=== PATIENT | female | born 1935 | race Caucasian/White ===

== ENCOUNTER 2019-07-07 15:02 | Observation (INO) | payer OTHER, SELFPAY ==
--- NOTE | ~2019-07-07 | XR_ITS ---
EXAMINATION: XR ERCP EXAM DATE: 07/09/2019 12:07 INDICATION: Choledocholithiasis. TECHNIQUE: Fluoroscopy used during XR ERCP performed by Dr. Satish Rosales MD. The DAP for this pr ocedure was 0.63 mGym2. Correlation made with CT abdomen 07/07/2019 FINDINGS: The common bile duct was cannulated, injected. There is severe common bile duct and modera te intrahepatic biliary duct dilation. There is no filling defect identified on images available. Co rrelate with procedure note. IMPRESSION: Fluoroscopy used during XR ERCP. Severe CBD dilation. Reviewed, dictated and finalized at location A.
--- NOTE | ~2019-07-07 | XR_ITS ---
EXAMINATION: XR chest 1V portable DATE: 07/07/2019 15:54 INDICATION: Epigastric pain TECHNIQUE: frontal view of the chest was obtained. COMPARISON: Chest radiograph dated 12/25/2017 FINDINGS: The lungs remain clear with no focal airspace opacities, pulmonary edema, pleural effusion or pneumot horax. The cardiomediastinal silhouette is normal. Moderate degenerative skeletal changes in the spin e and at both shoulders. IMPRESSION: 1. No acute cardiopulmonary disease. Reviewed, dictated and finalized at location A.
--- NOTE | ~2019-07-07 | CT_ITS ---
EXAMINATION: CT abdomen pelvis w con DATE: 07/07/2019 16:59 INDICATION: Epigastric pain. TECHNIQUE: Computed tomography (CT) of the abdomen and pelvis was performed with 100 mL Omnipaque-350 intravenous contrast. Automated exposure control and iterative reconstruction technique were employe d. The dose-length product was 479.05 mGy-cm. COMPARISON: 12/15/2017 FINDINGS: Mild bronchiectasis at the bilateral lung bases. Peripheral reticular opacities in the lower lungs wh ich could represent atelectasis or nonspecific interstitial pneumonia (NSIP)pattern chronic interstit ial lung disease. Heart size is normal. No pericardial or pleural effusion. Small sliding-type hiatal hernia. Again seen is intra and extra hepatic biliary ductal dilation which could be related to prio r cholecystectomy with surgical clips at the gallbladder fossa. There is however subtle heterogeneous attenuation within the lumen of the distal common bile duct and could not exclude internal debris or obstructing gallstones. Mild focal hepatic steatosis at the ligamentum teres. Spleen, pancreas, bila teral adrenal glands and kidneys are normal. Mild diffuse bladder wall thickening. Small focus of gas within the bladder. Pelvic floor relaxation. The uterus is not identified and has likely been surgic ally resected. There is moderate colonic diverticulosis with a sigmoid predominance. There is no adj acent inflammatory change to suggest diverticulitis. Small bowel and appendix are normal. No free in traperitoneal gas or fluid. No pathologically enlarged abdominal or pelvic lymphadenopathy. There is calcified atherosclerosis of the aorta and many of the other arteries. Severe lumbar facet osteoarthr itis. Anterior fusion at L5-S1. Moderate bilateral hip osteoarthritis. IMPRESSION: 1. Intra and extra hepatic biliary ductal dilation which could be related to prior cholecystectomy ho wever there is suggestion of subtle gallstones versus debris within the distal common bile duct. [place] with liver function tests and consider MRCP for further evaluation. 2. Tiny focus of gas within the bladder with diffuse mild wall thickening which could be related to c ystitis. Correlate with urinalysis and for history of recent catheterization/instrumentation. 3. Diverticulosis. 4. Small sliding-type hiatal hernia. Reviewed, dictated and finalized at location A. IMPRESSION: 1. Intra and extra hepatic biliary ductal dilation which could be related to pr ior cholecystectomy however there is suggestion of subtle gallstones versus liliam ris within the distal common bile duct. Correlate with liver function tests and consider MRCP for further evaluation. 2. Tiny focus of gas within the bladder with diffuse mild wall thickening which could be related to cystitis. Correlate with urinalysis and for history of rec ent catheterization/instrumentation. 3. Diverticulosis. 4. Small sliding-type hiatal hernia.
--- NOTE | ~2019-07-07 | MR_ITS ---
EXAMINATION: MR MRCP wo/w con/w 3D wo ind DATE: 07/08/2019 13:01 INDICATION: Dilated bile ducts. Abnormal liver function tests. TECHNIQUE: Magnetic resonance imaging (MRI) of the abdomen was performed without and with 15 mL Multi Jabari intravenous contrast. Sequences included coronal T2-weighted FS FSE, coronal T2-weighted FSE, a xial T1-weighted LAVA, coronal FS FIESTA, axial dual-echo T1-weighted SPGR, coronal lava-FLEX, sagitt al T2-weighted FSE, axial T2-weighted FSE, and axial DWI. Thick-slab T2-weighted FSE images were obta ined for magnetic resonance cholangiopancreatography (MRCP). Maximum intensity projection 3-D reconst ructions of the volumetric data were created by the technologist. Postcontrast sequences included cor onal LAVA-flex and time course of axial T1-weighted LAVA. COMPARISON: MRCP 12/16/2017, CT abdomen and pelvis 07/07/2019 FINDINGS: ABDOMEN MRI: There is severe intrahepatic biliary duct dilatation. The common duct is dilated to 16 m m. The gallbladder is absent. There is a 6 mm lesion of increased T2-weighted signal intensity in the spleen, likely benign. The pancreas, adrenal glands, and kidneys are normal. There are no dilated lo ops of bowel. ABDOMEN MRCP: There is intrahepatic and extrahepatic biliary duct dilatation. There is a 4 mm stone i n the common duct. IMPRESSION: 1. 4 mm nonobstructing stone in the common bile duct. 2. Severe intrahepatic and extrahepatic biliary duct dilatation, stable from 12/16/2017. Reviewed, dictated and finalized at location A. IMPRESSION: 1. 4 mm nonobstructing stone in the common bile duct. 2. Severe intrahepatic and extrahepatic biliary duct dilatation, stable from .
[2019-07-07 15:04] VITALS: BP 186/73; PULSE 58; RESP 18; TEMP 36.6; O2SAT 99
--- NOTE | 2019-07-07 15:17 | ECG_ITS ---
Measurements Intervals [place] Rate: 67 P: 65 PA: 131 QRS: 19 QRSD: 113 T: 49 QT: 408 QTc: 431 Interpretive Statements SINUS RHYTHM INTRAVENTRICULAR CONDUCTION DELAY BORDERLINE ST ABNORMALITY- ANTERIOR LEADS BORDERLINE ECG Electronically Signed On 07-08-2019 7:14:31 CDT by Jeff Verma D.O.
--- NOTE | 2019-07-07 15:27 | ED.GENADULT ---
HPI - General Adult General Chief complaint: Unspecified <DAIANA Linder Last Filed: 07/07/19 20:16> Stated complaint: I need to be checked out. <DAIANA Linder Last Filed: 07/07/19 20:16> Time Seen by Provider: 07/07/19 15:09 <DAIANA Linder Last Filed: 07/07/19 20:16> Source: patient <DAIANA Linder Last Filed: 07/07/19 20:16> Mode of arrival: ambulatory <DAIANA Linder Last Filed: 07/07/19 20:16> Limitations: no limitations <DAIANA Linder Last Filed: 07/07/19 20:16> History of Present Illness HPI narrative: Patient is an 84-year-old female who presents to emergency department for evaluation of epigastric abdominal pain that is been present for the last several hours is an aching pain in the epigastrium which subsided just prior to arrival but came per request of family members patient. On arrival to emergency department resting comfortably in no distress. Patient notes last year she had a bout of pancreatitis. Patient denies radiation of pain or pain in other locations. Patient denies recent illness or sick contacts <DAIANA Linder Last Filed: 07/07/19 20:16> Related Data Home medications: Home Medications Medication Instructions Recorded Confirmed aspirin [Adult Low Dose Aspirin] 81 mg PO DAILY 07/07/19 07/07/19 bimatoprost [Lumigan] 1 drp OPHTHALMIC (EYE) QPM 07/07/19 07/07/19 bisoprolol fumarate 5 mg PO DAILY 07/07/19 07/07/19 levothyroxine 75 mcg PO DAILY 07/07/19 07/07/19 lisinopril 20 mg PO DAILY 07/07/19 07/07/19 simvastatin 20 mg PO DAILY 07/07/19 07/07/19 timolol maleate 1 drp OPHTHALMIC (EYE) DAILY 07/07/19 07/07/19 <DAIANA Linder Last Filed: 07/07/19 20:16> Allergies/adverse reactions: Allergies Allergy/AdvReac Type Severity Reaction Status Date / Time No Known Allergies Allergy Verified 07/07/19 15:20 <Huang Zuleta PA-C - Last Filed: 07/07/19 20:16> Review of Systems Review of Systems: All systems reviewed & are unremarkable except as noted in HPI and below <Huang Zuleta PA-C - Last Filed: 07/07/19 20:16> PMFSH Past Medical History Medical History: Medical History (Updated 07/08/19 @ 12:01 by Tanja Styles PA-C) Hyperlipidemia Hypertension Hypothyroidism Osteoarthritis Pancreatitis <Huang Zuleta PA-C - Last Filed: 07/07/19 20:16> Surgical History Surgical History: Surgical History (Updated 07/08/19 @ 11:34 by Tanja Styles PA-C) H/O hysterectomy for benign disease History of cholecystectomy ~1979 History of knee replacement Bilateral <Huang Zuleta PA-C - Last Filed: 07/07/19 20:16> Family History Family History: Family History (Updated 07/08/19 @ 11:34 by Tanja Styles PA-C) Mother Congestive heart failure Sibling Congestive heart failure Father Pancreatic cancer <Huang Zuleta PA-C - Last Filed: 07/07/19 20:16> Social History Social History: Social History (Updated 07/08/19 @ 11:36 by Tanja Styles PA-C) Social History: Ms. Flores lives alone at home. She has 6 adult children. She designates her daughter, Gisele Tejeda, as her POA. She would like to be a DNR. Smoking status: Never smoker Alcohol intake: never Substance use: never Living arrangements: alone Occupation/Education: retired Gender identity (if verbalized by the patient): Female Spiritual care concerns: No <Huang Zuleta PA-C - Last Filed: 07/07/19 20:16> Exam Narrative: Exam Narrative: GENERAL: Well-appearing, well-nourished, and in no acute distress. HEAD: Normocephalic, atraumatic. EYES: PERRLA and EOMI. ENT: Nares clear, no rhinorrhea or epistaxis. Mucous membranes moist. CHEST: Clear to auscultation. No respiratory distress. No wheezes rales or rhonchi HEART: Regular rate and rhythm. No murmur heard. Normal peripheral pulses. ABDOMEN: Soft, epi
[2019-07-07 15:36] LABS: Basophils Percent Auto 0.3 % (0.2-1.2); Eosinophils Absolute Auto 0.2 K/mm3 (0-0.3); Eosinophils Percent Auto 2.4 % (0-4.4); Hematocrit 37.5 % (37.0-47.0); Hemoglobin 12.3 g/dL (12.0-15.0); Immature Granulocyte Absolute 0.02 K/mm3 (0.00-0.031); Immature Granulocyte Percent A 0.3 % (0-0.5); Lymphocytes Percent Auto 27.9 % (18.3-44.2); Mean Corpuscular HGB Conc 32.8 g/dl (32-36); Mean Corpuscular Hemoglobin 29.7 pg (26-34); Mean Corpuscular Volume 90.6 fl (80-100); Mean Platelet Volume 10.3 fl (7.4-10.4); Monocytes Absolute Auto 0.3 K/mm3 (0.1-0.6); Neutrophils Absolute Auto 4.4 K/mm3 (1.3-6.7); Neutrophils Percent Auto 64.1 % (45.5-73.1); Platelet Count Result 211 k/mm3 (150-375); Red Blood Count 4.14 M/mm3 (4.2-5.4); Red Cell Distribution Width 12.1 % (11.5-14.5); White Blood Count 6.8 K/mm3 (4.5-10.0)
[2019-07-07 15:47] LABS: Partial Thromboplastin Time 30.3 SECONDS (22.3-36.8); Prothrombin Time 12.4 Seconds (11.1-14.7)
[2019-07-07 15:49] LABS: Alanine Aminotransferase 46 U/L (4-35); Albumin Level 4.5 g/dL (3.5-5.1); Alkaline Phosphatase 132 U/L (38-126); Aspartate Amino Transferase 91 U/L (14-36); Bilirubin,Total 1.2 mg/dL (0.2-1.3); Blood Urea Nitrogen 24 mg/dL (7-17); Calcium 9.3 mg/dL (8.4-10.2); Carbon Dioxide 28 mmol/L (22-30); Chloride 103 mmol/L (98-107); Estimated CRCL calculation 40 ml/min; Estimated Glomerular Filt Rate 53; Glucose 96 mg/dL (65-105); Lipase 354 U/L (23-300); Potassium 4.5 mmol/L (3.4-5.0); Sodium 138 mmol/L (137-145)
[2019-07-07 16:00] LABS: Troponin I < 0.012 ng/mL (0.000-0.034)
[2019-07-07] MEDS: FAMOTIDINE 20 MG/2 ML VIAL IV PUSH (16:07)
[2019-07-07] MEDS: SODIUM CHLORIDE 0.9% IV 1,000 ML 999 ML IV CONT (16:07)
[2019-07-07] MEDS: BELLADONNA ALK/PHENOB ELIX 10 ML, MAG HYDROX/ALUMINUM HYD/SIMETH 30 ML, LIDOCAINE HCL 2... PO (16:07)
--- NOTE | 2019-07-07 17:16 | PC.NURSE ---
Pt unable to void at this time.
[2019-07-07] MEDS: MORPHINE SULFATE 4 MG/ML INJ IV PUSH (17:58)
[2019-07-07 18:56] LABS: Troponin I < 0.012 ng/mL (0.000-0.034)
--- NOTE | 2019-07-07 19:38 | PC.NURSE ---
Bedside report to ROGELIO Levin, to continue care.
[2019-07-07 19:45] VITALS: BP 155/77; PULSE 68; RESP 14; O2SAT 97
[2019-07-07 20:37] LABS: Add Urine Microscopic? YES; Appearance Urine Clear (Clear); Bacteria Urine Trace /hpf; Bilirubin Urine Negative (Negative); Blood Urine Negative (Negative); Color Urine Yellow (Yellow); Glucose Urine UA Negative (Negative); Ketones Urine Negative (Negative); Leukocyte Esterase Ur 1+ LEU/UL (Negative); Mucus Urine Rare /lpf; Nitrate Urine Negative (Negative); Protein Urine Negative (Negative); Specific Grav Ur 1.026 (1.001-1.035); Urobilinogen Urine Negative mg/dL (<2.0)
[2019-07-07 21:55] VITALS: BP 147/82; PULSE 62; RESP 18; O2SAT 100
[2019-07-07 22:00] VITALS: BP 154/83; PULSE 75; RESP 20; TEMP 36.8; O2SAT 93
[2019-07-07 22:39] VITALS: BMI 28.8
--- NOTE | 2019-07-07 22:46 | ADMGEN ---
This patient, Cara Flores, was admitted to [facility] Surg Room 313-01. Patient/family oriented to hospital policies and general routines including ID bracelet, bed and alarms, visiting hours, pain management, procedures, bathroom and other care routines, personal items, smoking policy, room service/diet, and visiting hours. Valuables list has been completed. Information on how to activate the Rapid Response Team has been discussed. Patient/Family are encouraged to report perceived risks to care and to ask questions if they do not understand what they are told or what they should do.
[2019-07-07] MEDS: LACTATED RINGERS 1,000 ML 125 ML IV CONT (23:05)
[2019-07-07 23:58] LABS: Troponin I < 0.012 ng/mL (0.000-0.034)
[2019-07-08] VITALS (16 sets, daily range): BP systolic 115–172; BP diastolic 48–92; PULSE 57–74; RESP 16–22; TEMP 36.7–38; O2SAT 93–98
[2019-07-08] MEDS: LACTATED RINGERS 1,000 ML 125 ML IV CONT (06:06)
[2019-07-08 06:20] LABS: Eosinophils Percent Auto 0.7 % (0-4.4); Hematocrit 34.8 % (37.0-47.0); Hemoglobin 11.5 g/dL (12.0-15.0); Immature Granulocyte Absolute 0.01 K/mm3 (0.00-0.031); Immature Granulocyte Percent A 0.2 % (0-0.5); Lymphocytes Absolute Auto 0.66 K/mm3 (0.9-3.2); Lymphocytes Percent Auto 16.2 % (18.3-44.2); Mean Corpuscular Hemoglobin 29.7 pg (26-34); Mean Corpuscular Volume 89.9 fl (80-100); Mean Platelet Volume 10.4 fl (7.4-10.4); Monocytes Absolute Auto 0.2 K/mm3 (0.1-0.6); Monocytes Percent Auto 5.2 % (2.6-8.5); Neutrophils Absolute Auto 3.2 K/mm3 (1.3-6.7); Neutrophils Percent Auto 77.7 % (45.5-73.1); Platelet Count Result 156 k/mm3 (150-375); Red Blood Count 3.87 M/mm3 (4.2-5.4); Red Cell Distribution Width 12.3 % (11.5-14.5); White Blood Count 4.1 K/mm3 (4.5-10.0)
[2019-07-08 06:38] LABS: Alanine Aminotransferase 287 U/L (4-35); Albumin Level 3.8 g/dL (3.5-5.1); Alkaline Phosphatase 163 U/L (38-126); Aspartate Amino Transferase 346 U/L (14-36); Bilirubin,Total 3.6 mg/dL (0.2-1.3); Blood Urea Nitrogen 17 mg/dL (7-17); Calcium 8.8 mg/dL (8.4-10.2); Carbon Dioxide 28 mmol/L (22-30); Chloride 106 mmol/L (98-107); Estimated CRCL calculation 45 ml/min; Estimated Glomerular Filt Rate 60; Glucose 103 mg/dL (65-105); Potassium 3.9 mmol/L (3.4-5.0); Sodium 139 mmol/L (137-145)
--- NOTE | 2019-07-08 08:15 | WPDGICN ---
Assessment and Plan Assessment and plan (1) Abdominal pain: Code(s): R10.9 - Unspecified abdominal pain Status: Acute Assessment and Plan: Abdominal pain with prompt improvement with antacids suggest dyspepsia. Plan is for EGD this morning. We will continue trial of proton pump inhibitors. (2) Elevated LFTs: Code(s): R79.89 - Other specified abnormal findings of blood chemistry Status: Acute Assessment and Plan: Elevated LFTs suggest she may have passed common bile duct sludge or debris. CT scan in the emergency room suggested dilated biliary tree. Plan is to assess more thoroughly with MRCP. Liver function tests will continue to be monitored. GI Consult Note Consult date/time: 07/08/19 08:15 HPI: Cara Flores is a 84 year old female Seen in evaluation at the request of the emergency room. Patient in usual state till yesterday afternoon . patient developed rather sudden severe epigastric pain in the afternoon. This lasted for several hours. In the emergency room she obtain rather significant prompt relief with the oral antacid trial. patient did have recurrence of this pain briefly but has subsequently abated. patient states that she had a similar intense pain 1-1/2 years ago. At that time was found to have pancreatitis. MRCP and subsequent ERCP revealed a normal biliary tree. Last evening her liver tests were slightly elevated and continued be elevated this morning. Patient denies any nausea or vomiting. Lipase in the emergency room was essentially normal. Family history is noncontributory. Patient has a distant history of cholecystectomy. Past medical history is significant for hypertension, hypothyroidism, elevated cholesterol. No known drug allergies. Review of Systems Review of Systems: All systems reviewed & are unremarkable except as noted in HPI and below PMFSH Past Medical History Medical History Hypertension Pancreatitis Surgical History Surgical History H/O hysterectomy for benign disease Family History Family History Mother Congestive heart failure Sibling Congestive heart failure Social History Social History Smoking status: Never smoker Alcohol intake: never Substance use: never Gender identity (if verbalized by the patient): Female Spiritual care concerns: No Meds Home Medications and Allergies Home Medications Medication Instructions Recorded Confirmed Type aspirin [Adult Low Dose Aspirin] 81 mg PO DAILY 07/07/19 07/07/19 History bimatoprost [Lumigan] 1 drp OPHTHALMIC (EYE) QPM 07/07/19 07/07/19 History bisoprolol fumarate 5 mg PO DAILY 07/07/19 07/07/19 History levothyroxine 75 mcg PO DAILY 07/07/19 07/07/19 History lisinopril 20 mg PO DAILY 07/07/19 07/07/19 History simvastatin 20 mg PO DAILY 07/07/19 07/07/19 History timolol maleate 1 drp OPHTHALMIC (EYE) DAILY 07/07/19 07/07/19 History Allergies Allergy/AdvReac Type Severity Reaction Status Date / Time No Known Allergies Allergy Verified 07/07/19 15:20 Vital Signs Vital Signs - 24 hr 07/07/19 15:04 07/07/19 19:45 07/07/19 21:55 Temperature 36.6 C Pulse Rate 58 L 68 62 Respiratory Rate 18 14 18 Blood Pressure 186/73 H 155/77 H 147/82 H Pulse Oximetry 99 97 100 07/07/19 22:00 07/08/19 00:00 07/08/19 02:00 Temperature 36.8 C 36.9 C Pulse Rate 75 57 L 58 L Respiratory Rate 20 20 Blood Pressure 154/83 H 123/92 H Pulse Oximetry 93 98 07/08/19 04:00 07/08/19 06:00 Temperature 36.7 C Pulse Rate 66 72 Respiratory Rate 18 Blood Pressure 172/91 H Pulse Oximetry 94 Exam Narrative: Exam Narrative: Physical exam reveals patient to be alert. Vital signs are stable. HEENT exam unremarkable. She is anicteric. Cass
[2019-07-08] MEDS: bisoproloL fumarate 5 MG TABLET PO (08:20)
[2019-07-08 08:53] LABS: Bilirubin Direct 1.4 mg/dL (0-0.3); Bilirubin Indirect 1.9 mg/dL (0-1.1); Bilirubin,Total 4.3 mg/dL (0.2-1.3)
[2019-07-08] MEDS: LACTATED RINGERS 1,000 ML 150 ML IV CONT (09:04)
--- NOTE | 2019-07-08 09:05 | SUR.PREOP ---
PT TRANSPORTED TO ENDO VIA STRETCHER ON TELEMETRY. PLACED ON MONITOR IN ENDOSCOPY, OCC. PJC'S/PVC'S, NOTED OTHERWISE SINUS RYTHYM DENIES ANY SOB, CHEST PAIN/PRESSURE OR LIGHTHEADEDNESS.
--- NOTE | 2019-07-08 09:06 | WPDANESEPPF ---
Anes - Initial Pre Proc Eval Procedure: Operation Date: 07/08/19 09:00 Proposed Procedures p Esophagogastroduodenoscopy - Satish Rosales MD Date/Time: 07/08/19 09:06 Surgeon: Mercy Wade DO Pre Op Diagnosis: Abdominal pain, Elevated liver enzymes Patient Data Age: 84 Gender: F Height: 5 ft 7 in Weight: 83.4 kg Last Vital Signs Temp 100.4 F H 07/08/19 08:54 Pulse 72 07/08/19 08:54 Resp 18 07/08/19 08:54 BP 144/63 H 07/08/19 08:54 Pulse Ox 94 07/08/19 08:54 Allergies Allergy/AdvReac Type Severity Reaction Status Date / Time No Known Allergies Allergy Verified 07/07/19 15:20 Home Medications Medication Instructions Recorded Confirmed Type aspirin [Adult Low Dose Aspirin] 81 mg PO DAILY 07/07/19 07/07/19 History bimatoprost [Lumigan] 1 drp OPHTHALMIC (EYE) QPM 07/07/19 07/07/19 History bisoprolol fumarate 5 mg PO DAILY 07/07/19 07/07/19 History levothyroxine 75 mcg PO DAILY 07/07/19 07/07/19 History lisinopril 20 mg PO DAILY 07/07/19 07/07/19 History simvastatin 20 mg PO DAILY 07/07/19 07/07/19 History timolol maleate 1 drp OPHTHALMIC (EYE) DAILY 07/07/19 07/07/19 History Laboratory Tests 07/07/19 07/07/19 07/07/19 15:22 15:23 15:23 WBC 6.8 K/mm3 K/mm3 (4.5-10.0) RBC 4.14 M/mm3 L M/mm3 (4.2-5.4) Hgb 12.3 g/dL g/dL (12.0-15.0) Hct 37.5 % % (37.0-47.0) MCV 90.6 fl fl (80-100) MCH 29.7 pg pg (26-34) MCHC 32.8 g/dl g/dl (32-36) RDW 12.1 % % (11.5-14.5) Plt Count 211 k/mm3 k/mm3 (150-375) MPV 10.3 fl fl (7.4-10.4) Immature Gran % (Auto) 0.3 % % (0-0.5) Neut % (Auto) 64.1 % % (45.5-73.1) Lymph % (Auto) 27.9 % % (18.3-44.2) [place] % (Auto) 5.0 % % (2.6-8.5) Eos % (Auto) 2.4 % % (0-4.4) Baso % (Auto) 0.3 % % (0.2-1.2) Lymph # (Auto) 1.90 K/mm3 K/mm3 (0.9-3.2) [place] # (Auto) 0.3 K/mm3 K/mm3 (0.1-0.6) Eos # (Auto) 0.2 K/mm3 K/mm3 (0-0.3) Baso # (Auto) 0.0 K/mm3 K/mm3 (0.0-0.1) Abs Immat Gran (auto) 0.02 K/mm3 K/mm3 (0.00-0.031) Absolute Neuts (auto) 4.4 K/mm3 K/mm3 (1.3-6.7) Absolute Nucleated RBC 0.0 K/mm3 K/mm3 (0.0-0.012) Nucleated RBC % 0.0 % % (0.0-0.2) PT 12.4 Seconds Seconds (11.1-14.7) INR 1.0 APTT 30.3 SECONDS SECONDS (22.3-36.8) Sodium 138 mmol/L mmol/L (137-145) Potassium 4.5 mmol/L mmol/L (3.4-5.0) Chloride 103 mmol/L mmol/L (98-107) Carbon Dioxide 28 mmol/L mmol/L (22-30) BUN 24 mg/dL H mg/dL (7-17) Creatinine 1.00 mg/dL mg/dL (0.7-1.0) Estim Creat Clear Calc 40 ml/min ml/min Estimated GFR 53 L (59 - ) Glucose 96 mg/dL mg/dL (65-105) Calcium 9.3 mg/dL mg/dL (8.4-10.2) Total Bilirubin 1.2 mg/dL mg/dL (0.2-1.3) Direct Bilirubin Indirect Bilirubin AST 91 U/L H U/L (14-36) ALT 46 U/L H U/L (4-35) Alkaline Phosphatase 132 U/L H U/L (38-126) Troponin I < 0.012 ng/mL ng/mL (0.000-0.034) Total Protein 7.0 g/dL g/dL (6.3-8.2) Albumin 4.5 g/dL g/dL (3.5-5.1) Lipase 354 U/L H U/L (23-300) Urine Color Urine Appearance Urine pH Ur Specific Veteran Urine Protein Urine Glucose (UA) Urine Ketones Ur Blood (Man) Urine Nitrate Urine Bilirubin Urine Urobilinogen Leukocyte Esterase Rfl Urine RBC Urine WBC Urine Bacteria Urine Mucus 07/07/19 07/07/19 07/07/19 18:27 20:26 22:54 WBC RBC Hgb Hct
[2019-07-08] MEDS: BENZOCAINE (*SP) 60 ML SPRAY CAN (HURRICAINE) 1 SPRAY MUCOUS MEM (09:09)
--- NOTE | 2019-07-08 11:11 | PM.IMHP ---
H&P: HPI History of Present Illness Chief complaint: Abdominal pain, Elevated liver enzymes Narrative: Date of admission: 07/07/2019 Date of service: 07/08/2019 Cara Flores is a 84 year old female with a PMH significant for hypertension and hyperlipidemia who presented to the emergency department on 07/07/2019 with complaints of epigastric pain. Around 1:00 p.m. on Monday, 07/06, she developed a feeling of aching discomfort in her chest and epigastric region. She stated that she felt as if she needed to burp but could not. This pain did not radiate. She attempted to drink water and a diet Coke to reduce her symptoms and help her belch, which did not alleviate her symptoms. This episode lasted approximately 1 hour. She tells me her children were concerned about this episode and urged her to go to the emergency department for evaluation. She was hesitant to do so as her symptoms had resolved. However, upon arrival to the emergency department she had another brief episode of epigastric pain. This resolved swiftly with antacid therapy. She denied any nausea or vomiting. She denied associated chest pain, shortness of breath, palpitations, diaphoresis, or anxiety. CT abdomen/pelvis revealed biliary duct dilation with suggestion of subtle gallstones versus debris within the distal common bile duct. Her liver enzymes were elevated. Her lipase was very mildly elevated. Her troponins were negative. At this time, she denies any epigastric pain. She is feeling in her usual state of health. Her urinalysis was abnormal at presentation, however she denies dysuria, hematuria, frequency, suprapubic discomfort, flank pain, or back pain. She does endorse urgency and noted that her urine was much darker than normal. She denies subjective fevers or chills. Her appetite has been good. Review of Systems Review of Systems: Narrative: A 12 point review of systems was reviewed with pertinent positives and negatives as per HPI. [facility] Past Medical History Medical History (Updated 07/08/19 @ 12:01 by Tanja Styles PA-C) Hyperlipidemia Hypertension Hypothyroidism Osteoarthritis Pancreatitis Surgical History Surgical History (Updated 07/08/19 @ 11:34 by Tanja Styles PA-C) H/O hysterectomy for benign disease History of cholecystectomy ~1980 History of knee replacement Bilateral Family History Family History (Updated 07/08/19 @ 11:34 by Tanja Styles PA-C) Mother Congestive heart failure Sibling Congestive heart failure Father Pancreatic cancer Social History Social History (Updated 07/08/19 @ 11:36 by Tanja Styles PA-C) Social History: Ms. Folres lives alone at home. She has 6 adult children. She designates her daughter, Gisele Tejeda, as her POA. She would like to be a DNR. Smoking status: Never smoker Alcohol intake: never Substance use: never Living arrangements: alone Occupation/Education: retired Gender identity (if verbalized by the patient): Female Spiritual care concerns: No Meds Home Medications and Allergies Home Medications Medication Instructions Recorded Confirmed Type aspirin [Adult Low Dose Aspirin] 81 mg PO DAILY 07/07/19 07/07/19 History bimatoprost [Lumigan] 1 drp OPHTHALMIC (EYE) QPM 07/07/19 07/07/19 History bisoprolol fumarate 5 mg PO DAILY 07/07/19 07/07/19 History levothyroxine 75 mcg PO DAILY 07/07/19 07/07/19 History lisinopril 20 mg PO DAILY 07/07/19 07/07/19 History simvastatin 20 mg PO DAILY 07/07/19 07/07/19 History timolol maleate 1 drp OPHTHALMIC (EYE) DAILY 07/07/19 07/07/19 History Allergies Allergy/AdvReac Type Severity Reaction Status Date / Time No Known Allergies Allergy Verified 07/07/19 15:20 Vital Signs Vital Signs - 24 hr 07/07/19 15:04 07/07/19 19:45 07/07/19 21:55 Temperature 97.9 F Pulse Rate 58 L 68 62 Respiratory Rate 18 14 18 Blood Pressure 186/73 H 155/77 H 147/82 H Pulse Oximetry 99 97
[2019-07-08] MEDS: TIMOLOL MALEATE 0.5% OP SOLN 5 ML BTL 1 DROP EACH EYE (11:18)
[2019-07-08] MEDS: PANTOPRAZOLE SODIUM IV 40 MG VIAL IV PUSH (11:20)
[2019-07-08 12:42] LABS: Lipase 91 U/L (23-300)
[2019-07-08] MEDS: LACTATED RINGERS 1,000 ML 80 ML IV CONT ×2 (13:33→22:04)
[2019-07-08] MEDS: ACETAMINOPHEN 325 MG TABLET 650 MG PO (13:50)
[2019-07-08] MEDS: LATANOPROST 0.005% OP SOLN 2.5 ML BTL 1 DROP EACH EYE (16:55)
[2019-07-09] VITALS (16 sets, daily range): BP systolic 140–169; BP diastolic 55–99; PULSE 61–97; RESP 16–22; TEMP 37.1–37.7; O2SAT 91–100
[2019-07-09] MEDS: LEVOTHYROXINE SODIUM 75 MCG TABLET PO (06:00)
[2019-07-09 06:08] LABS: Basophils Percent Auto 0.2 % (0.2-1.2); Eosinophils Percent Auto 0.6 % (0-4.4); Hematocrit 33.4 % (37.0-47.0); Hemoglobin 10.9 g/dL (12.0-15.0); Immature Granulocyte Absolute 0.01 K/mm3 (0.00-0.031); Immature Granulocyte Percent A 0.2 % (0-0.5); Lymphocytes Absolute Auto 0.85 K/mm3 (0.9-3.2); Lymphocytes Percent Auto 18.2 % (18.3-44.2); Mean Corpuscular HGB Conc 32.6 g/dl (32-36); Mean Corpuscular Hemoglobin 29.8 pg (26-34); Mean Corpuscular Volume 91.3 fl (80-100); Mean Platelet Volume 10.8 fl (7.4-10.4); Monocytes Absolute Auto 0.3 K/mm3 (0.1-0.6); Monocytes Percent Auto 6.7 % (2.6-8.5); Neutrophils Absolute Auto 3.5 K/mm3 (1.3-6.7); Neutrophils Percent Auto 74.1 % (45.5-73.1); Platelet Count Result 150 k/mm3 (150-375); Red Blood Count 3.66 M/mm3 (4.2-5.4); Red Cell Distribution Width 12.6 % (11.5-14.5); White Blood Count 4.7 K/mm3 (4.5-10.0)
[2019-07-09 06:37] LABS: Alanine Aminotransferase 196 U/L (4-35); Albumin Level 3.6 g/dL (3.5-5.1); Alkaline Phosphatase 184 U/L (38-126); Aspartate Amino Transferase 144 U/L (14-36); Bilirubin,Total 3.3 mg/dL (0.2-1.3); Blood Urea Nitrogen 14 mg/dL (7-17); Calcium 8.4 mg/dL (8.4-10.2); Carbon Dioxide 25 mmol/L (22-30); Chloride 107 mmol/L (98-107); Estimated CRCL calculation 45 ml/min; Estimated Glomerular Filt Rate 60; Glucose 137 mg/dL (65-105); Potassium 3.4 mmol/L (3.4-5.0); Sodium 139 mmol/L (137-145)
[2019-07-09 07:11] LABS: Thyroid Stimulating Hormone Reflex 0.098 uIU/mL (0.465-4.68)
[2019-07-09 07:36] LABS: Lipase 3626 U/L (23-300)
--- NOTE | 2019-07-09 08:52 | WPDANESEPPF ---
Anes - Initial Pre Proc Eval Procedure: Operation Date: 07/08/19 09:00 Proposed Procedures p Esophagogastroduodenoscopy - Satish Rosales MD Operation Date: 07/09/19 09:30 Proposed Procedures p Endoscopic Retro Cholangiopancreatogram - Satish Rosales MD Date/Time: 07/09/19 08:52 Surgeon: Stacey De La Vega PA-C Pre Op Diagnosis: Abdominal pain, Elevated liver enzymes Patient Data Age: 84 Gender: F Height: 5 ft 7 in Weight: 83.4 kg Last Vital Signs Temp 37.4 C 07/09/19 06:00 Pulse 84 07/09/19 06:00 Resp 16 07/09/19 06:00 BP 140/66 07/09/19 06:00 Pulse Ox 93 07/09/19 06:00 Allergies Allergy/AdvReac Type Severity Reaction Status Date / Time No Known Allergies Allergy Verified 07/07/19 15:20 Home Medications Medication Instructions Recorded Confirmed Type aspirin [Adult Low Dose Aspirin] 81 mg PO DAILY 07/07/19 07/07/19 History bimatoprost [Lumigan] 1 drp OPHTHALMIC (EYE) QPM 07/07/19 07/07/19 History bisoprolol fumarate 5 mg PO DAILY 07/07/19 07/07/19 History levothyroxine 75 mcg PO DAILY 07/07/19 07/07/19 History lisinopril 20 mg PO DAILY 07/07/19 07/07/19 History simvastatin 20 mg PO DAILY 07/07/19 07/07/19 History timolol maleate 1 drp OPHTHALMIC (EYE) DAILY 07/07/19 07/07/19 History Laboratory Tests 07/07/19 07/07/19 07/07/19 15:22 15:23 15:23 WBC 6.8 K/mm3 K/mm3 (4.5-10.0) RBC 4.14 M/mm3 L M/mm3 (4.2-5.4) Hgb 12.3 g/dL g/dL (12.0-15.0) Hct 37.5 % % (37.0-47.0) MCV 90.6 fl fl (80-100) MCH 29.7 pg pg (26-34) MCHC 32.8 g/dl g/dl (32-36) RDW 12.1 % % (11.5-14.5) Plt Count 211 k/mm3 k/mm3 (150-375) MPV 10.3 fl fl (7.4-10.4) Immature Gran % (Auto) 0.3 % % (0-0.5) Neut % (Auto) 64.1 % % (45.5-73.1) Lymph % (Auto) 27.9 % % (18.3-44.2) [place] % (Auto) 5.0 % % (2.6-8.5) Eos % (Auto) 2.4 % % (0-4.4) Baso % (Auto) 0.3 % % (0.2-1.2) Lymph # (Auto) 1.90 K/mm3 K/mm3 (0.9-3.2) [place] # (Auto) 0.3 K/mm3 K/mm3 (0.1-0.6) Eos # (Auto) 0.2 K/mm3 K/mm3 (0-0.3) Baso # (Auto) 0.0 K/mm3 K/mm3 (0.0-0.1) Abs Immat Gran (auto) 0.02 K/mm3 K/mm3 (0.00-0.031) Absolute Neuts (auto) 4.4 K/mm3 K/mm3 (1.3-6.7) Absolute Nucleated RBC 0.0 K/mm3 K/mm3 (0.0-0.012) Nucleated RBC % 0.0 % % (0.0-0.2) PT 12.4 Seconds Seconds (11.1-14.7) INR 1.0 APTT 30.3 SECONDS SECONDS (22.3-36.8) Sodium 138 mmol/L mmol/L (137-145) Potassium 4.5 mmol/L mmol/L (3.4-5.0) Chloride 103 mmol/L mmol/L (98-107) Carbon Dioxide 28 mmol/L mmol/L (22-30) BUN 24 mg/dL H mg/dL (7-17) Creatinine 1.00 mg/dL mg/dL (0.7-1.0) Estim Creat Clear Calc 40 ml/min ml/min Estimated GFR 53 L (59 - ) Glucose 96 mg/dL mg/dL (65-105) Calcium 9.3 mg/dL mg/dL (8.4-10.2) Total Bilirubin 1.2 mg/dL mg/dL (0.2-1.3) Direct Bilirubin Indirect Bilirubin AST 91 U/L H U/L (14-36) ALT 46 U/L H U/L (4-35) Alkaline Phosphatase 132 U/L H U/L (38-126) Troponin I < 0.012 ng/mL ng/mL (0.000-0.034) Total Protein 7.0 g/dL g/dL (6.3-8.2) Albumin 4.5 g/dL g/dL (3.5-5.1) Lipase 354 U/L H U/L (23-300) TSH (Reflex) Free T4 07/08/19 07/08/19 07/09/19 08:30 08:32 05:40 WBC 4.7 K/mm3 K/mm3 (4.5-10.0) RBC 3.66 M/mm3 L M/mm3 (4.2-5.4) Hgb 10.9 g/dL L g/dL (12.0-15.0) Hct 33.4 % L % (37.0-47.0) MCV 91.3 fl fl (80-100) MCH 29.8 pg pg (26-34) MCHC 32.6 g/dl g/dl (32-36) RDW 12.6 % % (11.5-14.5) Plt Count 150
[2019-07-09] MEDS: LACTATED RINGERS 1,000 ML 150 ML IV CONT ×2 (08:56→16:35)
[2019-07-09 10:52] LABS: Free T4 Free Thyroxine Reflex 0.88 ng/dL (0.78-2.19)
[2019-07-09] MEDS: bisoproloL fumarate 5 MG TABLET PO (12:36)
[2019-07-09] MEDS: TIMOLOL MALEATE 0.5% OP SOLN 5 ML BTL 1 DROP EACH EYE (12:36)
[2019-07-09] MEDS: lisinopriL 20 MG TABLET PO (12:37)
[2019-07-09] MEDS: ENOXAPARIN 40 MG/0.4 ML SYRINGE SUB-Q (12:37)
[2019-07-09 12:56] LABS: Total Triiodothyronine (T3) 0.64 NG/ML (0.97-1.69)
[2019-07-09] MEDS: ONDANSETRON INJ 4 MG/2 ML VIAL IV PUSH (13:18)
[2019-07-09] MEDS: MORPHINE SULFATE 4 MG/ML INJ IV PUSH (13:18)
--- NOTE | 2019-07-09 13:30 | OP_ITS ---
DATE OF PROCEDURE: 07/09/2019 PROCEDURE: Endoscopic retrograde cholangiopancreatography plus sphincterotomy and common bile duct balloon clearance. PREOPERATIVE DIAGNOSES: Abnormal magnetic resonance cholangiopancreatography and choledocholithiasis. POSTOPERATIVE DIAGNOSIS: Abnormal magnetic resonance cholangiopancreatography and choledocholithiasis with periampullary diverticulum. DESCRIPTION OF PROCEDURE: Informed consent for the ERCP was obtained from the patient. The risks, benefits, alternatives, and indications, these were all discussed thoroughly with the patient prior to starting sedation. The risks include, but are not limited to, adverse reaction to medications including allergies, the risk of bleeding and possible need for transfusion, the risk of perforation and possible need for surgery, and the risk for missed pathology. The patient voiced clear understanding, agreed to proceed. The patient was sedated with general anesthesia. GoCardlessn side-viewing endoscope was passed through the esophagus, which appeared normal. Stomach was seen in its entirety including U-turn revealed superficial erosion in the gastric antrum. Duodenum revealed normal bulb and sweep to 2nd portion, and in the 2nd portion of the duodenum, ampulla diverticulum was noted. Within a diverticulum, ampulla of Vater was identified and cannulated. Subsequent opacification of the common bile duct revealed suspicion of the distal common bile duct gallstone. For this reason, an 8 mm sphincterotomy was performed. A 9 to 12 mm balloon was used and sludge and debris was withdrawn from the common bile duct. The patient tolerated the procedure well with no immediate complications. PLAN: Is to monitor liver function tests, and slowly advance diet. Discharge in the morning if stable. D I MT: Stu
--- NOTE | 2019-07-09 16:20 | PM.IMPN ---
Progress Note: A&P Assessment and Plan (1) Acute pancreatitis: Qualifiers: Acute pancreatitis complication: no infection or necrosis Pancreatitis type: biliary Qualified Code(s): K85.10 - Biliary acute pancreatitis without necrosis or infection Code(s): K85.90 - Acute pancreatitis without necrosis or infection, unspecified Status: Acute Assessment and Plan: Lipase was elevated today at 3626. Lipase at admission was 91. LFTs are elevated with AST 144, ALT 196, and ALP 184. Bilirubin is also elevated at 3.3. CT abd/pelvis revealed suggestion of subtle gallstones versus debris in the distal common bile duct. MRCP revealed 4mm nonobstructing stone in the common bile duct with severe intrahepatic and extrahepatic biliary duct dilation. She underwent ERCP today by Dr. Rosales. She continues to endorse epigastric discomfort. She denies nausea and vomiting today. This is likely due to her cholelithiasis and biliary sludge/debris which has been treated following ERCP. Continue IV fluids Continue IV analgesics and antiemetics Discussed with Dr. Rosales and will plan to continue CLD at this time as tolerated Will check lipid panel Continue to monitor (2) Gastric ulcer: Qualifiers: Gastric ulcer chronicity: acute Gastric ulcer complication status: without hemorrhage or perforation Qualified Code(s): K25.3 - Acute gastric ulcer without hemorrhage or perforation Code(s): K25.9 - Gastric ulcer, unspecified as acute or chronic, without hemorrhage or perforation Status: Acute Assessment and Plan: Patient underwent EGD by Dr. Rosales 07/08/19 which revealed a few acute, superficial and benign appearing ulcers ranging in size from 4-6mm with no evidence of bleeding. Continue protonix 40mg PO QAM Avoid NSAIDs and ASA (3) Epigastric pain: Code(s): R10.13 - Epigastric pain Status: Acute Assessment and Plan: Patient endorsed epigastric pain without radiation. She had two episodes of intense pain and now complains of lingering discomfort. Cardiac workup was performed with negative troponins and no ST abnormalities. EGD revealed superficial ulcers in the antrum. Her pain is likely multifactorial due to her gastric ulcers and pancreatitis. Plan as above (4) Elevated LFTs: Code(s): R79.89 - Other specified abnormal findings of blood chemistry Status: Acute Assessment and Plan: LFTs are elevated but are trending down. CT abdomen/pelvis reveals intra and extra hepatic biliary ductal dilation with suggestion of subtle gallstones vs debris in distal common bile duct. MRCP revealed 4mm nonobstructing stone in the common bile duct with severe intrahepatic and extrahepatic biliary duct dilation. She underwent ERCP today by Dr. Rosales. Gastroenterology has been consulted and recommendations are appreciated Continue to trend LFTs Hold simvastatin (5) Abnormal urinalysis: Code(s): R82.90 - Unspecified abnormal findings in urine Status: Acute Assessment and Plan: Urinalysis performed in ED has 1+ leukocyte esterase and 10-15 WBC. She reports dysuria and urgency. She had a fever 07/08/19 with Tmax 100.4F and she is afebrile today. Urine cultures and sensitivities are pending. Begin IV ceftriaxone Await urine culture and sensitivities Continue IV fluids and antipyretics (6) Hypertension: Qualifiers: Hypertension type: essential hypertension Qualified Code(s): I10 - Essential (primary) hypertension Code(s): I10 - Essential (primary) hypertension Status: Acute Assessment and Plan: Blood pressure were reviewed and are elevated but I suspect that this is due to pain. BP this afternoon was 142/55 Continue bisoprolol Continue lisinopril Will add hydralazine IV PRN Continue to monitor (7) TSH deficiency: Code(s): E03.8 - Other specified hypothyroidism Status: Acute
[2019-07-09] MEDS: LATANOPROST 0.005% OP SOLN 2.5 ML BTL 1 DROP EACH EYE (18:03)
[2019-07-09 19:22] LABS: Alveolar/Arterial O2 Gradient 97.6 mmHg; Base Excess ABG 0.2 mEq/l (+/-2.0); Fractional Inspired Oxygen 28 %; HCO3 ABG 23.9 mEq/l (22.0-26.0); Oxygen Content ABG 16.4 %vol (16.0-22.0); Oxygen Saturation ABG 92.2 % (95.0-100.0); Oxyhemoglobin 91.9 % THb (90.0-100.0); PCO2 ABG 35.6 mmHg (35.0-45.0); PO2 FiO2 Ratio Arterial Blood 2.14 %; Total Hemoglobin 12.7 g/dL (12.0-18.0); pH ABG 7.445 (7.350-7.450)
[2019-07-09 19:23] LABS: Device NASAL CANNULA; Modified Allen's Test Pass; Site Drawn RIGHT RADIAL
[2019-07-10] VITALS (9 sets, daily range): BP systolic 129–151; BP diastolic 49–83; PULSE 57–81; RESP 16–20; TEMP 36.6–37.2; O2SAT 94–100
[2019-07-10] MEDS: LACTATED RINGERS 1,000 ML 125 ML IV CONT ×3 (01:23→18:47)
[2019-07-10] MEDS: LEVOTHYROXINE SODIUM 50 MCG TABLET PO (05:27)
[2019-07-10 05:45] LABS: Hematocrit 33.4 % (37.0-47.0); Hemoglobin 10.9 g/dL (12.0-15.0); Mean Corpuscular HGB Conc 32.6 g/dl (32-36); Mean Corpuscular Hemoglobin 29.8 pg (26-34); Mean Corpuscular Volume 91.3 fl (80-100); Mean Platelet Volume 10.7 fl (7.4-10.4); Platelet Count Result 120 k/mm3 (150-375); Red Blood Count 3.66 M/mm3 (4.2-5.4); Red Cell Distribution Width 12.9 % (11.5-14.5); White Blood Count 5.3 K/mm3 (4.5-10.0)
[2019-07-10 05:59] LABS: Alanine Aminotransferase 146 U/L (4-35); Albumin Level 3.4 g/dL (3.5-5.1); Alkaline Phosphatase 178 U/L (38-126); Aspartate Amino Transferase 103 U/L (14-36); Bilirubin Direct 2.5 mg/dL (0-0.3); Bilirubin Indirect 1.3 mg/dL (0-1.1); Blood Urea Nitrogen 14 mg/dL (7-17); Calcium 8.3 mg/dL (8.4-10.2); Carbon Dioxide 26 mmol/L (22-30); Chloride 105 mmol/L (98-107); Cholesterol 134 mg/dL (0-200); Estimated CRCL calculation 45 ml/min; Estimated Glomerular Filt Rate 60; Glucose 132 mg/dL (65-105); HDL Direct 39 mg/dL; Magnesium 1.7 mg/dL (1.6-2.3); Phosphorus 4.3 mg/dL (2.5-4.5); Potassium 3.4 mmol/L (3.4-5.0); Sodium 139 mmol/L (137-145); Triglycerides 106 mg/dL (<150)
[2019-07-10 06:10] LABS: LDL Cholesterol Direct 63 mg/dL
[2019-07-10] MEDS: ENOXAPARIN 40 MG/0.4 ML SYRINGE SUB-Q (09:02)
[2019-07-10] MEDS: lisinopriL 20 MG TABLET PO (09:03)
[2019-07-10] MEDS: PANTOPRAZOLE 40 MG TABLET PO (09:03)
[2019-07-10] MEDS: TIMOLOL MALEATE 0.5% OP SOLN 5 ML BTL 1 DROP EACH EYE (09:04)
[2019-07-10] MEDS: bisoproloL fumarate 5 MG TABLET PO (09:04)
--- NOTE | 2019-07-10 09:17 | WPDGIPROGNO ---
Progress Note: A&P Additional Plan Patient had abdominal bloating and gas this distention of epigastric area after ERCP yesterday. Was very sleepy and sedated after heavy morphine dose last evening. She feels pain free this morning. No abdominal pain at present. Physical exam reveals her to be alert. Afebrile. Anicteric. Lungs are clear. Heart without murmur. Abdomen is soft and nontender. No organomegaly. Labs reveal lipase 3626 yesterday. Before endoscopy., total bilirubin 5.0 today. Direct bilirubin 2.5. AST 103, ALT 146, Impression 1. Pancreatitis. Likely secondary to gallstones. She could also have mild pancreatitis after ERCP. Improved clinical exam this morning suggests she is recovering. Still some concern over elevated bilirubin and lipase elevation. Plan is to monitor LFTs. Gradually advanced diet given her asymptomatic findings this morning. Two. Choledocholithiasis. Patient now status post ERCP , feeling is that the common bile duct is now clear. Subjective Date/time seen: 07/10/19 09:17 Objective Data Vital Signs Vital Signs: Vital Signs - 24 hr 07/09/19 11:36 07/09/19 11:46 07/09/19 11:56 Temperature Pulse Rate 86 79 79 Respiratory Rate 21 H 21 H 20 Blood Pressure 169/71 H 158/72 H 157/65 H Pulse Oximetry 100 100 100 07/09/19 12:06 07/09/19 12:16 07/09/19 12:30 Temperature 37.4 C Pulse Rate 78 77 74 Respiratory Rate 21 H 22 H 16 Blood Pressure 149/67 H 160/68 H 163/64 H Pulse Oximetry 96 98 97 07/09/19 12:36 07/09/19 14:00 07/09/19 16:00 Temperature 37.5 C Pulse Rate 78 61 89 Respiratory Rate 16 Blood Pressure 142/55 H Pulse Oximetry 91 07/09/19 20:00 07/09/19 22:00 07/10/19 00:00 Temperature 37.7 C H Pulse Rate 97 89 81 Respiratory Rate 20 Blood Pressure 149/80 H Pulse Oximetry 93 07/10/19 02:00 07/10/19 04:00 07/10/19 06:00 Temperature 37.2 C 36.9 C Pulse Rate 70 66 71 Respiratory Rate 20 18 Blood Pressure 131/49 L 129/52 L Pulse Oximetry 100 98 Intake/Output Intake/Output: Intake & Output 07/07/19 07/08/19 07/09/19 07/10/19 23:59 23:59 23:59 23:59 Intake Total 1100 3840 1690 2250 Output Total 300 Balance 1100 3540 1690 2250 Meds/Results Medications: Active Medications Generic Name Dose Route Start Last Admin Trade Name Freq PRN Reason Stop Dose Admin Acetaminophen 650 mg 07/09/19 23:39 Tylenol Tablet PO Q4H PRN Mild Pain (1-3) or Fever > 100 Hydrocodone Bitart/Acetaminophen 1 tab 07/09/19 16:50 Hamlin 5-325 Mg PO Q6H PRN Pain Rated 4-6 Bisoprolol Fumarate 5 mg 07/08/19 09:00 07/10/19 09:04 Zebeta PO 5 mg DAILY KERRY Administration Enoxaparin Sodium 40 mg 07/09/19 09:00 07/10/19 09:02 Lovenox SUB-Q 40 mg DAILY KERRY Administration Hydralazine HCl 10 mg 07/09/19 16:39 Apresoline Hcl Inj IV PUSH Q8H PRN Blood Pressure - High SBP >180 Lactated Ringer's 1,000 mls @ 125 mls/hr 07/07/19 20:20 07/10/19 09:01 Lr - Lactated Ringers Iv IV CONT 125 mls/hr .Q8H KERRY Administration Ceftriaxone Sodium/Dextrose 1 gm in 50 mls @ 100 mls/hr 07/09/19 16:00 07/09/19 17:08 Rocephin 1 Gm/D5w 50 Ml IVPB Infused Q24H KERRY Infusion Latanoprost 1 drop 07/08/19 18:00 07/09/19 18:03 Xalatan EACH EYE 08/07/19 18:01 1 drop QPM KERRY Administration Levothyroxine Sodium 50 mcg 07/10/19 06:30 07/10/19 05:27 Synthroid PO 50 mcg DAILY@0630 KERRY Administration Lisinopril 20 mg 07/09/19 09:00 07/10/19 09:03 Prinivil PO 20 mg DAILY KERRY Administration Morphine Sulfate 4 mg 07/07/19 20:17 07/09/19 13:18 Morphine Sulfate Inj IV PUSH 4 mg Q2H PRN Administration Pain Rated 7-10 Ondansetron HCl 4 mg 07/07/19 20:17 07/09/19 13:18 Zofran Inj IV PUSH 4 mg Q4H PRN Administration Nausea Pantoprazole Sodium 40 mg 07/10/19 09:00 07/10/19 09:03 Protonix PO 40 mg QAM KERRY Administration T
[2019-07-10 10:49] LABS: Lipase 977 U/L (23-300)
[2019-07-10 10:53] LABS: Albumin Level 3.4 g/dL (3.5-5.1); Alkaline Phosphatase 167 U/L (38-126); Aspartate Amino Transferase 97 U/L (14-36); Bilirubin Direct 2.6 mg/dL (0-0.3); Bilirubin,Total 5.2 mg/dL (0.2-1.3)
[2019-07-10 10:59] LABS: Alanine Aminotransferase 124 U/L (4-35)
--- NOTE | 2019-07-10 13:24 | PM.IMPN ---
Progress Note: A&P Assessment and Plan (1) Acute pancreatitis: Qualifiers: Pancreatitis type: biliary Acute pancreatitis complication: no infection or necrosis Qualified Code(s): K85.10 - Biliary acute pancreatitis without necrosis or infection Code(s): K85.90 - Acute pancreatitis without necrosis or infection, unspecified Status: Acute Assessment and Plan: Lipase was elevated 07/08 at 3626, previously [address] abd/pelvis revealed suggestion of subtle gallstones versus debris in the distal common bile duct. MRCP revealed 4mm nonobstructing stone in the common bile duct with severe intrahepatic and extrahepatic biliary duct dilation. She underwent ERCP 07/[address] Rosales. Her pancreatitis is likely due to her cholelithiasis and biliary sludge/debris which has been treated following ERCP. Today, she reports that her pain is significantly better. She is passing flatus and had 2 bowel movements. She denies nausea and vomiting. Her lipase is trending down at 977 today. LFTs are trending down as well. Continue IV fluids, will decrease rate as she is tolerating PO intake well Continue antiemetics and analgesics as needed. Will plan to avoid all narcotics. She is tolerating PO intake well and diet will be advanced per GI Continue to monitor (2) Gastric ulcer: Qualifiers: Gastric ulcer chronicity: acute Gastric ulcer complication status: without hemorrhage or perforation Qualified Code(s): K25.3 - Acute gastric ulcer without hemorrhage or perforation Code(s): K25.9 - Gastric ulcer, unspecified as acute or chronic, without hemorrhage or perforation Status: Acute Assessment and Plan: Patient underwent EGD by Dr. Rosales 07/08/19 which revealed a few acute, superficial and benign appearing ulcers ranging in size from 4-6mm with no evidence of bleeding. Continue protonix 40mg PO QAM Avoid NSAIDs and ASA (3) Epigastric pain: Code(s): R10.13 - Epigastric pain Status: Acute Assessment and Plan: Patient endorsed epigastric pain without radiation which has resolved. Cardiac workup was performed with negative troponins and no ST abnormalities. EGD revealed superficial ulcers in the antrum. Her pain is likely multifactorial due to her gastric ulcers and pancreatitis. Plan as above (4) Elevated LFTs: Code(s): R79.89 - Other specified abnormal findings of blood chemistry Status: Acute Assessment and Plan: LFTs are elevated but are trending down. CT abdomen/pelvis reveals intra and extra hepatic biliary ductal dilation with suggestion of subtle gallstones vs debris in distal common bile duct. MRCP revealed 4mm nonobstructing stone in the common bile duct with severe intrahepatic and extrahepatic biliary duct dilation. She underwent ERCP today by Dr. Rosales. Gastroenterology is on board and recommendations are appreciated Continue to trend LFTs Hold simvastatin (5) Abnormal urinalysis: Code(s): R82.90 - Unspecified abnormal findings in urine Status: Acute Assessment and Plan: Urinalysis performed in ED has 1+ leukocyte esterase and 10-15 WBC. She reports dysuria and urgency which have improved. She had a fever 07/08/19 with Tmax 100.4F and she is afebrile for >24hr. Urine culture revealed klebsiella pneumoniae sensitive to ceftriaxone. Continue IV ceftriaxone Await urine culture and sensitivities Continue IV fluids and antipyretics (6) Hypertension: Qualifiers: Hypertension type: essential hypertension Qualified Code(s): I10 - Essential (primary) hypertension Code(s): I10 - Essential (primary) hypertension Status: Acute Assessment and Plan: Blood pressure were reviewed and are at target. Continue bisoprolol Continue lisinopril Will add hydralazine IV PRN Continue to monitor (7) TSH deficiency: Code(s): E03.8 - Other specified hypothyroidis
[2019-07-10] MEDS: LATANOPROST 0.005% OP SOLN 2.5 ML BTL 1 DROP EACH EYE (18:48)
[2019-07-11 02:00] VITALS: BP 161/57; PULSE 70; RESP 16; TEMP 36.8; O2SAT 91
[2019-07-11] MEDS: LACTATED RINGERS 1,000 ML 125 ML IV CONT (02:44)
[2019-07-11 06:00] VITALS: BP 153/59; PULSE 72; RESP 16; TEMP 37.3; O2SAT 94
[2019-07-11] MEDS: LEVOTHYROXINE SODIUM 50 MCG TABLET PO (06:17)
[2019-07-11 06:28] LABS: Hematocrit 30.2 % (37.0-47.0); Hemoglobin 9.9 g/dL (12.0-15.0); Immature Platelet Fraction Pct 4.4 % (0.9-11.2); Mean Corpuscular HGB Conc 32.8 g/dl (32-36); Mean Corpuscular Hemoglobin 29.5 pg (26-34); Mean Corpuscular Volume 89.9 fl (80-100); Mean Platelet Volume 11.3 fl (7.4-10.4); Platelet Count Result 120 k/mm3 (150-375); Red Blood Count 3.36 M/mm3 (4.2-5.4); White Blood Count 3.6 K/mm3 (4.5-10.0)
[2019-07-11 06:34] LABS: Alanine Aminotransferase 100 U/L (4-35); Alkaline Phosphatase 165 U/L (38-126); Aspartate Amino Transferase 62 U/L (14-36); Bilirubin,Total 3.4 mg/dL (0.2-1.3); Blood Urea Nitrogen 11 mg/dL (7-17); Calcium 8.4 mg/dL (8.4-10.2); Carbon Dioxide 30 mmol/L (22-30); Chloride 106 mmol/L (98-107); Estimated CRCL calculation 51 ml/min; Estimated Glomerular Filt Rate > 60; Glucose 104 mg/dL (65-105); Lipase 393 U/L (23-300); Potassium 3.3 mmol/L (3.4-5.0); Sodium 138 mmol/L (137-145)
[2019-07-11 08:00] VITALS: PULSE 72; RESP 16; O2SAT 94
[2019-07-11] MEDS: POTASSIUM CHLORIDE 20 MEQ TABLET 40 MEQ PO (09:05)
[2019-07-11] MEDS: lisinopriL 20 MG TABLET PO (09:06)
[2019-07-11] MEDS: PANTOPRAZOLE 40 MG TABLET PO (09:06)
[2019-07-11] MEDS: ENOXAPARIN 40 MG/0.4 ML SYRINGE SUB-Q (09:06)
[2019-07-11] MEDS: TIMOLOL MALEATE 0.5% OP SOLN 5 ML BTL 1 DROP EACH EYE (09:07)
[2019-07-11] MEDS: bisoproloL fumarate 5 MG TABLET PO (09:07)
--- NOTE | 2019-07-11 09:14 | WPDGIPROGNO ---
Progress Note: A&P Additional Plan Patient alert and comfortable this morning. Vital signs stable. She is anicteric. Lungs are clear to auscultation and percussion. Heart is without murmur. Abdomen is soft nontender benign no masses no tenderness. Bowel sounds are normal. Labs reveal WBC 3.6, hemoglobin 9 time 0.9, platelets 120 K. total bili 3.4, direct bilirubin 2.6, AST 62, ALT 100, alk-phos 165. LFTs are improving. Lipase 393. Also improved impression 1. Choledocholithiasis. Appears improving after ERCP and common duct clearance. Suggest follow-up LFTs after discharge. Low-fat diet suggested. Okay to discharge from my perspective. 2. Pancreatitis. Likely secondary to common bile duct stone passage. Clinically improving. 3. Small gastric ulcers. These were identified at time of EGD. Patient should avoid nonsteroidal anti-inflammatory agents. Continue proton pump inhibitor after discharge. Plan is for advancing to low-fat diet. Discharge anticipated today. Follow-up in the office if pain recurs. Subjective Date/time seen: 07/11/19 09:14 Objective Data Vital Signs Vital Signs: Vital Signs - 24 hr 07/10/19 09:42 07/10/19 12:00 07/10/19 14:00 Temperature 36.6 C Pulse Rate 57 L 70 Respiratory Rate 16 Blood Pressure 136/56 L Pulse Oximetry 94 95 07/10/19 22:00 07/11/19 02:00 07/11/19 06:00 Temperature 37.2 C 36.8 C 37.3 C Pulse Rate 75 70 72 Respiratory Rate 20 16 16 Blood Pressure 151/83 H 161/57 H 153/59 H Pulse Oximetry 96 91 94 Intake/Output Intake/Output: Intake & Output 07/08/19 07/09/19 07/10/19 07/11/19 23:59 23:59 23:59 23:59 Intake Total 3840 1690 4450 1250 Output Total 300 1150 3100 Balance 3540 1690 3300 -1850 Meds/Results Medications: Active Medications Generic Name Dose Route Start Last Admin Trade Name Freq PRN Reason Stop Dose Admin Acetaminophen 650 mg 07/09/19 23:39 Tylenol Tablet PO Q4H PRN Mild Pain (1-3) or Fever > 100 Bisoprolol Fumarate 5 mg 07/08/19 09:00 07/11/19 09:07 Zebeta PO 5 mg DAILY KERRY Administration Enoxaparin Sodium 40 mg 07/09/19 09:00 07/11/19 09:06 Lovenox SUB-Q 40 mg DAILY KERRY Administration Hydralazine HCl 10 mg 07/09/19 16:39 Apresoline Hcl Inj IV PUSH Q8H PRN Blood Pressure - High SBP >180 Ceftriaxone Sodium/Dextrose 1 gm in 50 mls @ 100 mls/hr 07/09/19 16:00 07/10/19 17:15 Rocephin 1 Gm/D5w 50 Ml IVPB Infused Q24H KERRY Infusion Latanoprost 1 drop 07/08/19 18:00 07/10/19 18:48 Xalatan EACH EYE 08/07/19 18:01 1 drop QPM KERRY Administration Levothyroxine Sodium 50 mcg 07/10/19 06:30 07/11/19 06:17 Synthroid PO 50 mcg DAILY@0630 KERRY Administration Lisinopril 20 mg 07/09/19 09:00 07/11/19 09:06 Prinivil PO 20 mg DAILY KERRY Administration Ondansetron HCl 4 mg 07/07/19 20:17 07/09/19 13:18 Zofran Inj IV PUSH 4 mg Q4H PRN Administration Nausea Pantoprazole Sodium 40 mg 07/10/19 09:00 07/11/19 09:06 Protonix PO 40 mg QAM KERRY Administration Timolol Maleate 1 drop 07/08/19 09:00 07/11/19 09:07 Timoptic 0.5% Ophth Soln EACH EYE 1 drop DAILY KERRY Administration Radiology Results: ITS Impressions Chest X-Ray 07/07/19 16:05 IMPRESSION: 1. No acute cardiopulmonary disease. Abdomen/Pelvis CT 07/07/19 17:01 IMPRESSION: 1. Intra and extra hepatic biliary ductal dilation which could be related to prior cholecystectomy however there is suggestion of subtle gallstones versus debris within the distal common bile duct. Correlate with liver function tests and consider MRCP for further evaluation. 2. Tiny focus of gas within the bladder with diffuse mild wall thickening which could be related to cystitis. Correlate with urinalysis and for history of recent catheterization/instrumentation. 3. Diverticulosis. 4. Small sliding-type hiatal hernia. MRCP 07/08/19 13:08 IMPRES
--- NOTE | 2019-07-11 13:59 | PM.DS ---
DS: Admitting Diagnosis Admitting Diagnosis Admitting Diagnosis: Unspecified abdominal pain DS: Discharge Diagnosis Discharge Diagnosis (1) Acute pancreatitis: Qualifiers: Acute pancreatitis complication: no infection or necrosis Pancreatitis type: biliary Qualified Code(s): K85.10 - Biliary acute pancreatitis without necrosis or infection Code(s): K85.90 - Acute pancreatitis without necrosis or infection, unspecified Status: Acute (2) Gastric ulcer: Qualifiers: Gastric ulcer chronicity: acute Gastric ulcer complication status: without hemorrhage or perforation Qualified Code(s): K25.3 - Acute gastric ulcer without hemorrhage or perforation Code(s): K25.9 - Gastric ulcer, unspecified as acute or chronic, without hemorrhage or perforation Status: Acute (3) Epigastric pain: Code(s): R10.13 - Epigastric pain Status: Resolved (4) Elevated LFTs: Code(s): R79.89 - Other specified abnormal findings of blood chemistry Status: Acute (5) Hypertension: Qualifiers: Hypertension type: essential hypertension Qualified Code(s): I10 - Essential (primary) hypertension Code(s): I10 - Essential (primary) hypertension Status: Chronic (6) TSH deficiency: Code(s): E03.8 - Other specified hypothyroidism Status: Acute (7) Urinary tract infection: Qualifiers: Urinary tract infection type: acute cystitis Hematuria presence: without hematuria Qualified Code(s): N30.00 - Acute cystitis without hematuria Code(s): N39.0 - Urinary tract infection, site not specified Status: Acute DS: Summary Hospital Course Reason for hospitalization: Abdominal pain Hospital Course: Cara Flores is a 84 year old female with a PMH significant for pancreatitis, hypertension, hypothyroidism, and hyperlipidemia who presented to the emergency department on 07/07/2019 with complaints of epigastric pain. Initial workup in the ED revealed WBC 4,700, Hb 10.9, Hct 33.4, sodium 138, potassium 4.5, chloride 103, CO2 28, BUN 24, Cr 1.0, calcium 9.3, AST 91, ALT 46, ALP 132, troponin <0.012, and lipase 354. UA revealed leukocyte esterase and WBC. CT abd/pelvis revealed intra and extra hepatic biliary ductal dilation with suggestion of subtle gallstones versus debris within the distal common bile duct. She was treated with IV protonix and IV fluids. She was admitted to the hospitalist service and GI was consulted. She underwent EGD by Dr. Rosales 07/08/19 which revealed a few acute, superficial, and benign appearing ulcers ranging in size from 4-6mm with no evidence of bleeding. She underwent MRCP which revealed a 4mm nonobstructing stone in the common bile duct with severe intrahepatic and extrahepatic biliary duct dilation. She underwent ERCP by Dr. Rosales 07/09/19. She was also treated for a UTI with IV ceftriaxone as she reported dysuria. Urine culture revealed klebsiella pneumoniae sensitive to ceftriaxone and she was discharged on PO cefdinir. TSH was low at 0.098, free T4 is 0.88, and total T3 is 0.64. Levothyroxine was decreased to 50mcg. Her pain resolved and her LFTs, bilirubin, and lipase trended down. She was instructed to have her labs repeated and follow-up with her PCP 07/15/19. She was discharged in stable condition on the afternoon of 07/11/19. Status at Discharge Functional status at discharge: independent ambulation Overall status at discharge: patient is back to baseline Time Spent with Patient Time attestation: Total time spent providing and/or coordinating discharge services: 40 minutes Exam Narrative: Exam Narrative: Vitals at admission: Temp Pulse Resp BP Pulse Ox 97.9 F 58 L 18 186/73 H 99 07/07/19 15:04 07/07/19 15:04 07/07/19 15:04 07/07/19 15:04 07/07/19 15:04 Vitals at discharge: Temp
[2019-07-11 16:35] VITALS: BP 145/61; PULSE 74; RESP 18; TEMP 36.7; O2SAT 96
== END 2019-07-11 15:40 | disposition home or self-care (01) ==
LOC: ANHED 20:25 → ANH3MEDSUR 20:53
PROVIDERS: Emergency Medicine Emergency Medical Services; Internal Medicine; Internal Medicine Gastroenterology; Physician Assistant; Admitting Provider Internal Medicine; Emergency Provider Emergency Medicine; PCP Family Medicine; Visit Provider Family Medicine
PROC: 0DJ08ZZ Inspection of Upper Intestinal Tract, Via Natural or Artificial Opening Endoscopic (ICD-10-PCS; CPT 43235; principal; 2019-07-08 09:00)
PROC: (CPT 43260; principal; 2019-07-09 09:30)
DX: K85.10 Biliary acute pancreatitis without necrosis or infection (principal); K80.50 Calculus of bile duct without cholangitis or cholecystitis without obstruction; K25.3 Acute gastric ulcer without hemorrhage or perforation; K29.50 Unspecified chronic gastritis without bleeding; K57.10 Diverticulosis of small intestine without perforation or abscess without bleeding; N30.00 Acute cystitis without hematuria; B96.1 Klebsiella pneumoniae [K. pneumoniae] as the cause of diseases classified elsewhere; E03.8 Other specified hypothyroidism; R79.89 Other specified abnormal findings of blood chemistry; Z96.653 Presence of artificial knee joint, bilateral; Z66 Do not resuscitate; I10 Essential (primary) hypertension; E78.5 Hyperlipidemia, unspecified; M19.90 Unspecified osteoarthritis, unspecified site; Z79.82 Long term (current) use of aspirin; Z79.899 Other long term (current) drug therapy; Z90.49 Acquired absence of other specified parts of digestive tract
CPT/HCPCS: 43262; 43264; 43239; 36415; 36600; 71045; 74177; 74183; 74329; 76376; 80053; 80061; 80076; 81001; 82247; 82248; 82805; 83690; 83735; 84100; 84439; 84443; 84480; 84484; 85025; 85027; 85055; 85610; 85730; 87077; 87086; 87088; 87186; 88305; 88342; 93005; 96361; 96365; 96366; 96367; 96372; 96375; 96376; 99285; A9270; A9577; C9113; G0378; J0131; J0330; J0696; J1650; J2270; J2405; J2704; J7030; J7120; Q9967

== ENCOUNTER 2019-08-08 10:34 | Outpatient (CLI) | payer OTHER, SELFPAY ==
[2019-08-08 12:03] LABS: Thyroid Stimulating Hormone Reflex 0.249 uIU/mL (0.465-4.68)
[2019-08-08 13:13] LABS: Free T4 Free Thyroxine Reflex 1.08 ng/dL (0.78-2.19)
== END 2019-08-08 10:35 | disposition home or self-care (01) ==
PROVIDERS: Visit Provider Physician Assistant
DX: E03.8 Other specified hypothyroidism (principal)
CPT/HCPCS: 36415; 84439; 84443; 84480

== ENCOUNTER 2019-10-17 13:39 | Emergency (ER) | payer OTHER, SELFPAY ==
--- NOTE | ~2019-10-17 | XR_ITS ---
EXAMINATION: XR shoulder LT min 2V INDICATION: Left shoulder TECHNIQUE: Four views of the left shoulder are submitted. COMPARISON: None FINDINGS: Normal alignment. The bones are osteopenic which limits the sensitivity for fracture howeve r none is seen. There is mild osteoarthritis of the acromioclavicular and glenohumeral joints. Soft t issues are unremarkable. IMPRESSION: 1. No acute osseous abnormality. Reviewed, dictated and finalized at location B.
[2019-10-17 13:45] VITALS: BP 196/76; PULSE 63; RESP 20; TEMP 36.7; O2SAT 99
--- NOTE | 2019-10-17 14:11 | ED.UPPEXIN ---
HPI - Extremity Injury (Upper) General Chief Complaint: Extremity Injury, Upper Stated Complaint: L shoulder INjury Time Seen by Provider: 10/17/19 13:52 Source: patient Mode of arrival: ambulatory Limitations: no limitations History of Present Illness HPI narrative: Patient presents for evaluation of her left shoulder after a mechanical fall this morning and she used her left shoulder to brace herself. Patient denies prior fracture injury to her left shoulder but states that she has dislocated her right shoulder after a fall in the past. Patient states that she was able to get up without any issues and was has been able to move the shoulder but she is noticing a catching sensation when she abducts along with discomfort. She denies any discomfort with the shoulder or wrist. Patient denies any pain in any other areas she denies having any head impact or loss of consciousness. Patient states that she saw Dr. Villegas donation specialist for her other orthopedic needs but has not discussed her left shoulder discomfort with him. Related Data Home Medications Medication Instructions Recorded Confirmed Lumigan 1 drp OPHTHALMIC (EYE) QPM 07/07/19 07/07/19 aspirin [Adult Low Dose Aspirin] 81 mg PO DAILY 07/07/19 07/07/19 bisoprolol fumarate 5 mg PO DAILY 07/07/19 07/07/19 lisinopril 20 mg PO DAILY 07/07/19 07/07/19 simvastatin 20 mg PO DAILY 07/07/19 07/07/19 timolol maleate 1 drp OPHTHALMIC (EYE) DAILY 07/07/19 07/07/19 Allergies Allergy/AdvReac Type Severity Reaction Status Date / Time No Known Allergies Allergy Verified 07/07/19 15:20 Review of Systems Review of Systems: Narrative: CONSTITUTIONAL: Denies fever, chills, or sweats. EYES: Denies visual changes, redness, or discharge. ENT: Denies rhinorrhea, congestion, sore throat, or otalgia. CARDIOVASCULAR: Denies chest pain, palpitations, or edema. RESPIRATORY: Denies cough or dyspnea. GASTROINTESTINAL: Denies abdominal pain, nausea, vomiting, or diarrhea. GENITOURINARY: Denies dysuria or hematuria. SKIN: Denies rash or itching. MUSCULOSKELETAL: Reports left shoulder pain with range of motion denies back pain or myalgia. NEUROLOGIC: Denies headache, numbness, dizziness, or weakness. PSYCHIATRIC: Denies anxiety or depression. [facility] Past Medical History Medical History (Updated 10/17/19 @ 14:35 by Jennifer Willis PA-C) Hyperlipidemia Hypertension Hypothyroidism Osteoarthritis Pancreatitis Surgical History Surgical History H/O hysterectomy for benign disease History of cholecystectomy ~1979 History of knee replacement Bilateral Social History Social History Social History: Ms. Flores lives alone at home. She has 6 adult children. She designates her daughter, Gisele Tejeda, as her POA. She would like to be a DNR. Smoking status: Never smoker Alcohol intake: never Substance use: never Gender identity (if verbalized by the patient): Female Spiritual care concerns: No Exam Narrative: Exam Narrative: GENERAL: Well-appearing, well-nourished, and in no acute distress. HEAD: Normocephalic, atraumatic. No swelling or abrasions or hematomas appreciated. No tenderness to palpation of scalp. EYES: PERRLA and EOMI. ENT: Nares clear, no rhinorrhea or epistaxis. Mucous membranes moist. Oropharynx without tonsillar hypertrophy exudate or other lesions. Bilateral hearing aids removed for exam. Bilateral TMs pearly anguiano nonbulging. No hemotympanum noted NECK: Supple. Range of motion normal. No outward signs of abrasion, swelling or ecchymosis. CHEST: Clear to auscultation. No respiratory distress. No wheezes rales or rhonchi HEART: Regular rate and rhythm. EXTREMITIES: Abrasions to the left forearm and left elbow. There is no erythema, deformity or appreciable swelling to the left shoulder. Range of motion limited by some discomfort with abduction
[2019-10-17 14:50] VITALS: BP 138/75; PULSE 78; RESP 16; O2SAT 100
== END 2019-10-17 14:51 | disposition home or self-care (01) ==
PROVIDERS: Emergency Provider Emergency Medicine; PCP Family Medicine
DX: S43.402A Unspecified sprain of left shoulder joint, initial encounter (principal); E78.5 Hyperlipidemia, unspecified; I10 Essential (primary) hypertension; E03.9 Hypothyroidism, unspecified; M19.90 Unspecified osteoarthritis, unspecified site; Z96.653 Presence of artificial knee joint, bilateral; Z66 Do not resuscitate; W19.XXXA Unspecified fall, initial encounter
CPT/HCPCS: 73030; 99283; A4565

== ENCOUNTER 2020-09-25 13:14 | Inpatient (IN) | payer OTHER, SELFPAY ==
--- NOTE | ~2020-09-25 | CT_ITS ---
EXAMINATION: CT abdomen pelvis w con DATE: 09/25/2020 16:09 INDICATION: Epigastric abdominal pain after drinking morning coffee TECHNIQUE: Computed tomography (CT) of the abdomen and pelvis was performed with 100 cc Omnipaque 350 intravenous contrast. Automated exposure control and iterative reconstruction technique were employe d. Exam dose: 809.73 mGy-cm total exam DLP. COMPARISON: None. FINDINGS: There is mild dependent atelectasis at the left upper and both lower lobes. There is cardiomegaly. No pericardial or pleural effusion. Small sliding hiatal hernia. Status post cholecystectomy. There is prominent intrahepatic and extrahepatic bile duct dilatation, the common bile duct measuring 1.5 cm or greater. The pancreatic duct measures up to approximately 3 mm. Consider MRCP or ERCP for further evaluation. Normal morphology of the adrenal glands. 6 mm right renal cyst. No urinary tract mass lesion, calculus or hydroureteronephrosis. The urinary b ladder is relatively evacuated. Status post hysterectomy. There is atherosclerotic calcification of the abdominal aorta and aortic branches. No abdominal aorti c aneurysm. No intraperitoneal or retroperitoneal or pelvic mass lesion or adenopathy or ascites is d etected. Diverticulosis of the sigmoid colon; no CT evidence of diverticulitis. No bowel obstruction or intrap eritoneal free air. Normal appendix. Diffuse osteopenia. There is prominent degenerative change of the apophyseal joints of the lumbar and lumbosacral spine w ith associated grade 1 anterolisthesis at L4-5. There is severe degenerative disc disease at L4-5 and L5-S1. No suspicious osteolytic or osteoblastic lesions are noted. IMPRESSION: Abnormal intrahepatic and extrahepatic bile duct dilatation; cannot exclude distal commo n bile duct obstruction. Further evaluation with MRCP or ERCP is recommended Small sliding hiatal hernia Status post cholecystectomy 6 mm right renal cyst Status post hysterectomy Normal appendix Diverticulosis of the sigmoid colon; no CT evidence of diverticulitis Cardiomegaly Reviewed, dictated and finalized at Location A. Reviewed, dictated and finalized at location A. IMPRESSION: Abnormal intrahepatic and extrahepatic bile duct dilatation; canno t exclude distal common bile duct obstruction. Further evaluation with MRCP or ERCP is recommended Small sliding hiatal hernia Status post cholecystectomy 6 mm right renal cyst Status post hysterectomy Normal appendix Diverticulosis of the sigmoid colon; no CT evidence of diverticulitis Cardiomegaly
--- NOTE | ~2020-09-25 | XR_ITS ---
EXAMINATION: XR ERCP EXAM DATE: 09/28/2020 15:10 INDICATION: Severe biliary duct dilation on other imaging. TECHNIQUE: Fluoroscopy used during XR ERCP performed by Dr. Manuel Marcano MD. Radiolo gist was not present for the imaging or procedure. Total fluoroscopic time of 165 seconds. The DAP for this procedure was 0.96 mGym2. A total of 4 images sent to PACS from the exam. Comparison is mad e to prior examination from 12/18/2017. FINDINGS: The common bile duct was cannulated and injected with contrast. There is severe biliary di lation. Final image demonstrates common bile duct stent likely crossing the ampulla but correlate wit h procedure note. IMPRESSION: Fluoroscopy used during XR ERCP. Reviewed, dictated and finalized at location A.
--- NOTE | ~2020-09-25 | MR_ITS ---
EXAMINATION: MR MRCP wo/w con/w 3D wo ind DATE: 09/26/2020 14:37 INDICATION: Bile duct dilatation. TECHNIQUE: Magnetic resonance imaging (MRI) of the abdomen was performed without and with 18 mL Multi Jabari intravenous contrast. Sequences included coronal T2-weighted FS FSE, coronal T2-weighted FSE, a xial T1-weighted LAVA, coronal FS FIESTA, axial dual-echo T1-weighted SPGR, coronal lava-FLEX, sagitt al T2-weighted FSE, axial T2-weighted FSE, and axial DWI. Thick-slab T2-weighted FSE images were obta ined for magnetic resonance cholangiopancreatography (MRCP). Maximum intensity projection 3-D reconst ructions of the volumetric data were created by the technologist. Postcontrast sequences included cor onal LAVA-flex and time course of axial T1-weighted LAVA. COMPARISON: CT abdomen and pelvis 09/25/2020, abdomen MRI 07/08/2019, 12/16/17 FINDINGS: ABDOMEN MRI: The lungs demonstrate mild dependent atelectasis. There is severe intrahepatic biliary d uct dilatation. The gallbladder is absent. There is a 9 mm cyst in the spleen. There is a chronic 9 m m hyperenhancing mass in the spleen, likely a hemangioma. The pancreas, adrenal glands, and left kidn ey are normal. There is a 5 mm cyst in right kidney. There are no dilated loops of bowel. There is a small sliding hiatal hernia. There are no pathologically enlarged lymph nodes. There is no free intra peritoneal fluid. ABDOMEN MRCP: The common duct is dilated to 17 mm. No choledocholithiasis. IMPRESSION: 1. Severe intrahepatic and extrahepatic biliary duct dilatation status post cholecystectomy, stable f rom 12/16/17. No choledocholithiasis. 2. Small sliding hiatal hernia. Reviewed, dictated and finalized at location A. IMPRESSION: 1. Severe intrahepatic and extrahepatic biliary duct dilatation status post cho lecystectomy, stable from 12/16/17. No choledocholithiasis. 2. Small sliding hiatal hernia.
[2020-09-25 13:59] VITALS: BP 170/78; PULSE 58; RESP 16; TEMP 36.3; O2SAT 98
[2020-09-25 14:17] LABS: Basophils Percent Auto 0.3 % (0.2-1.2); Eosinophils Absolute Auto 0.1 K/mm3 (0-0.3); Eosinophils Percent Auto 1.2 % (0-4.4); Hematocrit 38.9 % (37.0-47.0); Hemoglobin 12.5 g/dL (12.0-15.0); Immature Granulocyte Absolute 0.02 K/mm3 (0.00-0.031); Immature Granulocyte Percent A 0.3 % (0-0.5); Lymphocytes Absolute Auto 1.35 K/mm3 (0.9-3.2); Lymphocytes Percent Auto 19.6 % (18.3-44.2); Mean Corpuscular HGB Conc 32.1 g/dl (32-36); Mean Corpuscular Hemoglobin 29.6 pg (26-34); Mean Corpuscular Volume 92.2 fl (80-100); Monocytes Absolute Auto 0.3 K/mm3 (0.1-0.6); Monocytes Percent Auto 3.6 % (2.6-8.5); Neutrophils Absolute Auto 5.2 K/mm3 (1.3-6.7); Platelet Count Result 204 k/mm3 (150-375); Red Blood Count 4.22 M/mm3 (4.2-5.4); Red Cell Distribution Width 12.7 % (11.5-14.5); White Blood Count 6.9 K/mm3 (4.5-10.0)
[2020-09-25 14:29] LABS: Alanine Aminotransferase 90 U/L (4-35); Albumin Level 4.7 g/dL (3.5-5.1); Alkaline Phosphatase 152 U/L (38-126); Anion Gap 8 mmol/L (8-16); Aspartate Amino Transferase 150 U/L (14-36); Bilirubin,Total 1.9 mg/dL (0.2-1.3); Blood Urea Nitrogen 23 mg/dL (7-17); Calcium 9.8 mg/dL (8.4-10.2); Carbon Dioxide 27 mmol/L (22-30); Chloride 100 mmol/L (98-107); Estimated Glomerular Filt Rate 47; Glucose 119 mg/dL (65-110); Lipase 344 U/L (23-300); Potassium 4.4 mmol/L (3.4-5.0); Sodium 135 mmol/L (137-145)
--- NOTE | 2020-09-25 15:44 | ED.ABDPAIN ---
HPI - Abdominal Pain General Chief Complaint: Abdominal Pain Stated Complaint: upper stomach pain Time Seen by Provider: 09/25/20 15:44 History of Present Illness HPI narrative: 85 yo female presents to the ED c/o Abdominal pain. Epigastric pain since 829 this morning. Started after drinking coffee. paroxysmal. unable to define character. Associated with nausea. Tried OTC stomach pills without relief. She reports one previous episode. She went to another emergency department and no cause was found. Related Data Allergies Allergy/AdvReac Type Severity Reaction Status Date / Time No Known Allergies Allergy Verified 09/25/20 16:59 Review of Systems Review of Systems: All systems reviewed & are unremarkable except as noted in HPI and below Constitutional: Constitutional: Denies fever(s) Cardiovascular: Cardiovascular: Denies chest pain Respiratory: Respiratory: Denies dyspnea Gastrointestinal: Gastrointestinal: Reports as per HPI Genitourinary: Genitourinary: Reports no additional female genitourinary complaints Neurologic: Denies dizziness and Denies weakness [facility] Past Medical History Medical History (Updated 09/25/20 @ 18:33 by Demetrio Rider MD) Common bile duct calculi Surgical History Surgical History (Updated 09/25/20 @ 18:28 by Demetrio Rider MD) Hx of cholecystectomy Social History Social History (Updated 09/25/20 @ 16:35 by Demetrio Rider MD) Smoking status: Never smoker Exam Const: General: no acute distress and alert Orientation/consciousness: patient oriented x3 HENMT: Head: normal to inspection Neck: Neck: normal visual inspection Resp: Effort & Inspection: normal respiratory effort Auscultation: clear to auscultation bilaterally, no rales, no rhonchi and no wheezes Cardio: Jugular venous distension: no JVD Rate: regular rate Rhythm: regular rhythm Heart sounds: no murmurs GI: Inspection: non-distended GI Palp: Yes Soft to palpation, No Tenderness to palpation present (GI), No Guarding due to palpation present (GI) and No Rebound tenderness present Skin: General skin exam: normal color Neuro: General: patient oriented x3 and moves all extremities Speech: normal speech Extrem: General: no edema Psych: Appearance: well kempt Affect: Anxious affect present Course Vital Signs Vital signs: Vital Signs Temperature 36.3 C L 09/25/20 13:59 Pulse Rate 58 L 09/25/20 13:59 Respiratory Rate 16 09/25/20 13:59 Blood Pressure 170/78 H 09/25/20 13:59 Pulse Oximetry 98 09/25/20 13:59 Temperature 36.3 C L 09/25/20 13:59 Pulse Rate 55 L 09/25/20 15:50 Respiratory Rate 17 09/25/20 15:50 Blood Pressure 151/76 H 09/25/20 15:50 Pulse Oximetry 98 09/25/20 15:50 MDM - Abdominal Pain MDM Narrative Medical decision making narrative: CT suspicious for bile duct obstruction. Dr. Rosales called. He will not be able to see the patient this weekend. Dr. Oakley will consult. Differential Diagnosis Differential diagnosis: Likely calculus of kidney, diverticulitis, pancreatitis, small bowel obstruction and other (bile duct stone) Medical Records Attestation: I reviewed the patient's medical records. Lab Data Attestation: I reviewed the patient's lab results. Result diagrams: 09/25/20 14:07 09/25/20 14:07 Labs: Lab Results 09/25/20 09/25/20 09/25/20 Range/Units 14:07 14:07 17:56 WBC 6.9 (4.5-10.0) K/mm3 RBC 4.22 (4.2-5.4) M/mm3 Hgb 12.5 (12.0-15.0) g/dL Hct 38.9 (37.0-47.0) % MCV 92.2 (80-100) fl MCH 29.6 (26-34) pg MCHC 32.1 (32-36) g/dl RDW 12.7 (11.5-14.5) % Plt Count 204 (150-375) k/mm3 MPV 10.0 (7.4-10.4) fl Immature Gran % (Auto) 0.3 (0-0.5) % Neut % (Auto) 75.0 H (45.5-73.1) % Lymph % (Auto) 19.6 (18.3-44.2) % [place] % (Auto) 3.6 (2.6-8.5) % Eos % (Auto) 1.2 (0-4.4) % Baso % (Auto) 0.3 (0.2-1.2) % Lymph # (Auto)
[2020-09-25 15:50] VITALS: BP 151/76; PULSE 55; RESP 17; O2SAT 98
--- NOTE | 2020-09-25 16:02 | PC.NURSE ---
Patient to radiology.
[2020-09-25] MEDS: ONDANSETRON INJ 4 MG/2 ML VIAL IV PUSH (16:39)
[2020-09-25 16:42] VITALS: BP 168/89; PULSE 88; RESP 17; O2SAT 98
[2020-09-25 17:53] VITALS: BP 169/72; PULSE 81; RESP 19; O2SAT 97
[2020-09-25 18:12] LABS: Add Urine Microscopic? YES; Appearance Urine Clear (Clear); Bacteria Urine Trace /hpf; Bilirubin Urine Negative (Negative); Blood Urine Negative (Negative); Color Urine Yellow (Yellow); Glucose Urine UA Negative (Negative); Ketones Urine Negative (Negative); Leukocyte Esterase Ur 1+ LEU/UL (Negative); Nitrate Urine Positive (Negative); Protein Urine Negative (Negative); Urobilinogen Urine Negative mg/dL (<2.0)
[2020-09-25 18:24] LABS: Specific Grav Ur 1.058 (1.001-1.035)
--- NOTE | 2020-09-25 18:30 | PM.IMHP ---
H&P: HPI History of Present Illness Date/Time: 09/25/20 18:30 Chief Complaint: Abdominal pain. Narrative: This is a pleasant 85-year-old female status post cholecystectomy in 1979 with history of what sounds like sludge in the common bile duct requiring ERCP x2 who presented to the emergency department earlier today from home for evaluation of abdominal pain. She was in her usual state of health when she got up this morning and not long after eating breakfast she developed the pretty sudden onset of ?intense? epigastric pain associated with sweats and nausea. The pain did not radiate and she gives no significant aggravating or alleviating factors. These symptoms are nearly identical to those that she has experience in the past when she had pancreatitis attributed to gallstones and choledocholithiasis. Her LFTs were elevated today and a CT of the abdomen and pelvis showed abnormal intrahepatic and extrahepatic bile duct dilatation and she is being admitted in this setting. At the time my evaluation her pain has nearly resolved without intervention and she has no significant complaints currently aside from reports of dysuria for the last several days. She denies fever, chills, chest pain, shortness of breath, vomiting, and diarrhea. Review of Systems Review of Systems: Twelve systems were reviewed with pertinent positives and negatives as per HPI. No fever. No recent cold or flu symptoms. No known exposure to those positive for COVID 19. She has had some belching today but nothing severe. No flatus or abdominal pain. She denies jaundice and pruritus. No significant GERD. No known history peptic ulcers. Except as documented, all other systems were reviewed and are negative. [facility] Past Medical History Medical History (Updated 09/25/20 @ 21:30 by Sinai Estrada PA-C) Glaucoma Hard of hearing Hyperlipidemia Hypertension Hypothyroidism Osteoarthritis Shingles Surgical History Surgical History (Updated 09/25/20 @ 21:26 by Sinai Estrada PA-C) History of arthroscopy of left knee History of bilateral knee replacement History of cardiac catheterization History of cataract extraction History of cholecystectomy History of colonoscopy with polypectomy History of ERCP History of hysterectomy History of tonsillectomy Family History Family History Sibling Dementia Diabetes mellitus Heart failure Malignant neoplasm of prostate Acute myocardial infarction Father Pancreatic cancer Mother Heart failure Congestive heart failure Social History Social History (Updated 09/25/20 @ 21:27 by Sinai Estrada PA-C) Social History: Surrogate decision maker: Ras Pa, son. Code status: Full code. Smoking status: Never smoker Alcohol intake: never Substance use: never Substance use type: does not use Additional living arrangements comments: The patient lives in her own home in [place]. x2. Raised 6 children. Additional occupation/education comments: Retired. Meds Home Medications and Allergies Home Medications Medication Instructions Recorded Confirmed Type aspirin 81 mg PO DAILY 09/25/20 09/25/20 History bimatoprost [Lumigan] 1 drp EACH EYE QPM 09/25/20 09/25/20 History bisoprolol fumarate 5 mg PO DAILY 09/25/20 09/25/20 History levothyroxine 50 mcg PO DAILY 09/25/20 09/25/20 History lisinopril 20 mg PO DAILY 09/25/20 09/25/20 History pantoprazole 40 mg PO DAILY 09/25/20 09/25/20 History simvastatin 20 mg PO QPM 09/25/20 09/25/20 History timolol maleate 1 drp EACH EYE DAILY 09/25/20 09/25/20 History Allergies Allergy/AdvReac Type Severity Reaction Status Date / Time No Known Allergies Allergy Verified 09/25/20 16:59 Vital Signs Vital Signs - 24 hr 09/25/20 13:59 09/25/20 15:50 09/25/20 16:42 Temperature 97.3 F L Pulse Rate 58 L 55 L 88 Respiratory Rate 16 17 17 Blood Pressure 170/78 H 151/76 H 168/89 H Puls
[2020-09-25 19:38] VITALS: BP 159/67; PULSE 87; RESP 18; TEMP 36.8; O2SAT 96
--- NOTE | 2020-09-25 20:16 | ADMGEN ---
This patient, Cara Flores, was admitted to 2 Medical Room 258-01 @ 1945. Patient/family oriented to hospital policies and general routines including ID bracelet, bed and alarms, visiting hours, pain management, procedures, bathroom and other care routines, personal items, smoking policy, room service/diet, and visiting hours. Information on how to activate the Rapid Response Team has been discussed. Patient/Family are encouraged to report perceived risks to care and to ask questions if they do not understand what they are told or what they should do.
[2020-09-25] MEDS: SODIUM CHLORIDE 0.9% IV 1,000 ML 125 ML IV CONT (20:58)
[2020-09-25 21:31] VITALS: BP 146/63; PULSE 87; RESP 16; TEMP 36.2; O2SAT 95
[2020-09-25] MEDS: LATANOPROST 0.005% OP SOLN 2.5 ML BTL 1 DROP EACH EYE (22:44)
[2020-09-26 06:00] VITALS: BP 138/58; PULSE 61; RESP 18; TEMP 36.2; O2SAT 97
[2020-09-26] MEDS: LEVOTHYROXINE SODIUM 50 MCG TABLET PO (06:00)
[2020-09-26 06:21] VITALS: BMI 31.5
[2020-09-26 06:21] LABS: Hematocrit 32.2 % (37.0-47.0); Hemoglobin 10.3 g/dL (12.0-15.0); Mean Corpuscular Hemoglobin 29.1 pg (26-34); Mean Platelet Volume 10.7 fl (7.4-10.4); Platelet Count Result 172 k/mm3 (150-375); Red Blood Count 3.54 M/mm3 (4.2-5.4); Red Cell Distribution Width 13.1 % (11.5-14.5); White Blood Count 6.4 K/mm3 (4.5-10.0)
[2020-09-26 06:30] LABS: INR 1.1; Prothrombin Time 14.1 Seconds (11.1-14.7)
[2020-09-26 06:31] LABS: Partial Thromboplastin Time 33.4 SECONDS (22.3-36.8)
[2020-09-26 06:32] LABS: Alanine Aminotransferase 230 U/L (4-35); Albumin Level 3.5 g/dL (3.5-5.1); Alkaline Phosphatase 131 U/L (38-126); Anion Gap 7 mmol/L (8-16); Aspartate Amino Transferase 252 U/L (14-36); Bilirubin,Total 3.8 mg/dL (0.2-1.3); Blood Urea Nitrogen 25 mg/dL (7-17); Calcium 8.8 mg/dL (8.4-10.2); Carbon Dioxide 26 mmol/L (22-30); Chloride 101 mmol/L (98-107); Estimated CRCL calculation 35 ml/min; Estimated Glomerular Filt Rate 43; Glucose 104 mg/dL (65-110); Lipase 110 U/L (23-300); Potassium 4.2 mmol/L (3.4-5.0); Sodium 134 mmol/L (137-145)
[2020-09-26 07:24] LABS: Thyroid Stimulating Hormone Reflex 0.357 uIU/mL (0.465-4.68)
[2020-09-26 08:09] LABS: Free T4 Free Thyroxine Reflex 1.16 ng/dL (0.78-2.19)
[2020-09-26 09:12] VITALS: PULSE 56
[2020-09-26] MEDS: bisoproloL fumarate 5 MG TABLET PO (09:12)
[2020-09-26] MEDS: PANTOPRAZOLE 40 MG TABLET PO (09:12)
[2020-09-26] MEDS: lisinopriL 20 MG TABLET PO (09:12)
[2020-09-26] MEDS: TIMOLOL MALEATE 0.5% OP SOLN 5 ML BOTTLE 1 DROP EACH EYE (09:13)
--- NOTE | 2020-09-26 09:57 | PM.IMPN ---
Progress Note: A&P Assessment and Plan (1) Epigastric abdominal pain: Code(s): R10.13 - Epigastric pain Status: Acute Assessment and Plan: CT of the abdomen pelvis showed bile duct dilatation abd given her elevated LFTs and total bili, as well as history of common bile duct sludge requiring ERCP x2, she may very well have sludge again causing obstruction. She is not having much discomfort at this time. Appreciate gastroenterology consultation Planning for MRCP today Continue with NPO diet. Supportive care. Analgesics and antiemetics available as needed (2) Elevated LFTs: Code(s): R79.89 - Other specified abnormal findings of blood chemistry Status: Acute Assessment and Plan: LFTs are elevated, concerning for possible common bile duct obstruction. Patient has history of ERCP, sphincterotomy, and extraction of sludge previously. LFTs have increased today Planning for MRCP as described above. Hepatitis panel pending (3) Dilated bile duct: Code(s): K83.8 - Other specified diseases of biliary tract Status: Acute Assessment and Plan: Plan is as detailed above. (4) Urinary tract infection: Code(s): N39.0 - Urinary tract infection, site not specified Status: Acute Assessment and Plan: Urinalysis is abnormal and she endorsed dysuria Continue with ceftriaxone Await results of urine culture and tailor antibiotics accordingly (5) Hypertension: Code(s): I10 - Essential (primary) hypertension Status: Acute Assessment and Plan: Blood pressures were reviewed and were elevated yesterday although appears she does not take her antihypertensives. Improved today with BP 138/58 Continue with lisinopril and bisoprolol. She may take meds with sips of water Monitor BP trends (6) Hypothyroidism: Code(s): E03.9 - Hypothyroidism, unspecified Status: Acute Assessment and Plan: TSH is slightly decreased with normal T4 Continue levothyroxine T3 pending (7) Hyperlipidemia: Code(s): E78.5 - Hyperlipidemia, unspecified Status: Acute Assessment and Plan: Statin on hold given elevated LFTs. (8) Acute kidney injury: Code(s): N17.9 - Acute kidney failure, unspecified Status: Acute Assessment and Plan: Creatinine 1.1 on admission and is 1.2 today. Her baseline is unknown Continue with gentle IV fluids No evidence of hydroureteronephrosis on CT scan. No signs of urinary retention. Monitor renal function. Pursue further workup if continued increase in creatinine. Additional Plan Cardiac murmur noted on exam at left sternal border. Patient reports this has been evaluated by her PCP in the past, though I cannot view any records in this EMR. She is asymptomatic. Continue with outpatient follow up. Subjective Date/time seen: 09/26/20 09:57 Interval history: Date of service: 09/26/2020 Cara Flores is an 85-year-old female with history of hypertension, hypothyroidism, hyperlipidemia, osteoarthritis, and cholecystectomy in 1979 who is seen in follow-up for epigastric pain. She is feeling much better today. At this time she denies any active pain in the epigastric or abdominal region. She denies nausea or vomiting. Denies abdominal bloating or cramping. She is passing flatus. She had a normal bowel movement yesterday. Denies belching. She has had anything to eat or drink today as she is NPO. Her last meal was breakfast yesterday morning. She denies any urinary symptoms at this time. Denies shortness of breath, cough, chest pain, or palpitations. She is able to ambulate independently. Denies headaches, body aches, weakness, dizziness, or lightheadedness. Review of Systems Review of Systems: All systems reviewed & are unremarkable except as noted in HPI and below Exam Narrative: Ms. Flores is a well-nourished, well-appearing 85-year-old fe
[2020-09-26 10:16] LABS: Total Triiodothyronine (T3) 0.73 NG/ML (0.97-1.69)
[2020-09-26] MEDS: SODIUM CHLORIDE 0.9% IV 1,000 ML 75 ML IV CONT (10:34)
[2020-09-26 14:50] VITALS: BP 131/61; PULSE 63; RESP 16; TEMP 36.8; O2SAT 93
--- NOTE | 2020-09-26 15:43 | WPDGICN ---
Assessment and Plan Assessment and plan (1) Dilated bile duct: Code(s): K83.8 - Other specified diseases of biliary tract Status: Acute Assessment and Plan: will await on mrcp, she could have stones again or probably ampullary stenosis based on pain and raising liver enzymes. Most likely she will need to have ercp liquid diet for now (2) Elevated LFTs: Code(s): R79.89 - Other specified abnormal findings of blood chemistry Status: Acute Assessment and Plan: monitor, hepatitis panel pending will review mrcp (3) Epigastric abdominal pain: Code(s): R10.13 - Epigastric pain Status: Acute (4) Pancreatitis: Code(s): K85.90 - Acute pancreatitis without necrosis or infection, unspecified Status: Acute Assessment and Plan: mild elevated lipase, had pancreatitis previously (5) Urinary tract infection: Code(s): N39.0 - Urinary tract infection, site not specified Status: Acute Assessment and Plan: on antibiotics by primary team GI Consult Note Consult date/time: 09/26/20 15:43 Reason for consult: elevated liver enzymes, pancreatitis HPI: Cara Flores is a 85 year old female with history of cholecystectomy in 1980 and previous pancreatitis in 2018 for which she underwent ERCP with Dr Rosales, did not reveal obvious stones but had malfunctioning wire and procedure was terminated. Patient says that had another ercp last year with stone removed but could not find records here. She says that early this year in [place] had severe epigastric pain for which she went to ER and treated for uti, pain went away and she has been doing ok until yesterday, had severe epigastric pain after having breakfast with radiation to her back (similar to previous presentation), associated with sweats and nausea. She came here, CT scan reviewed, abnormal intrahepatic and extrahepatic bile duct dilatation; cannot exclude distal common bile duct obstruction, small sliding hiatal hernia, status post cholecystectomy. Also noted elevated liver enzymes, lipase 320 (mild elevated). Pain now is gone and feeling better. MRCP just was done. Had wbc in urine and stared on abx, no fever and normal wbc. Review of Systems Constitutional: Constitutional: Denies headache(s) and Denies weakness Eyes: Eyes: Denies blurry vision ENT: Reports Normal hearing present, Denies headache(s) and Denies neck pain Cardiovascular: Cardiovascular: Denies chest pain and Denies dyspnea Respiratory: Respiratory: Denies dyspnea Gastrointestinal: Gastrointestinal: Reports no additional gastrointestinal complaints Genitourinary: Genitourinary: Denies dysuria Musculoskeletal: Musculoskeletal: Denies neck pain Integumentary/Breasts: Skin/Breast: Denies dry skin Neurologic: Reports Normal hearing present, Denies headache(s) and Denies weakness Psychiatric: Psychiatric: Denies anxiety Endocrine: Endocrine: Denies change in body appearance Hematologic/Lymphatic: Hematologic/Lymphatic: Denies easy bleeding Allergic/Immunologic: Allergic/Immunologic: Denies urticaria PMFSH Past Medical History Medical History (Updated 09/26/20 @ 15:49 by Manuel Marcano MD) Glaucoma Hard of hearing Hyperlipidemia Hypertension Hypothyroidism Osteoarthritis Pancreatitis Shingles Surgical History Surgical History (Updated 09/25/20 @ 21:26 by Sinai Estrada PA-C) History of arthroscopy of left knee History of bilateral knee replacement History of cardiac catheterization History of cataract extraction History of cholecystectomy History of colonoscopy with polypectomy History of ERCP History of hysterectomy History of tonsillectomy Family History Family History Sibling Dementia Diabetes mellitus Heart failure Malignant neoplasm of prostate Acute myocardial infarction Father Pancreatic cancer Mother Heart failure Congestiv
[2020-09-26 20:05] LABS: Hepatitis B Surface Antigen Negative (Negative)
[2020-09-26 20:10] LABS: HAV RESULT Negative (Negative); Hepatitis B Core IgM Result Negative (Negative)
[2020-09-26 20:22] LABS: Hepatitis C Virus Antibody Negative (Negative)
[2020-09-26] MEDS: LATANOPROST 0.005% OP SOLN 2.5 ML BTL 1 DROP EACH EYE (20:50)
[2020-09-26 21:55] VITALS: BP 148/78; PULSE 78; RESP 18; TEMP 36.2; O2SAT 92
[2020-09-27] MEDS: SODIUM CHLORIDE 0.9% IV 1,000 ML 75 ML IV CONT (02:00)
[2020-09-27] MEDS: LEVOTHYROXINE SODIUM 50 MCG TABLET PO (05:40)
[2020-09-27 06:00] VITALS: BP 160/59; PULSE 67; RESP 16; TEMP 36.4; O2SAT 93
[2020-09-27 06:12] LABS: Hematocrit 31.7 % (37.0-47.0); Hemoglobin 10.2 g/dL (12.0-15.0)
[2020-09-27 06:16] LABS: Alanine Aminotransferase 192 U/L (4-35); Albumin Level 3.6 g/dL (3.5-5.1); Alkaline Phosphatase 149 U/L (38-126); Anion Gap 5 mmol/L (8-16); Aspartate Amino Transferase 118 U/L (14-36); Bilirubin,Total 2.6 mg/dL (0.2-1.3); Blood Urea Nitrogen 16 mg/dL (7-17); Calcium 8.8 mg/dL (8.4-10.2); Carbon Dioxide 26 mmol/L (22-30); Chloride 105 mmol/L (98-107); Estimated CRCL calculation 39 ml/min; Estimated Glomerular Filt Rate 47; Glucose 92 mg/dL (65-110); Potassium 3.8 mmol/L (3.4-5.0); Sodium 136 mmol/L (137-145)
[2020-09-27 06:27] LABS: Lipase 81 U/L (23-300)
[2020-09-27 08:07] VITALS: PULSE 70
[2020-09-27] MEDS: bisoproloL fumarate 5 MG TABLET PO (08:07)
[2020-09-27] MEDS: TIMOLOL MALEATE 0.5% OP SOLN 5 ML BOTTLE 1 DROP EACH EYE (08:08)
[2020-09-27] MEDS: lisinopriL 20 MG TABLET PO (08:08)
[2020-09-27] MEDS: PANTOPRAZOLE 40 MG TABLET PO (08:08)
--- NOTE | 2020-09-27 09:01 | WPDGIPROGNO ---
Progress Note: A&P Assessment and Plan (1) Dilated bile duct: Code(s): K83.8 - Other specified diseases of biliary tract Status: Acute Assessment and Plan: MRCP reviewed with severe intrahepatic and extrahepatic biliary duct dilatation 17mm, status post cholecystectomy, stable from 12/16/17. No choledocholithiasis. Liver enzymes still elevated and she is worried about recurrent symptoms every few months, I wonder if she could have ampullary stenosis or stricture. No obvious stone but I think that warrants ERCP evaluation which will do tomorrow, if negative then probably will benefit from EUS pancreas as outpatient (her father had pancreatic cancer) (2) Pancreatitis: Code(s): K85.90 - Acute pancreatitis without necrosis or infection, unspecified Status: Acute Assessment and Plan: resolved, only mild elevated lipase (3) Elevated LFTs: Code(s): R79.89 - Other specified abnormal findings of blood chemistry Status: Acute Assessment and Plan: she had normal liver enzymes in the past, probably related to biliary cause ercp tomorrow hepatitis panel negative (4) Urinary tract infection: Code(s): N39.0 - Urinary tract infection, site not specified Status: Acute Assessment and Plan: on abx Subjective Date/time seen: 09/27/20 09:01 Interval history: she has been doing ok since admission without any more pain but worries about intermittent episodes of severe upper abdominal discomfort, last time she went to ER in May while she was in [place]. Review of Systems Review of Systems: All systems reviewed & are unremarkable except as noted in HPI and below Exam Const: General: comfortable and no acute distress HENMT: General nose exam: Normal nares present Eyes: General: appearance normal, both eyes and all related structures Neck: Neck: no JVD Resp: Auscultation: clear to auscultation bilaterally Cardio: Rate: regular rate Rhythm: regular rhythm GI: Inspection: non-distended GI Palp: Yes Soft to palpation and No Guarding due to palpation present (GI) Auscultation: normal bowel sounds Skin: General skin exam: normal color Neuro: General: gait normal Speech: normal speech Extrem: General: normal to inspection Psych: Mental Status: mental status grossly normal Objective Data Vital Signs Vital Signs: Vital Signs - 24 hr 09/26/20 09:12 09/26/20 14:50 09/26/20 21:55 Temperature 98.2 F 97.1 F L Pulse Rate 56 L 63 78 Respiratory Rate 16 18 Blood Pressure 131/61 148/78 H Pulse Oximetry 93 92 09/27/20 06:00 09/27/20 08:07 Temperature 97.6 F Pulse Rate 67 70 Respiratory Rate 16 Blood Pressure 160/59 H Pulse Oximetry 93 Intake/Output Intake/Output: Intake & Output 09/24/20 09/25/20 09/26/20 09/27/20 23:59 23:59 23:59 23:59 Intake Total 50 2480 1100 Output Total 500 900 Balance 50 1980 200 Meds/Results Medications: Active Medications Generic Name Dose Route Start Last Admin Trade Name Freq PRN Reason Stop Dose Admin Bisoprolol Fumarate 5 mg 09/26/20 09:00 09/27/20 08:07 Bisoprolol Fumarate 5 Mg Tablet PO 5 mg DAILY KERRY Administration Ceftriaxone Sodium/Dextrose 1 gm in 50 mls @ 100 mls/hr 09/26/20 18:00 09/26/20 17:43 Rocephin 1 Gm/D5w 50 Ml IVPB Infused QPM KERRY Infusion Latanoprost 1 drop 09/25/20 21:00 09/26/20 20:50 Latanoprost 0.005% Op Soln 2.5 Ml Btl EACH EYE 1 drop HS KERRY Administration Levothyroxine Sodium 50 mcg 09/26/20 06:30 09/27/20 05:40 Levothyroxine Sodium 50 Mcg Tablet PO 50 mcg DAILY@0630 KERRY Administration Lisinopril 20 mg 09/26/20 09:00 09/27/20 08:08 Lisinopril 20 Mg Tablet PO 20 mg DAILY KERRY Administration Ondansetron HCl 4 mg 09/25/20 17:28 Ondansetron Inj 4 Mg/2 Ml Vial IV PUSH Q4H PRN Nausea Pantoprazole Sodium 40 mg 09/26/20 09:00 09/27/20 08:08 Pantoprazole 40 Mg Tablet PO 40 mg DAILY KERRY A
--- NOTE | 2020-09-27 13:36 | PM.IMPN ---
Progress Note: A&P Assessment and Plan (1) Epigastric abdominal pain: Code(s): R10.13 - Epigastric pain Status: Acute Assessment and Plan: CT of the abdomen/pelvis showed bile duct dilatation with associated elevated LFTs and total bili. She has a history of common bile duct sludge requiring ERCP x2. MRCP yesterday showed severe intrahepatic and extrahepatic biliary duct dilatation without choledocholithiasis Appreciate gastroenterology consultation Planning for ERCP tomorrow Clear liquid diet. NPO at midnight Supportive care. Analgesics and antiemetics available as needed (2) Elevated LFTs: Code(s): R79.89 - Other specified abnormal findings of blood chemistry Status: Acute Assessment and Plan: LFTs are elevated likely due to etiology. Patient has history of ERCP, sphincterotomy, and extraction of sludge previously. LFTs improved today Hepatitis panel negative Monitor. Repeat CMP tomorrow. (3) Dilated bile duct: Code(s): K83.8 - Other specified diseases of biliary tract Status: Acute Assessment and Plan: Plan is as detailed above. MRCP showed 17 mm dilatation of common bile duct. (4) Urinary tract infection: Code(s): N39.0 - Urinary tract infection, site not specified Status: Acute Assessment and Plan: Urinalysis is abnormal and she endorsed dysuria Urine culture with >100k Klebsiella pneumoniae susceptible to ceftriaxone Continue with ceftriaxone. Started on 09/25/20 (5) Hypertension: Code(s): I10 - Essential (primary) hypertension Status: Acute Assessment and Plan: Blood pressures were reviewed and have been somewhat elevated. Last BP 160/59. Continue with lisinopril and bisoprolol Monitor BP trends (6) Hypothyroidism: Code(s): E03.9 - Hypothyroidism, unspecified Status: Acute Assessment and Plan: TSH is slightly decreased with normal T4 and low T3 Continue levothyroxine She will benefit from repeat TSH with reflex in 4-6 weeks upon resolution of acute illness (7) Hyperlipidemia: Code(s): E78.5 - Hyperlipidemia, unspecified Status: Acute Assessment and Plan: Statin on hold given elevated LFTs. (8) Acute kidney injury: Code(s): N17.9 - Acute kidney failure, unspecified Status: Acute Assessment and Plan: Baseline. Creatinine was 1.1 on admission increased up to 1.2. Is back down to 1.1 today. This may be her baseline. IV fluids discontinued. Patient is euvolemic and tolerating p.o. intake No evidence of hydroureteronephrosis on CT scan. No signs of urinary retention. Monitor renal function. Subjective Date/time seen: 09/27/20 13:36 Interval history: Date of service: 09/27/2020 Cara Flores is an 85-year-old female with history of hypertension, hypothyroidism, hyperlipidemia, osteoarthritis, and cholecystectomy in 1979 who is seen in follow-up for biliary duct dilatation. She is doing well today. Her pain is resolved. She is tolerating clear liquids. This morning with breakfast, she said when she was drinking she felt some pressure improved with belching. She did not have any of this sensation with her lunch and has been doing well. She had a small bowel movement today. Denies nausea or vomiting. Denies cramping or bloating. Denies fevers, chills, dizziness, lightheadedness, shortness of breath, cough, chest pain. Denies urinary symptoms. She is able to ambulate independently to the restroom. She has no additional concerns at this time. Her son is present during interview and examination. Review of Systems Review of Systems: All systems reviewed & are unremarkable except as noted in HPI and below Exam Narrative: Ms. Flores is a well-nourished, well-appearing 85-year-old female who is lying supine in bed. She appears comfortable and is in NARD. Neuro: awake, alert and oriented x4, sp
[2020-09-27 14:00] VITALS: BP 153/65; PULSE 70; RESP 20; TEMP 36.7; O2SAT 94
[2020-09-27] MEDS: LATANOPROST 0.005% OP SOLN 2.5 ML BTL 1 DROP EACH EYE (21:22)
[2020-09-27 21:50] VITALS: BP 150/62; PULSE 61; RESP 18; TEMP 36.5; O2SAT 95
[2020-09-28] VITALS (12 sets, daily range): BP systolic 133–176; BP diastolic 53–78; PULSE 51–67; RESP 13–18; TEMP 35.9–36.9; O2SAT 93–100
[2020-09-28 05:59] LABS: Hematocrit 34.4 % (37.0-47.0); Hemoglobin 10.9 g/dL (12.0-15.0)
[2020-09-28 06:09] LABS: Alanine Aminotransferase 133 U/L (4-35); Albumin Level 3.7 g/dL (3.5-5.1); Alkaline Phosphatase 152 U/L (38-126); Anion Gap 7 mmol/L (8-16); Aspartate Amino Transferase 58 U/L (14-36); Bilirubin,Total 1.1 mg/dL (0.2-1.3); Blood Urea Nitrogen 12 mg/dL (7-17); Calcium 9.3 mg/dL (8.4-10.2); Carbon Dioxide 26 mmol/L (22-30); Chloride 104 mmol/L (98-107); Estimated CRCL calculation 44 ml/min; Estimated Glomerular Filt Rate 53; Glucose 90 mg/dL (65-110); Potassium 3.5 mmol/L (3.4-5.0); Sodium 137 mmol/L (137-145)
[2020-09-28] MEDS: LEVOTHYROXINE SODIUM 50 MCG TABLET PO (08:22)
[2020-09-28] MEDS: TIMOLOL MALEATE 0.5% OP SOLN 5 ML BOTTLE 1 DROP EACH EYE (08:22)
[2020-09-28] MEDS: bisoproloL fumarate 5 MG TABLET PO (10:52)
[2020-09-28] MEDS: PANTOPRAZOLE 40 MG TABLET PO (10:52)
--- NOTE | 2020-09-28 11:20 | PC.NURSE ---
Pt to GI lab.
--- NOTE | 2020-09-28 11:46 | WPDANESEPPF ---
Anes - Initial Pre Proc Eval Procedure: Operation Date: 09/28/20 14:30 Proposed Procedures p Endoscopic Retro Cholangiopancreatogram - Manuel Marcano MD Date/Time: 09/28/20 11:46 Surgeon: Tanja Styles PA-C Pre Op Diagnosis: Epigastric Pain, Bile Duct Dilation Patient Data Age: 85 Gender: F Height: 1.7 m Weight: 98.6 kg Last Vital Signs Temp 36.8 C 09/28/20 06:00 Pulse 60 09/28/20 10:52 Resp 16 09/28/20 06:00 BP 153/56 H 09/28/20 06:00 Pulse Ox 97 09/28/20 06:00 Allergies Allergy/AdvReac Type Severity Reaction Status Date / Time No Known Allergies Allergy Verified 09/28/20 11:42 Home Medications Medication Instructions Recorded Confirmed Type aspirin 81 mg PO DAILY 09/25/20 09/25/20 History bimatoprost [Lumigan] 1 drp EACH EYE QPM 09/25/20 09/25/20 History bisoprolol fumarate 5 mg PO DAILY 09/25/20 09/25/20 History levothyroxine 50 mcg PO DAILY 09/25/20 09/25/20 History lisinopril 20 mg PO DAILY 09/25/20 09/25/20 History pantoprazole 40 mg PO DAILY 09/25/20 09/25/20 History simvastatin 20 mg PO QPM 09/25/20 09/25/20 History timolol maleate 1 drp EACH EYE DAILY 09/25/20 09/25/20 History Laboratory Tests 09/28/20 09/28/20 05:28 05:28 Hgb 10.9 g/dL L g/dL (12.0-15.0) Hct 34.4 % L % (37.0-47.0) Sodium 137 mmol/L mmol/L (137-145) Potassium 3.5 mmol/L mmol/L (3.4-5.0) Chloride 104 mmol/L mmol/L (98-107) Carbon Dioxide 26 mmol/L mmol/L (22-30) Anion Gap 7 mmol/L L mmol/L (8-16) BUN 12 mg/dL mg/dL (7-17) Creatinine 1.00 mg/dL mg/dL (0.7-1.0) Estim Creat Clear Calc 44 ml/min ml/min Estimated GFR 53 L (59 - ) Glucose 90 mg/dL mg/dL (65-110) Calcium 9.3 mg/dL mg/dL (8.4-10.2) Total Bilirubin 1.1 mg/dL mg/dL (0.2-1.3) AST 58 U/L H U/L (14-36) ALT 133 U/L H U/L (4-35) Alkaline Phosphatase 152 U/L H U/L (38-126) Total Protein 7.0 g/dL g/dL (6.3-8.2) Albumin 3.7 g/dL g/dL (3.5-5.1) Patient hx anesthesia problems: none Family hx anesthesia problems: none [facility] Past Medical History Medical History (Updated 09/26/20 @ 15:49 by Manuel Marcano MD) Glaucoma Hard of hearing Hyperlipidemia Hypertension Hypothyroidism Osteoarthritis Pancreatitis Shingles Surgical History Surgical History (Updated 09/25/20 @ 21:26 by Sinai Estrada PA-C) History of arthroscopy of left knee History of bilateral knee replacement History of cardiac catheterization History of cataract extraction History of cholecystectomy History of colonoscopy with polypectomy History of ERCP History of hysterectomy History of tonsillectomy Family History Family History Sibling Dementia Diabetes mellitus Heart failure Malignant neoplasm of prostate Acute myocardial infarction Father Pancreatic cancer Mother Heart failure Congestive heart failure Social History Social History (Updated 09/25/20 @ 21:27 by Sinai Estrada PA-C) Social History: Surrogate decision maker: Ras Pa, son. Code status: Full code. Smoking status: Never smoker Alcohol intake: never Substance use: never Substance use type: does not use Additional living arrangements comments: The patient lives in her own home in [place]. x2. Raised 6 children. Additional occupation/education comments: Retired. [employer] Final PreProcedure Day of Procedure 09/28/20 11:46 Patient weight: obese Heart: regular rate and rhythm Lungs: clear to auscultation and normal air movement Airway: Mallampati scale class II Neurological: alert and oriented Last oral intake: >/= 8 hours ASA classification: III Emergent: no Anesthetic plan: proceed Anesthesia type and monitoring: general ETT Informed Consent: The patient's anesthetic plan and
[2020-09-28] MEDS: LACTATED RINGERS 1,000 ML 150 ML IV CONT (11:47)
[2020-09-28] MEDS: INDOMETHACIN 50 MG SUPP.RECT RECTAL (14:11)
--- NOTE | 2020-09-28 15:47 | SUR.PHASEII ---
1547 Awake, sitting upright, teeth back in, glasses returned and hearing aides. Denies pain, occasional non-productive cough, abdomen soft, positive bowel sounds
--- NOTE | 2020-09-28 16:10 | PC.NURSE ---
Pt returned from GI lab.
--- NOTE | 2020-09-28 16:21 | PM.IMPN ---
Progress Note: A&P Assessment and Plan (1) Epigastric abdominal pain: Code(s): R10.13 - Epigastric pain Status: Acute Assessment and Plan: CT of the abdomen/pelvis showed bile duct dilatation with associated elevated LFTs and total bili. She has a history of common bile duct sludge requiring ERCP x2. MRCP 09/27 showed severe intrahepatic and extrahepatic biliary duct dilatation without choledocholithiasis Appreciate gastroenterology consultation She had ERCP today with sphincterotomy performed Advanced to full liquid diet per GI recommendations. Continue to advance as tolerated Supportive care. Analgesics and antiemetics available as needed She will need to follow-up with Dr. Oakley 6 weeks and have a repeat CMP prior. (2) Elevated LFTs: Code(s): R79.89 - Other specified abnormal findings of blood chemistry Status: Acute Assessment and Plan: LFTs are elevated likely due to biliary etiology. Patient has history of ERCP, sphincterotomy, and extraction of sludge previously. LFTs improved today. Total bilirubin normalized. Hepatitis panel negative Monitor. Repeat CMP tomorrow. (3) Dilated bile duct: Code(s): K83.8 - Other specified diseases of biliary tract Status: Acute Assessment and Plan: Plan is as detailed above. MRCP showed 17 mm dilatation of common bile duct. Now s/p sphincterotomy (4) Urinary tract infection: Code(s): N39.0 - Urinary tract infection, site not specified Status: Acute Assessment and Plan: Urinalysis is abnormal and she endorsed dysuria Urine culture with >100k Klebsiella pneumoniae susceptible to ceftriaxone Continue with ceftriaxone. Started on 09/25/20 (5) Hypertension: Code(s): I10 - Essential (primary) hypertension Status: Acute Assessment and Plan: Blood pressures were reviewed and have been elevated, likely due to pain. Last BP was elevated at 170 6/76 following ERCP Continue with lisinopril and bisoprolol Monitor BP trends and adjust regimen as needed (6) Hypothyroidism: Code(s): E03.9 - Hypothyroidism, unspecified Status: Acute Assessment and Plan: TSH is slightly decreased with normal T4 and low T3 Continue levothyroxine She will benefit from repeat TSH with reflex in 4-6 weeks upon resolution of acute illness (7) Hyperlipidemia: Code(s): E78.5 - Hyperlipidemia, unspecified Status: Acute Assessment and Plan: Statin on hold given elevated LFTs. (8) Acute kidney injury: Code(s): N17.9 - Acute kidney failure, unspecified Status: Acute Assessment and Plan: Baseline unknown. Creatinine was 1.1 on admission increased up to 1.2. Creatinine is 1.0 today IV fluids discontinued. Patient is euvolemic and tolerating p.o. intake No evidence of hydroureteronephrosis on CT scan. No signs of urinary retention. Monitor renal function. Subjective Date/time seen: 09/28/20 16:21 Interval history: Date of service: 09/28/2020 Cara Flores is an 85-year-old female with history of hypertension, hypothyroidism, hyperlipidemia, osteoarthritis, and cholecystectomy in 1979 who is seen in follow-up for biliary duct dilatation now s/p sphincterotomy performed today. She is feeling well at this time. Reports feeling a bit groggy still. She is looking for to advancing to full liquids. Denies nausea, vomiting, or any abdominal pain whatsoever. No shortness breath, cough, or chest pain. Overall doing well and she has no additional concerns. Review of Systems Review of Systems: All systems reviewed & are unremarkable except as noted in HPI and below Exam Narrative: Ms. Flores is a well-nourished, well-appearing 85-year-old female who is lying supine in bed. She appears comfortable and is in NARD. Neuro: awake, alert and oriented x4, speech clear, no focal neuro deficits noted HEENMT: normocep
[2020-09-28] MEDS: LATANOPROST 0.005% OP SOLN 2.5 ML BTL 1 DROP EACH EYE (21:08)
[2020-09-28] MEDS: SIMETHICONE 125 MG CHEW TAB PO (23:46)
[2020-09-29] MEDS: ONDANSETRON INJ 4 MG/2 ML VIAL IV PUSH (00:04)
[2020-09-29] MEDS: MORPHINE SULFATE (*CRX) 2 MG/ML INJ IV PUSH (03:02)
[2020-09-29 05:58] LABS: Hematocrit 35.5 % (37.0-47.0); Hemoglobin 11.6 g/dL (12.0-15.0)
[2020-09-29 06:00] VITALS: BP 157/66; PULSE 65; RESP 18; TEMP 36.6; O2SAT 96
[2020-09-29 06:11] LABS: Alanine Aminotransferase 171 U/L (4-35); Alkaline Phosphatase 402 U/L (38-126); Anion Gap 8 mmol/L (8-16); Aspartate Amino Transferase 130 U/L (14-36); Bilirubin,Total 3.7 mg/dL (0.2-1.3); Blood Urea Nitrogen 17 mg/dL (7-17); Calcium 9.2 mg/dL (8.4-10.2); Carbon Dioxide 24 mmol/L (22-30); Chloride 106 mmol/L (98-107); Estimated CRCL calculation 44 ml/min; Estimated Glomerular Filt Rate 53; Glucose 130 mg/dL (65-110); Potassium 3.8 mmol/L (3.4-5.0); Sodium 138 mmol/L (137-145)
[2020-09-29 06:24] LABS: Lipase 164 U/L (23-300)
[2020-09-29] MEDS: LEVOTHYROXINE SODIUM 50 MCG TABLET PO (06:40)
[2020-09-29 08:09] VITALS: PULSE 60
[2020-09-29] MEDS: PANTOPRAZOLE 40 MG TABLET PO (08:09)
[2020-09-29] MEDS: lisinopriL 20 MG TABLET PO (08:09)
[2020-09-29] MEDS: bisoproloL fumarate 5 MG TABLET PO (08:09)
[2020-09-29] MEDS: TIMOLOL MALEATE 0.5% OP SOLN 5 ML BOTTLE 1 DROP EACH EYE (08:09)
--- NOTE | 2020-09-29 10:22 | WPDANESPN ---
Anes - Prog Note Post-Op Date/Time: 09/29/20 10:22 Cardiovascular status: normal Respiratory status: normal Airway patency: baseline Mental status: baseline Post-Op hydration status: normal Vital Signs: Last Vital Signs Temp 36.6 C 09/29/20 06:00 Pulse 60 09/29/20 08:09 Resp 18 09/29/20 06:00 BP 157/66 H 09/29/20 06:00 Pulse Ox 96 09/29/20 06:00 Pain Score (VAS): 2 I/O: Intake & Output 09/28/20 09/29/20 09/29/20 23:59 07:59 15:59 Intake Total 770 500 240 Output Total 1200 800 Balance -430 -300 240 Laboratory Tests 09/29/20 05:18 09/29/20 05:18 09/29/20 09/29/20 09/29/20 05:18 05:18 05:18 Hgb 11.6 L Hct 35.5 L Sodium 138 Potassium 3.8 Chloride 106 Carbon Dioxide 24 Anion Gap 8 BUN 17 Creatinine 1.00 Estim Creat Clear Calc 44 Estimated GFR 53 L Glucose 130 H Calcium 9.2 Total Bilirubin 3.7 H AST 130 H ALT 171 H Alkaline Phosphatase 402 H Total Protein 7.0 Albumin 4.0 Lipase 164 Post-procedural complaints: none Patient Feedback: Patient satisfied with anesthetic care.
[2020-09-29] MEDS: DOCUSATE SODIUM 100 MG CAPSULE PO (11:40)
[2020-09-29 13:14] VITALS: BP 152/60; PULSE 77; RESP 18; TEMP 35.9; O2SAT 97
--- NOTE | 2020-09-29 14:34 | PM.IMPN ---
Progress Note: A&P Assessment and Plan (1) Epigastric abdominal pain: Code(s): R10.13 - Epigastric pain Status: Acute Assessment and Plan: CT of the abdomen/pelvis showed bile duct dilatation with associated elevated LFTs and total bili She has a history of common bile duct sludge requiring ERCP x2 MRCP 09/27 showed severe intrahepatic and extrahepatic biliary duct dilatation without choledocholithiasis GI following, recommendations appreciated S/p ERCP with sphincterotomy on 09/28 ADAT Analgesics and antiemetics available as needed Will need to follow-up with Dr. Oakley 6 weeks and have a repeat CMP prior (2) Elevated LFTs: Code(s): R79.89 - Other specified abnormal findings of blood chemistry Status: Acute Assessment and Plan: Suspect biliary etiology Hx of ERCP, sphincterotomy, and extraction of sludge LFTs trending up Total bilirubin elevated Hepatitis panel negative Repeat CMP Monitor (3) Dilated bile duct: Code(s): K83.8 - Other specified diseases of biliary tract Status: Acute Assessment and Plan: Plan as above MRCP showed 17 mm dilatation of common bile duct Now s/p sphincterotomy (4) Urinary tract infection: Code(s): N39.0 - Urinary tract infection, site not specified Status: Acute Assessment and Plan: UC >100k Klebsiella pneumoniae Continue with ceftriaxone, started on 09/25/20 (5) Hypertension: Code(s): I10 - Essential (primary) hypertension Status: Acute Assessment and Plan: Improving Blood pressures have been elevated Continue with lisinopril and bisoprolol Monitor BP trends and adjust regimen as needed (6) Hypothyroidism: Code(s): E03.9 - Hypothyroidism, unspecified Status: Acute Assessment and Plan: TSH is slightly decreased with normal T4 and low T3 Continue levothyroxine Repeat TSH with reflex in 4-6 weeks (7) Hyperlipidemia: Code(s): E78.5 - Hyperlipidemia, unspecified Status: Acute Assessment and Plan: Statin on hold given elevated LFTs (8) Acute kidney injury: Code(s): N17.9 - Acute kidney failure, unspecified Status: Acute Assessment and Plan: Resolved Creatinine was 1.1 on admission-->1.2-->1.0 today S/p IVF Monitor unction. Subjective Date/time seen: 09/29/20 14:34 pt seen and evaluated; pt had pain with nausea last evening; liver enzymes and total bili trending up Review of Systems Review of Systems: All systems reviewed & are unremarkable except as noted in HPI and below Exam Const: General: no acute distress, alert and awake Orientation/consciousness: patient oriented x3 HENMT: Head: normocephalic and atraumatic Ears: hearing grossly normal bilaterally and external ears normal Face and sinus: face symmetric Mouth: Yes Normal oral and palatal mucosa present Eyes: Pupils: Equal, round and reactive pupils present EOM: EOMs intact bilaterally Neck: Neck: full ROM, trachea midline and no JVD Thyroid: thyroid normal Chest: Chest palpation & inspection: normal inspection of the chest Resp: Effort & Inspection: normal respiratory effort Auscultation: clear to auscultation bilaterally Cardio: Jugular venous distension: no JVD Rate: regular rate Rhythm: regular rhythm Heart sounds: S1 normal heart sound present and S2 normal heart sound present GI: Inspection: normal to inspection GI Palp: Yes Soft to palpation Percussion: Yes normal to percussion Auscultation: normal bowel sounds : General: Yes no CVA tenderness Back/Spine/Pelvis: Back: no CVA tenderness Skin: General skin exam: normal color Rashes: no rashes Neuro: General: patient oriented x3 and CN's II-XI intact bilaterally Cranial nerves: Yes Equal, round and reactive pupils present Speech: normal speech Psych: Appearance: grossly normal Affect: normal affect Judgement: Good judgement present (Psych) Objective Data
--- NOTE | 2020-09-29 16:29 | WPDGIPROGNO ---
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) with unremarkable cholangioscopy- no stones or strictures patient developed similar pain last night but resolved tolerating diet (2) Pancreatitis: Code(s): K85.90 - Acute pancreatitis without necrosis or infection, unspecified Status: Acute Assessment and Plan: normal lipase post ERCP (3) Elevated LFTs: Code(s): R79.89 - Other specified abnormal findings of blood chemistry Status: Acute Assessment and Plan: recent elevation probably related to ercp but no pancreatitis repeat lft's again in am (4) Urinary tract infection: Code(s): N39.0 - Urinary tract infection, site not specified Status: Acute Assessment and Plan: on abx Subjective Date/time seen: 09/29/20 16:29 Interval history: yesterday at night had similar epigastric pain as previously, required iv pain meds and now resolved, tolerating diet. Review of Systems Review of Systems: All systems reviewed & are unremarkable except as noted in HPI and below Exam Const: General: comfortable and no acute distress HENMT: General nose exam: Normal nares present Eyes: General: appearance normal, both eyes and all related structures Neck: Neck: no JVD Resp: Auscultation: clear to auscultation bilaterally Cardio: Rate: regular rate Rhythm: regular rhythm GI: Inspection: non-distended GI Palp: Yes Soft to palpation and No Tenderness to palpation present (GI) Auscultation: normal bowel sounds Skin: General skin exam: normal color Neuro: Speech: normal speech Motor exam (neuro): Normal motor muscle tone present throughout Extrem: General: normal to inspection Psych: Mental Status: mental status grossly normal Objective Data Vital Signs Vital Signs: Vital Signs - 24 hr 09/28/20 17:50 09/28/20 22:00 09/29/20 06:00 Temperature 98.2 F 98.4 F 97.8 F Pulse Rate 59 L 65 65 Respiratory Rate 18 18 18 Blood Pressure 147/53 H 171/59 H 157/66 H Pulse Oximetry 96 96 96 09/29/20 08:09 09/29/20 13:14 Temperature 96.6 F L Pulse Rate 60 77 Respiratory Rate 18 Blood Pressure 152/60 H Pulse Oximetry 97 Intake/Output Intake/Output: Intake & Output 09/26/20 09/27/20 09/28/20 09/29/20 23:59 23:59 23:59 23:59 Intake Total 2480 4110 1720 860 Output Total 500 1900 1200 800 Balance 1980 2210 520 60 Meds/Results Medications: Active Medications Generic Name Dose Route Start Last Admin Trade Name Freq PRN Reason Stop Dose Admin Hydrocodone Bitart/Acetaminophen 1 tab 09/29/20 08:54 Hydrocodone/Acetaminophen (*Crx) 5-325 Mg Tablet PO Q6H PRN Pain Rated 4-6 Bisoprolol Fumarate 5 mg 09/26/20 09:00 09/29/20 08:09 Bisoprolol Fumarate 5 Mg Tablet PO 5 mg DAILY KERRY Administration Docusate Sodium 100 mg 09/29/20 09:00 09/29/20 11:40 Docusate Sodium 100 Mg Capsule PO 100 mg DAILY KERRY Administration Ceftriaxone Sodium/Dextrose 1 gm in 50 mls @ 100 mls/hr 09/26/20 18:00 09/28/20 17:32 Rocephin 1 Gm/D5w 50 Ml IVPB Infused QPM KERRY Infusion Latanoprost 1 drop 09/25/20 21:00 09/28/20 21:08 Latanoprost 0.005% Op Soln 2.5 Ml Btl EACH EYE 1 drop HS KERRY Administration Levothyroxine Sodium 50 mcg 09/26/20 06:30 09/29/20 06:40 Levothyroxine Sodium 50 Mcg Tablet PO 50 mcg DAILY@0630 KERRY Administration Lisinopril 20 mg 09/26/20 09:00 09/29/20 08:09 Lisinopril 20 Mg Tablet PO 20 mg DAILY KERRY Administration Morphine Sulfate 2 mg 09/29/20 02:38 09/29/20 03:02 Morphine Sulfate (*Crx) 2 Mg/Ml Inj IV PUSH 2 mg Q6H PRN Administration Pain Rated 7-10 Ondansetron HCl 4 mg 09/25/20 17:28 09/29/20 00:04 Ondansetron Inj 4 Mg/2 Ml Vial IV PUSH 4
[2020-09-29] MEDS: LATANOPROST 0.005% OP SOLN 2.5 ML BTL 1 DROP EACH EYE (21:09)
[2020-09-29 22:00] VITALS: BP 146/54; PULSE 79; RESP 16; TEMP 36.4; O2SAT 94
[2020-09-30 05:45] LABS: Alanine Aminotransferase 159 U/L (4-35); Albumin Level 3.7 g/dL (3.5-5.1); Alkaline Phosphatase 356 U/L (38-126); Anion Gap 4 mmol/L (8-16); Aspartate Amino Transferase 90 U/L (14-36); Bilirubin,Total 2.1 mg/dL (0.2-1.3); Blood Urea Nitrogen 18 mg/dL (7-17); Carbon Dioxide 30 mmol/L (22-30); Chloride 102 mmol/L (98-107); Estimated CRCL calculation 38 ml/min; Estimated Glomerular Filt Rate 47; Glucose 105 mg/dL (65-110); Potassium 3.8 mmol/L (3.4-5.0); Sodium 136 mmol/L (137-145)
[2020-09-30 06:00] VITALS: BP 124/45; PULSE 75; RESP 21; TEMP 36.5; O2SAT 100
[2020-09-30] MEDS: LEVOTHYROXINE SODIUM 50 MCG TABLET PO (06:19)
[2020-09-30 09:38] VITALS: PULSE 72
[2020-09-30] MEDS: lisinopriL 20 MG TABLET PO (09:38)
[2020-09-30] MEDS: bisoproloL fumarate 5 MG TABLET PO (09:38)
[2020-09-30] MEDS: TIMOLOL MALEATE 0.5% OP SOLN 5 ML BOTTLE 1 DROP EACH EYE (09:39)
[2020-09-30] MEDS: PANTOPRAZOLE 40 MG TABLET PO (09:39)
[2020-09-30] MEDS: DOCUSATE SODIUM 100 MG CAPSULE PO (09:43)
[2020-09-30 09:45] VITALS: PULSE 72; RESP 20; O2SAT 100
[2020-09-30 13:53] VITALS: BP 120/48; PULSE 71; RESP 18; TEMP 36.6; O2SAT 95
--- NOTE | 2020-09-30 16:28 | WPDGIPROGNO ---
Progress Note: A&P Assessment and Plan (1) Dilated bile duct: Code(s): K83.8 - Other specified diseases of biliary tract Status: Acute Assessment and Plan: she is asymptomatic and liver enzymes trending down again she can go home with low fat diet repeat cmp in 2 weeks and follow-up office (2) Pancreatitis: Code(s): K85.90 - Acute pancreatitis without necrosis or infection, unspecified Status: Acute Assessment and Plan: normal lipase post ERCP (3) Elevated LFTs: Code(s): R79.89 - Other specified abnormal findings of blood chemistry Status: Acute Assessment and Plan: trending down (4) Urinary tract infection: Code(s): N39.0 - Urinary tract infection, site not specified Status: Acute Assessment and Plan: received abx Subjective Date/time seen: 09/30/20 16:28 Interval history: no more pain, good appetite and ready to go home Review of Systems Review of Systems: All systems reviewed & are unremarkable except as noted in HPI and below Exam Const: General: comfortable and no acute distress HENMT: General nose exam: Normal nares present Eyes: General: appearance normal, both eyes and all related structures Neck: Neck: no JVD Resp: Auscultation: clear to auscultation bilaterally Cardio: Rate: regular rate Rhythm: regular rhythm GI: Inspection: non-distended GI Palp: Yes Soft to palpation and No Tenderness to palpation present (GI) Auscultation: normal bowel sounds Skin: General skin exam: normal color Neuro: Speech: normal speech Motor exam (neuro): Normal motor muscle tone present throughout Extrem: General: normal to inspection Psych: Mental Status: mental status grossly normal Objective Data Vital Signs Vital Signs: Vital Signs - 24 hr 09/29/20 22:00 09/30/20 06:00 09/30/20 09:38 Temperature 97.5 F L 97.7 F Pulse Rate 79 75 72 Respiratory Rate 16 21 H Blood Pressure 146/54 H 124/45 L Pulse Oximetry 94 100 09/30/20 09:45 09/30/20 13:53 Temperature 97.9 F Pulse Rate 72 71 Respiratory Rate 20 18 Blood Pressure 120/48 L Pulse Oximetry 100 95 Intake/Output Intake/Output: Intake & Output 09/27/20 09/28/20 09/29/20 09/30/20 23:59 23:59 23:59 23:59 Intake Total 4110 1720 1350 1200 Output Total 1900 1200 1500 1650 Balance 2210 651 -490 -902 Meds/Results Medications: Active Medications Generic Name Dose Route Start Last Admin Trade Name Freq PRN Reason Stop Dose Admin Hydrocodone Bitart/Acetaminophen 1 tab 09/29/20 08:54 Hydrocodone/Acetaminophen (*Crx) 5-325 Mg Tablet PO Q6H PRN Pain Rated 4-6 Bisoprolol Fumarate 5 mg 09/26/20 09:00 09/30/20 09:38 Bisoprolol Fumarate 5 Mg Tablet PO 5 mg DAILY KERRY Administration Docusate Sodium 100 mg 09/29/20 09:00 09/30/20 09:43 Docusate Sodium 100 Mg Capsule PO 100 mg DAILY KERRY Administration Ceftriaxone Sodium/Dextrose 1 gm in 50 mls @ 100 mls/hr 09/26/20 18:00 09/29/20 18:36 Rocephin 1 Gm/D5w 50 Ml IVPB Infused QPM KERRY Infusion Latanoprost 1 drop 09/25/20 21:00 09/29/20 21:09 Latanoprost 0.005% Op Soln 2.5 Ml Btl EACH EYE 1 drop HS KERRY Administration Levothyroxine Sodium 50 mcg 09/26/20 06:30 09/30/20 06:19 Levothyroxine Sodium 50 Mcg Tablet PO 50 mcg DAILY@0630 KERRY Administration Lisinopril 20 mg 09/26/20 09:00 09/30/20 09:38 Lisinopril 20 Mg Tablet PO 20 mg DAILY KERRY Administration Morphine Sulfate 2 mg 09/29/20 02:38 09/29/20 03:02 Morphine Sulfate (*Crx) 2 Mg/Ml Inj IV PUSH 2 mg Q6H PRN Administration Pain Rated 7-10 Ondansetron HCl 4 mg 09/25/20 17:28 09/29/20 00:04 Ondansetron Inj 4 Mg/2 Ml Vial IV PUSH 4 mg Q4H PRN Administration Nausea Pantoprazole Sodium 40 mg 09/26/20 09:00 09/30/20 09:39 Pantoprazole 40 Mg Tablet PO 40 mg DAILY KERRY Administration Simethicone 125 mg 09/28/20 23:27 09/28/20 23:46 Simeth
--- NOTE | 2020-09-30 16:44 | PM.DS ---
DS: Admitting Diagnosis Admitting Diagnosis Epigastric pain DS: Discharge Diagnosis Discharge Diagnosis (1) Epigastric abdominal pain: Code(s): R10.13 - Epigastric pain Status: Acute Assessment and Plan: CT of the abdomen/pelvis showed bile duct dilatation with associated elevated LFTs and total bili. She has a history of common bile duct sludge requiring ERCP x2. She was seen in consultation by by gastroenterology. MRCP 09/27 showed severe intrahepatic and extrahepatic biliary duct dilatation without choledocholithiasis. 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 No stones or strictures. Diet was slowly advanced and she was able to tolerate a low fat diet. Pain resolved. She will need to follow-up with Dr. Oakley 6 weeks and have a repeat CMP prior. (2) Elevated LFTs: Code(s): R79.89 - Other specified abnormal findings of blood chemistry Status: Acute Assessment and Plan: LFTs elevated secondary to biliary etiology. LFTs with downward trend. Hepatitis panel negative. Repeat hepatic panel in 1 week to monitor for continued improvement and follow up with Dr. Oakley in 6 weeks. (3) Dilated bile duct: Code(s): K83.8 - Other specified diseases of biliary tract Status: Acute Assessment and Plan: See above. (4) Urinary tract infection: Code(s): N39.0 - Urinary tract infection, site not specified Status: Acute Assessment and Plan: UA abnormal on presentation with complaints of dysuria. Urine culture with >100k Klebsiella pneumoniae. She received 5 days of IV Rocephin. (5) Hypertension: Code(s): I10 - Essential (primary) hypertension Status: Acute Assessment and Plan: Blood pressures reviewed and were occasionally elevated above target, likely due to epigastric pain. Overall improved. Continue with lisinopril and bisoprolol (6) Hypothyroidism: Code(s): E03.9 - Hypothyroidism, unspecified Status: Acute Assessment and Plan: TSH is slightly decreased with normal T4 and low T3. Continue levothyroxine. Repeat TSH with reflex in 4-6 weeks, follow-up with PCP (7) Hyperlipidemia: Code(s): E78.5 - Hyperlipidemia, unspecified Status: Acute Assessment and Plan: Statin on hold given elevated LFTs. Repeat CMP in 1 week. (8) Acute kidney injury: Code(s): N17.9 - Acute kidney failure, unspecified Status: Acute Assessment and Plan: Baseline unknown. Creatinine 1.1 on admission increased up to 1.2. She did receive IV fluids. Creatinine returned to 1.1, which may be her baseline. No evidence of hydroureteronephrosis on CT scan. No signs of urinary retention. She was euvolemic and tolerating p.o. intake. DS: Summary Hospital Course Hospital Course: Date of admission: 09/25/2020 Date of discharge: 09/30/2020 Cara Flores is an 85-year-old female with history of hypertension, hypothyroidism, hyperlipidemia, osteoarthritis, and cholecystectomy in 1979 who presented to the emergency department on 09/25/2020 with complaints of epigastric pain ongoing since early this morning. On presentation to the emergency department, her BP was elevated with additional vital signs stable, CBC unremarkable, BUN 23, creatinine 1.1, additional electrolytes stable, UA abnormal, and CT abdomen/pelvis showed intrahepatic and extrahepatic bile duct dilatation. She was admitted to the hospitalist service for further evaluation management was seen in consultation by Gastroenterology. Please see above for further details. She underwent MRCP and ERCP with sphincterotomy performed. Her epigastric pain resolved and was able to tolerate a low-fat diet. She will follow-up with Dr. Oakley as an outpatient. She began feeling better and requested discharge home. Given her overall improvement, she was determined to no longer require inpatient care a
== END 2020-09-30 17:30 | disposition home or self-care (01) | DRG 445 ==
LOC: ANHED 19:14 → ANH2MED 19:24
PROVIDERS: Emergency Medicine; Internal Medicine Gastroenterology; Physician Assistant; Admitting Provider Internal Medicine Critical Care Medicine; Emergency Provider Emergency Medicine; PCP Family Medicine; Visit Provider Internal Medicine
PROC: 0F798ZZ Dilation of Common Bile Duct, Via Natural or Artificial Opening Endoscopic (ICD-10-PCS; CPT 43260; principal; 2020-09-28 14:30)
DX: K83.1 Obstruction of bile duct (principal); N39.0 Urinary tract infection, site not specified; N17.9 Acute kidney failure, unspecified; B96.1 Klebsiella pneumoniae [K. pneumoniae] as the cause of diseases classified elsewhere; R79.89 Other specified abnormal findings of blood chemistry; E03.9 Hypothyroidism, unspecified; K83.8 Other specified diseases of biliary tract; E78.5 Hyperlipidemia, unspecified; H40.9 Unspecified glaucoma; I10 Essential (primary) hypertension; K57.30 Diverticulosis of large intestine without perforation or abscess without bleeding; M19.90 Unspecified osteoarthritis, unspecified site; Z96.653 Presence of artificial knee joint, bilateral; Z90.49 Acquired absence of other specified parts of digestive tract; Z98.42 Cataract extraction status, left eye; Z98.41 Cataract extraction status, right eye; Z90.710 Acquired absence of both cervix and uterus; E66.9 Obesity, unspecified; Z68.30 Body mass index [BMI] 30.0-30.9, adult
CPT/HCPCS: 36415; 74177; 74183; 74329; 76376; 80053; 80074; 81001; 83690; 83735; 84439; 84443; 84480; 85014; 85018; 85025; 85027; 85610; 85730; 87077; 87086; 87088; 87186; 96361; 96365; 96375; 99285; A9270; A9577; C1769; G0378; J0330; J0696; J2270; J2405; J2704; J7030; J7120; Q9967

== ENCOUNTER 2020-10-07 07:58 | Outpatient (CLI) | payer OTHER, SELFPAY ==
[2020-10-07 08:37] LABS: Alanine Aminotransferase 58 U/L (4-35); Albumin Level 4.5 g/dL (3.5-5.1); Alkaline Phosphatase 181 U/L (38-126); Aspartate Amino Transferase 56 U/L (14-36)
== END 2020-10-07 07:59 | disposition home or self-care (01) ==
PROVIDERS: PCP Family Medicine; Visit Provider Physician Assistant
DX: R79.89 Other specified abnormal findings of blood chemistry (principal)
CPT/HCPCS: 36415; 80076

== ENCOUNTER 2021-09-01 10:44 | Outpatient (CLI) | payer OTHER, SELFPAY ==
[2021-09-01 11:32] LABS: Alanine Aminotransferase 15 U/L (6-35); Albumin Level 4.4 g/dL (3.5-5.1); Alkaline Phosphatase 89 U/L (38-126); Anion Gap 7 mmol/L (8-16); Aspartate Amino Transferase 22 U/L (14-36); Bilirubin,Total 0.7 mg/dL (0.2-1.3); Blood Urea Nitrogen 21 mg/dL (7-17); Calcium 9.3 mg/dL (8.4-10.2); Carbon Dioxide 31 mmol/L (22-30); Chloride 104 mmol/L (98-107); Cholesterol 166 mg/dL (0-200); Estimated Glomerular Filt Rate 43; Glucose 94 mg/dL (65-110); HDL Direct 54 mg/dL; Potassium 4.5 mmol/L (3.4-5.0); Sodium 142 mmol/L (137-145); Triglycerides 97 mg/dL (<150)
[2021-09-01 11:44] LABS: LDL Cholesterol Direct 67 mg/dL
[2021-09-01 12:12] LABS: Free T4 Free Thyroxine 1.08 ng/mL (0.78-2.19)
== END 2021-09-01 10:45 | disposition home or self-care (01) ==
LOC: ANHLAB 10:47
PROVIDERS: PCP Family Medicine; Visit Provider Family Medicine
DX: E03.9 Hypothyroidism, unspecified (principal); E78.5 Hyperlipidemia, unspecified; I10 Essential (primary) hypertension
CPT/HCPCS: 36415; 80053; 80061; 84439; 84443

== ENCOUNTER 2021-10-27 11:20 | Observation (INO) | payer OTHER, SELFPAY ==
[2021-10-27] VITALS (11 sets, daily range): BP systolic 138–172; BP diastolic 62–94; PULSE 55–83; RESP 14–20; TEMP 36.2–38.6; O2SAT 96–99; BMI 30.4
--- NOTE | 2021-10-27 | ECHO_ITS ---
Patient Info Name: Cara Flores Age: 86 years : 1935 Gender: Female Ht: 66 in Wt: 188 lbs BSA: 2.02 m2 HR: 58 bpm BP: 155 / 67 mmHg Heart Rhythm: Sinus Rhythm Technical Quality: Fair Exam Date: 10/27/2021 3:11 PM Exam Location: [facility] Patient Status: Inpatient Admit Date: 10/27/2021 Staff Ordering Physician: Nette Jaimes NP Director Of Clinical Applications: Savi Zuñiga RDCS Attending Provider: Aysha Abreu MD Referring Physician: Theodore COLIN; Exam Type: CA echo dop color flow w con Study Info Indications R07.9 - Chest pain, unspecified Complete two-dimensional, color flow and Doppler transthoracic echocardiogram is performed with contrast to opacify the left ventricle and to improve the deliniation of the left ventricle endocardial borders. Contrast/Agitated Saline Contrast/Ag. Saline: Definity Amount: 3.00 ml Administered By: Savi Zuñiga RDCS Existing IV Access: Yes IV Access Condition: patent with no signs of infiltration Summary 1. Mild left ventricular enlargement. Sigmoid septum noted. Left ventricular function normal with no segmental wall motion abnormalities. Ejection fraction 55-60%. Diastolic dysfunction grade 2 is present. Redundant chordae noted in the left ventricular apex. 2. Left atrial chamber dimension is moderately enlarged. 3. There is moderate aortic valve stenosis with a peak velocity of 2.8 /s, mean gradient of 19 mmHg, and aortic valve area of 1.23 cm2. Moderately calcified trileaflet valve. 4. There is mild tricuspid valve regurgitation. 5. Mild pulmonary hypertension, estimated pulmonary arterial systolic pressure is 41 mmHg. 6. Somewhat technically difficult study; IV definity contrast used. Left Ventricle Left ventricular chamber dimension is mildly enlarged. Left ventricular systolic function is normal, estimated at 55-60%. There is mild asymmetric septal increased left ventricular wall thickness. Left ventricular septal wall motion is abnormal with septal motion related to bundle branch block. The left ventricular diastolic function is grade II diastolic dysfunction. Right Ventricle Right ventricular chamber dimension is normal. Right ventricular systolic function is normal. Left Atria Left atrial chamber dimension is moderately enlarged. Right Atria Right atrial chamber dimension is normal. Aortic Valve The aortic valve is trileaflet. There is no aortic valve sclerosis. There is moderate aortic valve stenosis with a peak velocity of 2.8 /s, mean gradient of 19 mmHg, and aortic valve area of 1.23 cm2. Moderately calcified trileaflet valve. There is no aortic valve regurgitation. There is moderate aortic valve calcification. Pulmonic Valve The pulmonic valve is normal. There is no pulmonic valve stenosis. There is trace pulmonic regurgitation. Mitral Valve The mitral valve has thickened leaflets. There is no mitral valve stenosis. There is trace mitral valve regurgitation. The mitral valve annulus is moderately calcified. Tricuspid Valve The tricuspid valve leaflets are normal. There is no significant tricuspid valve stenosis. There is mild tricuspid valve regurgitation. Mild pulmonary hypertension, estimated pulmonary arterial systolic pressure is 41 mmHg. Pericardium/Pleural The pericardium appears normal. There is no pericardial effusion. Inferior Vena Cava Normal inferior vena cava with >50% collapse upon inspiration c
--- NOTE | ~2021-10-27 | XR_ITS ---
EXAMINATION: XR chest 2V DATE: 10/27/2021 11:56 INDICATION: Central chest pain. TECHNIQUE: Frontal and lateral views of the chest were obtained. COMPARISON: Chest single view 07/07/2019 FINDINGS: The chest demonstrates clear lungs without pneumonia, pleural effusion, or pneumothorax. Th e heart size is normal. IMPRESSION: 1. No acute cardiopulmonary disease. Reviewed, dictated and finalized at location A.
--- NOTE | ~2021-10-27 | NM_ITS ---
EXAMINATION: NM tyrone stress w perfusion DATE: 10/28/2021 12:44 INDICATION: Chest pain. TECHNIQUE: Rest images were obtained following intravenous administration of 10.9 mCi Tc99m tetrofosm in (Myoview). The patient was infused intravenously with Lexiscan (regadenoson). Then, 35.5 mCi Tc99m tetrofosmin (Myoview) was administered intravenously, and supine and prone stress images were obtain ed. Data was reconstructed into short axis and horizontal and vertical long axis SPECT images. Gated SPECT images were also obtained. COMPARISON: CT abdomen and pelvis 11/27/2021 FINDINGS: There is no definite reversible or fixed perfusion abnormality to suggest ischemia or infar ction. There is no segmental wall motion abnormality. Left ventricular ejection fraction measures 6 3%. IMPRESSION: 1. No definite ischemia or infarct. 2. Normal left ventricular ejection fraction measuring 63%. Reviewed, dictated and finalized at location A.
--- NOTE | ~2021-10-27 | US_ITS ---
US abdomen limited INDICATION: Elevated liver function tests. PROCEDURE: Realtime right upper abdominal ultrasound. COMPARISON: MRCP dated 09/26/[address] dated 09/25/2020 FINDINGS: The pancreas is normal without focal mass or pancreatic ductal dilation. Liver echotexture is normal without focal mass. There is intrahepatic biliary dilatation. There is normal directional flow in the portal vein. The bladder is surgically absent. Common bile duct measures 14 mm. No sonographic Munoz's sign. IMPRESSION: 1: Chronic intrahepatic and extrahepatic biliary dilatation. CBD measures 14 mm. Findings are likely secondary to previous cholecystectomy and patient's age. Reviewed, dictated and finalized at location A. IMPRESSION: 1: Chronic intrahepatic and extrahepatic biliary dilatation. CBD measures 14 mm . Findings are likely secondary to previous cholecystectomy and patient's age.
--- NOTE | ~2021-10-27 | CT_ITS ---
EXAMINATION: CT abdomen pelvis w con DATE: 10/28/2021 11:29 INDICATION: Fever. TECHNIQUE: Computed tomography (CT) of the abdomen and pelvis was performed with 100 mL Omnipaque 350 intravenous contrast. Automated exposure control and iterative reconstruction technique were employe d. The dose-length product was 532.75 mGy-cm. COMPARISON: CT abdomen and pelvis 09/25/2020, 12/15/17 FINDINGS: The visualized portions of the lung bases demonstrate mild atelectasis. No pleural effusion . Cardiomegaly is noted. No pericardial effusion. There is moderate intrahepatic bile duct dilatation . The common duct is dilated to 13 mm. There are changes of cholecystectomy. The pancreas is normal. There is a 9 mm hyperenhancing mass in the spleen without change, likely a hemangioma. There is a 10 mm cyst in the spleen. The adrenal glands are normal. There is a 5 mm cyst in right kidney. Left kidn ey is normal. There is diverticulosis of the colon without evidence of diverticulitis. There are no d ilated loops of bowel. The appendix is normal. There are no pathologically enlarged lymph nodes. Ther e is no free intraperitoneal fluid. There is moderate lumbar spondylosis. IMPRESSION: 1. Chronic intrahepatic and extrahepatic biliary duct dilatation, stable from 12/15/17. Reviewed, dictated and finalized at location A. IMPRESSION: 1. Chronic intrahepatic and extrahepatic biliary duct dilatation, stable from 02/14/17.
--- NOTE | 2021-10-27 11:31 | ECG_ITS ---
Measurements Intervals Cato Rate: 55 P: 52 LA: 130 QRS: -25 QRSD: 170 T: 69 QT: 461 QTc: 443 Interpretive Statements SINUS BRADYCARDIA WITH SINUS ARRHYTHMIA LEFT BUNDLE BRANCH BLOCK BASELINE ARTIFACT- I, II, III, AVR, AVL, AVF, V1 ABNORMAL ECG NO PREVIOUS ECG AVAILABLE FOR COMPARISON Electronically Signed On 10-27-2021 12:06:14 CDT by Jeff Verma D.O.
--- NOTE | 2021-10-27 11:36 | ED.CHESTPAIN ---
HPI - Chest Pain General Chief Complaint: Chest Pain Stated Complaint: chest pain this AM, resolved Time Seen by Provider: 10/27/21 11:21 Source: RN notes reviewed History of Present Illness HPI narrative: Patient presents emergency room from home for chest pain. Patient states pain began approximately 9 AM this morning states she been getting on the shower when she developed midsternal chest pain pain was described as a pressure nature lasted approximately an hour and is now resolved. She notes mild shortness of breath with the symptoms. She denies any fevers or chills abdominal pain nausea or vomiting or any other symptoms. She denies any previous cardiac history patient denies any chest pain at this time Related Data Home Medications Medication Instructions Recorded Confirmed aspirin 81 mg tablet,delayed 81 mg PO DAILY 07/07/19 08/31/21 release (Adult Low Dose Aspirin) bimatoprost 0.01 % eye drops 1 drp ophthalmic (eye) QPM 07/07/19 08/31/21 (Lumigan) timolol maleate 0.5 % eye drops 1 drp ophthalmic (eye) DAILY 07/07/19 08/31/21 simvastatin 20 mg tablet 20 mg PO QPM 09/25/20 08/31/21 magnesium 250 mg tablet 250 mg PO DAILY 10/27/21 10/27/21 Allergies Allergy/AdvReac Type Severity Reaction Status Date / Time No Known Allergies Allergy Verified 10/27/21 11:42 Review of Systems Review of Systems: Gen.: Denies fevers or chills ENT: Denies congestion Respiratory: Ports shortness of breath CV: See HPI GI: Denies abdominal pain nausea, emesis or diarrhea Musculoskeletal: Denies back pain or muscle pain Neuro: Denies numbness, tingling, weakness or focal weakness Skin: Denies rash Except as documented, all other systems reviewed and negative [facility] [place] Past Medical History Medical History Glaucoma Hard of hearing Hyperlipidemia Hyperlipidemia Hypertension Hypertension Hypothyroidism Hypothyroidism Osteoarthritis Osteoarthritis Pancreatitis Pancreatitis Shingles Sphincter of Oddi dysfunction Surgical History Surgical History H/O hysterectomy for benign disease History of arthroscopy of left knee History of bilateral knee replacement History of cardiac catheterization History of cataract extraction History of cholecystectomy History of cholecystectomy ~1979 History of colonoscopy with polypectomy History of ERCP History of hysterectomy History of knee replacement Bilateral History of tonsillectomy Family History Family History Sibling Dementia Diabetes mellitus Heart failure Malignant neoplasm of prostate Acute myocardial infarction Father Pancreatic cancer Mother Heart failure Congestive heart failure Mother Congestive heart failure Sibling Congestive heart failure Father Pancreatic cancer Social History Social History Social History: Ms. Flores lives alone at home. She has 6 adult children. She designates her daughter, Gisele Tejeda, as her POA. She would like to be a DNR. Smoking status: Never smoker Alcohol intake: never Substance use: never Substance use type: does not use Additional living arrangements comments: The patient lives in her own home in [place]. x2. Raised 6 children. Additional occupation/education comments: Retired. Gender identity (if verbalized by the patient): Female Spiritual care concerns: No Exam Narrative: APPEARANCE: No acute distress, nontoxic, resting in bed EYES: EOMI HEENT: Normocephalic, atraumatic, OMM RESPIRATORY: No respiratory distress Clear to auscultation bilaterally with no rhonchi wheezing or rales. CARDIOVASCULAR: Regular rate and rhythm without murmurs rubs or gallops. ABDOMINAL: Soft, nontender, nondistended, no rebound or guarding MUSCULOSKELETAl: Moves al
[2021-10-27 11:47] LABS: Basophils Percent Auto 0.3 % (0.2-1.2); Eosinophils Absolute Auto 0.2 K/mm3 (0-0.3); Eosinophils Percent Auto 2.4 % (0-4.4); Hematocrit 39.3 % (37.0-47.0); Hemoglobin 12.7 g/dL (12.0-15.0); Immature Granulocyte Absolute 0.01 K/mm3 (0.00-0.031); Immature Granulocyte Percent A 0.2 % (0-0.5); Lymphocytes Absolute Auto 1.48 K/mm3 (0.9-3.2); Lymphocytes Percent Auto 23.8 % (18.3-44.2); Mean Corpuscular HGB Conc 32.3 g/dl (32-36); Mean Corpuscular Hemoglobin 29.9 pg (26-34); Mean Corpuscular Volume 92.5 fl (80-100); Mean Platelet Volume 10.3 fl (7.4-10.4); Monocytes Absolute Auto 0.3 K/mm3 (0.1-0.6); Monocytes Percent Auto 5.3 % (2.6-8.5); Neutrophils Absolute Auto 4.2 K/mm3 (1.3-6.7); Platelet Count Result 216 k/mm3 (150-375); Red Blood Count 4.25 M/mm3 (4.2-5.4); White Blood Count 6.2 K/mm3 (4.5-10.0)
[2021-10-27 11:59] LABS: Alanine Aminotransferase 37 U/L (6-35); Albumin Level 4.6 g/dL (3.5-5.1); Alkaline Phosphatase 109 U/L (38-126); Anion Gap 13 mmol/L (8-16); Aspartate Amino Transferase 80 U/L (14-36); Bilirubin,Total 1.3 mg/dL (0.2-1.3); Blood Urea Nitrogen 19 mg/dL (7-17); Calcium 9.6 mg/dL (8.4-10.2); Carbon Dioxide 26 mmol/L (22-30); Chloride 102 mmol/L (98-107); Estimated CRCL calculation 39 ml/min; Estimated Glomerular Filt Rate 53; Glucose 97 mg/dL (65-110); Lipase 215 U/L (23-300); Potassium 4.6 mmol/L (3.4-5.0); Prothrombin Time 12.6 Seconds (11.1-14.7); Sodium 141 mmol/L (137-145)
[2021-10-27 12:00] LABS: Partial Thromboplastin Time 26.4 SECONDS (22.3-36.8)
[2021-10-27 12:10] LABS: Troponin I 0.018 ng/mL (0.000-0.034)
--- NOTE | 2021-10-27 13:07 | PM.IMHP ---
H&P: HPI History of Present Illness Date/Time: 10/27/21 13:07 Chief Complaint: Chest pain Narrative: This is a 86-year-old female patient who lives home alone and has a history of hypertension, hyperlipidemia and hypothyroidism. She has had no previous history of any coronary artery disease. The patient stated that she has had a stress test in the past which was negative. The patient came to the emergency room from home today to be evaluated for chest pain that lasted approximately 1 hour this morning. Patient stated that pain began around 9:00 a.m. this morning when she was getting out of the shower. It was midsternal to epigastric area did not radiate upper arm or go to her neck. However the patient stated that she tried of taking some anti acid medication and she had already taken her morning medicine which included an aspirin. At 1 point the patient had felt saliva in the back of her throat and her jaw all felt funny but then that quickly resolved after she took the Tums. She has had a history of pancreatitis in the past but she said this felt different. The patient did have some mild shortness of breath with her symptoms. But no fever chills no nausea or vomiting no abdominal pain. Chest x-ray was read as no acute cardiopulmonary disease. EKG was read as sinus bradycardia with sinus arrhythmia left bundle branch block. Patient's pain has resolved and her troponin is only 0.018. Her AST is slightly elevated to 80 in her ALT is 37. Cardiology has been consulted. The patient is being admitted to observation status on the date of service of 10/27/2021. Review of Systems Review of Systems: see hpi All systems reviewed & are unremarkable except as noted in HPI and below Constitutional: Constitutional: Reports as per HPI and Reports no additional constitutional complaints Eyes: Eyes: Reports as per HPI and Reports no additional eye complaints ENT: Reports system reviewed and no additional complaints, except as documented and Reports Normal hearing present Cardiovascular: Cardiovascular: Reports no additional cardiovascular complaints Respiratory: Respiratory: Reports no additional respiratory complaints and Reports no additional respiratory complaints Gastrointestinal: Gastrointestinal: Reports as per HPI and Reports no additional gastrointestinal complaints Musculoskeletal: Musculoskeletal: Reports no additional musculoskeletal complaints Integumentary/Breasts: Skin/Breast: Reports system reviewed and no additional complaints, except as docu and Reports as per HPI Neurologic: Reports system reviewed and no additional complaints, except as documented, Reports as per HPI and Reports Normal hearing present Psychiatric: Psychiatric: Reports no additional psychiatric complaints and Reports as per HPI Endocrine: Endocrine: Reports no additional endocrine complaints Hematologic/Lymphatic: Hematologic/Lymphatic: Reports no additional hematologic/lymphatic complaints Allergic/Immunologic: Allergic/Immunologic: Reports no additional allergic/immunologic complaints [facility] Past Medical History Medical History (Updated 10/27/21 @ 14:30 by Nette Jaimes NP) Elevated LFTs Glaucoma Hard of hearing Hyperlipidemia Hypertension Hypothyroidism Osteoarthritis Pancreatitis Shingles Sphincter of Oddi dysfunction Urinary tract infection Surgical History Surgical History (Updated 10/27/21 @ 14:30 by Nette Jaimes NP) H/O hysterectomy for benign disease History of arthroscopy of left knee History of bilateral knee replacement History of cardiac catheterization History of cataract extraction History of cholecystectomy ~1979 History of colonoscopy with polypectomy History of ERCP History of knee replacement Bilateral History of removal of pigmented skin lesion History of tonsillectomy Family History Family History Sibling Dementia Diabetes mellitus Heart fa
[2021-10-27] MEDS: ASPIRIN 81 MG CHEWABLE TABLET 243 MG PO (13:46)
--- NOTE | 2021-10-27 14:20 | PC.NURSE ---
This patient, Cara Flores, was admitted to IMU Room 201-01. Patient/family oriented to hospital policies and general routines including ID bracelet, bed and alarms, visiting hours, pain management, procedures, bathroom and other care routines, personal items, smoking policy, room service/diet, and visiting hours. Information on how to activate the Rapid Response Team has been discussed. Patient/Family are encouraged to report perceived risks to care and to ask questions if they do not understand what they are told or what they should do.
--- NOTE | 2021-10-27 14:35 | EST_ITS ---
Patient Info Name: Cara Flores Age: 86 years : 1935 Gender: Female Ht: 66 in Wt: 188 lbs BSA: 2.02 m2 Exam Date: 10/28/2021 11:47 AM Exam Location: [facility] Patient Status: Inpatient Admit Date: 10/27/2021 Staff Ordering Physician: Nette Jaimes NP Attending Provider: Aysha Abreu MD Exercise Technologist: Fiordaliza Jones RDCS Nurse: LOS REICH NP Exam Type: CA stress tyrone w NM Study Info Indications R07.9 - Chest pain, unspecified A regadenoson stress test was performed. Summary 1. Sinus rhythm. 2. No arrhythmias. 3. Left bundle branch block. 4. Non-diagnostic ECG due to left bundle branch block. 5. Please correlate with nuclear medicine images, reported separately. Protocol: Lexiscan Stress ECG Details Stage: REST Duration (min): 1 min : 52 sec HR (bpm): 53 SBP (mmHg): 120 DBP (mmHg): 83 Stage: REST Duration (min): 13 min : 14 sec HR (bpm): 53 SBP (mmHg): 120 DBP (mmHg): 83 Stage: STAGE 1 Duration (min): 1 min : 0 sec HR (bpm): 61 SBP (mmHg): 132 DBP (mmHg): 73 Stage: RECOVERY Duration (min): 1 min : 0 sec HR (bpm): 73 SBP (mmHg): 129 DBP (mmHg): 65 Stage: RECOVERY Duration (min): 2 min : 0 sec HR (bpm): 71 SBP (mmHg): 129 DBP (mmHg): 65 Stage: RECOVERY Duration (min): 3 min : 0 sec HR (bpm): 73 SBP (mmHg): 112 DBP (mmHg): 63 Stage: RECOVERY Duration (min): 3 min : 22 sec HR (bpm): 72 SBP (mmHg): 112 DBP (mmHg): 63 Rest HR: 53 bpm Peak HR: 76 bpm Rest Sys BP: 120 mmHg Peak Sys BP: 132 mmHg Max Pred HR: 134 bpm % Max Pred HR: 57 % Target HR: 114 bpm Max RPP: 10,032 bpm*mmHg Total Time: 1 min : 0 sec Rest [place] BP: 83 mmHg Peak [place] BP: 73 mmHg Total Dose: 0.4 mg Resting ECG Sinus arrhythmia. Left bundle branch block. Stress ECG Sinus rhythm. Left bundle branch block. Non-diagnostic ECG due to left bundle branch block. Report Signatures
[2021-10-27 15:30] LABS: Troponin I < 0.012 ng/mL (0.000-0.034)
[2021-10-27] MEDS: PERFLUTREN LIPID MICROSPHERES 1.5 ML VIAL DILUTED TO 10 ML TOTAL VOLUME IV PUSH (15:53)
--- NOTE | 2021-10-27 15:53 | IVDEFINITY ---
Prior to administration of IV Definity the patient was educated on the risks and benefits of the imaging enhancing agent including potential adverse side effects. The patient verbalized understanding. Allergies were verified. No exclusion criteria were identified and at least one of the following inclusion criteria were met: 1) physician request, 2) patient technically difficult to image (per the [place] [employer] guidelines of two or more segments not discernable within the apical view), or 3) questionable left ventricular function. ?
--- NOTE | 2021-10-27 17:30 | PM.CNCAR ---
Assessment and Plan Assessment and plan (1) Chest pain: Code(s): R07.9 - Chest pain, unspecified Status: Acute (2) Hypertension: Code(s): I10 - Essential (primary) hypertension Status: Acute (3) Hyperlipidemia: Code(s): E78.5 - Hyperlipidemia, unspecified Status: Acute (4) Hypothyroidism: Code(s): E03.9 - Hypothyroidism, unspecified Status: Acute Plan Trend troponins Echo already ordered, will follow up on results. Agree with MPI ordered, will follow up on results. Resume daily ASA and statin. History of Present Illness History of Present Illness Consult date/time: 10/27/21 17:30 Requesting physician: Jef Snow, Consult reason: chest pain Reason For Visit: chest pain Narrative: Patient is an 86-year-old female with a history of hypertension, hyperlipidemia, hypothyroidism who presented to ER with chest pain. Patient reports that she developed chest pain around 9AM after getting out of the shower, and she bent down to dry her legs. When she went to bend back up, she developed substernal and epigastric chest pain. [place] like chest pressure. [place] saliva in her mouth and had an unusual sensation in her jaw. Pain lasted for about an hour before resolving. Patient chest pain free upon arrival to the ED. Remains chest pain free upon my evaluation. Initial troponin negative. ED ECG shows LBBB. Last ECG in 2019 showed IVCD. Review of Systems Review of Systems: All systems reviewed & are unremarkable except as noted in HPI and below (HPI) [facility] Past Medical History Medical History Elevated LFTs Glaucoma Hard of hearing Hyperlipidemia Hypertension Hypothyroidism Osteoarthritis Pancreatitis Shingles Sphincter of Oddi dysfunction Urinary tract infection Surgical History Surgical History H/O hysterectomy for benign disease History of arthroscopy of left knee History of bilateral knee replacement History of cardiac catheterization History of cataract extraction History of cholecystectomy ~1979 History of colonoscopy with polypectomy History of ERCP History of knee replacement Bilateral History of removal of pigmented skin lesion History of tonsillectomy Family History Family History Sibling Dementia Diabetes mellitus Heart failure Malignant neoplasm of prostate Acute myocardial infarction Father Pancreatic cancer Mother Heart failure Congestive heart failure Mother Congestive heart failure Sibling Congestive heart failure Father Pancreatic cancer Social History Social History Social History: Ms. Flores lives alone at home. She has 6 adult children. She designates her daughter, Gisele Tejeda, as her POA. She is retired from [employer]. Lifelong nonsmoker. She does not use any alcohol marijuana or illicit drugs. Code status full code Smoking status: Never smoker Alcohol intake: never Substance use: never Substance use type: does not use Additional living arrangements comments: The patient lives in her own home in [place]. x2. Raised 6 children. Additional occupation/education comments: Retired. Gender identity (if verbalized by the patient): Female Spiritual care concerns: No Meds Home Medications and Allergies Home Medications Medication Instructions Recorded Confirmed Type aspirin 81 mg tablet,delayed 81 mg PO DAILY 07/07/19 10/27/21 History release (Adult Low Dose Aspirin) bimatoprost 0.01 % eye drops 1 drp ophthalmic (eye) QPM 07/07/19 10/27/21 History (Lumigan) timolol maleate 0.5 % eye drops 1 drp ophthalmic (eye) DAILY 07/07/19 10/27/21 History levothyroxine 50 mcg tablet 50 mcg PO DAILY@0630 30 days #30 07/11/19 10/27/21 Rx (Synthroid) tabs simvast
[2021-10-27 18:54] LABS: Troponin I < 0.012 ng/mL (0.000-0.034)
[2021-10-27] MEDS: SIMVASTATIN 20 MG TABLET PO (20:38)
[2021-10-27] MEDS: PANTOPRAZOLE SODIUM IV 40 MG VIAL IV PUSH (20:38)
[2021-10-28] VITALS (10 sets, daily range): BP systolic 104–166; BP diastolic 43–62; PULSE 52–80; RESP 16–20; TEMP 36.3–38.9; O2SAT 94–98
[2021-10-28] MEDS: ACETAMINOPHEN 325 MG TABLET 650 MG PO (00:02)
[2021-10-28 00:49] LABS: Influenza A QL RT-PCR Negative (Negative); Influenza B QL RT-PCR Negative (Negative); SARS-CoV-2 RNA PCR Negative
[2021-10-28 04:25] LABS: Basophils Percent Auto 0.2 % (0.2-1.2); Eosinophils Absolute Auto 0.1 K/mm3 (0-0.3); Eosinophils Percent Auto 1.1 % (0-4.4); Hematocrit 36.8 % (37.0-47.0); Hemoglobin 12.1 g/dL (12.0-15.0); Immature Granulocyte Absolute 0.01 K/mm3 (0.00-0.031); Immature Granulocyte Percent A 0.2 % (0-0.5); Lymphocytes Absolute Auto 1.27 K/mm3 (0.9-3.2); Lymphocytes Percent Auto 27.9 % (18.3-44.2); Mean Corpuscular HGB Conc 32.9 g/dl (32-36); Mean Corpuscular Hemoglobin 30.2 pg (26-34); Mean Corpuscular Volume 91.8 fl (80-100); Mean Platelet Volume 9.8 fl (7.4-10.4); Monocytes Absolute Auto 0.3 K/mm3 (0.1-0.6); Monocytes Percent Auto 6.4 % (2.6-8.5); Neutrophils Absolute Auto 2.9 K/mm3 (1.3-6.7); Neutrophils Percent Auto 64.2 % (45.5-73.1); Platelet Count Result 169 k/mm3 (150-375); Red Blood Count 4.01 M/mm3 (4.2-5.4); Red Cell Distribution Width 12.8 % (11.5-14.5); White Blood Count 4.6 K/mm3 (4.5-10.0)
[2021-10-28 04:44] LABS: Alanine Aminotransferase 82 U/L (6-35); Albumin Level 3.9 g/dL (3.5-5.1); Alkaline Phosphatase 125 U/L (38-126); Anion Gap 8 mmol/L (8-16); Aspartate Amino Transferase 93 U/L (14-36); Bilirubin,Total 1.2 mg/dL (0.2-1.3); Blood Urea Nitrogen 18 mg/dL (7-17); Carbon Dioxide 27 mmol/L (22-30); Chloride 104 mmol/L (98-107); Cholesterol 143 mg/dL (0-200); Estimated CRCL calculation 33 ml/min; Estimated Glomerular Filt Rate 43; Glucose 107 mg/dL (65-110); HDL Direct 58 mg/dL; Lipase 97 U/L (23-300); Potassium 3.9 mmol/L (3.4-5.0); Sodium 139 mmol/L (137-145); Triglycerides 93 mg/dL (<150)
[2021-10-28 04:55] LABS: LDL Cholesterol Direct 63 mg/dL
[2021-10-28] MEDS: LEVOTHYROXINE SODIUM 50 MCG TABLET PO (06:07)
[2021-10-28] MEDS: MAGNESIUM 13.5 MG TABLET (250 MG MAG GLUCONATE) PO (08:44)
[2021-10-28] MEDS: bisoproloL fumarate 5 MG TABLET PO (08:44)
[2021-10-28] MEDS: PANTOPRAZOLE SODIUM IV 40 MG VIAL IV PUSH (08:44)
[2021-10-28] MEDS: lisinopriL 20 MG TABLET BY MOUTH (08:44)
[2021-10-28] MEDS: TIMOLOL MALEATE 0.5% OP SOLN 5 ML BOTTLE 1 DROP EACH EYE (08:44)
[2021-10-28] MEDS: ASPIRIN 81 MG ENTERIC TABLET PO (08:44)
--- NOTE | 2021-10-28 13:30 | PM.DS ---
DS: Admitting Diagnosis Discharge Date October 28, 2021 Admitting Diagnosis chest pain DS: Discharge Diagnosis Discharge Diagnosis (1) Chest pain: Code(s): R07.9 - Chest pain, unspecified Status: Acute Assessment and Plan: -continue to trend troponin -chest pain is relieved. -continue with daily aspirin -echo has been ordered -stress test -government relations director has been consulted (2) Hypertension: Code(s): I10 - Essential (primary) hypertension Status: Acute Assessment and Plan: -continue with lisinopril and monitor her renal function (3) Hypothyroidism: Code(s): E03.9 - Hypothyroidism, unspecified Status: Acute Assessment and Plan: -continue with levothyroxine -TSA will was 1.12 on 09/01/2021 in free T4 was 1.08. (4) Hyperlipidemia: Code(s): E78.5 - Hyperlipidemia, unspecified Status: Acute Assessment and Plan: -check lipid panel -hold simvastatin due to elevated liver enzymes. (5) Elevated LFTs: Code(s): R79.89 - Other specified abnormal findings of blood chemistry Status: Acute Assessment and Plan: -patient has had a hepatitis panel 09/26/2020. She has had a history of pancreatitis x2. -holding simvastatin for now. -hepatitis panel was performed last year. -check lipase -abdominal ultrasound DS: Summary Hospital Course Hospital Course: patient is an 86-year-old female who came in with chest pain. Cardiology evaluated the patient recommended Lexiscan stress test. This was read as negative. Patient can be discharged. Time Spent with Patient Time attestation: Total time spent providing and/or coordinating discharge services: Exam Const: General: cooperative, healthy appearing, comfortable, no acute distress, well developed, alert, awake and Physically active Nutritional Appearance: average body habitus and well nourished Orientation/consciousness: oriented to person, oriented to place, oriented to time and patient oriented x3 Limitations: no limitations HENMT: Head: normal to inspection, No palpable skull fracture present, normocephalic and atraumatic Ears: hearing grossly normal bilaterally and external ears normal General nose exam: Normal external nose present and Normal nares present Mouth: Yes Normal oral and palatal mucosa present Throat: posterior oropharynx normal Eyes: General: appearance normal, both eyes and all related structures Alignment and Position: alignment normal Periorbital: periorbital findings normal Eyelids: eyelids normal Pupils: Equal, round and reactive pupils present EOM: EOMs intact bilaterally Neck: Neck: normal visual inspection, full ROM, no lymphadenopathy, trachea midline and supple Chest: Chest palpation & inspection: normal inspection of the chest Resp: Effort & Inspection: normal respiratory effort Auscultation: clear to auscultation bilaterally Cardio: Palpation: normal PMI Rate: regular rate Rhythm: regular rhythm Heart sounds: S1 normal heart sound present and S2 normal heart sound present Peripheral pulses: Peripheral pulses 2+ throughout GI: Inspection: normal to inspection Auscultation: normal bowel sounds Rectal Exam: deferred Back/Spine/Pelvis: Cervical Spine: cervical ROM normal Skin: General skin exam: normal color Lesions: no lesions Rashes: no rashes Trauma: no lacerations or abrasions Wounds: no wounds Hair: normal Nails: normal Neuro: General: oriented to person, oriented to place, oriented to time and patient oriented x3 Cranial nerves: Yes Equal, round and reactive pupils present, Yes Normal hearing present and Yes hard of hearing Cognition (Neuro): normal cognition Speech: normal speech Gait exam (Neuro): Normal gait present Motor exam (neuro): 5/5 motor strength present throughout Sensory Exam: normal sensation Extrem: General: normal to inspection Right upper extremity: normal to inspection and shoulder/upper arm Left upper extremit
--- NOTE | 2021-10-28 15:31 | PM.PNCARD ---
Progress Note: A&P Assessment and Plan (1) Chest pain: Code(s): R07.9 - Chest pain, unspecified Status: Acute (2) Hyperlipidemia: Code(s): E78.5 - Hyperlipidemia, unspecified Status: Acute (3) Hypertension: Code(s): I10 - Essential (primary) hypertension Status: Acute (4) Hypothyroidism: Code(s): E03.9 - Hypothyroidism, unspecified Status: Acute Plan Echo showed moderate aortic stenosis. LVEF preserved. Medical management for this with outpatient follow-up. Lexiscan negative for ischemia or infarction. No further inpatient cardiac workup needed at this time. Okay for discharge. Subjective Date/time seen: 10/28/21 15:31 Interval history: No acute events overnight. Patient without cardiac symptoms. Has not had recurrence of chest pain. Review of Systems Review of Systems: All systems reviewed & are unremarkable except as noted in HPI and below (subjective) Exam Const: General: comfortable and no acute distress Neck: Neck: no JVD Resp: Effort & Inspection: normal respiratory effort Auscultation: clear to auscultation bilaterally Cardio: Rate: regular rate Rhythm: regular rhythm Heart sounds: no murmurs GI: GI Palp: Yes Soft to palpation and No Tenderness to palpation present (GI) Skin: General skin exam: normal color Neuro: Speech: normal speech Extrem: General: no edema Psych: Mental Status: mental status grossly normal Objective Data Vital Signs Vital Signs: Vital Signs - 24 hr 10/27/21 16:32 10/27/21 16:00 10/27/21 18:00 Temperature 36.8 C Pulse Rate 57 L 57 L 59 L Respiratory Rate 18 Blood Pressure 146/79 H Pulse Oximetry 96 Oxygen Delivery 10/27/21 20:00 10/27/21 20:00 10/27/21 20:00 Temperature 38.6 C H Pulse Rate 72 81 72 Respiratory Rate 18 18 Blood Pressure 172/62 H Pulse Oximetry 99 99 Oxygen Delivery Room Air 10/27/21 22:00 10/28/21 00:00 10/27/21 21:30 Temperature 38.9 C H 37.7 C H Pulse Rate 83 80 Respiratory Rate 20 Blood Pressure 135/54 L Pulse Oximetry 94 Oxygen Delivery 10/28/21 00:00 10/28/21 00:00 10/28/21 02:00 Temperature Pulse Rate 79 80 63 Respiratory Rate 20 Blood Pressure Pulse Oximetry 94 Oxygen Delivery Room Air 10/28/21 04:00 10/28/21 04:00 10/28/21 04:00 Temperature 36.7 C Pulse Rate 60 63 65 Respiratory Rate 20 18 Blood Pressure 104/43 L Pulse Oximetry 94 94 Oxygen Delivery Room Air 10/28/21 06:00 10/28/21 07:59 10/28/21 08:44 Temperature 36.4 C L Pulse Rate 53 L 55 L 55 L Respiratory Rate 18 Blood Pressure 115/49 L Pulse Oximetry 96 Oxygen Delivery 10/28/21 08:00 10/28/21 12:00 10/28/21 08:00 Temperature Pulse Rate 54 L Respiratory Rate Blood Pressure Pulse Oximetry Oxygen Delivery Room Air Room Air 10/28/21 10:00 10/28/21 12:00 10/28/21 14:15 Temperature 36.3 C L Pulse Rate 52 L 72 63 Respiratory Rate 16 Blood Pressure 166/62 H Pulse Oximetry 98 Oxygen Delivery Intake/Output Intake/Output: Intake & Output 10/25/21 10/26/21 10/27/21 10/28/21 23:59 23:59 23:59 23:59 Intake Total 600 Output Total 450 1200 Balance -450 -600 Meds/Results Radiology Results: ITS Impressions Chest X-Ray 10/27/21 12:00 IMPRESSION: 1. No acute cardiopulmonary disease. Abdomen Ultrasound 10/27/21 16:39 IMPRESSION: 1: Chronic intrahepatic and extrahepatic biliary dilatation. CBD measures 14 mm. Findings are likely secondary to previous cholecystectomy and patient's age. Abdomen/Pelvis CT 10/28/21 12:15 IMPRESSION: 1. Chronic intrahepatic and extrahepatic biliary duct dilatation, stable from 12/15/17. Lexiscan Stress Test 10/28/21 13:02 IMPRESSION: 1. No definite ischemia or infarct. 2. Normal left ventricular ejection fraction measuring 63%. Labs Labs: Laboratory Results - last 24 hr 10/27/21 10/28/21
== END 2021-10-28 14:45 | disposition home or self-care (01) ==
LOC: ANHED 12:47 → ANHIMU 10-28 08:47
PROVIDERS: Nurse Practitioner; Admitting Provider Family Medicine; Emergency Provider Emergency Medicine; PCP Family Medicine; Visit Provider Chiropractor
DX: R07.9 Chest pain, unspecified (principal); I10 Essential (primary) hypertension; E03.9 Hypothyroidism, unspecified; E78.5 Hyperlipidemia, unspecified; R79.89 Other specified abnormal findings of blood chemistry; H40.9 Unspecified glaucoma; M19.90 Unspecified osteoarthritis, unspecified site; R00.1 Bradycardia, unspecified; I44.7 Left bundle-branch block, unspecified; I35.0 Nonrheumatic aortic (valve) stenosis; I07.9 Rheumatic tricuspid valve disease, unspecified; R94.31 Abnormal electrocardiogram [ECG] [EKG]; K83.8 Other specified diseases of biliary tract; I27.20 Pulmonary hypertension, unspecified; Z20.822 Contact with and (suspected) exposure to COVID-19; Z90.49 Acquired absence of other specified parts of digestive tract; Z86.19 Personal history of other infectious and parasitic diseases; Z87.898 Personal history of other specified conditions; Z79.82 Long term (current) use of aspirin; Z79.899 Other long term (current) drug therapy; Z80.0 Family history of malignant neoplasm of digestive organs; Z82.49 Family history of ischemic heart disease and other diseases of the circulatory system
CPT/HCPCS: 36415; 71046; 74177; 76705; 78452; 80053; 80061; 83690; 84484; 85025; 85610; 85730; 87502; 93005; 93017; 96374; 96375; 96376; 99285; A9270; A9502; C8929; C9113; C9803; G0378; J2785; Q9957; Q9967; U0003; U0005

== ENCOUNTER 2021-12-20 11:01 | Outpatient (CLI) | payer OTHER, SELFPAY ==
[2021-12-20 12:24] LABS: Alanine Aminotransferase 19 U/L (6-35); Albumin Level 4.3 g/dL (3.5-5.1); Alkaline Phosphatase 76 U/L (38-126); Anion Gap 7 mmol/L (8-16); Aspartate Amino Transferase 27 U/L (14-36); Bilirubin,Total 0.8 mg/dL (0.2-1.3); Blood Urea Nitrogen 22 mg/dL (7-17); Carbon Dioxide 29 mmol/L (22-30); Chloride 105 mmol/L (98-107); Cholesterol 157 mg/dL (0-200); Estimated Glomerular Filt Rate 47; Glucose 91 mg/dL (65-110); HDL Direct 51 mg/dL; Sodium 141 mmol/L (137-145); Triglycerides 117 mg/dL (<150)
[2021-12-20 12:36] LABS: LDL Cholesterol Direct 71 mg/dL
[2021-12-20 13:04] LABS: Free T4 Free Thyroxine 1.11 ng/mL (0.78-2.19)
[2021-12-22 08:29] LABS: Thyroid Stimulating Hormone 0.476 uIU/mL (0.465-4.680)
== END 2021-12-20 11:02 | disposition home or self-care (01) ==
PROVIDERS: PCP Family Medicine; Visit Provider Family Medicine
DX: E03.9 Hypothyroidism, unspecified (principal); E78.5 Hyperlipidemia, unspecified; I10 Essential (primary) hypertension
CPT/HCPCS: 36415; 80053; 80061; 84439; 84443

== ENCOUNTER 2022-05-23 09:55 | Outpatient (CLI) | payer OTHER, SELFPAY ==
[2022-05-23 10:57] LABS: Alanine Aminotransferase 21 U/L (6-35); Albumin Level 4.6 g/dL (3.5-5.1); Alkaline Phosphatase 103 U/L (38-126); Anion Gap 4 mmol/L (8-16); Aspartate Amino Transferase 25 U/L (14-36); Bilirubin,Total 0.7 mg/dL (0.2-1.3); Blood Urea Nitrogen 23 mg/dL (7-17); Calcium 9.1 mg/dL (8.4-10.2); Carbon Dioxide 31 mmol/L (22-30); Chloride 103 mmol/L (98-107); Cholesterol 190 mg/dL (0-200); Estimated Glomerular Filt Rate 47; Glucose 97 mg/dL (65-110); HDL Direct 46 mg/dL; Potassium 4.6 mmol/L (3.4-5.0); Sodium 138 mmol/L (137-145); Triglycerides 159 mg/dL (<150)
[2022-05-23 11:09] LABS: LDL Cholesterol Direct 102 mg/dL
[2022-05-23 11:16] LABS: Thyroid Stimulating Hormone 0.795 uIU/mL (0.465-4.680)
== END 2022-05-23 09:56 | disposition home or self-care (01) ==
PROVIDERS: PCP Family Medicine; Visit Provider Family Medicine
DX: I10 Essential (primary) hypertension (principal); E03.9 Hypothyroidism, unspecified; E78.5 Hyperlipidemia, unspecified; Z79.899 Other long term (current) drug therapy
CPT/HCPCS: 36415; 80053; 80061; 84439; 84443

== ENCOUNTER 2022-08-19 14:48 | Observation (INO) | payer OTHER, SELFPAY ==
[2022-08-19] VITALS (16 sets, daily range): BP systolic 93–146; BP diastolic 43–87; PULSE 45–137; RESP 15–21; TEMP 36.4; O2SAT 93–100; BMI 30.7
--- NOTE | ~2022-08-19 | CT_ITS ---
EXAMINATION: CTA chest PE protocol DATE: 08/20/2022 10:32 INDICATION: Shortness of breath. Chest pain. TECHNIQUE: Computed tomography angiography (CTA) of the chest was performed with 100 mL Omnipaque-350 intravenous contrast timed to evaluate the pulmonary arteries. Coronal maximum intensity projection 3D-reconstructions were created by the technologist. Automated exposure control and iterative reconst ruction technique were employed. The dose-length product was 525.37 mGy-cm. COMPARISON: CT abdomen and pelvis 10/28/2021 FINDINGS: The lungs demonstrate mild atelectasis. There is chronic peripheral septal thickening in th e inferior lungs with subpleural bands and groundglass opacities, consistent with chronic lung diseas e. No bronchiectasis or honeycombing. No pleural effusion. There is a 3.5 cm nodule in left thyroid l obe. Left thyroid lobe extends into the superior mediastinum. Cardiomegaly is noted. There are huerta ry artery calcifications. No pericardial effusion. There is no pulmonary embolus. There are changes o f cholecystectomy. There is chronic intrahepatic and extrahepatic biliary duct dilatation. There is s evere thoracic spondylosis. There are old healed left rib fractures. IMPRESSION: 1. No pulmonary embolus. 3. Mild chronic interstitial lung disease. 3. Left thyroid nodule. Given the patient's age, further evaluation may not be needed. Reviewed, dictated and finalized at location E.
--- NOTE | 2022-08-19 14:53 | ECG_ITS ---
Measurements Intervals [place] Rate: 139 P: OR: 0 QRS: -36 QRSD: 152 T: 100 QT: 338 QTc: 516 Interpretive Statements ATRIAL FIBRILLATION WITH RAPID VENTRICULAR RESPONSE LEFT AXIS DEVIATION LEFT BUNDLE BRANCH BLOCK BASELINE ARTIFACT- I, III, AVR, AVL, AVF ABNORMAL ECG COMPARED TO ECG 10/27/2021 11:38:42 ATRIAL FIBRILLATION NOW PRESENT LEFT-AXIS DEVIATION NOW PRESENT Electronically Signed On 08-19-2022 15:17:50 CDT by Jeff Verma D.O.
[2022-08-19 15:18] LABS: Basophils Percent Auto 0.3 % (0.2-1.2); Eosinophils Absolute Auto 0.1 K/mm3 (0-0.3); Eosinophils Percent Auto 0.9 % (0-4.4); Hematocrit 38.1 % (37.0-47.0); Hemoglobin 12.1 g/dL (12.0-15.0); Immature Granulocyte Absolute 0.03 K/mm3 (0.00-0.031); Immature Granulocyte Percent A 0.5 % (0-0.5); Lymphocytes Absolute Auto 1.73 K/mm3 (0.9-3.2); Lymphocytes Percent Auto 26.2 % (18.3-44.2); Mean Corpuscular HGB Conc 31.8 g/dl (32-36); Mean Corpuscular Hemoglobin 29.7 pg (26-34); Mean Corpuscular Volume 93.4 fl (80-100); Mean Platelet Volume 10.1 fl (7.4-10.4); Monocytes Absolute Auto 0.3 K/mm3 (0.1-0.6); Monocytes Percent Auto 3.9 % (2.6-8.5); Neutrophils Absolute Auto 4.5 K/mm3 (1.3-6.7); Neutrophils Percent Auto 68.2 % (45.5-73.1); Platelet Count Result 259 k/mm3 (150-375); Red Blood Count 4.08 M/mm3 (4.2-5.4); Red Cell Distribution Width 13.1 % (11.5-14.5); White Blood Count 6.6 K/mm3 (4.5-10.0)
[2022-08-19 15:25] LABS: Alanine Aminotransferase 29 U/L (6-35); Albumin Level 4.1 g/dL (3.5-5.1); Alkaline Phosphatase 96 U/L (38-126); Anion Gap 8 mmol/L (8-16); Aspartate Amino Transferase 29 U/L (14-36); Bilirubin,Total 0.5 mg/dL (0.2-1.3); Blood Urea Nitrogen 33 mg/dL (7-17); Calcium 9.2 mg/dL (8.4-10.2); Carbon Dioxide 27 mmol/L (22-30); Chloride 103 mmol/L (98-107); Estimated CRCL calculation 25 ml/min; Estimated Glomerular Filt Rate 30; Glucose 118 mg/dL (65-110); Potassium 4.9 mmol/L (3.4-5.0); Sodium 138 mmol/L (137-145)
--- NOTE | 2022-08-19 16:17 | ECG_ITS ---
Measurements Intervals [place] Rate: 50 P: 60 DC: 124 QRS: -33 QRSD: 153 T: 57 QT: 471 QTc: 430 Interpretive Statements SINUS BRADYCARDIA WITH SINUS ARRHYTHMIA LEFT AXIS DEVIATION LEFT BUNDLE BRANCH BLOCK BASELINE ARTIFACT- I, II, III, AVR, AVL, AVF ABNORMAL ECG COMPARED TO ECG 08/19/2022 15:04:10 SINUS BRADYCARDIA NOW PRESENT SINUS ARRHYTHMIA NOW PRESENT Electronically Signed On 08-19-2022 16:32:11 CDT by Jeff Verma D.O.
--- NOTE | 2022-08-19 16:38 | ED.GENADULT ---
HPI - General Adult General Chief complaint: Dizziness Stated complaint: lightheaded Time Seen by Provider: 08/19/22 16:05 History of Present Illness HPI narrative: 87-year-old female with history of hypertension high cholesterol presented the emergency department for evaluation after having increased exertional chest pressure and multiple syncopal episodes. Patient states that over the last few weeks she has had exertional chest pressure with activity such as carrying the groceries and mowing the lawn. Patient states this chest pressure radiates across her chest into both arms and last approximately 5 minutes. Did have a near syncopal episode this morning while standing in the kitchen and had to catch herself. Upon arrival to the emergency department patient was tachycardic and was in A-fib with RVR. Related Data Home Medications Medication Instructions Recorded Confirmed aspirin 81 mg tablet,delayed 81 mg PO DAILY 07/07/19 08/19/22 release (Adult Low Dose Aspirin) bimatoprost 0.01 % eye drops 1 drp ophthalmic (eye) QPM 07/07/19 08/19/22 (Lumigan) timolol maleate 0.5 % eye drops 1 drp ophthalmic (eye) DAILY 07/07/19 08/19/22 magnesium 250 mg tablet 250 mg PO DAILY 10/27/21 08/19/22 calcium carbonate 600 mg-vitamin 1 tablet PO DAILY 08/19/22 08/19/22 D3 10 mcg (400 unit) tablet (Calcium 600 + D(3)) lisinopril 20 mg tablet 20 mg PO DAILY 08/19/22 08/19/22 vitamin B complex (B 1 tablet PO DAILY 08/19/22 08/19/22 Complex-Vitamin B12 tablet) Allergies Allergy/AdvReac Type Severity Reaction Status Date / Time No Known Allergies Allergy Verified 08/19/22 15:54 Review of Systems Review of Systems: All systems reviewed & are unremarkable except as noted in HPI and below PMFSH Past Medical History Medical History Elevated LFTs Glaucoma Hard of hearing Hyperlipidemia Hypertension Hypothyroidism Osteoarthritis Pancreatitis Shingles Sphincter of Oddi dysfunction Urinary tract infection Surgical History Surgical History H/O hysterectomy for benign disease History of arthroscopy of left knee History of bilateral knee replacement History of cardiac catheterization History of cataract extraction History of cholecystectomy ~1979 History of colonoscopy with polypectomy History of ERCP History of knee replacement Bilateral History of removal of pigmented skin lesion History of tonsillectomy Family History Family History Sibling Dementia Diabetes mellitus Heart failure Malignant neoplasm of prostate Acute myocardial infarction Father Pancreatic cancer Mother Heart failure Congestive heart failure Mother Congestive heart failure Sibling Congestive heart failure Father Pancreatic cancer Social History Social History Social History: Ms. Flores lives alone at home. She has 6 adult children. She designates her daughter, Gisele Tejeda, as her POA. She is retired from [employer]. Lifelong nonsmoker. She does not use any alcohol marijuana or illicit drugs. Code status full code Smoking status: Never smoker Second hand tobacco smoke exposure: No Alcohol intake: never Substance use: never Substance use type: does not use Lack of Transportation: No Lack of Food: Never True Current Housing: I Have Housing Concerned About Future Housing: No Difficulty Paying Gas/Electric Bills: No Difficulty Paying for Meds: No Currently Unemployed: No Education: High School Diploma/GED Difficulty w/ Childcare or Family Care: No Living arrangements: alone Additional living arrangements comments: The patient lives in her own home in [place]. x2. Raised 6 children. Occupation/Education: retired Additional occupation/educatio
[2022-08-19 16:52] LABS: Troponin I 0.216 ng/mL (0.000-0.034)
[2022-08-19 18:50] LABS: Troponin I 0.376 ng/mL (0.000-0.034)
--- NOTE | 2022-08-19 18:50 | ADMGEN ---
This patient, Cara Flores, was admitted to IMU Room 214-01. Patient/family oriented to hospital policies and general routines including ID bracelet, bed and alarms, visiting hours, pain management, procedures, bathroom and other care routines, personal items, smoking policy, room service/diet, and visiting hours. Information on how to activate the Rapid Response Team has been discussed. Patient/Family are encouraged to report perceived risks to care and to ask questions if they do not understand what they are told or what they should do.
[2022-08-19] MEDS: ENOXAPARIN 100 MG/ML SYRINGE 85 MG SUB-Q (20:05)
[2022-08-19 22:10] LABS: Troponin I 0.469 ng/mL (0.000-0.034)
--- NOTE | 2022-08-19 22:20 | PM.IMHP ---
H&P: HPI History of Present Illness Date/Time: 08/19/22 22:20 Chief Complaint: Dizziness Narrative: This is a very active 87-year-old female patient the patient takes care of herself and her household. The patient still continues to mow the lawn. The patient stated that she has been having exertional chest pressure and multiple syncopal episodes today. The patient has no prior history of atrial fibrillation. She has had no history of any cardiac disease. The patient stated that she was having some chest pressure that radiated across her chest and both arms for approximately 5 minutes. The patient stated that she feels so weak and fatigued. 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 Upon arrival to the emergency room the patient was found to be in tachycardia with AFib with RVR. Her last Lexiscan was on 10/28/2021 which was read as no definite ischemia or infarction. Her creatinine was found to be 1.6 today with her normal baseline around 1.1-1.2. Patient's troponin 0.216, 0.376, and 0.469. The patient does take a daily aspirin. Cardiology has been consulted. The patient is being admitted to observation status on the date of service of 08/19/2022 Review of Systems Review of Systems: All systems reviewed & are unremarkable except as noted in HPI and below Constitutional: Constitutional: Reports as per HPI and Reports no additional constitutional complaints Eyes: Eyes: Reports as per HPI and Reports no additional eye complaints ENT: Reports system reviewed and no additional complaints, except as documented and Reports Normal hearing present Cardiovascular: Cardiovascular: Reports no additional cardiovascular complaints Respiratory: Respiratory: Reports no additional respiratory complaints and Reports no additional respiratory complaints Gastrointestinal: Gastrointestinal: Reports as per HPI and Reports no additional gastrointestinal complaints Musculoskeletal: Musculoskeletal: Reports no additional musculoskeletal complaints Integumentary/Breasts: Skin/Breast: Reports system reviewed and no additional complaints, except as docu and Reports as per HPI Neurologic: Reports system reviewed and no additional complaints, except as documented, Reports as per HPI and Reports Normal hearing present Psychiatric: Psychiatric: Reports no additional psychiatric complaints and Reports as per HPI Endocrine: Endocrine: Reports no additional endocrine complaints Hematologic/Lymphatic: Hematologic/Lymphatic: Reports no additional hematologic/lymphatic complaints Allergic/Immunologic: Allergic/Immunologic: Reports no additional allergic/immunologic complaints PMFSH Past Medical History Medical History (Updated 08/20/22 @ 02:02 by Nette Jaimes NP) Abdominal pain Acute pancreatitis Common bile duct dilation Dilated bile duct Elevated LFTs Epigastric abdominal pain Epigastric pain Establishing care with new doctor, encounter for Gastric ulcer Glaucoma Hard of hearing Hyperlipidemia Hypertension Hypothyroidism Osteoarthritis Pancreatitis Pigmented skin lesion Rhinitis Shingles Skin lesion Skin lesion of face Sphincter of Oddi dysfunction Tarsal tunnel syndrome With history of release Urinary tract infection Wellness examination Surgical History Surgical History H/O hysterectomy for benign disease History of arthroscopy of left knee History of bilateral knee replacement History of cardiac catheterization History of cataract extraction History of cholecystectomy ~1979 History of colonoscopy with polypectomy History of ERCP History of knee replacement Bilateral History of removal of pigmented skin lesion History of tonsillectomy Family History Family History Sibling Dementia Diabetes mellitus H
[2022-08-20] VITALS (17 sets, daily range): BP systolic 117–151; BP diastolic 50–62; PULSE 51–72; RESP 14–18; TEMP 36.2–36.6; O2SAT 94–98
--- NOTE | 2022-08-20 | ECHO_ITS ---
Patient Info Name: Cara Flores Age: 87 years : 1935 Gender: Female Ht: 66 in Wt: 190 lbs BSA: 2.03 m2 HR: 88 bpm BP: 151 / 88 mmHg Heart Rhythm: Sinus Rhythm Technical Quality: Fair Exam Date: 08/20/2022 9:44 AM Exam Location: [facility] Pulmonary Exam Room: 214 Patient Status: Inpatient Admit Date: 08/19/2022 Staff Ordering Physician: Nette Jaimes NP Tape Cutting Machine Operator: Randi Luz RDCS Attending Provider: Aristeo López MD Referring Physician: Theodore COLIN; Exam Type: CA echo doppler color flow Study Info Indications - elevated troponins chest pressure NSTEMI Complete two-dimensional, color flow and Doppler transthoracic echocardiogram is performed. Summary 1. Complete two-dimensional, color flow and Doppler transthoracic echocardiogram is performed. 2. Modest left ventricular enlargement with normal or low normal systolic function. 3. Dilated left atrium. 4. Mild aortic valve stenosis. 5. Mitral annular calcification with trivial MR. 6. Compared to echocardiogram done last year her is no significant change. Left Ventricle Left ventricular chamber dimension is mildly enlarged. Left ventricular systolic function is normal, estimated at 50-55%. The left ventricular diastolic function is grade I diastolic dysfunction. Right Ventricle Right ventricular chamber dimension is normal. Left Atria Left atrial chamber dimension is moderately enlarged. Right Atria Right atrial chamber dimension is normal. Aortic Valve The aortic valve is trileaflet. There is mild to moderate aortic valve stenosis with a peak velocity of 273 cm/s, mean gradient of 19 mmHg, and aortic valve area of 1.4 cm2. There is trace aortic valve regurgitation. Pulmonic Valve The pulmonic valve is not well visualized. Mitral Valve The mitral valve has normal leaflets. There is trace mitral valve regurgitation. Tricuspid Valve The tricuspid valve leaflets are normal. There is mild tricuspid valve regurgitation. Pericardium/Pleural The pericardium appears normal. Aorta The aortic root size at the sinus of Valsalva is normal. Left Ventricular Outflow Tract Name Value Normal LVOT 2D LVOT Diameter 2.1 cm LVOT Doppler LVOT Peak Gradient 4 mmHg LVOT Mean Gradient 3 mmHg LVOT VTI 26 cm LVOT VTI/AV VTI Ratio 0.4 LVOT Stroke Volume 94 ml LVOT CO 16.8 l/min LVOT CI 8.3 l/min/m2 Pulmonic Valve Name Value Normal RVOT Doppler RVOT Peak Gradient 1 mmHg PV Doppler PV Peak Gradient 2 mmHg Mitral Valve Name Value Normal
[2022-08-20 04:55] LABS: Alanine Aminotransferase 24 U/L (6-35); Albumin Level 3.6 g/dL (3.5-5.1); Alkaline Phosphatase 89 U/L (38-126); Anion Gap 4 mmol/L (8-16); Aspartate Amino Transferase 23 U/L (14-36); Bilirubin,Total 0.5 mg/dL (0.2-1.3); Blood Urea Nitrogen 33 mg/dL (7-17); Calcium 8.8 mg/dL (8.4-10.2); Carbon Dioxide 30 mmol/L (22-30); Chloride 105 mmol/L (98-107); Estimated CRCL calculation 30 ml/min; Estimated Glomerular Filt Rate 39; Glucose 94 mg/dL (65-110); Magnesium 2.2 mg/dL (1.6-2.3); Potassium 4.2 mmol/L (3.4-5.0); Sodium 139 mmol/L (137-145)
[2022-08-20 05:27] LABS: Basophils Percent Auto 0.4 % (0.2-1.2); Eosinophils Absolute Auto 0.2 K/mm3 (0-0.3); Eosinophils Percent Auto 3.2 % (0-4.4); Hematocrit 34.1 % (37.0-47.0); Hemoglobin 10.8 g/dL (12.0-15.0); Immature Granulocyte Absolute 0.01 K/mm3 (0.00-0.031); Immature Granulocyte Percent A 0.2 % (0-0.5); Lymphocytes Absolute Auto 2.32 K/mm3 (0.9-3.2); Lymphocytes Percent Auto 49.8 % (18.3-44.2); Mean Corpuscular HGB Conc 31.7 g/dl (32-36); Mean Corpuscular Hemoglobin 29.2 pg (26-34); Mean Corpuscular Volume 92.2 fl (80-100); Mean Platelet Volume 10.5 fl (7.4-10.4); Monocytes Absolute Auto 0.3 K/mm3 (0.1-0.6); Monocytes Percent Auto 6.2 % (2.6-8.5); Neutrophils Absolute Auto 1.9 K/mm3 (1.3-6.7); Neutrophils Percent Auto 40.2 % (45.5-73.1); Platelet Count Result 195 k/mm3 (150-375); White Blood Count 4.7 K/mm3 (4.5-10.0)
[2022-08-20] MEDS: LEVOTHYROXINE SODIUM 50 MCG TABLET PO (06:00)
--- NOTE | 2022-08-20 08:10 | PM.IMPN ---
Progress Note: A&P Assessment and Plan (1) Paroxysmal A-fib: Code(s): I48.0 - Paroxysmal atrial fibrillation Status: Acute Assessment and Plan: Appreciate cardiology consultation, amiodarone and Eliquis have been added Echo is pending (2) Hyperlipidemia: Code(s): E78.5 - Hyperlipidemia, unspecified Status: Acute Assessment and Plan: Continue simvastatin. May consider switching to Crestor. (3) Hypertension: Code(s): I10 - Essential (primary) hypertension Status: Acute Assessment and Plan: For now continue with bisoprolol. Lisinopril is on hold due to acute renal failure. (4) Hypothyroidism: Code(s): E03.9 - Hypothyroidism, unspecified Status: Acute Assessment and Plan: Continue with levothyroxine and check thyroid level (5) Acute kidney failure: Code(s): N17.9 - Acute kidney failure, unspecified Status: Acute Assessment and Plan: Improved, monitor Likely increased 2/2 renal hypoperfusion from afib with rvr, now resolved Plan DVT prophylaxis with SCDs GI prophylaxis not indicated Code status full code Subjective Date/time seen: 08/20/22 08:10 Interval history: 87-year-old female with past medical history significant for hypothyroidism, hypertension, hyperlipidemia among other comorbidities is presenting with syncopal episodes and being treated for afib w/RVR, new onset, now back in NSR. No overnight events noted. No chest pain or shortness of breath. No nausea, vomiting or diarrhea. No fevers or chills. Review of Systems Review of Systems: 12 point review of systems was assessed and was negative except as noted in the HPI Exam Narrative: General: No acute distress, alert and oriented per baseline HEENT: Atraumatic, normocephalic, mucous membranes moist CV: Regular rate and rhythm, S1, S2 Lungs: Clear to auscultation bilaterally, no rales or crackles noted, no wheezes, good air entry Abdomen: Soft, nontender, nondistended Extremities: Normal to inspection Skin: No rashes noted, no lesions or wounds seen Psych: Euthymic, normal affect Objective Data Vital Signs Vital Signs: Vital Signs - 24 hr 08/19/22 14:58 08/19/22 15:41 08/19/22 15:41 Temperature 97.6 F Pulse Rate 113 H 120 H 133 H Respiratory Rate 18 Blood Pressure 124/77 119/87 99/74 L Pulse Oximetry 98 Oxygen Delivery Room Air 08/19/22 15:44 08/19/22 15:47 08/19/22 16:01 Temperature Pulse Rate 137 H 126 H 111 H Respiratory Rate 21 H 18 Blood Pressure 93/66 L Pulse Oximetry 96 95 Oxygen Delivery 08/19/22 16:15 08/19/22 18:17 08/19/22 16:47 Temperature Pulse Rate 47 L 50 L 45 L Respiratory Rate 16 19 Blood Pressure 105/43 L Pulse Oximetry 95 98 98 Oxygen Delivery 08/19/22 17:00 08/19/22 17:01 08/19/22 17:22 Temperature Pulse Rate 49 L 45 L 45 L Respiratory Rate 15 18 16 Blood Pressure 102/57 L Pulse Oximetry 93 97 Oxygen Delivery 08/19/22 17:30 08/19/22 20:00 08/19/22 20:00 Temperature 97.6 F Pulse Rate 46 L 46 L Respiratory Rate 20 18 Blood Pressure 116/47 L Pulse Oximetry 98 100 Oxygen Delivery Room Air 08/19/22 23:46 08/19/22 20:00 08/19/22 22:00 Temperature 97.6 F Pulse Rate 52 L 49 L 53 L Respiratory Rate 18 Blood Pressure 146/56 H Pulse Oximetry 97 Oxygen Delivery 08/20/22 00:00 08/20/22 00:00 08/20/22 02:00 Temperature Pulse Rate 58 L 69 Respiratory Rate Blood Pressure Pulse Oximetry Oxygen Delivery Room Air 08/20/22 04:00 08/20/22 04:00 08/20/22 04:00 Temperature 97.7 F Pulse Rate 52 L 51 L Respiratory Rate 18 Blood Pressure 151/58 H Pulse Oximetry 98 Oxygen Delivery Room Air 08/20/22 06:00 Temperature Pulse Rate 55 L Respiratory Rate Blood Pressure Pulse Oximetry Oxygen Delivery Intake/Output Intake/Output: Intake & Output 08/17/22 08/18/22 07
[2022-08-20] MEDS: ASPIRIN 81 MG ENTERIC TABLET PO (09:13)
[2022-08-20] MEDS: bisoproloL fumarate 5 MG TABLET PO (09:13)
[2022-08-20] MEDS: TIMOLOL MALEATE 0.5% OP SOLN 5 ML BOTTLE 1 DROP EACH EYE (09:14)
[2022-08-20] MEDS: PANTOPRAZOLE 40 MG TABLET PO (09:14)
[2022-08-20] MEDS: VITAMIN B COMPLEX CAPSULE 1 CAP PO (09:14)
[2022-08-20] MEDS: MAGNESIUM OXIDE 200 MG TABLET PO (09:14)
--- NOTE | 2022-08-20 09:38 | PM.CNCAR ---
Assessment and Plan Assessment and plan (1) Paroxysmal A-fib: Code(s): I48.0 - Paroxysmal atrial fibrillation Status: Acute Plan This is an 87-year-old lady with a history of mild aortic valve stenosis and chronic left bundle branch block who enters the hospital with symptoms of lightheadedness, presyncope and atrial fib with RVR. He has spontaneously reverted back to sinus rhythm and appears to be asymptomatic. Antiarrhythmic and anticoagulation medication is indicated. Because of her advanced age and underlying left bundle branch block I am going to select amiodarone. I will start a oral dosage totaling 800 mg daily while she is in the hospital. I will start oral anticoagulation with apixaban at reduced dosage because of her age and GFR. Aspirin and Lovenox will be stopped at this time. Her response to treatment will be assessed while she is in the hospital anticipate at least a couple of days in the hospital to ensure that she does not go right back into atrial fibrillation. Obviously amiodarone with its long half life will take some time before we can assess the clinical response to this accurately. She is not otherwise reporting symptoms that sound like angina I do not anticipate a bringing this lady for a coronary angiogram since she otherwise does not have exertional anginal-type symptoms and she did have a favorable nuclear stress test last fall Aristeo Jauregui MD [facility] History of Present Illness History of Present Illness Consult date/time: 08/20/22 09:38 Reason For Visit: Paroxysmal A Fib/NSTEMI Narrative: This is an 87-year-old woman I am seeing at the request of the hospitalist today because of atrial fibrillation and elevated troponin levels. The patient is unknown to me prior to this encounter she has previously been seen in consultation by Dr. Mclain of our service in 2021. She came to the hospital at the request of her family yesterday earlier in the day when she was feeling unwell for a couple of days at home. She noticed the day before she came in she suddenly felt lightheaded and had the sense of a heaviness from both shoulders and across her chest. She sat down in her home for a while to recover and felt better than she was standing at the kitchen counter trying to prepare some food and had several presyncopal episodes. She says that she did not completely lose consciousness or fall to the floor but she was hanging onto the counter couple of times in her vision was getting dim. She then was walking from a chair to the table to join her family for a meal and they stated she looked very white and pale and they indicated that it was time to come to the hospital for evaluation. In the hospital emergency room she was found to be in atrial fib with RVR with left bundle branch block. During the course of ER evaluation she spontaneously converted to sinus rhythm. She was not really aware of her heart beating rapidly or erratically in the way of palpitations although she states that in the last year she has had some episodes where she does feel this as well. She otherwise is her active healthy-looking woman for her age she maintains her own home and even performs her own yd work duties at her home including mowing the grass. She was seen in consultation last year as described above. An echocardiogram at that time demonstrated mild aortic valve stenosis with a valve area of 1.3 cm2, good left ventricular systolic function. Nuclear stress testing did not show any ischemic burden. Follow-up in our office was not recommended or arranged at that time. She did not have any diagnosis of atrial fibrillation prior to now. After being seen in the emergency room yesterday she was given therapeutic dosage of Lovenox and admitted to the IMU. She is still in sinus rhythm at this time and appears to be very comfortable at this time. Review of Systems Constitutional: Constitutional: Reports lethargy Eyes: Eyes: Reports no add
[2022-08-20] MEDS: AMIODARONE HCL 200 MG TABLET 400 MG PO ×2 (09:40→20:58)
[2022-08-20] MEDS: SIMVASTATIN 20 MG TABLET PO (17:44)
[2022-08-20] MEDS: LATANOPROST 0.005% OP SOLN 2.5 ML BTL 1 DROP EACH EYE (17:44)
[2022-08-20] MEDS: APIXABAN 2.5 MG TABLET PO (20:58)
[2022-08-21] VITALS (16 sets, daily range): BP systolic 137–165; BP diastolic 52–63; PULSE 38–86; RESP 12–20; TEMP 36.2–37.1; O2SAT 94–96
[2022-08-21 04:39] LABS: Basophils Percent Auto 0.5 % (0.2-1.2); Eosinophils Absolute Auto 0.1 K/mm3 (0-0.3); Eosinophils Percent Auto 3.2 % (0-4.4); Hematocrit 35.3 % (37.0-47.0); Hemoglobin 11.3 g/dL (12.0-15.0); Immature Granulocyte Absolute 0.01 K/mm3 (0.00-0.031); Immature Granulocyte Percent A 0.2 % (0-0.5); Lymphocytes Absolute Auto 1.96 K/mm3 (0.9-3.2); Lymphocytes Percent Auto 47.6 % (18.3-44.2); Mean Corpuscular Hemoglobin 29.5 pg (26-34); Mean Corpuscular Volume 92.2 fl (80-100); Mean Platelet Volume 9.8 fl (7.4-10.4); Monocytes Absolute Auto 0.3 K/mm3 (0.1-0.6); Monocytes Percent Auto 6.1 % (2.6-8.5); Neutrophils Absolute Auto 1.8 K/mm3 (1.3-6.7); Neutrophils Percent Auto 42.4 % (45.5-73.1); Platelet Count Result 209 k/mm3 (150-375); Red Blood Count 3.83 M/mm3 (4.2-5.4); Red Cell Distribution Width 12.8 % (11.5-14.5); White Blood Count 4.1 K/mm3 (4.5-10.0)
[2022-08-21 04:59] LABS: Alanine Aminotransferase 25 U/L (6-35); Alkaline Phosphatase 94 U/L (38-126); Anion Gap 5 mmol/L (8-16); Aspartate Amino Transferase 25 U/L (14-36); Bilirubin,Total 0.4 mg/dL (0.2-1.3); Blood Urea Nitrogen 24 mg/dL (7-17); Carbon Dioxide 30 mmol/L (22-30); Chloride 106 mmol/L (98-107); Estimated CRCL calculation 35 ml/min; Estimated Glomerular Filt Rate 47; Glucose 96 mg/dL (65-110); Potassium 4.3 mmol/L (3.4-5.0); Sodium 141 mmol/L (137-145)
[2022-08-21] MEDS: LEVOTHYROXINE SODIUM 50 MCG TABLET PO (06:40)
[2022-08-21] MEDS: APIXABAN 2.5 MG TABLET PO ×2 (08:42→20:10)
[2022-08-21] MEDS: VITAMIN B COMPLEX CAPSULE 1 CAP PO (08:59)
[2022-08-21] MEDS: bisoproloL fumarate 5 MG TABLET PO ×2 (08:59)
[2022-08-21] MEDS: AMIODARONE HCL 200 MG TABLET 400 MG PO (09:00)
[2022-08-21] MEDS: TIMOLOL MALEATE 0.5% OP SOLN 5 ML BOTTLE 1 DROP EACH EYE (09:00)
[2022-08-21] MEDS: MAGNESIUM OXIDE 200 MG TABLET PO (09:01)
[2022-08-21] MEDS: PANTOPRAZOLE 40 MG TABLET PO (09:01)
--- NOTE | 2022-08-21 10:44 | PM.PNCARD ---
Progress Note: A&P Assessment and Plan (1) Paroxysmal A-fib: Code(s): I48.0 - Paroxysmal atrial fibrillation Status: Acute Plan 87-year-old lady with: Appears to have symptomatic paroxysmal atrial fibrillation. She has also chronic left bundle branch block and mild aortic valve stenosis. Started the patient on amiodarone treatment yesterday and systemic anticoagulation with apixaban. She is doing well although is somewhat bradycardic. Will continue her amiodarone at the current dosage for another 24 hours. If she has no further arrhythmias I would decrease the dosage and discharge her tomorrow for follow-up with my partner/Dr. Mclain. May be necessary to decrease or discontinue beta-whitney depending on ongoing heart rate/Esau arrhythmias Aristeo Jauregui MD [facility] Subjective Date/time seen: Date of service: 08/21/22 10:44 Interval history: Follow-up visit in this 87-year-old lady with: Symptomatic atrial fib with RVR. Patient also has chronic left bundle branch block as well as mild aortic valve stenosis. She is asymptomatic today and feels well telemetry shows sinus bradycardia with heart rates mid 40s to mid 50s. Exam Const: General: comfortable and no acute distress Other: Pleasant lady appearing younger than her stated age no distress of any kind at this time HENMT: Mouth: Yes moist mucous membranes Eyes: Sclera: sclerae normal Neck: Neck: supple and no JVD Resp: Effort & Inspection: normal respiratory effort Auscultation: clear to auscultation bilaterally Cardio: Rate: regular rate and bradycardic GI: GI Palp: Yes Soft to palpation Auscultation: normal bowel sounds Skin: General skin exam: normal color Neuro: Other: Alert and oriented x3 Extrem: General: normal to inspection Objective Data Vital Signs Vital Signs: Vital Signs - 24 hr 08/20/22 12:00 08/20/22 12:00 08/20/22 12:00 Temperature 36.6 C Pulse Rate 55 L 62 Respiratory Rate 14 Blood Pressure 149/62 H Pulse Oximetry 98 Oxygen Delivery Room Air 08/20/22 14:00 08/20/22 16:00 08/20/22 16:00 Temperature Pulse Rate 57 L 52 L Respiratory Rate Blood Pressure Pulse Oximetry Oxygen Delivery Room Air 08/20/22 16:00 08/20/22 18:00 08/20/22 20:45 Temperature 36.6 C 36.3 C L Pulse Rate 53 L 56 L 53 L Respiratory Rate 16 18 Blood Pressure 150/53 H 117/50 L Pulse Oximetry 97 94 Oxygen Delivery 08/20/22 20:58 08/20/22 20:00 08/20/22 23:52 Temperature 36.3 C L Pulse Rate 60 58 L Respiratory Rate 18 Blood Pressure 128/59 L Pulse Oximetry 95 Oxygen Delivery Room Air 08/20/22 20:00 08/20/22 22:00 08/21/22 00:00 Temperature Pulse Rate 57 L 54 L Respiratory Rate Blood Pressure Pulse Oximetry Oxygen Delivery Room Air 08/21/22 00:00 08/21/22 02:00 08/21/22 04:08 Temperature 36.3 C L Pulse Rate 57 L 59 L 49 L Respiratory Rate 18 Blood Pressure 137/52 L Pulse Oximetry 96 Oxygen Delivery 08/21/22 04:00 08/21/22 04:00 08/21/22 06:00 Temperature Pulse Rate 51 L 47 L Respiratory Rate Blood Pressure Pulse Oximetry Oxygen Delivery Room Air 08/21/22 08:00 08/21/22 08:59 08/21/22 08:59 Temperature 36.2 C L Pulse Rate 50 L 86 86 Respiratory Rate 12 Blood Pressure 153/53 H Pulse Oximetry 95 Oxygen Delivery 08/21/22 09:00 Temperature Pulse Rate 86 Respiratory Rate Blood Pressure Pulse Oximetry Oxygen Delivery Intake/Output Intake/Output: Intake & Output 08/18/22 08/19/22 08/20/22 08/21/22 23:59 23:59 23:59 23:59 Intake Total 2490 1290 Output Total 3350 1600 Balance -860 -310 Meds/Results Medications: Active Medications Generic Name Dose Route Start Last Admin Trade Name Freq PRN Reason Stop Dose Admin Amiodarone HCl 400 mg 08/20/22 09:40 08/21/22 09:00 Amiodarone Hcl 200 Mg Tablet PO 400 mg Q12H KERRY Administration Apixab
--- NOTE | 2022-08-21 11:06 | PM.IMPN ---
Progress Note: A&P Assessment and Plan (1) Paroxysmal A-fib: Code(s): I48.0 - Paroxysmal atrial fibrillation Status: Acute Assessment and Plan: Appreciate cardiology consultation, amiodarone and Eliquis have been added, anticipate discharge home tomorrow symptoms remained stable Echo 08/20 read as an EF of 50-55% with grade 1 diastolic dysfunction, mild valvular disease with moderate aortic valve stenosis, no mention of pulmonary hypertension (2) Hyperlipidemia: Code(s): E78.5 - Hyperlipidemia, unspecified Status: Acute Assessment and Plan: Continue simvastatin. May consider switching to Crestor. (3) Hypertension: Code(s): I10 - Essential (primary) hypertension Status: Acute Assessment and Plan: For now continue with bisoprolol. Lisinopril is on hold due to acute renal failure. Blood pressures reviewed 08/21 (4) Hypothyroidism: Code(s): E03.9 - Hypothyroidism, unspecified Status: Acute Assessment and Plan: Continue with levothyroxine, TSH within normal limits (5) Acute kidney failure: Code(s): N17.9 - Acute kidney failure, unspecified Status: Acute Assessment and Plan: Likely increased 2/2 renal hypoperfusion from afib with rvr, now resolved Improving, monitor Plan DVT prophylaxis with Eliquis GI prophylaxis not indicated Code status full code Subjective Date/time seen: 08/21/22 11:06 Interval history: 87-year-old female with past medical history significant for hypothyroidism, hypertension, hyperlipidemia among other comorbidities is presenting with syncopal episodes and being treated for afib w/RVR, new onset, now back in NSR. No overnight events noted. No chest pain or shortness of breath. No nausea, vomiting or diarrhea. No fevers or chills. Review of Systems Review of Systems: 12 point review of systems was assessed and was negative except as noted in the HPI Exam Narrative: General: No acute distress, alert and oriented per baseline HEENT: Atraumatic, normocephalic, mucous membranes moist CV: Regular rate and rhythm, S1, S2 Lungs: Clear to auscultation bilaterally, no rales or crackles noted, no wheezes, good air entry Abdomen: Soft, nontender, nondistended Extremities: Normal to inspection Skin: No rashes noted, no lesions or wounds seen Psych: Euthymic, normal affect Objective Data Vital Signs Vital Signs: Vital Signs - 24 hr 08/20/22 12:00 08/20/22 12:00 08/20/22 12:00 Temperature 97.8 F Pulse Rate 55 L 62 Respiratory Rate 14 Blood Pressure 149/62 H Pulse Oximetry 98 Oxygen Delivery Room Air 08/20/22 14:00 08/20/22 16:00 08/20/22 16:00 Temperature Pulse Rate 57 L 52 L Respiratory Rate Blood Pressure Pulse Oximetry Oxygen Delivery Room Air 08/20/22 16:00 08/20/22 18:00 08/20/22 20:45 Temperature 98 F 97.4 F L Pulse Rate 53 L 56 L 53 L Respiratory Rate 16 18 Blood Pressure 150/53 H 117/50 L Pulse Oximetry 97 94 Oxygen Delivery 08/20/22 20:58 08/20/22 20:00 08/20/22 23:52 Temperature 97.3 F L Pulse Rate 60 58 L Respiratory Rate 18 Blood Pressure 128/59 L Pulse Oximetry 95 Oxygen Delivery Room Air 08/20/22 20:00 08/20/22 22:00 08/21/22 00:00 Temperature Pulse Rate 57 L 54 L Respiratory Rate Blood Pressure Pulse Oximetry Oxygen Delivery Room Air 08/21/22 00:00 08/21/22 02:00 08/21/22 04:08 Temperature 97.4 F L Pulse Rate 57 L 59 L 49 L Respiratory Rate 18 Blood Pressure 137/52 L Pulse Oximetry 96 Oxygen Delivery 08/21/22 04:00 08/21/22 04:00 08/21/22 06:00 Temperature Pulse Rate 51 L 47 L Respiratory Rate Blood Pressure Pulse Oximetry Oxygen Delivery Room Air 08/21/22 08:00 08/21/22 08:59 08/21/22 08:59 Temperature 97.2 F L Pulse Rate 50 L 86 86 Respiratory Rate 12 Blood Pressure 153/53 H Pulse Oximetry 95 Ox
[2022-08-21] MEDS: SIMVASTATIN 20 MG TABLET PO (17:16)
[2022-08-21] MEDS: LATANOPROST 0.005% OP SOLN 2.5 ML BTL 1 DROP EACH EYE (17:16)
[2022-08-22] VITALS (11 sets, daily range): BP systolic 151–179; BP diastolic 59–68; PULSE 40–53; RESP 12–18; TEMP 36.4–36.6; O2SAT 95–98
[2022-08-22 04:55] LABS: Basophils Percent Auto 0.4 % (0.2-1.2); Eosinophils Absolute Auto 0.1 K/mm3 (0-0.3); Eosinophils Percent Auto 2.9 % (0-4.4); Hematocrit 37.8 % (37.0-47.0); Immature Granulocyte Absolute 0.01 K/mm3 (0.00-0.031); Immature Granulocyte Percent A 0.2 % (0-0.5); Lymphocytes Absolute Auto 2.16 K/mm3 (0.9-3.2); Lymphocytes Percent Auto 48.1 % (18.3-44.2); Mean Corpuscular HGB Conc 31.7 g/dl (32-36); Mean Corpuscular Hemoglobin 29.5 pg (26-34); Mean Corpuscular Volume 92.9 fl (80-100); Mean Platelet Volume 10.2 fl (7.4-10.4); Monocytes Absolute Auto 0.4 K/mm3 (0.1-0.6); Neutrophils Absolute Auto 1.8 K/mm3 (1.3-6.7); Neutrophils Percent Auto 40.4 % (45.5-73.1); Platelet Count Result 230 k/mm3 (150-375); Red Blood Count 4.07 M/mm3 (4.2-5.4); Red Cell Distribution Width 12.8 % (11.5-14.5); White Blood Count 4.5 K/mm3 (4.5-10.0)
[2022-08-22 05:19] LABS: Alanine Aminotransferase 23 U/L (6-35); Albumin Level 3.9 g/dL (3.5-5.1); Alkaline Phosphatase 90 U/L (38-126); Anion Gap 6 mmol/L (8-16); Aspartate Amino Transferase 21 U/L (14-36); Bilirubin,Total 0.4 mg/dL (0.2-1.3); Blood Urea Nitrogen 23 mg/dL (7-17); Calcium 9.2 mg/dL (8.4-10.2); Carbon Dioxide 31 mmol/L (22-30); Chloride 104 mmol/L (98-107); Estimated CRCL calculation 33 ml/min; Estimated Glomerular Filt Rate 42; Glucose 93 mg/dL (65-110); Potassium 4.1 mmol/L (3.4-5.0); Sodium 141 mmol/L (137-145)
[2022-08-22] MEDS: LEVOTHYROXINE SODIUM 50 MCG TABLET PO (06:42)
[2022-08-22] MEDS: MAGNESIUM OXIDE 200 MG TABLET PO (08:19)
[2022-08-22] MEDS: VITAMIN B COMPLEX CAPSULE 1 CAP PO (08:20)
[2022-08-22] MEDS: TIMOLOL MALEATE 0.5% OP SOLN 5 ML BOTTLE 1 DROP EACH EYE (08:20)
[2022-08-22] MEDS: PANTOPRAZOLE 40 MG TABLET PO (08:20)
[2022-08-22] MEDS: APIXABAN 2.5 MG TABLET PO (08:20)
[2022-08-22] MEDS: AMIODARONE HCL 200 MG TABLET 400 MG PO (08:21)
--- NOTE | 2022-08-22 09:21 | PC.NURSE ---
Spoke with Milli Alexander NP regarding patient's HR of 40-50 and BP of 179/68. New order to give pt's Bisoprolol now.
[2022-08-22] MEDS: bisoproloL fumarate 5 MG TABLET PO (09:34)
--- NOTE | 2022-08-22 10:16 | PM.DS ---
DS: Admitting Diagnosis Discharge Date 08/22/22 Admitting Diagnosis palpitations DS: Discharge Diagnosis Discharge Diagnosis (1) Paroxysmal A-fib: Code(s): I48.0 - Paroxysmal atrial fibrillation Status: Acute Assessment and Plan: Appreciate cardiology consultation, amiodarone and Eliquis have been added, anticipate discharge home tomorrow symptoms remained stable Echo 08/20 read as an EF of 50-55% with grade 1 diastolic dysfunction, mild valvular disease with moderate aortic valve stenosis, no mention of pulmonary hypertension (2) Hyperlipidemia: Code(s): E78.5 - Hyperlipidemia, unspecified Status: Acute Assessment and Plan: Continue simvastatin. May consider switching to Crestor. (3) Hypertension: Code(s): I10 - Essential (primary) hypertension Status: Acute Assessment and Plan: For now continue with bisoprolol. Lisinopril is on hold due to acute renal failure. Blood pressures reviewed 08/21 (4) Hypothyroidism: Code(s): E03.9 - Hypothyroidism, unspecified Status: Acute Assessment and Plan: Continue with levothyroxine, TSH within normal limits (5) Acute kidney failure: Code(s): N17.9 - Acute kidney failure, unspecified Status: Acute Assessment and Plan: Likely increased 2/2 renal hypoperfusion from afib with rvr, now resolved Improving, monitor Plan DVT prophylaxis with Eliquis GI prophylaxis not indicated Code status full code DS: Summary Hospital Course Hospital Course: 87-year-old female with past medical history significant for hypothyroidism, mild aortic valve stenosis with chronic left bundle branch block, hypertension, hyperlipidemia among other comorbidities is presenting with syncopal episodes and being treated for afib w/RVR, new onset, now back in NSR. Cardiology was consulted and recommended starting amiodarone and Eliquis. Aspirin was discontinued. She remained in normal sinus rhythm with this regimen and occasionally was bradycardic but was asymptomatic. Therefore, Cardiology recommended discharging on these doses of medications. She will follow up with them outpatient. Please see above and med rec for details. Time Spent with Patient Time attestation: Total time spent providing and/or coordinating discharge services: Exam Narrative: General: No acute distress, alert and oriented per baseline HEENT: Atraumatic, normocephalic, mucous membranes moist CV: Regular rate and rhythm, S1, S2 Lungs: Clear to auscultation bilaterally, no rales or crackles noted, no wheezes, good air entry Abdomen: Soft, nontender, nondistended Extremities: Normal to inspection Skin: No rashes noted, no lesions or wounds seen Psych: Euthymic, normal affect DS: Data Data Completed and Pending Labs on day of discharge: Labs from last 24 hours 08/22/22 04:29 WBC 4.5 RBC 4.07 L Hgb 12.0 Hct 37.8 MCV 92.9 MCH 29.5 MCHC 31.7 L RDW 12.8 Plt Count 230 MPV 10.2 Immature Gran % (Auto) 0.2 Neut % (Auto) 40.4 L Lymph % (Auto) 48.1 H Coleman % (Auto) 8.0 Eos % (Auto) 2.9 Baso % (Auto) 0.4 Lymph # (Auto) 2.16 Coleman # (Auto) 0.4 Eos # (Auto) 0.1 Baso # (Auto) 0.0 Abs Immat Gran (auto) 0.01 Absolute Neuts (auto) 1.8 Absolute Nucleated RBC 0.0 Nucleated RBC % 0.0 Sodium 141 Potassium 4.1 Chloride 104 Carbon Dioxide 31 H Anion Gap 6 L BUN 23 H Creatinine 1.20 H Estim Creat Clear Calc 33 Estimated GFR 42 L Glucose 93 Calcium 9.2 Total Bilirubin 0.4 AST 21 ALT 23 Alkaline Phosphatase 90 Total Protein 7.0 Albumin 3.9 Discharge Plan Discharge Attending physician on discharge: Cece Sherman Consulting providers: Aristeo Jauregui Discharging Clinician: Cece Sherman Patient Disposition: Home, Self-Care Activity: as tolerated Diet: as tolerated Patient Instructions: Antibiotic Form, Amiodarone (By mouth), Apixa
--- NOTE | 2022-08-22 11:08 | PM.PNCARD ---
Progress Note: A&P Assessment and Plan (1) Paroxysmal A-fib: Code(s): I48.0 - Paroxysmal atrial fibrillation Status: Acute Assessment and Plan: New diagnosis of atrial fibrillation. She was started on amiodarone over the weekend and converted to sinus rhythm/sinus bradycardia. She is mildly bradycardic but is maintaining adequate blood pressure and is asymptomatic. Will decrease her amiodarone dose to a maintenance dose of 200mg daily at discharge. She will monitor her heart rate at home and contact the office with any concerns. Continue systemic anticoagulation with apixaban 2.5mg p.o. b.i.d. Will arrange follow up with Dr. Patel. KRUEGER for discharge today from a cardiac perspective. Subjective Date/time seen: 08/22/22 11:08 Cardiology follow up for atrial fibrillation Interval history: Feeling well this morning, has no complaints. Denies chest pain, shortness of breath, palpitations, dizziness, light headedness. Had some bradycardia while sleeping last night, HR in the 30's. Heart rate now mid 40's-50's, in the 60's when ambulating. Review of Systems Constitutional: Constitutional: Reports lethargy Eyes: Eyes: Reports no additional eye complaints ENT: Reports system reviewed and no additional complaints, except as documented Cardiovascular: Cardiovascular: Reports as per HPI Respiratory: Respiratory: Reports no additional respiratory complaints Gastrointestinal: Gastrointestinal: Reports no additional gastrointestinal complaints Musculoskeletal: Musculoskeletal: Reports no additional musculoskeletal complaints Integumentary/Breasts: Skin/Breast: Reports system reviewed and no additional complaints, except as docu Endocrine: Endocrine: Reports no additional endocrine complaints Hematologic/Lymphatic: Hematologic/Lymphatic: Reports no additional hematologic/lymphatic complaints Allergic/Immunologic: Allergic/Immunologic: Reports no additional allergic/immunologic complaints Exam Const: General: comfortable and no acute distress Other: Pleasant lady appearing younger than her stated age no distress of any kind at this time HENMT: Mouth: Yes moist mucous membranes Eyes: Sclera: sclerae normal Neck: Neck: supple and no JVD Resp: Effort & Inspection: normal respiratory effort Auscultation: clear to auscultation bilaterally Cardio: Rate: regular rate and bradycardic Rhythm: regular rhythm Heart sounds: Murmur heart sound present systolic GI: Auscultation: normal bowel sounds Skin: General skin exam: normal color Neuro: Other: Alert and oriented x3 Extrem: General: normal to inspection Other: No edema, good distal pulses Objective Data Vital Signs Vital Signs: Vital Signs - 24 hr 08/21/22 12:00 08/21/22 12:00 08/21/22 14:00 Temperature 36.9 C Pulse Rate 50 L 49 L 47 L Respiratory Rate 14 Blood Pressure 165/57 H Pulse Oximetry 95 Oxygen Delivery 08/21/22 12:00 08/21/22 16:00 08/21/22 16:00 Temperature 37.1 C Pulse Rate 49 L 49 L Respiratory Rate 14 14 Blood Pressure 165/60 H Pulse Oximetry 96 96 Oxygen Delivery Room Air Room Air 08/21/22 16:00 08/21/22 20:10 08/21/22 20:00 Temperature 36.4 C L Pulse Rate 38 L 46 L 54 L Respiratory Rate 18 Blood Pressure 147/63 H Pulse Oximetry 94 Oxygen Delivery 08/21/22 20:00 08/21/22 20:00 08/21/22 23:02 Temperature 36.6 C Pulse Rate 49 L 50 L Respiratory Rate 20 Blood Pressure 141/58 H Pulse Oximetry 95 Oxygen Delivery Room Air 08/21/22 22:00 08/21/22 23:50 08/22/22 00:00 Temperature Pulse Rate 51 L 45 L Respiratory Rate Blood Pressure Pulse Oximetry Oxygen Delivery Room Air 08/22/22 02:00 08/22/22 04:00 08/22/22 04:00 Temperature Pulse Rate 49 L 44 L Respiratory Rate Blood Pressure Pulse Oximetry Oxygen Delivery Room Air 08/22/22 04:00 08/22/22 06:00 08/22/22 07:42 Temperature 36.4 C 36
== END 2022-08-22 13:52 | disposition home or self-care (01) ==
LOC: ANHED 16:31 → ANHIMU 21:13
PROVIDERS: Nurse Practitioner; Admitting Provider Chiropractor; Emergency Provider Emergency Medicine; PCP Family Medicine; Visit Provider Student in an Organized Health Care Education/Training Program
DX: I48.0 Paroxysmal atrial fibrillation (principal); E78.5 Hyperlipidemia, unspecified; E03.9 Hypothyroidism, unspecified; N17.9 Acute kidney failure, unspecified; R77.8 Other specified abnormalities of plasma proteins; R55 Syncope and collapse; R00.0 Tachycardia, unspecified; I10 Essential (primary) hypertension; I35.0 Nonrheumatic aortic (valve) stenosis; I34.81 Nonrheumatic mitral (valve) annulus calcification; J84.9 Interstitial pulmonary disease, unspecified; E04.1 Nontoxic single thyroid nodule; I44.7 Left bundle-branch block, unspecified; R00.1 Bradycardia, unspecified; R94.31 Abnormal electrocardiogram [ECG] [EKG]; H40.9 Unspecified glaucoma; R79.89 Other specified abnormal findings of blood chemistry; M19.90 Unspecified osteoarthritis, unspecified site; H91.90 Unspecified hearing loss, unspecified ear; Z79.82 Long term (current) use of aspirin; Z79.899 Other long term (current) drug therapy
CPT/HCPCS: 36415; 71275; 80053; 83605; 83735; 84443; 84484; 85025; 93005; 93306; 96372; 99285; A9270; G0378; J1650; Q9967

== ENCOUNTER 2022-12-14 07:41 | Outpatient (CLI) | payer OTHER, SELFPAY ==
[2022-12-14 08:17] LABS: Hematocrit 39.2 % (37.0-47.0); Hemoglobin 12.2 g/dL (12.0-15.0); Mean Corpuscular HGB Conc 31.1 g/dl (32-36); Mean Corpuscular Hemoglobin 29.6 pg (26-34); Mean Corpuscular Volume 95.1 fl (80-100); Mean Platelet Volume 10.2 fl (7.4-10.4); Platelet Count Result 184 k/mm3 (150-375); Red Blood Count 4.12 M/mm3 (4.2-5.4); Red Cell Distribution Width 12.7 % (11.5-14.5); White Blood Count 3.8 K/mm3 (4.5-10.0)
[2022-12-14 08:33] LABS: Alanine Aminotransferase 15 U/L (6-35); Albumin Level 4.2 g/dL (3.5-5.1); Alkaline Phosphatase 85 U/L (38-126); Anion Gap 6 mmol/L (8-16); Aspartate Amino Transferase 20 U/L (14-36); Bilirubin,Total 0.7 mg/dL (0.2-1.3); Blood Urea Nitrogen 24 mg/dL (7-17); Calcium 9.4 mg/dL (8.4-10.2); Carbon Dioxide 30 mmol/L (22-30); Chloride 105 mmol/L (98-107); Cholesterol 160 mg/dL (0-200); Estimated Glomerular Filt Rate 39; Glucose 94 mg/dL (65-110); HDL Direct 56 mg/dL; Potassium 4.4 mmol/L (3.4-5.0); Sodium 141 mmol/L (137-145); Triglycerides 132 mg/dL (<150)
[2022-12-14 08:41] LABS: Free T4 Free Thyroxine 1.56 ng/mL (0.78-2.19)
[2022-12-14 08:44] LABS: LDL Cholesterol Direct 77 mg/dL
[2022-12-14 08:55] LABS: Thyroid Stimulating Hormone 0.884 uIU/mL (0.465-4.680)
== END 2022-12-14 07:42 | disposition home or self-care (01) ==
LOC: ANHLAB 07:42
PROVIDERS: PCP Family Medicine; Visit Provider Family Medicine
DX: E78.5 Hyperlipidemia, unspecified (principal); E03.8 Other specified hypothyroidism; E03.9 Hypothyroidism, unspecified; I10 Essential (primary) hypertension; Z79.899 Other long term (current) drug therapy
CPT/HCPCS: 36415; 80053; 80061; 84439; 84443; 85027

== ENCOUNTER 2023-02-13 08:12 | Outpatient (CLI) | payer OTHER, SELFPAY ==
[2023-02-13 08:48] LABS: Basophils Percent Auto 0.3 % (0.2-1.2); Eosinophils Absolute Auto 0.2 K/mm3 (0-0.3); Lymphocytes Absolute Auto 1.58 K/mm3 (0.9-3.2); Lymphocytes Percent Auto 39.9 % (18.3-44.2); Mean Corpuscular HGB Conc 31.7 g/dl (32-36); Mean Corpuscular Hemoglobin 29.3 pg (26-34); Mean Corpuscular Volume 92.3 fl (80-100); Mean Platelet Volume 9.9 fl (7.4-10.4); Monocytes Absolute Auto 0.3 K/mm3 (0.1-0.6); Monocytes Percent Auto 6.8 % (2.6-8.5); Neutrophils Absolute Auto 1.9 K/mm3 (1.3-6.7); Platelet Count Result 218 k/mm3 (150-375); Red Blood Count 4.44 M/mm3 (4.2-5.4); Red Cell Distribution Width 12.7 % (11.5-14.5)
[2023-02-13 08:58] LABS: Cholesterol 187 mg/dL (0-200); HDL Direct 65 mg/dL; Triglycerides 113 mg/dL (<150)
[2023-02-13 09:00] LABS: Alanine Aminotransferase 15 U/L (6-35); Albumin Level 4.4 g/dL (3.5-5.1); Alkaline Phosphatase 88 U/L (38-126); Anion Gap 7 mmol/L (8-16); Aspartate Amino Transferase 22 U/L (14-36); Bilirubin,Total 0.8 mg/dL (0.2-1.3); Blood Urea Nitrogen 29 mg/dL (7-17); Calcium 9.6 mg/dL (8.4-10.2); Carbon Dioxide 32 mmol/L (22-30); Chloride 104 mmol/L (98-107); Estimated Glomerular Filt Rate 33; Glucose 93 mg/dL (65-110); Sodium 143 mmol/L (137-145)
[2023-02-13 09:09] LABS: LDL Cholesterol Direct 84 mg/dL
== END 2023-02-13 08:13 | disposition home or self-care (01) ==
LOC: ANHLAB 08:16
PROVIDERS: Nurse Practitioner; PCP Family Medicine; Visit Provider Nurse Practitioner Adult Health
DX: R11.2 Nausea with vomiting, unspecified (principal); Z79.01 Long term (current) use of anticoagulants; E03.9 Hypothyroidism, unspecified; E78.5 Hyperlipidemia, unspecified
CPT/HCPCS: 36415; 80053; 80061; 84443; 85025

== ENCOUNTER 2023-03-23 08:09 | Outpatient (CLI) | payer OTHER, SELFPAY ==
[2023-03-23 09:06] LABS: Alanine Aminotransferase 17 U/L (6-35); Albumin Level 4.3 g/dL (3.5-5.1); Alkaline Phosphatase 100 U/L (38-126); Anion Gap 5 mmol/L (8-16); Aspartate Amino Transferase 30 U/L (14-36); Bilirubin,Total 0.7 mg/dL (0.2-1.3); Blood Urea Nitrogen 30 mg/dL (7-17); Calcium 9.5 mg/dL (8.4-10.2); Carbon Dioxide 31 mmol/L (22-30); Chloride 107 mmol/L (98-107); Estimated Glomerular Filt Rate 30; Glucose 91 mg/dL (65-110); Potassium 4.2 mmol/L (3.4-5.0); Sodium 143 mmol/L (137-145)
== END 2023-03-23 08:10 | disposition home or self-care (01) ==
PROVIDERS: PCP Family Medicine; Visit Provider Internal Medicine
DX: I10 Essential (primary) hypertension (principal)
CPT/HCPCS: 36415; 80053

== ENCOUNTER 2023-06-12 14:10 | Outpatient (CLI) | payer OTHER, SELFPAY ==
--- NOTE | ~2023-06-12 | DEXA_ITS ---
Bone Density Report Name: ADRIANA MARCH Age: 88 Sex: Female Ethnicity: White Date of : 1935 Indication: postmenopausal; screening for osteoporosis; height loss; cancer; hysterectomy; rheumatoid arthritis; Referring Provider: JARRED HARDING Study: Bone densitometry was performed. Exam Date: June 12, 2023 Accession number: [id number] Bone Density: Region BMD T-score Z-score Classification AP Spine(L1, L2, L3) 0.998 -0.2 2.6 Normal Femoral Neck (Left) 0.713 -1.2 1.3 Osteopenia Total Hip (Left) 0.739 -1.7 0.7 Osteopenia Femoral Neck (Right) 0.726 -1.1 1.4 Osteopenia Total Hip (Right) 0.740 -1.7 0.7 Osteopenia Total Hip Mean 0.740 -1.7 0.7 Osteopenia World Health Organization criteria for BMD impression classify patients as: Normal (T-score at or above -1.0), Osteopenia (T-score between -1.0 and -2.5), or Osteoporosis (T-score at or below -2.5). 10-year Fracture Risk(1): Major Osteoporotic Fracture 14% Hip Fracture 3.9% Reported Risk Factors: [place] (), Neck BMD=0.713, BMI=30.5, rheumatoid arthritis (1) FRAX(R) Version 3.08. Fracture probability calculated for an untreated patient. Fracture probability may be lower if the patient has received treatment. Clinical Information Provided by Patient: Has rheumatoid arthritis Has used the following medications: Vitamin D, Calcium Has the following medical conditions: Cancer, Hysterectomy Patient maximum height was 67.5 Menopause Age: 49 No regular weight bearing exercise Drinks caffeinated beverages Onset of menses at age 12 Number of children 6 Impression: The patient has low bone mass, based on the Left Total Hip T-score. The patient has an estimated ten-year risk of hip fracture of 3.9% and an estimated ten-year risk of major fracture of 14%, based on the WHO FRAX algorithm. Discussion: BONE DENSITY IS LOW AT ONE OR MORE SKELETAL SITES. THE PATIENT'S BMD AND CLINICAL RISK FACTORS CONTRIBUTE TO THIS PATIENT'S INCREASED RISK OF FRACTURE. This patient's lowest T-score is low at one or more skeletal sites. It meets the World Health Organization's (WHO) criteria for ?low bone mass? (T-score between -1.0 and -2.5). The patient's 10-year risk of hip fracture as calculated by FRAX exceeds the threshold where pharmacological therapy is recommended by the National Osteoporosis Foundation (NOF). However, all treatment decisions require clinical judgment and consideration of individual patient factors, including patient preferences, comorbidities, previous drug use, risk factors not captured in the FRAX model (e.g., frailty, falls, vitamin D deficiency, increased bone turnover, interval significant decline in bone density) and possible under or overestimation of fracture risk by FRAX. The patient should follow a healthful lifestyle (good
--- NOTE | ~2023-06-12 | MM_ITS ---
EXAMINATION: MM screening mandy BI w falguni HISTORY: Screening mammogram TECHNIQUE: Craniocaudal and mediolateral oblique 3-D tomosynthesis images were obtained and synthetic 2-D images were generated. CAD analysis was submitted and interpreted. COMPARISON: No prior mammogram is available for comparison at this institution. BREAST PARENCHYMAL COMPOSITION: The breasts are almost entirely fatty. FINDINGS: There is no evidence of suspicious mass, calcification, or architectural distortion to sugg est malignancy in either breast. IMPRESSION: 1. No mammographic evidence of malignancy. 2. Recommend routine screening mammography in one year. BI-RADS Category 1: Negative Reviewed, dictated and finalized at location B.
== END 2023-06-12 14:11 | disposition home or self-care (01) ==
LOC: ANHIMG 14:12
PROVIDERS: PCP Family Medicine; Visit Provider Nurse Practitioner
DX: Z12.31 Encounter for screening mammogram for malignant neoplasm of breast (principal); M85.89 Other specified disorders of bone density and structure, multiple sites
CPT/HCPCS: 77063; 77067; 77080

== ENCOUNTER 2023-08-29 10:07 | Outpatient (CLI) | payer OTHER, SELFPAY ==
[2023-08-29 11:00] LABS: Alanine Aminotransferase 16 U/L (6-35); Albumin Level 4.3 g/dL (3.5-5.1); Alkaline Phosphatase 80 U/L (38-126); Anion Gap 6 mmol/L (4-12); Aspartate Amino Transferase 22 U/L (14-36); Bilirubin,Total 0.6 mg/dL (0.2-1.3); Blood Urea Nitrogen 27 mg/dL (7-17); Calcium 9.3 mg/dL (8.4-10.2); Carbon Dioxide 33 mmol/L (22-30); Chloride 103 mmol/L (98-107); Cholesterol 163 mg/dL (0-200); Estimated Glomerular Filt Rate 33; Glucose 87 mg/dL (65-110); HDL Direct 64 mg/dL; Potassium 4.2 mmol/L (3.4-5.0); Sodium 142 mmol/L (137-145); Triglycerides 118 mg/dL (<150)
[2023-08-29 11:11] LABS: LDL Cholesterol Direct 71 mg/dL
[2023-08-29 11:29] LABS: Thyroid Stimulating Hormone 0.545 uIU/mL (0.465-4.680)
[2023-08-29 11:56] LABS: Vitamin B12 > 1000.0 pg/mL (239-931)
== END 2023-08-29 10:08 | disposition home or self-care (01) ==
LOC: ANHLAB 10:10
PROVIDERS: PCP Family Medicine; Visit Provider Nurse Practitioner
DX: E78.5 Hyperlipidemia, unspecified (principal); E03.9 Hypothyroidism, unspecified; N18.9 Chronic kidney disease, unspecified; E53.8 Deficiency of other specified B group vitamins
CPT/HCPCS: 36415; 80053; 80061; 82607; 84443

== ENCOUNTER 2023-12-27 08:19 | Outpatient (CLI) | payer OTHER, SELFPAY ==
[2023-12-27 08:45] LABS: Hemoglobin 11.9 g/dL (12.0-15.0); Mean Corpuscular HGB Conc 32.2 g/dl (32-36); Mean Corpuscular Hemoglobin 30.1 pg (26-34); Mean Corpuscular Volume 93.7 fl (80-100); Platelet Count Result 203 k/mm3 (150-375); Red Blood Count 3.95 M/mm3 (4.2-5.4); Red Cell Distribution Width 12.9 % (11.5-14.5)
[2023-12-27 09:59] LABS: Creatinine Urine 201.8 mg/dL
[2023-12-27 10:04] LABS: MALB Creatinine Ratio 20.8 mg/g (0-30); Microalbumin Urine Random 41.9 mg/L (0-16.7)
[2023-12-27 10:13] LABS: Vitamin D 25 Hydroxy 46.2 ng/mL
[2023-12-27 10:20] LABS: Alanine Aminotransferase 15 U/L (6-35); Albumin Level 4.2 g/dL (3.5-5.1); Alkaline Phosphatase 96 U/L (38-126); Anion Gap 5 mmol/L (4-12); Aspartate Amino Transferase 22 U/L (14-36); Bilirubin,Total 0.6 mg/dL (0.2-1.3); Blood Urea Nitrogen 29 mg/dL (7-17); Calcium 9.2 mg/dL (8.4-10.2); Carbon Dioxide 30 mmol/L (22-30); Chloride 106 mmol/L (98-107); Cholesterol 171 mg/dL (0-200); Estimated Glomerular Filt Rate 30; Glucose 87 mg/dL (65-110); HDL Direct 69 mg/dL; LDL Cholesterol Direct 68 mg/dL; Potassium 4.5 mmol/L (3.4-5.0); Sodium 141 mmol/L (137-145); Triglycerides 97 mg/dL (<150)
[2023-12-27 10:30] LABS: Thyroid Stimulating Hormone 0.699 uIU/mL (0.465-4.680)
== END 2023-12-27 08:20 | disposition home or self-care (01) ==
LOC: ANHLAB 08:20
PROVIDERS: PCP Family Medicine; Visit Provider Nurse Practitioner
DX: E55.9 Vitamin D deficiency, unspecified (principal); Z00.00 Encounter for general adult medical examination without abnormal findings; E03.9 Hypothyroidism, unspecified; N18.9 Chronic kidney disease, unspecified; E78.5 Hyperlipidemia, unspecified
CPT/HCPCS: 36415; 80053; 80061; 82043; 82306; 84439; 84443; 85027

== ENCOUNTER 2024-03-01 10:19 | Emergency (ER) | payer OTHER, SELFPAY ==
--- NOTE | ~2024-03-01 | CT_ITS ---
EXAMINATION: CT abdomen pelvis wo con DATE: 03/01/2024 12:30 INDICATION: Epigastric pain TECHNIQUE: Computed tomography (CT) of the abdomen and pelvis was performed without intravenous contr ast. Automated exposure control and iterative reconstruction technique were employed. The dose-length product was 484.51 mGy-cm. COMPARISON: CT dated 08/20/2022 and 10/28/2021 FINDINGS: Mild peripheral reticular opacities at the bilateral lung bases which could represent atelectasis, mi nimal pulmonary edema or chronic interstitial lung disease. Cardiomegaly. Small amount of atheroscler otic coronary artery calcification. No pericardial or pleural effusion. Chronic intra and extra hepat ic biliary ductal dilation with minimal amount of pneumobilia likely related to prior cholecystectomy with surgical clips the gallbladder fossa. Spleen, pancreas, bilateral adrenal glands and kidneys ar e normal. Mild sigmoid diverticulosis without adjacent inflammatory change to suggest diverticulitis. Small bowel and appendix are normal. Bladder is normal. The uterus is not identified and has likely been surgically resected. No free intraperitoneal gas or fluid. No pathologically enlarged abdominal or pelvic lymphadenopathy. Moderate to severe lumbar spondylosis with anterior fusion at L5-S1 and se dallin multilevel facet osteoarthritis. IMPRESSION: 1. 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 2. Mild cardiomegaly. 3. Mild peripheral reticular opacities at the lung bases which could represent atelectasis, minimal p ulmonary edema or chronic interstitial lung disease. Reviewed, dictated and finalized at location A. ER HAND IMPRESSION: 1. Chronic intra and extra hepatic biliary ductal dilation which can be seen da ting back to MRI dated 12/15/2017. 2. Mild cardiomegaly. 3. Mild peripheral reticular opacities at the lung bases which could represent atelectasis, minimal pulmonary edema or chronic interstitial lung disease.
[2024-03-01 10:25] VITALS: BP 144/55; PULSE 62; RESP 12; TEMP 36.5; O2SAT 95
[2024-03-01 10:40] LABS: Basophils Percent Auto 0.2 % (0.2-1.2); Eosinophils Percent Auto 0.5 % (0-4.4); Hematocrit 38.5 % (37.0-47.0); Hemoglobin 12.6 g/dL (12.0-15.0); Immature Granulocyte Absolute 0.02 K/mm3 (0.00-0.031); Immature Granulocyte Percent A 0.2 % (0-0.5); Lymphocytes Absolute Auto 1.91 K/mm3 (0.9-3.2); Lymphocytes Percent Auto 23.3 % (18.3-44.2); Mean Corpuscular HGB Conc 32.7 g/dl (32-36); Mean Corpuscular Hemoglobin 29.7 pg (26-34); Mean Corpuscular Volume 90.8 fl (80-100); Mean Platelet Volume 10.3 fl (7.4-10.4); Monocytes Absolute Auto 0.4 K/mm3 (0.1-0.6); Monocytes Percent Auto 4.3 % (2.6-8.5); Neutrophils Absolute Auto 5.9 K/mm3 (1.3-6.7); Neutrophils Percent Auto 71.5 % (45.5-73.1); Platelet Count Result 232 k/mm3 (150-375); Red Blood Count 4.24 M/mm3 (4.2-5.4); Red Cell Distribution Width 12.7 % (11.5-14.5); White Blood Count 8.2 K/mm3 (4.5-10.0)
[2024-03-01 10:50] LABS: Alanine Aminotransferase 33 U/L (6-35); Albumin Level 4.4 g/dL (3.5-5.1); Alkaline Phosphatase 132 U/L (38-126); Anion Gap 13 mmol/L (4-12); Aspartate Amino Transferase 65 U/L (14-36); Bilirubin,Total 1.2 mg/dL (0.2-1.3); Blood Urea Nitrogen 33 mg/dL (7-17); Calcium 9.9 mg/dL (8.4-10.2); Carbon Dioxide 23 mmol/L (22-30); Chloride 104 mmol/L (98-107); Estimated CRCL calculation 22 ml/min; Estimated Glomerular Filt Rate 28; Glucose 125 mg/dL (65-110); Lipase 187 U/L (23-300); Potassium 4.3 mmol/L (3.4-5.0); Sodium 140 mmol/L (137-145)
--- OUTSIDE RECORDS SUMMARY | 2024-03-01 11:50 | XMS_ITS | Clinical Summary ---
Author Organization [facility] Address [address] [place] [address]. [place], [place] [id number] [place] [id number] Care Team Providers Care Skip Tender Name Role Phone Castro Roe Ireland DO Primary Care Provider Moreno Reeder MD Unavailable Allergies Active Allergy Reactions Criticality Noted Date Comments Morphine Other (see comment) 04/14/2021 A little goes a very long way Medications bimatoprost (LUMIGAN) 0.01 % Solution Place 1 drop into both eyes nightly at bedtime. 4 Active aspirin EC (ASPIRIN EC) 81 MG tablet Take 81 mg by mouth daily. Active vitamin B-12 (CYANOCOBALAMIN) 1000 mcg tablet Take 5,000 mcg by mouth daily. Active magnesium oxide 250 MG tablet Take 1 tablet by mouth daily. Active SIMVASTATIN 20 MG tabletIndication s:Health care maintenance TAKE 1 TABLET BY MOUTH EVERY DAY 90 tablet 3 1 Active Additional Information Patient taking differently: 20 mg Oral Nightly at bedtime, Reported on 04/14/2021 LISINOPRIL 20 MG tabletIndication s:Hypertensive kidney disease with stage 1 chronic kidney disease TAKE 1 TABLET BY MOUTH EVERY DAY 90 tablet 2 1 Active BISOPROLOL 5 MG tabletIndication s:Hypertensive kidney disease with stage 1 chronic kidney disease TAKE 1 TABLET BY MOUTH EVERY DAY 90 tablet 3 1 Active timolol 0.5 % ophthalmic solution INSTILL 1 DROP INTO BOTH EYES EVERY MORNING DIRECTED 2 Active HYDROcodone-acet aminophen 5-325 MG tabletIndication s:Acute Pain < 7 Day Supply Take 1-2 tablets by mouth every 6 (six) hours as needed for Pain. Indications: Acute Pain < 7 Day Supply For Moderate Pain 20 tablet 2 Active PANTOPRAZOLE EC 40 MG tabletIndication s:Biliary colic TAKE 1 TABLET BY MOUTH EVERY DAY 90 tablet 2 Active LEVOTHYROXINE 50 MCG tabletIndication s:Hypothyroidism , unspecified type TAKE 1 TABLET BY MOUTH EVERY MORNING 90 tablet 2 Active Active Problems Problem Noted Date Diagnosed Date Carpal tunnel syndrome of right wrist 10/09/2020 Stage 3 chronic kidney disease ([facility]) 10/11/2019 Aortic atherosclerosis 12/28/2018 Overview (12/28/2018): Noted on CXR 12/15/[address] 12/15/17 Pancreatitis (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 ([facility]) 06/10/2013 Glaucoma 01/28/2013 Hyperlipidemia 08/27/2012 Hypothyroidism 08/27/2012 Neoplasm of uncertain behavior of skin 3 Rectal polyp 08/27/2012 Macular puckering 05/25/2012 Resolved Problems Problem Noted Date Diagnosed Date Resolved Date Other screening mammogram 01/24/2017 Encounter for preventive health examination 05/25/2012 10/18/2019 Immunizations Name Administration Dates Next Due Fluzone High Dose - >Age 65 (Prefilled Syringe) 10/11/2019,03/19/2019 Influenza Adult (Generic) 11/02/2020,03/19/2019, 12/20/2017 Pneumococcal (Pneumovax 23) 10/11/2019 Shingrix 02/16/2021,10/20/2020 Td 12/11/2009 Family History Medical History Relation Comments Cancer Child Cancer Father Heart Disease Mother Relation Status Comments Child Father Mother Social History Tobacco Use Types Packs/Day Years Used Date Smoking Tobacco: Never Smokeless Tobacco: Never Tobacco Cessation:Counseling Given: No Comments:non smoker Alcohol Use Standard Drinks/Week Comments Never 0 (1 standard drink = 0.6 oz pur e alcohol) PHQ-2 Answer Date Recorded PHQ-2 Score - If the patient scores above 3, please move on to questions 3-9 0 04/12/2021 Comments No Sex and Gender Information Value Date Recorded Sex Assigned at Not on file Legal Sex Female 2:47 PM CDT Gender Identity Not on file Sexual Orientation Not on file Last Filed Vital Signs Vital Sign Reading Time Taken Comments Blood Pressure 130/85 06/01/2021 12:58 PM CDT Pulse 66 06/01/2021 12:58 PM CDT Temperature 36.7 ??C (98 ??F) 06/01/2021 12:58 PM CDT Respiratory Rate 18 04/21/2021 10:03 AM CDT Oxygen Saturation 97% 04/21/2021 10:03 AM CDT Inhaled Oxygen Concentration - - Weight 87.1 kg (192 lb) 06/01/2021 12:58 PM CDT Height 167.6 cm (5' 6 ) 06/01/2021 12:58 PM CDT Body Mass Index 30.99 06/01/2021 12:58 PM CDT Plan of Treatment Health Maintenance Due Date Last Done Comments ASCVD Statin 1935 DTaP, Tdap and Td Vaccines (1 - Tdap) 12/12/2009 12/11/2009 RSV Immunization or 60+ Years (1 - 1-dose 75+ series) 05/29/2010 Pneumococcal Vaccine: 65+ Years (2 of 2 - PCV) 10/10/2020 10/11/2019 ASCVD LDL 10/09/2021 10/09/2020, 09/0 05/2019, 12/28/2018, Additional history exists Annual Medicare Wellness Visit 10/10/2021 10/09/2020 COVID-19 Vaccine ( - season) 2023 04/23/2020, 04/02/2020 Influenza Adult (#1) 2023 11/02/2020, 10/11/2019, 03/19/2019, Additional history exists Zoster Vaccines Completed 02/16/2021, 10/20/2020 Meningococcal B Vaccine Aged Out No l onger eligible based on patient's age to complete this topic Meningococcal Vaccine Aged Out No roro love eligible based on patient's age to complete this topic RSV Immunizations Under 20 Months Aged Out No longer eligible based on patient's age to complete this topic Procedures Procedure Name Priority Date/Time Associated Diagnosis Comments LIPID PANEL Routine 10/09/2020 9:40 AM CDT Mixed hyperlipidemia from Last 3 Months or Most Recently Relevant to Health Maintenance Results * (ABNORMAL) LIPID PANEL (10/09/2020 9:40 AM CDT) Pathologist [facility] CHOLESTEROL 174 <200 mg/dL [facility] HDL 41(L) > OR = 50 mg/dL [facility] TRIGLYCERIDES 159(H) <150 mg/dL [facility] LDL (CALCULATED) 106(H) mg/dL (calc) [facility] Comment: Reference range: <100 Desirable range <100 mg/dL for primary prevention; ?? <70 mg/dL for patients with CHD or diabetic patients with > or = 2 CHD risk factors. LDL-C is now calculated using the Asif-Leger calculation, which is a validated novel method providing better accuracy than the Friedewald equation in the estimation of LDL-C. Asif SS et al. TY. 2013;310(19): 7196-6820 (http://education.CONWEAVER.iPawn/faq/STG906) CHOL/HDL RATIO 4.2 <5.0 (calc) [facility] NON HDL CHOLESTEROL 133(H) <130 mg/dL (calc) [facility] Comment: For patients with diabetes plus 1 major ASCVD risk factor, treating to a non-HDL-C goal of <100 mg/dL (LDL-C of <70 mg/dL) is considered a therapeutic option. 10/09/2020 9:40 AM CDT 10/10/2020 10:19 AM CDT Roe M Wedowee DO LABORATORY Final Resul t [facility] [id number] [address] [id number] from Last 3 Months or Most Recently Relevant to Health Maintenance Insurance ESSENCE ESSENCE ESSENCE Care Teams Skip Tender Relationship Specialty Start Date End Date Roe Erazo DO PCP - General FAMILY PRACTICE 07/07/16 Moreno Reeder MD [address] [place] [address] OPHTHALMOLOGY 11/11/21
--- OUTSIDE RECORDS SUMMARY | 2024-03-01 11:50 | XMS_ITS | Encounter Summary ---
Author Organization [facility] Address [address] [place] [address]. [place] [id number] [place] [address] Care Team Providers Care Casing Inspector Name Role Phone Roe Erazo DO Primary Care Provider [phone] Moreno Reeder MD Unavailable Encounter Details Date Type Department Care Team (Latest Contact Info) Description 12/12/2017 Abstract [facility] , Brenda Mayers MD Social History Tobacco Use Types Packs/Day Years Used Date Smoking Tobacco: Never Assessed Comments Unknown Sex and Gender Information Value Date Recorded Sex Assigned at Not on file Legal Sex Female 2:47 PM CDT Gender Identity Not on file Sexual Orientation Not on file documented as of this encounter Plan of Treatment Not on file documented as of this encounter Visit Diagnoses Not on filedocumented in this encounter Care Teams Casing Inspector Relationship Specialty Start Date End Date Roe Erazo DO PCP - General FAMILY PRACTICE 07/07/16 Moreno Reeder MD [address] [place] [address] OPHTHALMOLOGY 11/11/21 documented as of this encounter
--- OUTSIDE RECORDS SUMMARY | 2024-03-01 11:50 | XMS_ITS | Continuity of Care Document ---
Author Organization [facility] Address [address] [place] [address] Phone Care Team Providers Care Pulp Grinder Name Role Phone James Irving Unavailable Unavailable Procedures Procedure Date Post-op Follow-up Visit Post-op Follow-up Visit Complex Extracapsular Cat Rem, Comanaged Office Consultation IOLMaster Advance Directives Directive Yes / No Effective Date File Name No Information Encounters Encounter Description Practice Location Reason(s) For Visit Diagnoses Date Provider Providers Copied on Encounter [facility], [address] [place] [address] [address], [place], [place], [id number], tel:[phone] [facility] No Information [address] Do[address] Edcruz. [address] [facility] , [address], [place], [place], [facility], . tel:[phone] Referring Provider: Aubrey Stiles OD, [address] [place], [address]. tel:[phone] [facility], [address] [place] [address] [address], [place], [place], [id number], tel:[phone] [facility] No Information [address] [facility] [address], [address], [place], [address], . tel:[phone] Referring Provider: Aubrey Stiles OD, [address] [place], [address]. tel:[phone] [facility], [address] [place], [place] [address], [place], [place], [id number], tel:[phone] [facility] No Information 2[address] 8 [facility] Edcruz. [address] [facility] , [address], [place], [place], [facility], . tel:[phone] Referring Provider: Aubrey Stiles OD, [address] [place], [address]. tel:[phone] Office Consultation [facility], [address] [place] [address] [address], [place], [place], [id number], tel:[phone] [facility] No Information 200 8 [facility] James. [facility] , [address], [place], [place], [facility], . tel:[phone] Referring Provider: Aubrey Stiles OD, [address] [place], [address]. tel:[phone] Family History Family Member Type Diagnosis Age At Onset No Information Payers Payer name Insurance type Covered alliance party ID Authoriza tion(s) No Information Social History [...]
--- OUTSIDE RECORDS SUMMARY | 2024-03-01 11:50 | XMS_ITS | Encounter Summary ---
Author Organization [facility] Address [address] [place] [address]. [place], [place] [id number] [place] [address] Care Team Providers Care Binder Technician Name Role Phone CastroRoe burrows Primary Care Provider [phone] Moreno Reeder MD Unavailable Encounter Details Date Type Department Care Team (Late st Contact Info) Description 07/20/2016 Abstract [facility] AT [address] [address] Charanjit Mendoza MA Social History Tobacco Use Types Packs/Day Years Used Date Smoking Tobacco: Never Assessed Comments Unknown Sex and Gender Information Value Date Recorded Sex Assigned at Not on file Legal Sex Female 2:47 PM CDT Gender Identity Not on file Sexual Orientation Not on file documented as of this encounter Plan of Treatment Not on file documented as of this encounter Procedures Procedure Name Priority Date/Time Associated Diagnosis Comments CBC (OUTSIDE LAB) Routine 07/11/2016 BASIC METABOLIC PANEL Routine 07/11/2016 documented in this encounter Results * CBC (OUTSIDE LAB) (07/11/2016) WBC 4.2 HGB 12.9 HCT 37.1 PLT 208 07/11/2016 [facility] Abstract LAB-OUTSIDE/ABSTRACTED Final Result * BASIC METABOLIC PANEL (07/11/2016) SODIUM S/P/B 144 POTASSIUM S/P/B 4.5 CO2 29 CHLORIDE S/P/B 101 GLUCOSE 88 CALCIUM S/P/B 9.8 BUN 16 CREATININE S/P/B 1.0 0.5 - 1.0 EGFR NON-AFR. AMER. 53 <=90 07/11/2016 us Doc [facility] Abstract LABORATORY Final Result documented in this encounter Visit Diagnoses Not on filedocumented in this encounter Care Teams Binder Technician Relationship Specialty Start Date End Date Roe Erazo DO PCP - General FAMILY PRACTICE 07/07/16 Moreno Reeedr MD [address] [place] [address] OPHTHALMOLOGY 11/11/21 documented as of this encounter
--- OUTSIDE RECORDS SUMMARY | 2024-03-01 11:50 | XMS_ITS | Encounter Summary ---
Author Organization [facility] Address [address] [place] [address]. [place] [address] [place] [address] Care Team Providers Care District Court Justice Name Role Phone CastroRoe burrows Primary Care Provider [phone] Moreno Reeder MD Unavailable Reason for Visit * Reason Onset Date Comments Other 03/30/2021 Encounter Details Date Type Department Care Team (Late st Contact Info) Description 03/30/2021 Telephone [facility] Orthopedic & Sports Medicine - [place] [address] [place], [place] [address] Vladimir Jimenez MD [address] [place], [place] [address] 852- Other Social History Tobacco Use Types Packs/Day Years Used Date Smoking Tobacco: Never Smokeless Tobacco: Never Comments:non smoker Alcohol Use Standard Drinks/Week Comments Never 0 (1 standard drink = 0.6 oz pur e alcohol) PHQ-2 Answer Date Recorded PHQ-2 Score - If the patient scores above 3, please move on to questions 3-9 0 10/09/2020 Comments Unknown Sex and Gender Information Value Date Recorded Sex Assigned at Not on file Legal Sex Female 2:47 PM CDT Gender Identity Not on file Sexual Orientation Not on file COVID-19 Exposure Response Date Recorded In the last 10 days, have yo u been in contact with someone who was confirmed or suspected to have Coronavirus/COVID-19? No / Unsure 03/26/2021 9:50 AM LIP AND GATE BUILDER documented as of this encounter Progress Notes * Donna Quesada RN - 03/30/2021 3:56 PM CST Called pt and no answer left message AND GATE BUILDER * Mery Traore - 03/30/2021 3:34 PM CST Call bck pt with results from nerve conduction test Had test 2 weeks ago AND GATE BUILDER documented in this encounter Plan of Treatment Not on file documented as of this encounter Visit Diagnoses Not on filedocumented in this encounter Additional Health Concerns Assessment Noted Time PHQ-9 Depression Total Score: 0 10/10/19 21 9:48 AM CDT documented as of this encounter Care Teams District Court Justice Relationship Specialty Start Date End Date Roe Erazo DO PCP - General FAMILY PRACTICE 07/07/16 Moreno Reeder MD [address] [place] [address] OPHTHALMOLOGY 11/11/21 documented as of this encounter
--- OUTSIDE RECORDS SUMMARY | 2024-03-01 11:50 | XMS_ITS | Encounter Summary ---
Author Organization [facility] Address [address] [place] [address]. [place] [address] [place] [address] Care Team Providers Care Superintendent Refuse Disposal Name Role Phone CastroRoe guevara Primary Care Provider [phone] Moreno Reeder MD Unavailable Reason for Visit * Reason Onset Date Comments Referral 02/23/2021 referral request Encounter Details Date Type Department Care Team (Late st Contact Info) Description 02/23/2021 Telephone [facility] Multispecialty Care - [facility] [address] [facility], [address] [place] [address] Vladimir Jimenez MD [address] [place] [address] Referral (referral request) Social History Tobacco Use Types Packs/Day Years [...] Exposure Response Date Recorded In the last month, have you been in contact with someone who was confirmed or suspected to have Coronavirus / COVID-19? No / Unsure 01/25/2021 2:25 PM FAMILY PROGRAM SPECIALIST documented as of this encounter Progress Notes * Radhika Dasilva MA - 02/23/2021 2:04 PM CST Pt does need auth for to perform the test. I tried to contact patient's PCP office withno answer. I will try again later. Pt conveyed understanding. LY PROGRAM SPECIALIST * Radhika Dasilva MA - 02/23/2021 1:26 PM CST Called and spoke with patient and didn't see that she needed an authorization for EMG, pt conveyed understanding. LY PROGRAM SPECIALIST * Vesna Becker - 02/23/2021 12:06 PM CST Patient called and said she is having a nerve conduction test done 03/01, and they told her that sheneeds to get a referral from Dr Jimenez office, but she was not sure. Patient call back number is [phone] LY PROGRAM SPECIALIST documented in this encounter Plan of Treatment Not on file documented as of this encounter Visit Diagnoses Not on filedocumented in this encounter Additional Health Concerns Assessment Noted Time PHQ-9 Depression Total Score: 0 10/10/19 21 9:48 AM CDT documented as of this encounter Care Teams Superintendent Refuse Disposal Relationship Specialty Start Date End Date Roe Erazo DO PCP - General FAMILY PRACTICE 07/07/16 Moreno Reeder MD [address] [place] [address] OPHTHALMOLOGY 11/11/21 documented as of this encounter
--- OUTSIDE RECORDS SUMMARY | 2024-03-01 11:50 | XMS_ITS | Clinical Summary ---
Author Organization [facility] Address [address] [facility] Attn: Epic Prelude ADT NGU[place]EN[place] [address] Care Team Providers Care Admissions Specialist Name Role Phone Idania Constantino DO Primary Care Provider [phone] Social History Tobacco Use Types Packs/Day Years Used Date Smoking Tobacco: Never Assessed Comments Unknown Sex and Gender Information Value Date Recorded Sex Assigned at Not on file Legal Sex Female 10:13 PM CDT Gender Identity Not on file Sexual Orientation Not on file Plan of Treatment Upcoming Encounters Date Type Department Care Team (Late st Contact Info) Description 03/25/2024 3:00 PM TRAVEL MONEY ADVISOR Office Visit [facility] Oncology and Hematology - [place] [address] [place] [address] [facility] [address] [place] [address] Aurelio Schreiber MD [address] [facility] [address] [place] [address] Health Maintenance Due Date Last Done Comments DTAP/TDAP/TD VACCINES (1 - Tdap) 05[birth year]29/1954 PNEUMOCOCCAL VACCINE 65+ YEARS (1 of 1 - PCV) 05/29/18 86 ZOSTER VACCINE (1 of 2) 05/29/1985 OSTEOPOROSIS SCREENING 05/29/2000 RSV VACCINE (60+ or ) (1 - 1-dose 75+ series) 05/29/2010 INFLUENZA VACCINE (#1) 2023 [facility] [address] [facility] MCR Care Teams Admissions Specialist Relationship Specialty Start Date End Date Idania Constantino DO [address] [facility] [address] [place] [address] PCP - General Family Practice 01/23/24
[2024-03-01 12:39] VITALS: BP 126/59; PULSE 64; RESP 19; O2SAT 98
[2024-03-01 12:42] LABS: Add Urine Microscopic? YES; Appearance Urine Cloudy (Clear); Bacteria Urine 4+ /hpf; Bilirubin Urine Negative (Negative); Blood Urine Negative (Negative); Color Urine Dark Yellow (Yellow); Glucose Urine UA Negative (Negative); Hyaline Casts Urine Present /lpf; Ketones Urine Trace mg/dL (Negative); Leukocyte Esterase Ur 2+ LEU/UL (Negative); Need Manual Microscopic Reviewed; Nitrate Urine Positive (Negative); Non Pathogenic Casts >20; Protein Urine 1+ mg/dL (Negative); RBC Urine 0-2 /hpf (0-2); Specific Grav Ur 1.019 (1.001-1.035); Squamous Epithelial Cell Urine Occasional /hpf (Few); WBC Urine 51-100 /hpf (0-3)
--- NOTE | 2024-03-01 13:07 | ED_ITS ---
HPI - Abdominal Pain General Chief Complaint: Abdominal Pain Stated Complaint: upper abd pain Time Seen by Provider: 03/01/24 11:20 Source: patient and family Mode of arrival: EMS Limitations: no limitations History of Present Illness HPI narrative: 88-year-old with a history of hypertension pancreatitis here with a complaint of sudden onset of midepigastric pain which lasted for few minutes. She denied any nausea or vomiting. She was worried about pancreatitis. Denies any chest pain MD elicited complaint: abdominal pain Pertinent past history: other (Pancreatitis) Onset (ago): hour(s) (1) Pain Consistency: now resolved Location: epigastric Quality: aching Radiation: back Exacerbating factors: nothing Relieving factors: nothing Associated symptoms: denies other symptoms Related Data Home Medications ?Medication ?Instructions ?Recorded ?Confirmed ?Last Taken ?Type bimatoprost 0.01 % eye drops 1 drp ophthalmic (eye) HS 07/07/19 01/03/24 10/26/21 History (Lumigan) timolol maleate 0.5 % eye drops 1 drp ophthalmic (eye) DAILY 07/07/19 01/03/24 10/27/21 History magnesium 250 mg tablet 250 mg PO DAILY 10/27/21 01/03/24 08/19/22 History calcium 600 mg (as 1 tablet PO DAILY 08/19/22 01/03/24 08/19/22 History carbonate)-vitamin D3 10 mcg (400 unit) tablet (Calcium 600 + D(3)) vitamin B complex (B 1 tablet PO DAILY 08/19/22 01/03/24 08/19/22 History Complex-Vitamin B12 tablet) [id number] 250 mg-dha 90 1 cap PO QAM 05/03/23 01/03/24 Unknown History mg-epa 160 ni-zgvl-mrse-zeax capsule (Ocuvite Adult 50 Plus) amlodipine 10 mg tablet 10 mg PO DAILY 09/04/23 01/03/24 Unknown History Allergies Allergy/AdvReac Type Severity Reaction Status Date / Time No Known Allergies Allergy Verified 01/03/24 08:51 Review of Systems 2 Review of Systems: All systems reviewed & are unremarkable except as noted in HPI and below Constitutional: Constitutional: Reports no additional constitutional complaints Eyes: Eyes: Reports no additional eye complaints Cardiovascular: Cardiovascular: Reports no additional cardiovascular complaints Respiratory: Respiratory: Reports no additional respiratory complaints Gastrointestinal: Gastrointestinal: Reports as per HPI Musculoskeletal: Musculoskeletal: Reports no additional musculoskeletal complaints Neurologic: Reports system reviewed and no additional complaints, except as documented Psychiatric: Psychiatric: Reports no additional psychiatric complaints Endocrine: Endocrine: Reports no additional endocrine complaints Hematologic/Lymphatic: Hematologic/Lymphatic: Reports no additional hematologic/lymphatic complaints [facility] Past Medical History Medical History Tarsal tunnel syndrome With history of release Wellness examination Pigmented skin lesion Rhinitis Skin lesion Establishing care with new doctor, encounter for Skin lesion of face Sphincter of Oddi dysfunction Urinary tract infection Acute pancreatitis Gastric ulcer Epigastric pain Hyperlipidemia Osteoarthritis Hypothyroidism Elevated LFTs Abdominal pain Pancreatitis Dilated bile duct Shingles Hypertension Hard of hearing Glaucoma Common bile duct dilation Epigastric abdominal pain Surgical History Surgical History History of removal of pigmented skin lesion History of cholecystectomy ~1979 History of knee replacement Bilateral H/O hysterectomy for benign disease History of cardiac catheterization History of tonsillectomy History of ERCP History of cataract extraction History of colonoscopy with polypectomy History of bilateral knee replacement History of arthroscopy of left knee Family History Family History Sibling Dementia Diabetes mellitus Heart failure Malignant neoplasm of prostate Acute myocardial infarction Father Pancreatic cancer Mother Heart failure Congestive heart failure Mother Congestive heart failure Sibling Congestive heart failure Father Pancreatic cancer Social History Social History Social History: Ms. Flores lives alone at home. She is . she has 6 adult children. She designates her daughter, Gisele Tejeda, as her POA. She is retired from [employer]. Lifelong nonsmoker. She does not use any alcohol marijuana or illicit drugs. Code status full code Smoking status: Never smoker Second hand tobacco smoke exposure: No Alcohol intake: never Substance use: never Substance use type: does not use Lack of Transportation: No Lack of Food: Never True Current Housing: I Have Housing Concerned About Future Housing: No Difficulty Paying Gas/Electric Bills: No Difficulty Paying for Meds: No Currently Unemployed: No Education: High School Diploma/GED Difficulty w/ Childcare or Family Care: No Living arrangements: alone Additional living arrangements comments: The patient lives in her own home in [place]. x2. Raised 6 children. Occupation/Education: retired Additional occupation/education comments: Retired. Gender identity (if verbalized by the patient): Female Spiritual care concerns: No Exam 2 Narrative: GENERAL: Well-appearing, well-nourished, and in no acute distress. HEAD: Normocephalic, atraumatic. EYES: PERRLA and EOMI. ENT: Nares clear, no rhinorrhea or epistaxis. Mucous membranes moist. NECK: Supple. CHEST: Clear to auscultation. No respiratory distress. HEART: Regular rate and rhythm. No murmur heard. Normal peripheral pulses. ABDOMEN: Soft, nontender, nondistended, normal active bowel sounds. EXTREMITIES: Normal range of motion. No edema. SKIN: Warm, dry, no rash. NEURO: No focal deficits. Alert and oriented x3. PSYCH: Normal mood and affect. Course Course Emergency Course: Patient remained pain-free while she was here in the ER I did inform that and the family about her lab work, CT findings. She feels much better. Advised her to take antibiotic as prescribed. Vital Signs Vital signs: Vital Signs Temperature 36.5 C 03/01/24 10:25 Pulse Rate 62 03/01/24 10:25 Respiratory Rate 12 03/01/24 10:25 Blood Pressure 144/55 H 03/01/24 10:25 Pulse Oximetry 95 03/01/24 10:25 Oxygen Delivery Room Air 03/01/24 10:25 Temperature 36.5 C 03/01/24 10:25 Pulse Rate 64 03/01/24 12:39 Respiratory Rate 19 03/01/24 12:39 Blood Pressure 126/59 L 03/01/24 12:39 Pulse Oximetry 98 03/01/24 12:39 Oxygen Delivery Room Air 03/01/24 10:25 MDM - Abdominal Pain Differential Diagnosis Differential diagnosis: Likely abdominal pain, pancreatitis and small bowel obstruction Medical Records Attestation: I reviewed the patient's medical records. Lab Data Attestation: I reviewed the patient's lab results. 03/01/24 10:34 03/01/24 10:34 Labs: Lab Results 03/01/24 03/01/24 Range/Units 10:34 12:23 WBC 8.2 (4.5-10.0) K/mm3 RBC 4.24 (4.2-5.4) M/mm3 Hgb 12.6 (12.0-15.0) g/dL Hct 38.5 (37.0-47.0) % MCV 90.8 (80-100) fl MCH 29.7 (26-34) pg MCHC 32.7 (32-36) g/dl RDW 12.7 (11.5-14.5) % Plt Count 232 (150-375) k/mm3 MPV 10.3 (7.4-10.4) fl Immature Gran % (Auto) 0.2 (0-0.5) % Neut % (Auto) 71.5 (45.5-73.1) % Lymph % (Auto) 23.3 (18.3-44.2) % Bureau % (Auto) 4.3 (2.6-8.5) % Eos % (Auto) 0.5 (0-4.4) % Baso % (Auto) 0.2 (0.2-1.2) % Lymph # (Auto) 1.91 (0.9-3.2) K/mm3 Bureau # (Auto) 0.4 (0.1-0.6) K/mm3 Eos # (Auto) 0.0 (0-0.3) K/mm3 Baso # (Auto) 0.0 (0.0-0.1) K/mm3 Abs Immat Gran (auto) 0.02 (0.00-0.031) K/mm3 Absolute Neuts (auto) 5.9 (1.3-6.7) K/mm3 Absolute Nucleated RBC 0.000 (0.0-0.012) K/mm3 Nucleated RBC % 0.0 (0.0-0.2) % Sodium 140 (137-145) mmol/L Potassium 4.3 (3.4-5.0) mmol/L Chloride 104 (98-107) mmol/L Carbon Dioxide 23 (22-30) mmol/L Anion Gap 13 H (4-12) mmol/L BUN 33 H (7-17) mg/dL Creatinine 1.74 H (0.7-1.0) mg/dL Estim Creat Clear Calc 22 ml/min Estimated GFR 28 L (59 - ) Glucose 125 H (65-110) mg/dL Calcium 9.9 (8.4-10.2) mg/dL Total Bilirubin 1.2 (0.2-1.3) mg/dL AST 65 H (14-36) U/L ALT 33 (6-35) U/L Alkaline Phosphatase 132 H (38-126) U/L Total Protein 7.0 (6.3-8.2) g/dL Albumin 4.4 (3.5-5.1) g/dL Lipase 187 (23-300) U/L Urine Color Dark yellow (Yellow) Urine Appearance Cloudy H (Clear) Urine pH 7.0 (5.0-9.0) Ur Specific [place] 1.019 (1.001-1.035) Urine Protein 1+ H (Negative) mg/dL Urine Glucose (UA) Negative (Negative) mg/dL Urine Ketones Trace H (Negative) mg/dL Ur Blood (Man) Negative (Negative) Urine Nitrate Positive H (Negative) Urine Bilirubin Negative (Negative) Urine Urobilinogen 1.0 (<2.0) mg/dL Add Ur Microanalysis Reviewed Leukocyte Esterase Rfl 2+ H (Negative) KRISTINE/UL Urine RBC 0-2 (0-2) /hpf Urine WBC 51-100 H (0-3) /hpf Ur Squamous Epith Cells Occasional (Few) /hpf Urine Bacteria 4+ /hpf Urine Casts >20 Hyaline Casts Present (None) /lpf Imaging Data Radiologist's impression: ITS Impressions Abdomen/Pelvis CT 03/01/24 12:32 IMPRESSION: 1. 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 2. Mild cardiomegaly. 3. Mild peripheral reticular opacities at the lung bases which could represent atelectasis, minimal pulmonary edema or chronic interstitial lung disease. ECG Data EKG #1: ECG completion date: 03/01/24 ECG completion time: 13:23 normal rate (63), sinus rhythm, LBBB and no acute changes Discharge Plan Discharge Clinical Impression: Acute UTI Abdominal pain Qualifiers: Abdominal location: epigastric Qualified Code(s): R10.13 - Epigastric pain Patient Disposition: Home, Self-Care Condition: Stable Instructions: Antibiotic Form, Urinary Tract Infection in Women (DC), Abdominal Pain (ED) Patient Language: Danish Prescriptions: New cephalexin 500 mg capsule 500 mg PO Q12H 7 Days Qty: 14 0RF No Action Ocuvite Adult 50 Plus 250 mg (90 mg-160 mg) capsule 1 cap PO QAM amlodipine 10 mg tablet 10 mg PO DAILY lisinopril 20 mg tablet 20 mg PO DAILY Qty: 90 1RF timolol maleate 0.5 % drops 1 drp ophthalmic (eye) DAILY Rx Instructions: One gtt OU daily Lumigan 0.01 % drops 1 drp ophthalmic (eye) HS Rx Instructions: 1 gtt OU HS magnesium 250 mg Tablet 250 mg PO DAILY vitamin B complex [B Complex-Vitamin B12] Tablet 1 tablet PO DAILY Rx Instructions: 5000 mcg calcium carbonate-vitamin D3 [Calcium 600 + D(3)] 600 mg-10 mcg (400 unit) Tablet 1 tablet PO DAILY Eliquis 2.5 mg Tablet 2.5 mg PO Q12HR 30 Days Qty: 60 0RF amiodarone 200 mg tablet 200 mg PO DAILY Qty: 30 0RF levothyroxine 50 mcg tablet See Rx Instructions .ROUTE .COMPLEX Qty: 90 1RF Dose Instruction: TAKE 1 TABLET BY MOUTH EVERY DAY AT 6:30 AM Rx Instructions: TAKE 1 TABLET BY MOUTH EVERY DAY AT 6:30 AM pantoprazole 40 mg tablet,delayed release (DR/EC) See Rx Instructions .ROUTE .COMPLEX Qty: 90 1RF Dose Instruction: TAKE 1 TABLET BY MOUTH EVERY DAY IN THE MORNING Rx Instructions: TAKE 1 TABLET BY MOUTH EVERY DAY IN THE MORNING bisoprolol fumarate 5 mg tablet 5 mg PO DAILY Qty: 90 1RF simvastatin 20 mg tablet 20 mg PO QPM Qty: 90 1RF Follow-up/Referrals: Idania Constantino DO [Primary Care Provider] - Time of Disposition: 13:27
--- NOTE | 2024-03-01 13:15 | ECG_ITS ---
Test Date: 2024-03-01 13:23:04 Measurements Intervals [place] Rate: 63 P: 32 WA: 123 QRS: -40 QRSD: 192 T: 83 QT: 524 QTc: 539 Interpretive Statements SINUS RHYTHM LEFT AXIS DEVIATION [QRS AXIS < -30] LEFT BUNDLE BRANCH BLOCK [120+ ms QRS DURATION, 80+ ms Q/S IN V1/V2, 85+ ms R IN I/aVL/V5/V6] No previous ECG available for comparison Electronically Signed On 03-01-2024 23:55:38 PRESS OPERATOR HELPER by Frankie Lam M.D.
[2024-03-01 13:42] VITALS: BP 133/65; PULSE 67; RESP 14; O2SAT 98
== END 2024-03-01 13:45 | disposition home or self-care (01) ==
PROVIDERS: Emergency Provider Family Medicine; PCP Family Medicine
DX: N39.0 Urinary tract infection, site not specified (principal); R10.13 Epigastric pain; E78.5 Hyperlipidemia, unspecified; E03.9 Hypothyroidism, unspecified; M19.90 Unspecified osteoarthritis, unspecified site; H40.9 Unspecified glaucoma; Z96.653 Presence of artificial knee joint, bilateral; Z86.0100 Personal history of colon polyps, unspecified; Z90.49 Acquired absence of other specified parts of digestive tract; Z90.710 Acquired absence of both cervix and uterus; Z98.49 Cataract extraction status, unspecified eye; Z79.01 Long term (current) use of anticoagulants; Z79.899 Other long term (current) drug therapy; I44.7 Left bundle-branch block, unspecified
CPT/HCPCS: 36415; 74176; 80053; 81001; 83690; 85025; 87086; 87186; 93005; 99284

== ENCOUNTER 2024-05-01 08:40 | Outpatient (CLI) | payer OTHER, SELFPAY ==
--- OUTSIDE RECORDS SUMMARY | 2024-05-01 09:03 | XMS_ITS | Encounter Summary ---
Author Organization [facility] Address [address] [place] [address] Care Team Providers Care Dining Host Name Role Phone Roe Erazo DO Primary Care Provider +1- [phone] Moreno Reeder MD Unavailable Encounter Details Date Type Department Care Team (Latest Contact Info) Description 12/12/2017 Abstract [facility] , Brenda Mayers MD Social [...] on filedocumented in this encounter Care Teams Dining Host Relationship Specialty Start Date End Date Roe Erazo DO PCP - General FAMILY PRACTICE 07/07/16 Moreno Reeder MD [address] [place] [address] OPHTHALMOLOGY 11/11/21 documented as of this encounter
--- OUTSIDE RECORDS SUMMARY | 2024-05-01 09:03 | XMS_ITS | Clinical Summary ---
Author Organization [facility] Address [address] [place] [address] Care Team Providers Care Innovation Manager Name Role Phone Roe Erazo DO Primary Care Provider Moreno Reeder MD [...] wrist 10/09/2020 Stage 3 chronic kidney disease 10/11/2019 Aortic atherosclerosis 12/28/2018 Overview (12/28/2018): Noted on CXR 12/15/[address] 12/15/17 Pancreatitis ([facility]) 12/26/2017 Insomnia 10/16/2017 CKD stage G2/A2, GFR 60-89 a nd albumin creatinine ratio 30-299 mg/g 08/18/2017 Hypertensive CKD (chronic kidney disease) 2017 Vasomotor rhinitis 2017 Knee osteoarthritis 06/28/2016 Hearing loss 06/23/2015 Pseudophakia 01/28/2014 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 ([facility]) 06/10/2013 Glaucoma 01/28/2013 Hyperlipidemia 08/27/2012 Hypothyroidism 08/27/2012 [...] 66 06/01/2021 12:58 PM CDT Temperature 36.7 C (98 F) 06/01/2021 12:58 PM CDT Respiratory Rate 18 [...] PCV) 10/10/2020 10/11/2019 ASCVD LDL 10/09/2021 10/09/2020, 05/2019, 12/28/2018, Additional history exists Annual Medicare [...] (ABNORMAL) LIPID PANEL (10/09/2020 9:40 AM CDT) CHOLESTEROL 174 <200 mg/dL [facility] HDL 41(L) > OR = 50 mg/dL [facility] TRIGLYCERIDES 159(H) <150 mg/dL [facility] LDL (CALCULATED) 106(H) mg/dL (calc) [facility] Comment: Reference range: <100 Desirable range <100 mg/dL for primary prevention; <70 mg/dL for patients with CHD or diabetic patients with > or = 2 CHD risk factors. LDL-C is now calculated using the Asif-Arsen calculation, which is a validated novel method providing better accuracy than the Friedewald equation in the estimation of LDL-C. Asif SS et al. TY. 2013;310(19): 7121-7079 (http://education.Archsy.Curiously/faq/BYL980) CHOL/HDL RATIO 4.2 <5.0 (calc) [facility] NON HDL CHOLESTEROL 133(H) <130 mg/dL (calc) [facility] Comment: For patients with diabetes plus 1 major ASCVD risk factor, treating to a non-HDL-C goal of <100 mg/dL (LDL-C of <70 mg/dL) is considered a therapeutic option. 10/09/2020 9:40 AM CDT 10/10/2020 10:19 AM CDT us Roe Erazo DO LABORATORY Final Resul t [facility] [address] [place] [address] from Last 3 Months or Most Recently Relevant to Health Maintenance Insurance ESSENCE ESSENCE ESSENCE Care Teams Innovation Manager Relationship Specialty Start Date End Date Roe Erazo DO PCP - General FAMILY PRACTICE 07/07/16 Moreno Reeder MD [address] [place] [address] OPHTHALMOLOGY 11/11/21
--- OUTSIDE RECORDS SUMMARY | 2024-05-01 09:03 | XMS_ITS | Encounter Summary ---
Author Organization [facility] Address [facility] [place] [address] Care Team Providers Care Backup Operator Name Role Phone RiceRoe burrows Primary Care Provider +1- [phone] Moreno Reeder MD Unavailable Encounter Details Date Type Department Care Team (Late st Contact Info) Description 07/20/2016 Abstract [facility] AT [address] [address] Charanjit Mendoza MA Social History Tobacco Use [...] on filedocumented in this encounter Care Teams Backup Operator Relationship Specialty Start Date End Date Roe Erazo DO PCP - General FAMILY PRACTICE 07/07/16 Moreno Reeder MD [address] [place] [address] OPHTHALMOLOGY 11/11/21 documented as of this encounter
--- OUTSIDE RECORDS SUMMARY | 2024-05-01 09:03 | XMS_ITS | Clinical Summary ---
Author Organization [facility] Javier chambers [address] Address [address] [place] [address] Care Team Providers Care Assorter Laundry Name Role Phone Idania Constantino DO Primary Care Provider +1- [phone] Allergies No known active allergies Medications Eliquis 2.5 mg tablet Take 1 Tablet by mouth 2 times daily. 5 Active amiodarone (CORDARONE) 200 mg tablet Take 1 Tablet by mouth daily. 5 Active amLODIPine (NORVASC) 10 mg tablet Take 1 Tablet by mouth daily. 5 Active bisoprolol (ZEBETA) 5 mg tablet Take 1 Tablet by mouth daily. 5 Active levothyroxine 50 mcg tablet Take 50 mcg by mouth daily. Active pantoprazole (PROTONIX) 40 mg Tablet, Delayed Release (E.C.) Take 40 mg by mouth daily in the morning. Active simvastatin (ZOCOR) 20 mg tablet Take 20 mg by mouth daily at bedtime. 4 Active lisinopriL (PRINIVIL) 20 mg tablet Take 1 Tablet by mouth daily. 4 Active timoloL maleate (TIMOPTIC) 0.5% solution Administer 0.5 Drops in both eyes see administration instructions. 5 Active bimatoprost (Lumigan) 0.01 % solution Administer 1 Drop in both eyes daily at bedtime. Active Active Problems No known active problems Encounters Date Type Department Care Team Description 03/27/2024 External Device Data STL ABSTRACTION Provider, Abstract 03/27/2024 External Device Data STL ABSTRACTION Provider, Abstract 03/26/2024 External Device Data STL ABSTRACTION Provider, Abstract 03/25/2024 3:00 PM WIRE SPLICER Office Visit [facility] Oncology and Hematology - [address] [place] [address] Aurelio Schreiber MD Chronic anemia (Primary Dx) 03/25/[address] [facility] Oncology and Hematology [facility] [address] [place] [address] Aurelio Schreiber MD from Last 3 Months Family History Medical History Relation Name Comments Heart Disease Brother 1 Heart Disease Brother 2 Prostate Cancer Brother 2 Heart Disease Brother 3 No Known Problems Child 1 No Known Problems Child 2 Diabetes Child 3 Heart Disease Child 3 Kidney Cancer Child 3 Prostate Cancer Child 3 Lung Cancer Child 4 Prostate Cancer Child 5 No Known Problems Child 6 Pancreatic Cancer Father Heart Failure Mother Heart Disease Sister 1 No Known Problems Sister 2 Relation Name Status Comments Brother 1 Brother 2 Brother 3 Child 1 Alive Child 2 Alive Child 3 Alive Child 4 Alive Child 5 Alive Child 6 Alive Father Mother Sister 1 Sister 2 Social History Tobacco Use Types Packs/Day Years Used Date Smoking Tobacco: Never Smokeless Tobacco: Never Tobacco Cessation:Counseling Given: Not Answered Alcohol Use Standard Drinks/Week Comments Never 0 (1 standard drink = 0.6 oz pur e alcohol) Comments Unknown Sex and Gender Information Value Date Recorded Sex Assigned at Not on file Legal Sex Female 10:13 PM CDT Gender Identity Not on file Sexual Orientation Not on file Last Filed Vital Signs Vital Sign Reading Time Taken Comments Blood Pressure 135/65 03/25/2024 3:12 PM WIRE SPLICER Pulse 50 03/25/2024 3:12 PM WIRE SPLICER Temperature 36.1 C (96.9 F) 03/25/2024 3:12 PM WIRE SPLICER Respiratory Rate 15 03/25/2024 3:12 PM WIRE SPLICER Oxygen Saturation 95% 03/25/2024 3:12 PM WIRE SPLICER Inhaled Oxygen Concentration - - Weight 87.4 kg (192 lb 9.6 oz) 03/25/2024 3:12 P M WIRE SPLICER Height 167.6 cm (5' 6 ) 03/25/2024 3:12 PM WIRE SPLICER Body Mass Index 31.09 03/25/2024 3:12 PM WIRE SPLICER Plan of Treatment Health Maintenance Due Date Last Done Comments DTAP/TDAP/TD VACCINES (1 - Tdap) 05[birth year]29/1954 OSTEOPOROSIS SCREENING 05/29/2000 RSV VACCINE (60+ or ) (1 - 1-dose 75+ series) 05/29/2010 PNEUMOCOCCAL VACCINE 50+ YEA RS (2 of 2 - PCV) 10/10/2020 10/11/2019 INFLUENZA VACCINE (#1) 2023 10/11/2019, 2019 Medicare [place] ([place]) Prev entative Visit/Annual Wellness Visit 02/07/2024 10/09/2020, 10/11/2019, 12/28/2018 ZOSTER VACCINE Completed 02/16/2021, 10/20/2020 Insurance [facility] Address: [place] [address] Care Teams Assorter Laundry Relationship Specialty Start Date End Date Idania Constantino DO [address] [facility] [address] [place] [address] PCP - General Family Practice 01/23/24
--- OUTSIDE RECORDS SUMMARY | 2024-05-01 09:03 | XMS_ITS | Continuity of Care Document ---
Author Organization [facility] Address [address] [place] [address] Phone Care Team Providers Care English Horn Player Name Role Phone James Irving Unavailable Unavailable Procedures Procedure Date Post-op Follow-up Visit Post-op Follow-up Visit Complex Extracapsular Cat Rem, Comanaged Office Consultation IOLMaster Advance Directives Directive Yes / No Effective Date File Name No Information Encounters Encounter Description Practice Location Reason(s) For Visit Diagnoses Date Provider Providers Copied on Encounter [facility], [address] [place] [address] [address], [place], [place], [id number], tel:[phone] [facility] No Information [address] Do[address] Ed[address]ruz. [address] [facility] , [address], [place], [place], [facility], . tel:[phone] Referring Provider: Aubrey Stiles OD, [address] [place], [address]. tel:[phone] [facility], [address] [place] [address] [address], [place], [place], [id number], tel:[phone] [facility] No Information [address] [facility] [address], [address], [place], [address], . tel:[phone] Referring Provider: Aubrey Stiles OD, [address] [place], [address]. tel:[phone] [facility], [address] [place], [place] [address], [place], [place], [id number], tel:[phone] [facility] No Information [address] [facility] Edcruz. [address] [facility] , [address], [place], [place], [facility], . tel:[phone] Referring Provider: Aubrey Stiles OD, [address] [place], [address]. tel:[phone] Office Consultation [facility], [address] [place] [address] [address], [place], [place], [id number], tel:[phone] [facility] No Information [address] [facility] James. [facility] , [address], [place], [place], [facility], . tel:[phone] Referring Provider: Aubrey Stiles OD, [address] [place], [address]. tel:[phone] Family History Family Member Type Diagnosis Age [...]
[2024-05-01 09:52] LABS: Creatinine Urine 216.3 mg/dL
[2024-05-01 09:53] LABS: MALB Creatinine Ratio 27.9 mg/g (0-30); Microalbumin Urine Random 60.3 mg/L (0-16.7)
[2024-05-01 10:01] LABS: Hematocrit 40.1 % (37.0-47.0); Hemoglobin 12.4 g/dL (12.0-15.0); Mean Corpuscular HGB Conc 30.9 g/dl (32-36); Mean Corpuscular Volume 93.9 fl (80-100); Mean Platelet Volume 10.6 fl (7.4-10.4); Platelet Count Result 239 k/mm3 (150-375); Red Blood Count 4.27 M/mm3 (4.2-5.4); Red Cell Distribution Width 13.2 % (11.5-14.5); White Blood Count 5.1 K/mm3 (4.5-10.0)
[2024-05-01 10:14] LABS: Alanine Aminotransferase 18 U/L (6-35); Albumin Level 4.6 g/dL (3.5-5.1); Alkaline Phosphatase 100 U/L (38-126); Anion Gap 7 mmol/L (4-12); Aspartate Amino Transferase 24 U/L (14-36); Bilirubin,Total 0.7 mg/dL (0.2-1.3); Blood Urea Nitrogen 28 mg/dL (7-17); Calcium 9.8 mg/dL (8.4-10.2); Carbon Dioxide 31 mmol/L (22-30); Chloride 103 mmol/L (98-107); Cholesterol 169 mg/dL (0-200); Estimated Glomerular Filt Rate 30; Glucose 94 mg/dL (65-110); HDL Direct 60 mg/dL; Potassium 4.3 mmol/L (3.4-5.0); Sodium 141 mmol/L (137-145); Triglycerides 105 mg/dL (<150)
[2024-05-01 10:25] LABS: LDL Cholesterol Direct 66 mg/dL
[2024-05-01 10:36] LABS: Free T4 Free Thyroxine 2.09 ng/dL (0.78-2.19)
== END 2024-05-01 08:41 | disposition home or self-care (01) ==
LOC: ANHLAB 08:41
PROVIDERS: PCP Family Medicine; Visit Provider Nurse Practitioner
DX: E03.9 Hypothyroidism, unspecified (principal); E78.5 Hyperlipidemia, unspecified; N18.9 Chronic kidney disease, unspecified; I48.0 Paroxysmal atrial fibrillation
CPT/HCPCS: 36415; 80053; 80061; 82043; 84439; 84443; 85027

== ENCOUNTER 2024-05-02 12:58 | Outpatient (CLI) | payer OTHER, SELFPAY ==
[2024-05-02 13:39] LABS: Anion Gap 9 mmol/L (4-12); Blood Urea Nitrogen 25 mg/dL (7-17); Carbon Dioxide 29 mmol/L (22-30); Chloride 103 mmol/L (98-107); Estimated Glomerular Filt Rate 32; Glucose 90 mg/dL (65-110); Potassium 4.3 mmol/L (3.4-5.0); Sodium 141 mmol/L (137-145)
--- OUTSIDE RECORDS SUMMARY | 2024-05-02 13:53 | XMS_ITS | Encounter Summary ---
Author Organization [facility] Address [address] [place] [address] Care Team Providers Care Primary Products Inspectors Name Role Phone Roe Erazo DO Primary Care Provider +1- [phone] Moreno Reeder MD Unavailable Encounter Details Date Type Department Care Team (Latest Contact Info) Description 12/12/2017 Abstract [facility] Medical Group , Brenda Mayers MD [...] on filedocumented in this encounter Care Teams Primary Products Inspectors Relationship Specialty Start Date End Date Roe Erazo DO PCP - General FAMILY PRACTICE 07/07/16 Moreno Reeder MD [address] [place] [address] OPHTHALMOLOGY 11/11/21 documented as of this encounter
--- OUTSIDE RECORDS SUMMARY | 2024-05-02 13:53 | XMS_ITS | Clinical Summary ---
Author Organization [facility] Javier chambers [address] Address [address] [place] [address] Care Team Providers Care Land Surveying Party Chief Name Role Phone Idania Constantino DO Primary Care Provider +1- [phone] Allergies No known active allergies Medications Eliquis [...] STL ABSTRACTION Provider, Abstract 03/25/2024 3:00 PM WAREHOUSER Office Visit [facility] Oncology and Hematology - [address] [place] [address] Aurelio Schreiber MD Chronic anemia (Primary Dx) 03/25/2024 Abstract [facility] Oncology and Hematology [facility] [address] [facility] [address] [place] [address] Aurelio Schreiber MD from Last 3 Months [...] Comments Blood Pressure 135/65 03/25/2024 3:12 PM WAREHOUSER Pulse 50 03/25/2024 3:12 PM WAREHOUSER Temperature 36.1 C (96.9 F) 03/25/2024 3:12 PM WAREHOUSER Respiratory Rate 15 03/25/2024 3:12 PM WAREHOUSER Oxygen Saturation 95% 03/25/2024 3:12 PM WAREHOUSER Inhaled Oxygen Concentration - - Weight 87.4 kg (192 lb 9.6 oz) 03/25/2024 3:12 P M WAREHOUSER Height 167.6 cm (5' 6 ) 03/25/2024 3:12 PM WAREHOUSER Body Mass Index 31.09 03/25/2024 3:12 PM WAREHOUSER Plan of Treatment Health Maintenance Due Date [...] 12/28/2018 ZOSTER VACCINE Completed 02/16/2021, 10/20/2020 Insurance [facility] Care Teams Land Surveying Party Chief Relationship Specialty Start Date End Date Idania Constantino DO [address] [facility] [address] [place] [address] PCP - General Family Practice 01/23/24
--- OUTSIDE RECORDS SUMMARY | 2024-05-02 13:53 | XMS_ITS | Encounter Summary ---
Author Organization [facility] Address [facility] [place] [address] Care Team Providers Care Medical Surgical Tech Name Role Phone BuffaloRoe burrows Primary Care Provider +1- [phone] Moreno Reeder MD Unavailable Encounter Details Date Type Department Care Team (Late st Contact Info) Description 07/20/2016 Abstract [facility] AT [address] [address] Charanjit Mendoza MA Social History Tobacco Use [...] on filedocumented in this encounter Care Teams Medical Surgical Tech Relationship Specialty Start Date End Date Roe Erazo DO PCP - General FAMILY PRACTICE 07/07/16 Moreno Reeder MD [address] [place] [address] OPHTHALMOLOGY 11/11/21 documented as of this encounter
--- OUTSIDE RECORDS SUMMARY | 2024-05-02 13:53 | XMS_ITS | Continuity of Care Document ---
Author Organization [facility] Address [address] [place] [address] Phone Care Team Providers Care Special Projects Coordinator Name Role Phone James Irving Unavailable Unavailable Procedures Procedure Date Post-op Follow-up Visit Post-op Follow-up Visit Complex Extracapsular Cat Rem, Comanaged Office Consultation IOLMaster Advance Directives Directive Yes / No Effective Date File Name No Information Encounters Encounter Description Practice Location Reason(s) For Visit Diagnoses Date Provider Providers Copied on Encounter [facility], [address] [place] [address] [address], [place], [place], [id number], tel:[phone] [facility] No Information 8 Doim[address] Edcruz. [address] [facility] , [address], [place], [place], [facility], . tel:[phone] Referring Provider: Aubrey Stiles OD, [address] [place], [address]. tel:[phone] [facility], [address] [place] [address] [address], [place], [place], [id number], tel:[phone] [facility] No Information [address] [facility] [address], [address], [place], [address], . tel:[phone] Referring Provider: Aubrey Stiles OD, [address] [place], [address]. tel:[phone] [facility], [address] [place], [place] [address], [place], [place], [id number], tel:[phone] [facility] No Information [address] [facility] Edcruz. [address] [facility] , [address], [place], [place], [facility], . tel:[phone] Referring Provider: Aubrey Stiles OD, [address] [place], [address]. tel:[phone] Office Consultation [facility], [address] [place] [address] [address], [place], [place], [id number], tel:[phone] [facility] No Information [address] [facility] James. [facility] , [address], [place], [place], [facility], . tel:[phone] Referring Provider: Aubrey Stiles OD, [address] [place], [address]. tel:[phone] Family History Family Member Type Diagnosis Age At Onset No Information Payers Payer name Insurance type Covered green party ID Authoriza tion(s) No Information Social [...]
--- OUTSIDE RECORDS SUMMARY | 2024-05-02 13:53 | XMS_ITS | Clinical Summary ---
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 Asif SS et al. TY. 2013;310(19): 6652-3619 (http://education.Signal Processing Devices [place].Modumetal/faq/XVB755) CHOL/HDL RATIO 4.2 <5.0 (calc) [facility] [address] [place] [address] from Last 3 Months or Most Recently Relevant to Health Maintenance Insurance ESSENCE ESSENCE ESSENCE Care Teams Accounts Payable Associate Relationship Specialty Start Date End Date Roe Erazo DO PCP - General FAMILY PRACTICE 07/07/16 Moreno Reeder MD [address] [place] [address] OPHTHALMOLOGY 11/11/21
== END 2024-05-02 12:59 | disposition home or self-care (01) ==
PROVIDERS: PCP Family Medicine; Visit Provider Family Medicine
DX: N18.9 Chronic kidney disease, unspecified (principal)
CPT/HCPCS: 36415; 80048

== ENCOUNTER 2024-06-19 13:52 | Outpatient (CLI) | payer OTHER, SELFPAY ==
--- NOTE | ~2024-06-19 | MM_ITS ---
EXAMINATION: MM screening mandy BI w falguni HISTORY: Screening TECHNIQUE: Craniocaudal and mediolateral oblique 3-D tomosynthesis images were obtained and synthetic 2-D images were generated. CAD analysis was submitted and interpreted. COMPARISON: 06/12/2023 BREAST PARENCHYMAL COMPOSITION: Not dense: There are scattered areas of fibroglandular density. FINDINGS: There is no evidence of suspicious mass, calcification, or architectural distortion to sugg est malignancy in either breast. There has been no suspicious interval change. IMPRESSION: 1. No mammographic evidence of malignancy. 2. Recommend routine screening mammography in one year. BI-RADS Category 1: Negative Reviewed, dictated and finalized at location A.
--- OUTSIDE RECORDS SUMMARY | 2024-06-19 14:06 | XMS_ITS | Clinical Summary ---
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 ([facility]) 06/10/2013 Glaucoma 01/28/2013 Hyperlipidemia 08/27/2012 Hypothyroidism 08/27/2012 Neoplasm of uncertain behavior of skin 3 Rectal polyp 08/27/2012 Macular puckering 05/25/2012 Resolved Problems Problem Noted Date Diagnosed Date Resolved Date Other screening mammogram 01/24/2017 Encounter for preventive health examination 05/25/2012 10/18/2019 Immunizations Immunization Administration Dates Next Due Fluzone High Dose [...] - 1-dose 75+ series) 05/29/2010 Pneumococcal Vaccine: 50+ Years (2 of 2 - PCV) 10/10/2020 10/11/2019 ASCVD LDL 10/09/2021 10/09/2020, 05/2019, 12/28/2018, Additional history exists Annual Medicare Wellness Visit 10/10/2021 10/09/2020 COVID-19 Vaccine ( season) 2023 04/23/2020, 04/02/2020 Zoster Vaccines Completed 02/16/2021, 10/20/2020 Meningococcal B [...] LDL-C. Asif SS et al. TY. 2013;310(19): 4604-3422 (http://education.OfficialVirtualDJ/faq/IBV841) CHOL/HDL RATIO 4.2 <5.0 (calc) [facility] t [facility] [address] [address] [address] from Last 3 Months or Most Recently Relevant to Health Maintenance Insurance ESSENCE ESSENCE ESSENCE Member Subscriber Plan / Payer (Ef fective 2017-Present) Name:Adriana March Relation to Subscriber:Self Name:ADRIANA MARCH Payer ID:Not on file Type:Not on file Address: [place] [id number] Care Teams Pole Framer Machine Relationship Specialty Start Date End Date Roe Erazo DO PCP - General FAMILY PRACTICE 07/07/16 Moreno Reeder MD [address] [place] [address] OPHTHALMOLOGY 11/11/21
--- OUTSIDE RECORDS SUMMARY | 2024-06-19 14:06 | XMS_ITS | Encounter Summary ---
Author Organization [facility] Address [address] [place] [address] Care Team Providers Care Dairy And Food Laboratory Assistant Name Role Phone Roe Erazo DO Primary Care Provider +1- [phone] Moreno Reeder MD Unavailable Encounter Details Date Type Department Care Team (Latest Contact Info) Description 12/12/2017 Abstract [facility] Medical Group , Brenda Mayers MD [...] on filedocumented in this encounter Care Teams Dairy And Food Laboratory Assistant Relationship Specialty Start Date End Date Roe Erazo DO PCP - General FAMILY PRACTICE 07/07/16 Moreno Reeder MD [address] [place] [address] OPHTHALMOLOGY 11/11/21 documented as of this encounter
--- OUTSIDE RECORDS SUMMARY | 2024-06-19 14:06 | XMS_ITS | Continuity of Care Document ---
Author Organization [facility] Address [address] [place] [address] Phone Care Team Providers Care Orange Picker Name Role Phone James Irving Unavailable Unavailable Procedures Procedure Date Post-op Follow-up Visit Post-op Follow-up Visit Complex Extracapsular Cat Rem, Comanaged Office Consultation IOLMaster Advance Directives Directive Yes / No Effective Date File Name No Information Encounters Encounter Description Practice Location Reason(s) For Visit Diagnoses Date Provider Providers Copied on Encounter [facility], [address] [place] [address] [address], [place], [place], [id number], tel:[phone] SEC [facility] No Information [address]. [address] [facility] , [address], [place], [address], . tel:[phone] Referring Provider: Aubrey Stiles OD, [address] [place], [address]. tel:[phone] [facility], [address] [place] [address] [address], [place], [place], [id number], tel:[phone] SEC [facility] No Information [address] [facility] [address], [address], [place], [address], . tel:[phone] Referring Provider: Aubrey Stiles OD, [address] [place], [address]. tel:[phone] [facility], [address] [place], [place] [address], [place], [place], [id number], tel:[phone] [facility] No Information [address] 8 [facility] [address]. [address] [facility] , [address], [place], [place], [facility], . tel:[phone] Referring Provider: Aubrey Stiles OD, [address] [place], [address]. tel:[phone] Office Consultation [facility], [address] [place] [address] [address], [place], [place], [id number], tel:[phone] [facility] No Information [address] [facility] James. [facility] , [address], [place], [place], [facility], . tel:[phone] Referring Provider: Aubrey Stiles OD, [address] [place], [address]. tel:[phone] Family History Family Member Type Diagnosis Age At Onset No Information Payers Payer name Insurance type Covered republican ID Authoriza tion(s) No Information Social History [...]
--- OUTSIDE RECORDS SUMMARY | 2024-06-19 14:06 | XMS_ITS | Clinical Summary ---
Author Organization [facility] Javier chambers [facility] Address [address] [place] [address] Care Team Providers Care Poultry Vaccinator Name Role Phone Idania Constantino DO Primary Care Provider +1- [phone] Allergies No known active allergies Medications Eliquis [...] Drops in both eyes see administration instructions. Active bimatoprost (Lumigan) 0.01 % solution Administer 1 Drop in both eyes daily at bedtime. Active Active Problems No known active problems Encounters Date Type Department Care Team Description 06/11/2024 External Device Data STL ABSTRACTION Provider, Abstract 05/21/2024 External Device Data STL ABSTRACTION Provider, Abstract 03/27/2024 External Device Data STL ABSTRACTION Provider, Abstract 03/27/2024 External Device Data STL ABSTRACTION Provider, Abstract 03/26/2024 External Device Data STL ABSTRACTION Provider, Abstract 03/25/2024 3:00 PM GLASS LINED TANK REPAIRER Office Visit [facility] [place] [address] [place] [address] Aurelio Schreiber MD Chronic anemia (Primary Dx) 03/25/2024 Abstract [facility] [place] [address] [place] [address] Aurelio Schreiber MD from Last 3 Months [...] Comments Blood Pressure 135/65 03/25/2024 3:12 PM GLASS LINED TANK REPAIRER Pulse 50 03/25/2024 3:12 PM GLASS LINED TANK REPAIRER Temperature 36.1 C (96.9 F) 03/25/2024 3:12 PM GLASS LINED TANK REPAIRER Respiratory Rate 15 03/25/2024 3:12 PM GLASS LINED TANK REPAIRER Oxygen Saturation 95% 03/25/2024 3:12 PM GLASS LINED TANK REPAIRER Inhaled Oxygen Concentration - - Weight 87.4 kg (192 lb 9.6 oz) 03/25/2024 3:12 P M GLASS LINED TANK REPAIRER Height 167.6 cm (5' 6 ) 03/25/2024 3:12 PM GLASS LINED TANK REPAIRER Body Mass Index 31.09 03/25/2024 3:12 PM GLASS LINED TANK REPAIRER Plan of Treatment Health Maintenance Due Date Last Done Comments DTAP/TDAP/TD VACCINES (1 - Tdap) 05/29/1954 OSTEOPOROSIS SCREENING 05/29/2000 RSV VACCINE (60+ or ) (1 - 1-dose 75+ series) 05/29/2010 PNEUMOCOCCAL VACCINE 50+ YEA RS (2 of 2 - PCV) 10/10/2020 10/11/2019 INFLUENZA VACCINE (#1) 2023 10/11/2019, 2019 ZOSTER VACCINE Completed 02/16/2021, 10/20/2020 Insurance [facility] M[facility] Care Teams Poultry Vaccinator Relationship Specialty Start Date End Date Idania Constantino DO [address] [facility] [address] [place] [address] PCP - General Family Practice 01/23/24
== END 2024-06-19 13:53 | disposition home or self-care (01) ==
LOC: ANHIMG 13:54
PROVIDERS: PCP Nurse Practitioner; Visit Provider Nurse Practitioner
DX: Z12.31 Encounter for screening mammogram for malignant neoplasm of breast (principal)
CPT/HCPCS: 77063; 77067

== ENCOUNTER 2024-07-02 10:00 | Outpatient (CLI) | payer OTHER, SELFPAY ==
--- NOTE | ~2024-07-02 | US_ITS ---
Renal-Bladder ultrasound Clinical History: Chronic kidney disease Technique: Real-time sonographic imaging of the kidneys and urinary bladder was performed. Findings: The right kidney measures 10.3 cm in length and the left kidney measures 9.1 cm. There is n o hydronephrosis or renal calculus identified. Renal cortical echogenicity is within normal limits. N o renal mass lesion is identified. The urinary bladder is moderately distended at the time of this exam. No intraluminal echoes are iden tified. No abnormal wall thickening is seen. Impression: Unremarkable ultrasound of the kidneys and urinary bladder. Reviewed, dictated and finalized at location . Impression: Unremarkable ultrasound of the kidneys and urinary bladder.
--- OUTSIDE RECORDS SUMMARY | 2024-07-02 10:05 | XMS_ITS | Clinical Summary ---
Author Organization [facility] Javier chambers [facility] Address [address] [place] [address] Care Team Providers Care Neck Pinner Name Role Phone Idania Constantino DO Primary Care Provider +1- [phone] Allergies No known active allergies Medications Eliquis [...] Encounters Date Type Department Care Team Description 06/26/2024 External Device Data STL ABSTRACTION Provider, Abstract 06/25/2024 External Device Data STL ABSTRACTION Provider, Abstract 06/11/2024 External Device Data STL ABSTRACTION Provider, Abstract 05/21/2024 External Device Data STL ABSTRACTION Provider, Abstract from Last 3 Months Family History Medical [...] Comments Blood Pressure 135/65 03/25/2024 3:12 PM VALVE REPAIRER Pulse 50 03/25/2024 3:12 PM VALVE REPAIRER Temperature 36.1 C (96.9 F) 03/25/2024 3:12 PM VALVE REPAIRER Respiratory Rate 15 03/25/2024 3:12 PM VALVE REPAIRER Oxygen Saturation 95% 03/25/2024 3:12 PM VALVE REPAIRER Inhaled Oxygen Concentration - - Weight 87.4 kg (192 lb 9.6 oz) 03/25/2024 3:12 P M VALVE REPAIRER Height 167.6 cm (5' 6) 03/25/2024 3:12 PM VALVE REPAIRER Body Mass Index 31.09 03/25/2024 3:12 PM VALVE REPAIRER Plan of Treatment Health Maintenance Due Date Last Done Comments DTAP/TDAP/TD VACCINES (1 - Tdap) 05[birth year]29/1954 OSTEOPOROSIS SCREENING 05/29/2000 RSV VACCINE (60+ or ) (1 - 1-dose 75+ series) 05/29/2010 PNEUMOCOCCAL VACCINE 50+ YEA RS (2 of 2 - PCV) 10/10/2020 10/11/2019 INFLUENZA VACCINE (#1) 2023 10/11/2019, 2019 ZOSTER VACCINE Completed 02/16/2021, 10/20/2020 Insurance [facility] [place] [address] Care Teams Neck Pinner Relationship Specialty Start Date End Date Idania Constantino DO [address] [facility] [address] [place] [address] PCP - General Family Practice 01/23/24
== END 2024-07-02 10:01 | disposition home or self-care (01) ==
PROVIDERS: PCP Nurse Practitioner; Visit Provider Internal Medicine Nephrology
DX: I12.9 Hypertensive chronic kidney disease with stage 1 through stage 4 chronic kidney disease, or unspecified chronic kidney disease (principal); N18.32 Chronic kidney disease, stage 3b
CPT/HCPCS: 76775

== ENCOUNTER 2024-07-24 09:33 | Outpatient (CLI) | payer OTHER, SELFPAY ==
--- OUTSIDE RECORDS SUMMARY | 2024-07-24 10:27 | XMS_ITS | Continuity of Care Document ---
Author Organization [facility] Address [address] [place] [address] Phone Care Team Providers Care Invoicing Specialist Name Role Phone James Irving Unavailable Unavailable Procedures Procedure Date Post-op Follow-up Visit Post-op Follow-up Visit Complex Extracapsular Cat Rem, Comanaged Office Consultation IOLMaster Advance Directives Directive Yes / No Effective Date File Name No Information Encounters Encounter Description Practice Location Reason(s) For Visit Diagnoses Date Provider Providers Copied on Encounter [facility], [address] [place] [address] [address], [place], [place], [id number], tel:[phone] SEC [facility] No Information 8 [address]ruz. [address] [facility] , [address], [place], [place], [facility], . tel:[phone] Referring Provider: Aubrey Stiles OD, [address] [place], [address]. tel:[phone] [facility], [address] [place] [address] [address], [place], [place], [id number], tel:[phone] SEC [facility] No Information [address] [facility] [address], [address], [place], [address], . tel:[phone] Referring Provider: Aubrey Stiles OD, [address] [place], [address]. tel:[phone] [facility], [address] [place], [place] [address] [address], [place], [place], [id number], tel:[phone] [facility] No Information [address] 8 [facility] [address]ruz. [address] [facility] , [address], [place], [place], [facility], . tel:[phone] Referring Provider: Aubrey Stiles OD, [address] [place], [address]. tel:[phone] Office Consultation [facility], [address] [place] [address] [address], [place], [place], [id number], tel:[phone] [facility] No Information [address] 8 [facility] James. [id number] , [address], [place], [place], [facility], . tel:[phone] Referring Provider: Aubrey Stiles OD, [address] [place], [address]. tel:[phone] Family History Family Member Type Diagnosis Age At Onset No Information Payers Payer name Insurance type Covered democrat ID Authoriza tion(s) No Information Social History [...]
--- OUTSIDE RECORDS SUMMARY | 2024-07-24 10:27 | XMS_ITS | Clinical Summary ---
Author Organization [facility] Javier chambers [facility] Address [address] [place] [address] Care Team Providers Care Front End Application Developer Name Role Phone Idania Constantino DO Primary Care Provider +1- [phone] Allergies No known active allergies Medications Eliquis [...] Encounters Date Type Department Care Team Description 07/02/2024 External Device Data STL ABSTRACTION Provider, Abstract 06/26/2024 External Device Data STL ABSTRACTION Provider, [...] Comments Blood Pressure 135/65 03/25/2024 3:12 PM [employer]'S ELECTRONIC WARFARE OFFICER Pulse 50 03/25/2024 3:12 PM [employer]S E[employer] OFFICER Temperature 36.1 C (96.9 F) 03/25/2024 3:12 PM [employer]S E[employer] OFFICER Respiratory Rate 15 03/25/2024 3:12 PM [employer]S E[employer] OFFICER Oxygen Saturation 95% 03/25/2024 3:12 PM [employer] E[employer] OFFICER Inhaled Oxygen Concentration - - Weight 87.4 kg (192 lb 9.6 oz) 03/25/2024 3:12 P M [employer] OFFICER Height 167.6 cm (5' 6) 03/25/2024 3:12 PM SH[employer]S ELECT[employer]ARF[employer] OFFICER Body Mass Index 31.09 03/25/2024 3:12 PM SH[employer]S ELECT[employer]ARF[employer] OFFICER Plan of Treatment Health Maintenance Due Date Last Done Comments DTAP/TDAP/TD VACCINES (1 - Tdap) 05/29/1954 OSTEOPOROSIS SCREENING 05/29/2000 RSV VACCINE (60+ or ) (1 - 1-dose 75+ series) 05/29/2010 PNEUMOCOCCAL VACCINE 50+ YEA RS (2 of 2 - PCV) 10/10/2020 10/11/2019 INFLUENZA VACCINE (#1) 2023 10/11/2019, 2019 ZOSTER VACCINE Completed 02/16/2021, 10/20/2020 Insurance [facility] MCR Care Teams Front End Application Developer Relationship Specialty Start Date End Date Idania Constantino DO [address] [facility] [address] [place] [address] PCP - General Family Practice 01/23/24
[2024-07-24 10:52] LABS: Albumin Level 4.3 g/dL (3.5-5.1); Anion Gap 9 mmol/L (4-12); Blood Urea Nitrogen 24 mg/dL (7-17); Calcium 9.4 mg/dL (8.4-10.2); Carbon Dioxide 26 mmol/L (22-30); Chloride 106 mmol/L (98-107); Estimated Glomerular Filt Rate 32; Glucose 93 mg/dL (65-110); Phosphorus 4.6 mg/dL (2.5-4.5); Potassium 4.3 mmol/L (3.4-5.0); Sodium 141 mmol/L (137-145)
[2024-07-24 11:01] LABS: Complement C3 104 mg/dL (88-165)
[2024-07-24 11:11] LABS: Vitamin D 25 Hydroxy 42.8 ng/mL
[2024-07-24 11:16] LABS: Creatinine Urine 151.3 mg/dL
[2024-07-24 11:18] LABS: Creatinine Urine 151.9 mg/dL; Total Protein Urine Random 15 mg/dL
[2024-07-24 11:22] LABS: MALB Creatinine Ratio 20.8 mg/g (0-30); Microalbumin Urine Random 31.5 mg/L (0-16.7)
[2024-07-25 05:14] LABS: Protein, Total 6.4 g/dL (6.1-8.1)
[2024-07-25 07:03] LABS: Creatinine, Random Urine 145 mg/dL (20-275); Total Prot/Creat ratio mg/mg 0.193 (0.024-0.184); Total Protein/Creatinine Ratio 193 mg/g creat (24-184)
[2024-07-26 09:58] LABS: Alpha 1 Globulin 0.3 g/dL (0.2-0.3); Alpha 2 Globulin 0.7 g/dL (0.5-0.9); Beta 1 Globulin 0.4 g/dL (0.4-0.6); Gamma Globulin 0.7 g/dL (0.8-1.7)
[2024-07-27 03:35] LABS: DNA (ds) Antibody. 1 IU/mL
[2024-07-27 13:04] LABS: ANCA Screen NEGATIVE (NEGATIVE)
== END 2024-07-24 09:34 | disposition home or self-care (01) ==
PROVIDERS: PCP Nurse Practitioner; Visit Provider Internal Medicine Nephrology
DX: I12.9 Hypertensive chronic kidney disease with stage 1 through stage 4 chronic kidney disease, or unspecified chronic kidney disease (principal); N18.32 Chronic kidney disease, stage 3b; E55.9 Vitamin D deficiency, unspecified
CPT/HCPCS: 36415; 80069; 82043; 82306; 82570; 83520; 84155; 84156; 84165; 84166; 86036; 86038; 86039; 86160; 86225

== ENCOUNTER 2024-08-22 12:10 | Outpatient (CLI) | payer OTHER, SELFPAY ==
--- NOTE | ~2024-08-22 | US_ITS ---
EXAMINATION: US carotid duplex BI DATE: 08/22/2024 13:33 INDICATION: Carotid bruit TECHNIQUE: Grayscale, color Doppler, and pulsed Doppler images of the cervical carotid arteries were obtained. The degree of vessel stenosis is placed in one of the following categories: normal, <50%, 5 0-69%, >=70% but less than near-occlusion, near-occlusion, or total occlusion. Note that percent sten osis relative to normal distal artery lumen diameter is indirectly measured from velocity measurement s as described by Demetrio, et al. Radiology 2003; 229:340-346. Notes: Normal: Peak systolic velocity <125 centimeters/sec and no plaque <50%. Peak systolic velocity <125 ( EDV <40; ICA/CCA PSV ratio <2.0; used these factors only a tandem lesions or low cardiac output or co ntralateral disease) 50-69 %: PSV 125-230 (EDV 40-100; ratio 2-4) >= 70% but less than near occlusion: PSV greater than 230 (EDV > 100; ratio> 4.0) Near Occlusion: PSV that is variable; markedly narrowed lumen Occlusion: Absent flow on color/spectral Doppler and no lumen on anguiano scale. COMPARISON: None. FINDINGS: RIGHT: The right common carotid artery (CCA) peak systolic velocity (PSV) is 67 cm/s. The right internal car otid artery (ICA) PSV is 144 cm/s. The right ICA end-diastolic velocity (EDV) is 21 cm/s. The right I CA/CCA PSV ratio is 2.2. The external carotid artery (ECA) PSV is 78 cm/s. There is antegrade flow in the right vertebral artery. LEFT: The left CCA PSV is 64 cm/s. The left ICA PSV is 114 cm/s. The left ICA EDV is 24 cm/s. The left ICA/ CCA PSV ratio is 1.8. The ECA PSV is 136 cm/s. There is antegrade flow in the left vertebral artery. IMPRESSION: 1. 50-69% stenosis in the right internal carotid artery by sonographic criteria. 2. Less than 50% stenosis in the left internal carotid artery by sonographic criteria. Reviewed, dictated and finalized at location B. IMPRESSION: 1. 50-69% stenosis in the right internal carotid artery by sonographic criteria . 2. Less than 50% stenosis in the left internal carotid artery by sonographic cr iteria.
--- OUTSIDE RECORDS SUMMARY | 2024-08-22 12:13 | XMS_ITS | Clinical Summary ---
Author Organization [facility] [address] Address [address] [place] [address] Care Team Providers Care District Plant Superintendent Name Role Phone Idania Constantino DO Primary Care Provider +1- [phone] Allergies Active Allergy Reactions Criticality Noted Date Comments Morphine Other (See comments) Low 04/14/2021 A little goes a very long way Medications Lumigan 0.01 % ophthalmic drops Administer 1 drop into both eyes nightly Active bisoprolol (ZEBETA) 5 mg tablet Take 1 tablet (5 mg total) by mouth daily Active cyanocobalamin (Vitamin B-12) 1,000 mcg tablet Take 5 tablets (5,000 mcg total) by mouth daily Active levothyroxine (SYNTHROID) 50 mcg tablet Take 1 tablet (50 mcg total) by mouth wad lubricator before breakfast Active pantoprazole DR (PROTONIX) 40 mg EC tablet Take 1 tablet (40 mg total) by mouth daily Active simvastatin (ZOCOR) 20 mg tablet Take 1 tablet (20 mg total) by mouth nightly Active magnesium oxide (MAG-OX) 250 mg (150.8 mg elemental) tabletIndications :hypomagnesemia 1 tablet (250 mg total) daily Active timolol (TIMOPTIC) 0.5 % ophthalmic solution INSTILL 1 DROP INTO BOTH EYES EVERY MORNING DIRECTED 2 Active lisinopriL (PRINIVIL,ZESTRIL ) 10 mg tablet Take 1 tablet (10 mg total) by mouth daily 30 tablet 11 4 Active Eliquis 2.5 mg tabletIndications :Paroxysmal atrial fibrillation (HCC) TAKE 1 TABLET BY MOUTH TWICE A DAY 60 tablet 11 4 Active amiodarone (PACERONE) 200 mg tablet TAKE 1 TABLET BY MOUTH EVERY DAY 90 tablet 5 Active amLODIPine (NORVASC) 10 mg tablet TAKE 1 TABLET BY MOUTH EVERY DAY 90 tablet 5 Active Active Problems Problem Noted Date Diagnosed Date Hypertension 01/06/2023 Atrial fibrillation 01/06/2023 Anticoagulation management encounter 01/06/2023 Resolved Problems Problem Noted Date Diagnosed Date Resolved Date Other thrombophilia 09/21/2022 01/07/20 Encounters Date Type Department Care Team Description 07/30/2024 Telephone [facility] Card[facility] [address] [place] [address] Keyshawn Ordoñez MD 07/29/2024 8:15 AM CDT Office Visit [facility] [address] [place] [address] Keyshawn Ordoñez MD Atrial fibrillation, unspecified type (HCC) (Primary Dx); Lipid screening; Bruit of left carotid artery from Last 3 Months Surgical History Surgery Date Site/Laterality Comments TONSILLECTOMY KNEE SURGERY HYSTERECTOMY Medical History Medical History Date Comments Hypertension Atrial fibrillation (HCC) Family History Medical History Relation Name Comments Heart attack Brother Heart disease Brother Heart murmur Brother Pancreatic cancer Father Hypertension Mother Stroke Mother Heart disease Sister Relation Name Status Comments Brother Father Mother Sister Social History Tobacco Use Types Packs/Day Years Used Date Smoking Tobacco: Never Smokeless Tobacco: Never Tobacco Cessation:Counseling Given: Not Answered Comments Unknown Sex and Gender Information Value Date Recorded Sex Assigned at Not on file Legal Sex Female 8:21 AM CDT Gender Identity Not on file Sexual Orientation Not on file Obstetrics History Last Filed Vital Signs Vital Sign Reading Time Taken Comments Blood Pressure 146/68 07/29/2024 8:17 AM CDT Pulse 50 07/29/2024 8:17 AM CDT Temperature - - Respiratory Rate 16 07/29/2024 8:17 AM CDT Oxygen Saturation 97% 07/29/2024 8:17 AM CDT Inhaled Oxygen Concentration - - Weight 88.5 kg (195 lb) 07/29/2024 8:17 AM CDT Height 167.6 cm (5' 6) 07/29/2024 8:17 AM CDT Body Mass Index 31.47 07/29/2024 8:17 AM CDT Plan of Treatment Health Maintenance Due Date Last Done Comments Depression Screening 1935 Fall Risk Assessment 1935 Osteoporosis Screening-Bone Density Scan 1935 Hepatitis B Screening 05/29/1953 Well Visit 65+ 05/29/2000 DTaP/Tdap/Td Vaccine (1 - Tdap) 12/12/2009 0 Pneumococcal vaccine 65+ (2 of 2 - PCV) 10/10/2020 10/11/2019 Covid-19 Vaccine (3 - 2023-2 5 season) 2023 04/23/2020, 04/02/2020 Influenza Vaccine (#1) 2024 2, 11/02/2020, 10/11/2019, Additional history exists Zoster Vaccine Completed 02/16/2021, 10/20/2020 Procedures Procedure Name Priority Date/Time Associated Diagnosis Comments POCT LIPID PANEL Routine 07/29/2024 8:11 AM CDT Lipid screening ELECTROCARDIOGRAM REPORT Routine 07/29/2024 Atrial fibrillation, unspecified type (HCC) from Last 3 Months Results * POCT lipid panel (07/29/2024 8:11 AM CDT) Cholesterol, POC 163 <200 MG/DL HDL, POC 60 >=40 mg/dL Triglycerides, POC 115 <=149 mg/dL LDL Cholesterol POC 80 <=129 mg/dL Chol/HDL Ratio, POC 1.3 NONE Non-HDL Cholesterol, POC 103 NONE mg/dL Cholesterol Total, POC 163 30 - 199 mg/dL Capillary blood 07/29/2024 8 :11 AM CDT Keyshawn Ordoñez MD POINT OF CARE TEST ORDERABLES Fi nal Result * Electrocardiogram Report (07/29/2024) 07/29/2024 us Keyshawn Ordoñez MD ECG ORDERABLES Edited Result - Final from Last 3 [place] [address] [facility] [place] [address] [facility] Member Subscriber Plan / Payer (Ef fective 2018-Present) Name:Cara Flores Relation to Subscriber:Self Name:Cara Flores Payer ID:[id number] (NAIC) Type:MEDICARE RISK OTHER Address: [place] [id number] Care Teams District Plant Superintendent Relationship Specialty Start Date End Date Idania Constantino DO [address] [place] [address] [address] [place] [address] PCP - General Family Medicine 07/26/24
--- OUTSIDE RECORDS SUMMARY | 2024-08-22 12:13 | XMS_ITS | Referral Summary ---
Author Organization [facility] [address] [place] [address] [address] [place] [address] Care Team Providers Care Food And Beverage Outlets Manager Name Role Phone Idania Constantino DO Primary Care Provider +1- [phone] Encounters Date Type Department Care Team Description 07/30/2024 Telephone [facility] Cardiology [address] [facility] [address] [place] [address] Keyshawn Ordoñez MD 07/29/2024 8:15 AM CDT Office Visit [facility] Cardiology [address] [place] [address] [address] [place] [address] Keyshawn Ordoñez MD Atrial fibrillation, unspecified type (HCC) (Primary Dx); Lipid screening; Bruit of left carotid artery from Last 3 Months Allergies Active Allergy Reactions Criticality Noted Date [...] 1 tablet (50 mcg total) by mouth fountain server before breakfast Active pantoprazole DR (PROTONIX) 40 [...] Date Resolved Date Other thrombophilia 09/21/2022 01/07/20 Social History Tobacco Use Types Packs/Day Years [...] 07/29/2024 8:17 AM CDT Plan of Treatment Not on file Procedures Procedure Name Priority Date/Time Associated Diagnosis [...] Capillary blood 07/29/2024 8 :11 AM CDT us Keyshawn Ordoñez MD POINT OF CARE TEST ORDERABLES Fi nal Result * Electrocardiogram Report (07/29/2024) 07/29/2024 us Keyshawn Ordoñez MD ECG ORDERABLES Edited Result - Final from Last [address] [place] [address] [facility] [place] [address] [facility] Care Teams Food And Beverage Outlets Manager Relationship Specialty Start Date End Date Idania Constantino DO [facility] [address] [address] PCP - General Family Medicine 07/26/24
--- OUTSIDE RECORDS SUMMARY | 2024-08-22 12:13 | XMS_ITS | Encounter Summary ---
Author Organization [facility] Address [address] [place] [address] Care Team Providers Care Hunter Skin Diver Name Role Phone Idania Constantino DO Primary Care Provider +1- [phone] Encounter Details Date Type Department Care Team (Late st Contact Info) Description 08/20/2024 External Device Data STL ABSTRACTION Provider, Abstract NO ADDRESS ON FILE Social History Tobacco Use Types Packs/Day Years Used Date Smoking Tobacco: Never Smokeless Tobacco: Never Alcohol Use Standard Drinks/Week Comments Never 0 [...] on filedocumented in this encounter Care Teams Hunter Skin Diver Relationship Specialty Start Date End Date Idania Constantino DO [address] [facility] [address] [place] [address] PCP - General Family Practice 01/23/24 documented as of this encounter
--- OUTSIDE RECORDS SUMMARY | 2024-08-22 12:13 | XMS_ITS | Encounter Summary ---
Author Organization [facility] Address [address] [place] [address] Care Team Providers Care Bleach Boiler Packer Name Role Phone Roe Erazo DO Primary Care Provider +1- [phone] Moreno Reeder MD Unavailable Encounter Details Date Type Department Care Team (Latest Contact Info) Description 12/12/2017 Abstract [facility] , Brenda Mayers MD Social [...] on filedocumented in this encounter Care Teams Bleach Boiler Packer Relationship Specialty Start Date End Date Roe Erazo DO PCP - General FAMILY PRACTICE 07/07/16 Moreno Reeder MD [address] [place] [address] OPHTHALMOLOGY 11/11/21 documented as of this encounter
--- OUTSIDE RECORDS SUMMARY | 2024-08-22 12:13 | XMS_ITS | Encounter Summary ---
Author Organization [facility] Address [facility] [place] [address] Care Team Providers Care Cop Winder Name Role Phone [place] Primary Care Provider +1- [phone] Moreno Reeder MD Unavailable Encounter Details Date Type Department Care Team (Late st Contact Info) Description 07/20/2016 Abstract [facility] AT [address] [address] Charanjit Mendoza MA Social History Tobacco Use [...] on filedocumented in this encounter Care Teams Cop Winder Relationship Specialty Start Date End Date Roe Erazo DO PCP - General FAMILY PRACTICE 07/07/16 Moreno Reeder MD [address] [place] [address] OPHTHALMOLOGY 11/11/21 documented as of this encounter
--- OUTSIDE RECORDS SUMMARY | 2024-08-22 12:13 | XMS_ITS | Continuity of Care Document ---
Author Organization [facility] Eye [facility] Address [address] [place] [address] Phone Care Team Providers Care Lay Out Carpenter Name Role Phone James Irving Unavailable Unavailable Procedures Procedure Date Post-op Follow-up Visit Post-op Follow-up Visit Complex Extracapsular Cat Rem, Comanaged Office Consultation IOLMaster Advance Directives Directive Yes / No Effective Date File Name No Information Encounters Encounter Description Practice Location Reason(s) For Visit Diagnoses Date Provider Providers Copied on Encounter [facility], [address] [place] [address] [address], [place], [place], [id number], tel:[phone] [facility] No Information 8 Doimike Edcruz. [address] [facility] , [address], [place], [place], [facility], . tel:[phone] Referring Provider: Aubrey Stiles OD, [address] [place], [address]. tel:[phone] [facility], [address] [place] [address] [address], [place], [place], [id number], tel:[phone] [facility] No Information [address], [address], [place], [address], . tel:[phone] Referring Provider: Aubrey Stiles OD, [address] [place], [address]. tel:[phone] [facility] Eye [facility], [address] [place], [place] [address], [place], [place], [id number], tel:[phone] [facility] No Information [address] [facility] Ed[address]ruz. [address] [facility] , [address], [place], [place], [facility], . tel:[phone] Referring Provider: Aubrey Stiles OD, [address] [place], [address]. tel:[phone] Office Consultation [facility], [address] [place] [address] [address], [place], [place], [address], tel:[phone] [facility] No Information [address] [facility] James. Counts include 234 beds at the [facility] , [address], [place], [place], [facility], . tel:[phone] Referring Provider: Aubrey Stiles OD, [address] [place], [address]. tel:[phone] Family History Family Member Type Diagnosis Age [...]
--- OUTSIDE RECORDS SUMMARY | 2024-08-22 12:13 | XMS_ITS | Clinical Summary ---
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 Asif SS et al. TY. 2013;310(19): 5037-0029 (http://education.[employer]/faq/TPY511) CHOL/HDL RATIO 4.2 <5.0 (calc) [facility] [address] [address] from Last 3 Months or Most Recently Relevant to Health Maintenance Insurance ESSENCE ESSENCE ESSENCE Member Subscriber Plan / Payer (Ef fective 2017-Present) Name:Adriana March Relation to Subscriber:Self Name:ADRIANA MARCH Payer ID:Not on file Type:Not on file Address: [place] [id number] Care Teams Chemical Test Engineer Relationship Specialty Start Date End Date Roe Erazo DO PCP - General FAMILY PRACTICE 07/07/16 Moreno Reeder MD [address] [place] [address] OPHTHALMOLOGY 11/11/21
--- OUTSIDE RECORDS SUMMARY | 2024-08-22 12:13 | XMS_ITS | Clinical Summary ---
Author Organization [facility] Javier chambers [facility] Address [address] [address] Care Team Providers Care Securities Clerk Name Role Phone Idania Constantino DO Primary Care Provider +1- [phone] Allergies No known active allergies Medications Eliquis [...] Encounters Date Type Department Care Team Description 08/20/2024 External Device Data STL ABSTRACTION Provider, Abstract 07/23/2024 External Device Data STL ABSTRACTION Provider, Abstract 07/02/2024 External Device Data STL ABSTRACTION Provider, [...] Comments Blood Pressure 135/65 03/25/2024 3:12 PM RN POSTPARTUM Pulse 50 03/25/2024 3:12 PM RN POSTPARTUM Temperature 36.1 C (96.9 F) 03/25/2024 3:12 PM RN POSTPARTUM Respiratory Rate 15 03/25/2024 3:12 PM RN POSTPARTUM Oxygen Saturation 95% 03/25/2024 3:12 PM RN POSTPARTUM Inhaled Oxygen Concentration - - Weight 87.4 kg (192 lb 9.6 oz) 03/25/2024 3:12 P M RN POSTPARTUM Height 167.6 cm (5' 6) 03/25/2024 3:12 PM RN POSTPARTUM Body Mass Index 31.09 03/25/2024 3:12 PM RN POSTPARTUM Plan of Treatment Health Maintenance Due Date Last Done Comments DTAP/TDAP/TD VACCINES (1 - Tdap) 05[birth year]29/1954 OSTEOPOROSIS SCREENING 05/29/2000 RSV VACCINE (60+ or ) (1 - 1-dose 75+ series) 05/29/2010 PNEUMOCOCCAL VACCINE 50+ YEA RS (2 of 2 - PCV) 10/10/2020 10/11/2019 INFLUENZA VACCINE (#1) 2024 10/11/2019, 2019 ZOSTER VACCINE Completed 02/16/2021, 10/20/2020 Insurance [facility] MCR Care Teams Securities Clerk Relationship Specialty Start Date End Date Idania Constantino DO [address] [facility] [address] [place] [address] PCP - General Family Practice 01/23/24
== END 2024-08-22 12:11 | disposition home or self-care (01) ==
PROVIDERS: PCP Nurse Practitioner; Visit Provider Internal Medicine
DX: I65.23 Occlusion and stenosis of bilateral carotid arteries (principal); R09.89 Other specified symptoms and signs involving the circulatory and respiratory systems
CPT/HCPCS: 93880

== ENCOUNTER 2024-09-02 08:58 | Outpatient (CLI) | payer OTHER, SELFPAY ==
--- OUTSIDE RECORDS SUMMARY | 2024-09-02 09:14 | XMS_ITS | Continuity of Care Document ---
Author Organization [facility] Address [address] [place] [address] Phone Care Team Providers Care French Tutor Name Role Phone James Irving Unavailable Unavailable Procedures Procedure Date Post-op Follow-up Visit Post-op Follow-up Visit Complex Extracapsular Cat Rem, Comanaged Office Consultation IOLMaster Advance Directives Directive Yes / No Effective Date File Name No Information Encounters Encounter Description Practice Location Reason(s) For Visit Diagnoses Date Provider Providers Copied on Encounter [facility], [address] [place] [address] [address], [place], [place], [id number], tel:[phone] [facility] No Information 8 Doim[address] Edcruz. [address] [facility] , [address], [place], [place], [facility], . tel:[phone] Referring Provider: Aubrey Stiles OD, [address] [place], [address]. tel:[phone] [facility], [address] [place] [address] [address], [place], [place], [id number], tel:[phone] [facility] No Information [address] [address], [address], [place], [address], . tel:[phone] Referring Provider: Aubrey Stiles OD, [address] [place], [address]. tel:[phone] [facility], [address] [place], [place] [address] [address], [place], [place], [address], tel:[phone] [facility] No Information [address] 8 [facility] Edcruz. [address] [facility] , [address], [place], [place], [facility], . tel:[phone] Referring Provider: Aubrey Stiles OD, [address] [place], [address]. tel:[phone] Office Consultation [facility], [address] [place] [address] [address], [place], [place], [address], tel:[phone] [facility] No Information [address] 8 [facility] James. [facility] , [address], [place], [place], [facility], . tel:[phone] Referring Provider: Aubrey Stiles OD, [address] [place], [address]. tel:[phone] Family History Family Member Type Diagnosis Age [...]
--- OUTSIDE RECORDS SUMMARY | 2024-09-02 09:14 | XMS_ITS | Clinical Summary ---
Author Organization [facility] Javier chambers [facility] Address [address] [place] [address] Care Team Providers Care Health Lead Name Role Phone Idania Constantino DO Primary Care Provider +1- [phone] Allergies No known active allergies Medications Eliquis [...] Encounters Date Type Department Care Team Description 08/21/2024 External Device Data STL ABSTRACTION Provider, Abstract 08/20/2024 External Device Data STL ABSTRACTION Provider, [...] Comments Blood Pressure 135/65 03/25/2024 3:12 PM CAREER DEVELOPMENT FACILITATOR Pulse 50 03/25/2024 3:12 PM CAREER DEVELOPMENT FACILITATOR Temperature 36.1 C (96.9 F) 03/25/2024 3:12 PM CAREER DEVELOPMENT FACILITATOR Respiratory Rate 15 03/25/2024 3:12 PM CAREER DEVELOPMENT FACILITATOR Oxygen Saturation 95% 03/25/2024 3:12 PM CAREER DEVELOPMENT FACILITATOR Inhaled Oxygen Concentration - - Weight 87.4 kg (192 lb 9.6 oz) 03/25/2024 3:12 P M CAREER DEVELOPMENT FACILITATOR Height 167.6 cm (5' 6) 03/25/2024 3:12 PM CAREER DEVELOPMENT FACILITATOR Body Mass Index 31.09 03/25/2024 3:12 PM CAREER DEVELOPMENT FACILITATOR Plan of Treatment Health Maintenance Due Date Last Done Comments DTAP/TDAP/TD VACCINES (1 - Tdap) 05/29/1954 OSTEOPOROSIS SCREENING 05/29/2000 RSV VACCINE (60+ or ) (1 - 1-dose 75+ series) 05/29/2010 PNEUMOCOCCAL VACCINE 50+ YEA RS (2 of 2 - PCV) 10/10/2020 10/11/2019 INFLUENZA VACCINE (#1) 2024 10/11/2019, 2019 ZOSTER VACCINE Completed 02/16/2021, 10/20/2020 Insurance [facility] Address: [place] [address] Care Teams Health Lead Relationship Specialty Start Date End Date Idania Constantino DO [address] [facility] [address] [place] [address] PCP - General Family Practice 01/23/24
--- OUTSIDE RECORDS SUMMARY | 2024-09-02 09:14 | XMS_ITS | Clinical Summary ---
Author Organization [facility] [address] Address [address] [place] [address] Care Team Providers Care Natural Foods Clerk Name Role Phone Idania Constantino DO Primary Care Provider +1- [phone] Allergies Active Allergy Reactions Criticality Noted Date [...] 1 tablet (50 mcg total) by mouth production control coordinating clerk before breakfast Active pantoprazole DR (PROTONIX) 40 [...] Encounters Date Type Department Care Team Description 08/29/2024 Results Follow-Up [facility] [address] [address], [place] [address] Sonia Madrid RN US Carotids Duplex Bilateral 07/30/2024 Telephone [facility] [address] [facility] [address] [place] [address] Keyshawn Ordoñez MD 07/29/2024 8:15 AM CDT Office Visit [facility] [address] [place] [address] Keyshawn Ordoñez MD Atrial fibrillation, unspecified type [...] Procedure Name Priority Date/Time Associated Diagnosis Comments US CAROTIDS DUPLEX BILATERAL Routine 07/30/2024 Bruit of left carotid artery POCT LIPID PANEL Routine 07/29/2024 8:11 AM CDT Lipid screening ELECTROCARDIOGRAM REPORT Routine 07/29/2024 Atrial fibrillation, unspecified type (HCC) from Last 3 Months Results * US Carotids Duplex Bilateral (07/30/2024) Anatomical Region Laterality Modality Vascular Bilateral Ultrasound us Keyshawn Ordoñez MD [facility] US PROCEDURES Final Result * POCT lipid panel (07/29/2024 8:11 AM [...] nal Result * Electrocardiogram Report (07/29/2024) 07/29/2024 Keyshawn Ordoñez MD ECG ORDERABLES Edited Result - Final from Last 3 [place] [address] [facility] Member Subscriber Plan / Payer (Ef fective 2018-Present) Name:Cara Flores Relation to Subscriber:Self Name:Cara Flores Payer ID:[id number] (NAIC) Type:MEDICARE RISK OTHER Address: [place] [id number] Care Teams Natural Foods Clerk Relationship Specialty Start Date End Date Idania Constantino DO [address] [place] [address] [address] PCP - General Family Medicine 07/26/24
--- OUTSIDE RECORDS SUMMARY | 2024-09-02 09:14 | XMS_ITS | Referral Summary ---
Author Organization [facility] [address] [place] [address] [address] [place] [address] Care Team Providers Care Pawn Shop Keeper Name Role Phone Idania Constantino DO Primary Care Provider +1- [phone] Encounters Date Type Department Care Team Description 08/29/2024 Results Follow-Up [facility] Medical [facility] Cardiology [address] [place] [address] [place], [place] [address] [place] [address] Sonia Madrid RN US Carotids Duplex Bilateral 07/30/2024 Telephone [facility] [address] [place] [address] [address] [place] [address] Keyshawn Ordoñez MD 07/29/2024 8:15 AM CDT Office Visit [facility] [address] [place] [address] [address] [place] [address] Keyshawn Ordoñez MD Atrial fibrillation, unspecified [...] 1 tablet (50 mcg total) by mouth assistant case manager before breakfast Active pantoprazole DR (PROTONIX) 40 [...] Vascular Bilateral Ultrasound us Keyshawn Ordoñez MD IMG US PROCEDURES Final Result * POCT lipid [...] - Final from Last 3 Months Insurance [facility] Care Teams Pawn Shop Keeper Relationship Specialty Start Date End Date Idania Constantino DO [address] [place] [address] [address] PCP - General Family Medicine 07/26/24
[2024-09-02 09:26] LABS: Hematocrit 35.8 % (37.0-47.0); Hemoglobin 11.3 g/dL (12.0-15.0); Mean Corpuscular HGB Conc 31.6 g/dl (32-36); Mean Corpuscular Hemoglobin 29.4 pg (26-34); Mean Corpuscular Volume 93.2 fl (80-100); Platelet Count Result 210 k/mm3 (150-375); Red Blood Count 3.84 M/mm3 (4.2-5.4); White Blood Count 4.5 K/mm3 (4.5-10.0)
[2024-09-02 09:50] LABS: Alanine Aminotransferase 20 U/L (6-35); Albumin Level 4.1 g/dL (3.5-5.1); Alkaline Phosphatase 94 U/L (38-126); Anion Gap 6 mmol/L (4-12); Aspartate Amino Transferase 29 U/L (14-36); Bilirubin,Total 0.6 mg/dL (0.2-1.3); Blood Urea Nitrogen 26 mg/dL (7-17); Calcium 9.5 mg/dL (8.4-10.2); Carbon Dioxide 27 mmol/L (22-30); Chloride 107 mmol/L (98-107); Cholesterol 167 mg/dL (0-200); Estimated Glomerular Filt Rate 28; Glucose 87 mg/dL (65-110); HDL Direct 59 mg/dL; Potassium 4.4 mmol/L (3.4-5.0); Sodium 140 mmol/L (137-145); Total Protein 7.0 g/dL (6.3-8.2); Triglycerides 134 mg/dL (<150)
[2024-09-02 10:06] LABS: Free T4 Free Thyroxine 2.06 ng/dL (0.78-2.19)
[2024-09-02 10:21] LABS: Thyroid Stimulating Hormone 0.840 uIU/mL (0.465-4.680)
== END 2024-09-02 08:59 | disposition home or self-care (01) ==
LOC: ANHLAB 09:01
PROVIDERS: PCP Family Medicine; Visit Provider Nurse Practitioner
DX: I48.0 Paroxysmal atrial fibrillation (principal); E03.9 Hypothyroidism, unspecified; E78.5 Hyperlipidemia, unspecified
CPT/HCPCS: 36415; 80053; 80061; 84439; 84443; 85027

== ENCOUNTER 2024-12-02 09:15 | Outpatient (CLI) | payer OTHER, SELFPAY ==
--- OUTSIDE RECORDS SUMMARY | 2007-09-06 05:45 | XMS_ITS | Continuity of Care Document ---
Author Organization [facility] Address [address] [place] [address] Phone Care Team Providers Care Fingerer Name Role Phone James Irving Unavailable Unavailable Procedures Procedure Date Post-op Follow-up Visit Post-op Follow-up Visit Complex Extracapsular Cat Rem, Comanaged Office Consultation IOLMaster Advance Directives Directive Yes / No Effective Date File Name No Information Encounters Encounter Description Practice Location Reason(s) For Visit Diagnoses Date Provider Providers Copied on Encounter [facility], [address] [place] [address] [address], [place], [place], [id number], tel:[phone] [facility] No Information 8 Doim[address] Edcruz. [address] [facility] , [address], [place], [place], [facility], . tel:[phone] Referring Provider: Aubrey Stiles OD, [address] [place], [address]. tel:[phone] [facility], [address] [place] [address] [address], [place], [place], [id number], tel:[phone] [facility] No Information [address] Ed[address] [facility] [address], [address], [place], [address], . tel:[phone] Referring Provider: Aubrey Stiles OD, [address] [place], [address]. tel:[phone] [facility], [address] [place], [place] [address], [place], [place], [id number], tel:[phone] [facility] No Information 2[address] 8 [facility] Ed[address]. [address] [facility] , [address], [place], [facility], . tel:[phone] Referring Provider: Aubrey Stiles OD, [address] [place], [address]. tel:[phone] Office Consultation [facility], [address] [place] [address] [address], [place], [place], [address], tel:[phone] [facility] No Information 200 8 [facility] James. [facility] , [address], [place], [facility], . tel:[phone] Referring Provider: Aubrey Stiles OD, [address] [place], [address]. tel:[phone] Family History Family Member Type Diagnosis Age [...]
--- OUTSIDE RECORDS SUMMARY | 2024-12-02 10:01 | XMS_ITS | Clinical Summary ---
Author Organization [facility] [address] Address [address] [place] [address] Care Team Providers Care Print Shop Manager Name Role Phone Idania Constantino DO Primary Care Provider +1- [phone] Allergies Active Allergy Reactions Criticality Noted Date [...] 1 tablet (50 mcg total) by mouth aircraft armament mechanic before breakfast Active pantoprazole DR (PROTONIX) 40 [...] BY MOUTH EVERY DAY 90 tablet 2 5 Active amLODIPine (NORVASC) 10 mg tablet TAKE 1 TABLET BY MOUTH EVERY DAY 90 tablet 5 Active Active Problems Problem Noted Date Diagnosed Date Hypertension 01/06/2023 Atrial fibrillation 01/06/2023 Anticoagulation management encounter 01/06/2023 Resolved Problems Problem Noted Date Diagnosed Date Resolved Date 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 [place] [address] [facility] Care Teams Print Shop Manager Relationship Specialty Start Date End Date Idania Constantino DO PCP - General Family Medicine 07/26/24
--- OUTSIDE RECORDS SUMMARY | 2024-12-02 10:01 | XMS_ITS | Encounter Summary ---
Author Organization [facility] Address [facility] [place] [address] Care Team Providers Care Group Fitness Department Head Name Role Phone BremenRoe burrows Primary Care Provider +1- [phone] Moreno Reeder MD Unavailable Encounter Details Date Type Department Care Team (Late st Contact Info) Description 07/20/2016 Abstract [facility] AT [address] [address] Charanjit Mendoza MA Social History Tobacco Use [...] on filedocumented in this encounter Care Teams Group Fitness Department Head Relationship Specialty Start Date End Date Roe Erazo DO PCP - General FAMILY PRACTICE 07/07/16 Moreno Reeder MD [address] [place] [address] OPHTHALMOLOGY 11/11/21 documented as of this encounter
--- OUTSIDE RECORDS SUMMARY | 2024-12-02 10:01 | XMS_ITS | Clinical Summary ---
Author Organization [facility] Javier chambers [facility] Address [address] [place] [address] Care Team Providers Care Tin Pourer Name Role Phone Idania Constantino DO Primary Care Provider +1- [phone] Allergies No known active allergies Medications Eliquis [...] Encounters Date Type Department Care Team Description 11/26/2024 External Device Data STL ABSTRACTION Provider, Abstract 10/08/2024 External Device Data STL ABSTRACTION Provider, Abstract 09/25/2024 External Device Data STL ABSTRACTION Provider, Abstract 09/10/2024 External Device Data STL ABSTRACTION Provider, Abstract [...] Comments Blood Pressure 135/65 03/25/2024 3:12 PM DROP CLIPPER Pulse 50 03/25/2024 3:12 PM DROP CLIPPER Temperature 36.1 C (96.9 F) 03/25/2024 3:12 PM DROP CLIPPER Respiratory Rate 15 03/25/2024 3:12 PM DROP CLIPPER Oxygen Saturation 95% 03/25/2024 3:12 PM DROP CLIPPER Inhaled Oxygen Concentration - - Weight 87.4 kg (192 lb 9.6 oz) 03/25/2024 3:12 P M DROP CLIPPER Height 167.6 cm (5' 6) 03/25/2024 3:12 PM DROP CLIPPER Body Mass Index 31.09 03/25/2024 3:12 PM DROP CLIPPER Plan of Treatment Health Maintenance Due Date Last Done Comments DTAP/TDAP/TD VACCINES (1 - Tdap) 05[birth year]29/1954 OSTEOPOROSIS SCREENING 05/29/2000 RSV VACCINE (60+ or ) (1 - 1-dose 75+ series) 05/29/2010 PNEUMOCOCCAL VACCINE 50+ YEA RS (2 of 2 - PCV) 10/10/2020 10/11/2019 INFLUENZA VACCINE (#1) 2024 10/11/2019, 2019 ZOSTER VACCINE Completed 02/16/2021, 10/20/2020 Insurance [facility] Care Teams Tin Pourer Relationship Specialty Start Date End Date Idania Constantino DO [address] [facility] [address] [place] [address] PCP - General Family Practice 01/23/24
--- OUTSIDE RECORDS SUMMARY | 2024-12-02 10:01 | XMS_ITS | Clinical Summary ---
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 mg/g 08/18/2017 Hypertensive CKD (chronic kidney disease) 2017 Vasomotor rhinitis 2017 Knee osteoarthritis 06/28/2016 Hearing loss 06/23/2015 Pseudophakia 01/28/2014 Exudative senile macular degeneration of retina 06/10/2013 Glaucoma 01/28/2013 Hyperlipidemia 08/27/2012 Hypothyroidism 08/27/2012 [...] PCV) 10/10/2020 10/11/2019 ASCVD LDL 10/09/2021 10/09/2020, 090 05/2019, 12/28/2018, Additional history exists Annual Medicare Wellness Visit 10/10/2021 10/09/2020 COVID-19 Vaccine ( - 2024- season) 2024 04/23/2020, 04/02/2020 Influenza Adult (#1) 2024 11/02/2020, 10/11/2019, 03/19/2019, Additional history exists Zoster Vaccines Completed 02/16/2021, 10/20/2020 Hepatitis A Vaccines Aged Out No long er eligible based on patient's age to complete this topic Meningococcal B Vaccine Aged Out No l [...] LDL-C. Asif SS et al. TY. 2013;310(19): 8726-8246 (http://education.[employer]/faq/HXM688) CHOL/HDL RATIO 4.2 <5.0 (calc) [facility] [address] [place] [address] from Last 3 Months or Most Recently Relevant to Health Maintenance Insurance ESSENCE ESSENCE ESSENCE Care Teams Specifications Checker Relationship Specialty Start Date End Date DavisRoe DO PCP - General FAMILY PRACTICE 07/07/16 Moreno Reeder MD [address] [place] [address] OPHTHALMOLOGY 11/11/21
--- OUTSIDE RECORDS SUMMARY | 2024-12-02 10:01 | XMS_ITS | Encounter Summary ---
Author Organization [facility] Address [address] [place] [address] Care Team Providers Care Metal Bench Patternmaker Name Role Phone Roe Erazo DO Primary Care Provider +1- [phone] Moreno Reeder MD Unavailable Encounter Details Date Type Department Care Team (Latest Contact Info) Description 12/12/[address] [facility] , Brenda Mayers MD Social [...] on filedocumented in this encounter Care Teams Metal Bench Patternmaker Relationship Specialty Start Date End Date Roe Erazo DO PCP - General FAMILY PRACTICE 07/07/16 Moreno Reeder MD [address] [place] [address] OPHTHALMOLOGY 11/11/21 documented as of this encounter
[2024-12-02 10:22] LABS: Albumin Level 4.3 g/dL (3.5-5.1); Anion Gap 5 mmol/L (4-12); Blood Urea Nitrogen 27 mg/dL (7-17); Calcium 9.3 mg/dL (8.4-10.2); Carbon Dioxide 29 mmol/L (22-30); Chloride 104 mmol/L (98-107); Estimated Glomerular Filt Rate 31; Glucose 93 mg/dL (65-110); Potassium 4.6 mmol/L (3.4-5.0); Sodium 138 mmol/L (137-145)
[2024-12-02 10:31] LABS: Total Protein Urine Random 41 mg/dL; Ur Ttl Prot Creatinine Ratio 0.18 mg/mg (0-0.20)
[2024-12-02 10:34] LABS: Parathyroid Intact 63.6 pg/mL (14.5-75.2)
== END 2024-12-02 09:16 | disposition home or self-care (01) ==
LOC: ANHLAB 09:17
PROVIDERS: PCP Family Medicine; Visit Provider Internal Medicine Nephrology
DX: I12.9 Hypertensive chronic kidney disease with stage 1 through stage 4 chronic kidney disease, or unspecified chronic kidney disease (principal); N18.32 Chronic kidney disease, stage 3b; N28.1 Cyst of kidney, acquired; E55.9 Vitamin D deficiency, unspecified
CPT/HCPCS: 36415; 80069; 82306; 82570; 83970; 84156

== ENCOUNTER 2024-12-15 20:11 | Inpatient (IN) | payer OTHER, SELFPAY ==
--- OUTSIDE RECORDS SUMMARY | 2007-09-06 04:45 | XMS_ITS | Continuity of Care Document ---
Author Organization [facility] Address [address] [place] [address] Phone Care Team Providers Care Acute Care Nurse Name Role Phone James Irving Unavailable Unavailable Procedures Procedure Date Post-op Follow-up Visit Post-op Follow-up Visit Complex Extracapsular Cat Rem, Comanaged Office Consultation IOLMaster Advance Directives Directive Yes / No Effective Date File Name No Information Encounters Encounter Description Practice Location Reason(s) For Visit Diagnoses Date Provider Providers Copied on Encounter [facility], [address] [place] [address] [address], [place], [place], [id number], tel:[phone] [facility] No Information 8 Doimike Edcruz. [address] [facility] , [address], [place], [place], [facility], . tel:[phone] Referring Provider: Aubrey Stiles OD, [address] [place], [address]. tel:[phone] [facility], [address] [place] [address] [address], [place], [place], [id number], tel:[phone] [facility] No Information [address] Do[address] Edcruz. [address], [address], [place], [address], . tel:[phone] Referring Provider: Aubrey Stiles OD, [address] [place], [address]. tel:[phone] [facility], [address] [place], [place] [address], [place], [place], [id number], tel:[phone] [facility] No Information 2200 8 [facility] Edcruz. [address] [facility] , [address], [place], [place], [facility], . tel:[phone] Referring Provider: Aubrey Stiles OD, [address] [place], [address]. tel:[phone] Office Consultation [facility], [address] [place] [address] [address], [place], [place], [id number], tel:[phone] [facility] No Information 200 8 [facility] James. [facility] , [address], [place], [place], [facility], . tel:[phone] Referring Provider: Aubrey Stiles OD, [address] [place], [address]. tel:[phone] Family History Family Member Type Diagnosis Age At Onset No Information Payers Payer name Insurance type Covered libertarian ID Authoriza tion(s) No Information Social History Type Description Quantity Date Captured Comments Sex Female Smoking Status No Information Chief Complaint And Reason For Visit No Information Reason For Referral Reason For Referral No Information History Of Present Illness Encounter Date Complaint History Of Prese nt Illness No Information Functional Status Date Functional Assessmen t No Information Instructions Date Instruction Additional Infor mation No Information Assessments Type Assessment Date No Information Patient Care Teams Name Effective Dates (start - stop) Status Members No Information
[2024-12-15] VITALS (15 sets, daily range): BP systolic 135–179; BP diastolic 54–78; PULSE 55–62; RESP 11–20; TEMP 36.5; O2SAT 88–99
--- NOTE | ~2024-12-15 | XR_ITS ---
EXAMINATION: X-ray ERCP INDICATION: Pain. The gallbladder surgically absent. COMPARISON: CT from yesterday. ERCP from [address] from February,. TECHNIQUE: 8 fluoroscopic images of the right upper quadrant were obtained during ERCP. Fluoroscopy exposure time was 113.9 seconds. Air Kerma 30.74 mGy. DAP 0.08961 mGym2. FINDINGS/IMPRESSION: No radiologist was present or involved at the time of the procedure. Static images were submitted for interpretation. The images demonstrate dilatation of the intra and extrahepatic biliary ducts, known and chronic. At least one image demonstrates a filling defect distally, which could represent a gallstone. It could also be an air bubble. This is not seen on the other images. Fluoroscopic documentation of ERCP. Please refer to the operative note for complete procedural details. Reviewed, dictated and finalized at location A. ER
--- NOTE | ~2024-12-15 | CT_ITS ---
EXAMINATION: CT abdomen pelvis w con DATE: 12/15/2024 22:00 INDICATION: Epigastric abdominal pain. Vomiting. TECHNIQUE: Computed tomography (CT) of the abdomen and pelvis was performed with 100 mL Omnipaque 350 intravenous contrast. Automated exposure control and iterative reconstruction technique were employed. The dose-length product was 649.69 mGy-cm. COMPARISON: CT abdomen and pelvis 03/01/24 FINDINGS: The visualized portions of the lung bases demonstrate mild atelectasis and mild chronic lung disease. No pleural effusion. Cardiomegaly is noted. There are coronary artery calcifications. There are calcifications of the aortic valve. No pericardial effusion. There is a small sliding hiatal hernia. There is severe intrahepatic biliary duct dilatation. The common duct is dilated to 19 mm. There are changes of cholecystectomy. There are stones in the common duct. There is a 10 mm cyst in the spleen. The pancreas and adrenal glands are normal. There are cysts in the kidneys measuring up to 9 mm on the right. There is diverticulosis of the colon without evidence of diverticulitis. The appendix is normal. There are no pathologically enlarged lymph nodes. There is no free intraperitoneal fluid. There is moderate thoracic and lumbar spondylosis. IMPRESSION: 1. Choledocholithiasis. Chronic severe intrahepatic and extrahepatic biliary ductal dilatation. Reviewed, dictated and finalized at location E. ING SALES LEADER IMPRESSION: 1. Choledocholithiasis. Chronic severe intrahepatic and extrahepatic biliary du ctal dilatation.
--- OUTSIDE RECORDS SUMMARY | 2024-12-15 20:13 | XMS_ITS | Encounter Summary ---
Author Organization [facility] Address [facility] [place] [address] Care Team Providers Care Mosaic Worker Name Role Phone [place] Primary Care Provider +1- [phone] Moreno Reeder MD Unavailable Encounter Details Date Type Department Care Team (Late st Contact Info) Description 07/20/2016 Abstract [facility] AT [address] [address] Charanjit Mendoza MA Social History Tobacco Use [...] on filedocumented in this encounter Care Teams Mosaic Worker Relationship Specialty Start Date End Date Roe Erazo DO PCP - General FAMILY PRACTICE 07/07/16 Moreno Reeder MD [address] [place] [address] OPHTHALMOLOGY 11/11/21 documented as of this encounter
--- OUTSIDE RECORDS SUMMARY | 2024-12-15 20:13 | XMS_ITS | Encounter Summary ---
Author Organization [facility] Address [address] [place] [id number] Care Team Providers Care Voucher Clerk Name Role Phone Roe Erazo DO Primary Care Provider +1- [phone] Moreno Reeder MD Unavailable Encounter Details Date Type Department Care Team (Latest Contact Info) Description 12/12/2017 Abstract [facility] , Brenda Mayers MD [...] on filedocumented in this encounter Care Teams Voucher Clerk Relationship Specialty Start Date End Date Roe Erazo DO PCP - General FAMILY PRACTICE 07/07/16 Moreno Reeder MD [address] [place] [address] OPHTHALMOLOGY 11/11/21 documented as of this encounter
--- OUTSIDE RECORDS SUMMARY | 2024-12-15 20:13 | XMS_ITS | Clinical Summary ---
Author Organization [facility] Address [address] [place] [address] Care Team Providers Care Special Machine Operator Name Role Phone Roe Erazo DO Primary [...] LDL-C. Asif SS et al. TY. 2013;310(19): 7404-9715 (http://education.[employer].uSpeak/faq/ZDV694) CHOL/HDL RATIO 4.2 <5.0 (calc) [facility] [...] t [facility] [address] [place] [address] from Last 3 Months or Most Recently Relevant to Health Maintenance Insurance ESSENCE ESSENCE ESSENCE Care Teams Special Machine Operator Relationship Specialty Start Date End Date JolietRoe DO PCP - General FAMILY PRACTICE 07/07/16 Moreno Reeder MD [address] [place] [address] OPHTHALMOLOGY 11/11/21
--- OUTSIDE RECORDS SUMMARY | 2024-12-15 20:13 | XMS_ITS | Clinical Summary ---
Author Organization [facility] Address [address] [place] [address] Care Team Providers Care Medical Instrument Technician Name Role Phone Idania Constantino DO Primary Care Provider +1- [phone] Allergies No known active allergies Medications Eliquis [...] Comments Blood Pressure 135/65 03/25/2024 3:12 PM ANTENNA RIGGER Pulse 50 03/25/2024 3:12 PM ANTENNA RIGGER Temperature 36.1 C (96.9 F) 03/25/2024 3:12 PM ANTENNA RIGGER Respiratory Rate 15 03/25/2024 3:12 PM ANTENNA RIGGER Oxygen Saturation 95% 03/25/2024 3:12 PM ANTENNA RIGGER Inhaled Oxygen Concentration - - Weight 87.4 kg (192 lb 9.6 oz) 03/25/2024 3:12 P M ANTENNA RIGGER Height 167.6 cm (5' 6) 03/25/2024 3:12 PM ANTENNA RIGGER Body Mass Index 31.09 03/25/2024 3:12 PM ANTENNA RIGGER Plan of Treatment Health Maintenance Due Date Last Done Comments DTAP/TDAP/TD VACCINES (1 - Tdap) 05[birth year]29/1954 OSTEOPOROSIS SCREENING 05/29/2000 RSV VACCINE (60+ or ) (1 - 1-dose 75+ series) 05/29/2010 PNEUMOCOCCAL VACCINE 50+ YEA RS (2 of 2 - PCV) 10/10/2020 10/11/2019 INFLUENZA VACCINE (#1) 2024 10/11/2019, 2019 ZOSTER VACCINE Completed 02/16/2021, 10/20/2020 Insurance [facility] MCR Care Teams Medical Instrument Technician Relationship Specialty Start Date End Date Idania Constantino DO [facility] [facility] [address] [place] [address] PCP - General Family Practice 01/23/24
[2024-12-15 20:29] LABS: Hematocrit 40.5 % (37.0-47.0); Hemoglobin 12.8 g/dL (12.0-15.0); Immature Granulocyte Percent A 0.4 % (0-0.5); Lymphocytes Absolute Auto 1.09 K/mm3 (0.9-3.2); Mean Corpuscular HGB Conc 31.6 g/dl (32-36); Mean Corpuscular Hemoglobin 29.2 pg (26-34); Mean Corpuscular Volume 92.5 fl (80-100); Nucleated Red Blood Cells Absolute Auto 0.000 K/mm3 (0.0-0.012); Nucleated Red Blood Cells Perc 0.0 % (0.0-0.2); Platelet Count Result 212 k/mm3 (150-375); Red Blood Count 4.38 M/mm3 (4.2-5.4); White Blood Count 8.1 K/mm3 (4.5-10.0)
[2024-12-15 20:41] LABS: Alanine Aminotransferase 128 U/L (6-35); Albumin Level 4.6 g/dL (3.5-5.1); Alkaline Phosphatase 184 U/L (38-126); Anion Gap 10 mmol/L (4-12); Aspartate Amino Transferase 228 U/L (14-36); Bilirubin,Total 1.5 mg/dL (0.2-1.3); Blood Urea Nitrogen 28 mg/dL (7-17); Calcium 9.4 mg/dL (8.4-10.2); Carbon Dioxide 25 mmol/L (22-30); Chloride 102 mmol/L (98-107); Estimated CRCL calculation 29 ml/min; Estimated Glomerular Filt Rate 37; Glucose 176 mg/dL (65-110); Lipase 171 U/L (23-300); Potassium 4.3 mmol/L (3.4-5.0); Sodium 137 mmol/L (137-145); Total Protein 7.7 g/dL (6.3-8.2)
--- NOTE | 2024-12-15 20:42 | ECG_ITS ---
Test Date: 2024-12-15 20:49:50 Measurements Intervals [place] Rate: 55 P: 60 AL: 156 QRS: -37 QRSD: 182 T: 114 QT: 508 QTc: 490 Interpretive Statements SINUS BRADYCARDIA LEFT AXIS DEVIATION [QRS AXIS < -30] LEFT BUNDLE BRANCH BLOCK [120+ ms QRS DURATION, 80+ ms Q/S IN V1/V2, 85+ ms R IN I/aVL/V5/V6] Electronically Signed On 12-16-2024 18:24:38 MANUFACTURING EXECUTIVE by Frankie Lam M.D.
--- NOTE | 2024-12-15 20:44 | ED.ABDPAIN ---
HPI - Abdominal Pain General Chief Complaint: Abdominal Pain <Keysha Epstein PA-C - Last Filed: 12/15/24 23:46> Stated Complaint: abd pain <DAIANA Carmona Last Filed: 12/15/24 23:46> Time Seen by Provider: 12/15/24 20:16 <Keysha Epstein PA-C - Last Filed: 12/15/24 23:46> Source: patient <DAIANA Carmona Last Filed: 12/15/24 23:46> Mode of arrival: ambulatory <DAIANA Carmona Last Filed: 12/15/24 23:46> Limitations: no limitations <DAIANA Carmona Last Filed: 12/15/24 23:46> History of Present Illness HPI narrative: This is a 89 year old female that presents to the ER for epigastric abdominal pain. Ongoing since earlier this morning. Reports associated nausea and vomiting. Denies fevers. <Keysha Epstein PA-C - Last Filed: 12/15/24 23:46> Related Data Home Medications: Home Medications ?Medication ?Instructions ?Recorded ?Confirmed ?Last Taken ?Type bimatoprost 0.01 % eye drops 1 drp ophthalmic (eye) HS 07/07/19 12/16/24 10/26/21 History (Lumigan) timolol maleate 0.5 % eye drops 1 drp ophthalmic (eye) DAILY 07/07/19 12/16/24 10/27/21 History magnesium 250 mg tablet 250 mg PO DAILY 10/27/21 12/16/24 08/19/22 History calcium 600 mg (as 1 tablet PO DAILY 08/19/22 12/16/24 08/19/22 History carbonate)-vitamin D3 10 mcg (400 unit) tablet (Calcium 600 + D(3)) vitamin B complex (B 1 tablet PO .QOD 08/19/22 12/16/24 08/19/22 History Complex-Vitamin B12 tablet) qehszshv-tbs- 250 mg-dha 90 1 cap PO QAM 05/03/23 12/16/24 Unknown History mg-epa 160 ic-khjr-xlyk-zeax capsule (Ocuvite Adult 50 Plus) amlodipine 10 mg tablet 10 mg PO DAILY 09/04/23 12/16/24 Unknown History <Keysha Epstein PA-C - Last Filed: 12/15/24 23:46> Allergies/Adverse Reactions: Allergies Allergy/AdvReac Type Severity Reaction Status Date / Time No Known Allergies Allergy Verified 12/16/24 00:41 <Keysha Epstein PA-C - Last Filed: 12/15/24 23:46> Review of Systems Review of Systems: All systems reviewed & are unremarkable except as noted in HPI and below <Keysha Epstein PA-C - Last Filed: 12/15/24 23:46> [facility] Past Medical History Medical History: Medical History (Updated 12/16/24 @ 00:13 by Mercy Wade DO) GERD (gastroesophageal reflux disease) Hypothyroidism Microalbuminuria Stress incontinence Paroxysmal A-fib Stage 3b chronic kidney disease Non-ST elevation [place] (NSTEMI) Tarsal tunnel syndrome With history of release Sphincter of Oddi dysfunction Gastric ulcer Hyperlipidemia Osteoarthritis Pancreatitis Shingles Hypertension Hard of hearing Glaucoma <Keysha Epstein PA-C - Last Filed: 12/15/24 23:46> Surgical History Surgical History: Surgical History (Updated 12/15/24 @ 23:52 by Mercy Wade DO) History of tonsillectomy and adenoidectomy History of removal of pigmented skin lesion History of cholecystectomy (~1985) H/O hysterectomy for benign disease (~1984) History of cardiac catheterization History of tonsillectomy History of ERCP (06/2019) With stone extraction with repeat ERCP September 2020 demonstrating no stones but had recurrent ampullary stenosis requiring sphincterotomy History of cataract extraction History of colonoscopy with polypectomy History of bilateral knee replacement Right knee 2017 left knee 2018 History of arthroscopy of left knee <DAIANA Carmona Last Filed: 12/15/24 23:46> Family History Family History: Family History Sibling Dementia Diabetes mellitus Heart failure Malignant neoplasm of prostate Acute myocardial infarction Father Pancreatic cancer Mother Heart failure Congestive heart failure Mother Congestive heart failure Sibling Congestive heart failure Father Pancreatic cancer <Keysha Epstein PA-C - Last Filed: 12/15/24 23:46> Social History Social History: Social History (Updated 12/15/24 @ 23:53 by Mercy Wade DO) Social History: Ms. Flores lives alone at home. She is . she has 6 adult children. She is retired from [employer]. Lifelong nonsmoker. She does not use any alcohol marijuana or illicit drugs. 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 power of litigation attorney associate: Gisele Tejeda Smoking status: Never smoker Second hand tobacco smoke exposure: No Alcohol intake: never Substance use: never Substance use type: does not use Do You Feel Safe in your Home?: Yes Lack of Transportation: No Lack of Food: Never True Current Housing: I Have Housing Concerned About Future Housing: No Difficulty Paying Gas/Electric Bills: No Difficulty Paying for Meds: No Currently Unemployed: No Education: High School Diploma/GED Difficulty w/ Childcare or Family Care: No Living arrangements: alone Additional living arrangements comments: The patient lives in her own home in [place]. x2. Raised 6 children. Occupation/Education: retired Additional occupation/education comments: Retired. Gender identity (if verbalized by the patient): Female Spiritual care concerns: No <Keysha Epstein PA-C - Last Filed: 12/15/24 23:46> Exam Narrative: GENERAL: Elderly, well-nourished, and in no acute distress. HEAD: Normocephalic, atraumatic. EYES: EOMI. ENT: Nares clear, no rhinorrhea or epistaxis. Mucous membranes moist. CHEST: Clear to auscultation. No respiratory distress. No wheezes rales or rhonchi HEART: Regular rate and rhythm. No murmur heard. Normal peripheral pulses. ABDOMEN: Soft, nondistended, normal active bowel sounds. Tender to palpation in the epigastrium, without guarding EXTREMITIES: Normal range of motion. No edema. SKIN: Warm, dry, no rash. NEURO: No focal deficits. Alert and oriented x3. 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 I performed all aspects of the Medical Decision Making as documented. <Stefan Merrill DO - Last Filed: 12/16/24 02:08> Consultations Consultation #1: Spoke with GI who will consult <Keysha Epstein PA-C - Last Filed: 12/15/24 23:46> Date: 12/15/24 <Keysha Epstein PA-C - Last Filed: 12/15/24 23:46> Vital Signs Vital signs: Vital Signs Temperature 97.7 F 12/15/24 20:17 Pulse Rate 62 12/15/24 20:17 Respiratory Rate 20 12/15/24 20:17 Blood Pressure 179/78 H 12/15/24 20:17 Pulse Oximetry 99 12/15/24 20:17 Temperature 98.3 F 12/16/24 00:35 Pulse Rate 63 12/16/24 00:54 Respiratory Rate 16 12/16/24 00:54 Blood Pressure 143/50 H 12/16/24 00:35 Pulse Oximetry 94 12/16/24 00:54 Oxygen Delivery Room Air 12/16/24 00:54 Oxygen Flow Rate 2 12/15/24 22:17 <Keysha Epstein PA-C - Last Filed: 12/15/24 23:46> Vital Signs Temperature 97.7 F 12/15/24 20:17 Pulse Rate 62 12/15/24 20:17 Respiratory Rate 20 12/15/24 20:17 Blood Pressure 179/78 H 12/15/24 20:17 Pulse Oximetry 99 12/15/24 20:17 Temperature 98.3 F 12/16/24 00:35 Pulse Rate 63 12/16/24 00:54 Respiratory Rate 16 12/16/24 00:54 Blood Pressure 143/50 H 12/16/24 00:35 Pulse Oximetry 94 12/16/24 00:54 Oxygen Delivery Room Air 12/16/24 00:54 Oxygen Flow Rate 2 12/15/24 22:17 <Stefan Merrill DO - Last Filed: 12/16/24 02:08> MDM - Abdominal Pain MDM Narrative Medical decision making narrative: Patient presents the emergency department for epigastric abdominal pain, nausea and vomiting. She is afebrile and nontoxic appearing. Cbc without leukocytosis. Metabolic panel with kidney function that appears around baseline. Lipase is not elevated. Total bilirubin of 1.5, transaminitis noted. Urine with evidence of infection. This was sent for culture. Patient started on IV antibiotics. CT abdomen and pelvis showing choledocholithiasis. Patient will be admitted to the hospital service for further management <Keysha Epstein PA-C - Last Filed: 12/15/24 23:46> Patient presents the emergency department for epigastric abdominal pain, nausea and vomiting. She is afebrile and nontoxic appearing. Cbc without leukocytosis. Metabolic panel with kidney function that appears around baseline. Lipase is not elevated. Total bilirubin of 1.5, transaminitis noted. Urine with evidence of infection. This was sent for culture. Patient started on IV antibiotics. CT abdomen and pelvis showing choledocholithiasis. Patient will be admitted to the hospital service for further management Dr. Oakley, GI, was consulted and will see the patient as a consult. This visit was performed by both a physician and an Advanced Practice Provider. I performed all aspects of the Medical Decision Making as documented. <Stefan Merrill DO - Last Filed: 12/16/24 02:08> Differential Diagnosis Differential diagnosis: Likely diverticulitis, pancreatitis and other (Choledocholithiasis) <Keysha Epstein PA-C - Last Filed: 12/15/24 23:46> Lab Data Attestation: I reviewed the patient's lab results. <Keysha Epstein PA-C - Last Filed: 12/15/24 23:46> Result diagrams: 12/15/24 20:22 12/15/24 20:22 <Keysha Epstein PA-C - Last Filed: 12/15/24 23:46> Labs: Lab Results 12/15/24 12/15/24 Range/Units 20:22 21:20 WBC 8.1 (4.5-10.0) K/mm3 RBC 4.38 (4.2-5.4) M/mm3 Hgb 12.8 (12.0-15.0) g/dL Hct 40.5 (37.0-47.0) % MCV 92.5 (80-100) fl MCH 29.2 (26-34) pg MCHC 31.6 L (32-36) g/dl RDW 12.7 (11.5-14.5) % Plt Count 212 (150-375) k/mm3 MPV 10.0 (7.4-10.4) fl Immature Gran % (Auto) 0.4 (0-0.5) % Neut % (Auto) 81.9 H (45.5-73.1) % Lymph % (Auto) 13.5 L (18.3-44.2) % [place] % (Auto) 3.6 (2.6-8.5) % Eos % (Auto) 0.5 (0-4.4) % Baso % (Auto) 0.1 L (0.2-1.2) % Lymph # (Auto) 1.09 (0.9-3.2) K/mm3 [place] # (Auto) 0.3 (0.1-0.6) K/mm3 Eos # (Auto) 0.0 (0-0.3) K/mm3 Baso # (Auto) 0.0 (0.0-0.1) K/mm3 Abs Immat Gran (auto) 0.03 (0.00-0.031) K/mm3 Absolute Neuts (auto) 6.6 (1.3-6.7) K/mm3 Absolute Nucleated RBC 0.000 (0.0-0.012) K/mm3 Nucleated RBC % 0.0 (0.0-0.2) % Sodium 137 (137-145) mmol/L Potassium 4.3 (3.4-5.0) mmol/L Chloride 102 (98-107) mmol/L Carbon Dioxide 25 (22-30) mmol/L Anion Gap 10 (4-12) mmol/L BUN 28 H (7-17) mg/dL Creatinine 1.34 H (0.7-1.0) mg/dL Estim Creat Clear Calc 29 ml/min Estimated GFR 37 L (59 - ) Glucose 176 H (65-110) mg/dL Calcium 9.4 (8.4-10.2) mg/dL Total Bilirubin 1.5 H (0.2-1.3) mg/dL AST 228 H (14-36) U/L ALT 128 H (6-35) U/L Alkaline Phosphatase 184 H (38-126) U/L Troponin I < 0.012 (0.000-0.034) ng/mL Total Protein 7.7 (6.3-8.2) g/dL Albumin 4.6 (3.5-5.1) g/dL Lipase 171 (23-300) U/L Urine Color Dark yellow (Yellow) Urine Appearance Clear (Clear) Urine pH 6.0 (5.0-9.0) Ur Specific [place] 1.020 (1.001-1.035) Urine Protein 1+ H (Negative) mg/dL Urine Glucose (UA) Trace H (Negative) mg/dL Urine Ketones Negative (Negative) mg/dL Ur Blood (Man) Negative (Negative) Urine Nitrate Positive H (Negative) Urine Bilirubin Negative (Negative) Urine Urobilinogen 1.0 (<2.0) mg/dL Leukocyte Esterase Rfl 2+ H (Negative) KRISTINE/UL Urine RBC 0-2 (0-2) /hpf Urine WBC 21-50 H (0-3) /hpf Ur Squamous Epith Cells Occasional (Few) /hpf Urine Bacteria 4+ H /hpf Urine Casts 0-2 <Keysha Epstein PA-C - Last Filed: 12/15/24 23:46> Lab Results 12/15/24 12/15/24 Range/Units 20:22 21:20 WBC 8.1 (4.5-10.0) K/mm3 RBC 4.38 (4.2-5.4) M/mm3 Hgb 12.8 (12.0-15.0) g/dL Hct 40.5 (37.0-47.0) % MCV 92.5 (80-100) fl MCH 29.2 (26-34) pg MCHC 31.6 L (32-36) g/dl RDW 12.7 (11.5-14.5) % Plt Count 212 (150-375) k/mm3 MPV 10.0 (7.4-10.4) fl Immature Gran % (Auto) 0.4 (0-0.5) % Neut % (Auto) 81.9 H (45.5-73.1) % Lymph % (Auto) 13.5 L (18.3-44.2) % [place] % (Auto) 3.6 (2.6-8.5) % Eos % (Auto) 0.5 (0-4.4) % Baso % (Auto) 0.1 L (0.2-1.2) % Lymph # (Auto) 1.09 (0.9-3.2) K/mm3 [place] # (Auto) 0.3 (0.1-0.6) K/mm3 Eos # (Auto) 0.0 (0-0.3) K/mm3 Baso # (Auto) 0.0 (0.0-0.1) K/mm3 Abs Immat Gran (auto) 0.03 (0.00-0.031) K/mm3 Absolute Neuts (auto) 6.6 (1.3-6.7) K/mm3 Absolute Nucleated RBC 0.000 (0.0-0.012) K/mm3 Nucleated RBC % 0.0 (0.0-0.2) % Sodium 137 (137-145) mmol/L Potassium 4.3 (3.4-5.0) mmol/L Chloride 102 (98-107) mmol/L Carbon Dioxide 25 (22-30) mmol/L Anion Gap 10 (4-12) mmol/L BUN 28 H (7-17) mg/dL Creatinine 1.34 H (0.7-1.0) mg/dL Estim Creat Clear Calc 29 ml/min Estimated GFR 37 L (59 - ) Glucose 176 H (65-110) mg/dL Calcium 9.4 (8.4-10.2) mg/dL Total Bilirubin 1.5 H (0.2-1.3) mg/dL AST 228 H (14-36) U/L ALT 128 H (6-35) U/L Alkaline Phosphatase 184 H (38-126) U/L Troponin I < 0.012 (0.000-0.034) ng/mL Total Protein 7.7 (6.3-8.2) g/dL Albumin 4.6 (3.5-5.1) g/dL Lipase 171 (23-300) U/L Urine Color Dark yellow (Yellow) Urine Appearance Clear (Clear) Urine pH 6.0 (5.0-9.0) Ur Specific [place] 1.020 (1.001-1.035) Urine Protein 1+ H (Negative) mg/dL Urine Glucose (UA) Trace H (Negative) mg/dL Urine Ketones Negative (Negative) mg/dL Ur Blood (Man) Negative (Negative) Urine Nitrate Positive H (Negative) Urine Bilirubin Negative (Negative) Urine Urobilinogen 1.0 (<2.0) mg/dL Leukocyte Esterase Rfl 2+ H (Negative) KRISTINE/UL Urine RBC 0-2 (0-2) /hpf Urine WBC 21-50 H (0-3) /hpf Ur Squamous Epith Cells Occasional (Few) /hpf Urine Bacteria 4+ H /hpf Urine Casts 0-2 <Stefan Merrill DO - Last Filed: 12/16/24 02:08> Imaging Data Radiologist's impression: CT abdomen and pelvis: Choledocholithiasis with severe biliary dilatation, common bile duct 2 cm. Possible cystitis <Keysha Epstein PA-C - Last Filed: 12/15/24 23:46> ECG Data EKG #1: ECG completion date: 12/15/24 <Keysha Epstein PA-C - Last Filed: 12/15/24 23:46> normal rate, sinus rhythm, LBBB, normal QT and no acute changes (compared to EKG 02/2024) <Keysha Epstein PA-C - Last Filed: 12/15/24 23:46> Critical Care Time Critical Care Time Critical Care Time: No <Keysha Epstein PA-C - Last Filed: 12/15/24 23:46> Discharge Plan Discharge Clinical Impression: Choledocholithiasis <Keysha Epstein PA-C - Last Filed: 12/15/24 23:46> Patient Disposition: Still a Patient <DAIANA Carmona Last Filed: 12/15/24 23:46> Condition: Stable <DAIANA Carmona Last Filed: 12/15/24 23:46>
--- NOTE | 2024-12-15 20:52 | PC.NURSE ---
Pt advised to press her call light when she can provide the urine sample and we will assist her to the bathroom
[2024-12-15 21:09] LABS: Troponin I < 0.012 ng/mL (0.000-0.034)
--- NOTE | 2024-12-15 21:10 | PC.NURSE ---
Pt was able to provide a urine sample at this time. Pt was able to walk to the bathroom with a steady gait.
[2024-12-15] MEDS: ONDANSETRON INJ 4 MG/2 ML VIAL IV PUSH (21:25)
[2024-12-15] MEDS: MORPHINE SULFATE (*CRX) 4 MG/ML INJ IV PUSH (21:25)
--- NOTE | 2024-12-15 21:25 | PC.NURSE ---
This RN was advised by the family and pt that the last time the pt recieved morphine, she was unarousable. Due to this, only 2 of the 4 mgs were given at this time. Provider notified.
[2024-12-15 21:29] LABS: Add Urine Microscopic? YES; Appearance Urine Clear (Clear); Glucose Urine UA Trace mg/dL (Negative); Leukocyte Esterase Ur 2+ LEU/UL (Negative); Nitrate Urine Positive (Negative); Non Pathogenic Casts 0-2; Specific Grav Ur 1.020 (1.001-1.035)
--- NOTE | 2024-12-15 21:35 | PC.NURSE ---
Pt tolerated first 2 mg of morphine well. Pt still in pain, therefore the other 2 mg were given by this RN
--- NOTE | 2024-12-15 22:18 | PC.NURSE ---
Patient placed on 2L via NC for RA sat of 87% after pain med administration. PA notified.
--- NOTE | 2024-12-15 22:58 | PC.NURSE ---
Report received from ROGELIO Bowen. Assumed care of patient at this time.
--- NOTE | 2024-12-15 23:36 | PM.IMHP ---
H&P: HPI History of Present Illness Date/Time: 12/15/24 23:36 Chief Complaint: Abdominal pain Narrative: 89-year-old female with a past medical history of paroxysmal AFib on Eliquis, essential hypertension, hypothyroidism, GERD and multiple hospitalizations over the last 4 years for sphincter of OD dysfunction and/or choledocholithiasis with associated pancreatitis who presented to the ER with recurrent right upper abdominal pain. The patient reports that she usually has intermittent episodes of abdominal pain every month err to. The pain is always in the epigastric region and is associated with nausea and decreased appetite. She reports that the pain is severe this time and did not get better despite taking Tylenol and a dose of Tylenol. She reports is associated with a sensation of bloating and feeling as if she needs to belch. She did try to drink a soda to see if burping would relieve her symptoms but her symptoms just seem to worsen. She reports she has been having normal bowel movements without hematochezia or melena. She has not had any a colic stools. She has been having some nausea with emesis of clear liquid. She reports that her symptoms started again on the morning of the . She has not had any associated fevers or chills. But she did have an episode of diaphoresis when the pain became severe. She reports chronic urinary frequency but denies any dysuria or hematuria. She has noticed that her urine has been darker today but presume that that was due to not drinking as much fluid. She reports that she has to wear pads on a daily basis due urge urinary incontinence. Review of Systems Review of Systems: 12 systems were reviewed with pertinent positives and negatives per HPI. Except as documented in the HPI, all other systems were reviewed and are negative. [facility] Past Medical History Medical History (Updated 12/17/24 @ 03:06 by Mercy Wade DO) Chronic anticoagulation GERD (gastroesophageal reflux disease) Hypothyroidism Microalbuminuria Stress incontinence Paroxysmal A-fib Stage 3b chronic kidney disease Non-ST elevation NH (NSTEMI) Tarsal tunnel syndrome With history of release Sphincter of Oddi dysfunction Gastric ulcer Hyperlipidemia Osteoarthritis Pancreatitis Shingles Hypertension Hard of hearing Glaucoma Surgical History Surgical History History of tonsillectomy and adenoidectomy History of removal of pigmented skin lesion History of cholecystectomy (~1985) H/O hysterectomy for benign disease (~1984) History of cardiac catheterization History of tonsillectomy History of ERCP (06/2019) With stone extraction with repeat ERCP September 2020 demonstrating no stones but had recurrent ampullary stenosis requiring sphincterotomy History of cataract extraction History of colonoscopy with polypectomy History of bilateral knee replacement Right knee 2017 left knee 2018 History of arthroscopy of left knee Family History Family History Sibling Dementia Diabetes mellitus Heart failure Malignant neoplasm of prostate Acute myocardial infarction Father Pancreatic cancer Mother Heart failure Congestive heart failure Mother Congestive heart failure Sibling Congestive heart failure Father Pancreatic cancer Social History Social History Social History: Ms. Flores lives alone at home. She is . she has 6 adult children. She is retired from [employer]. Lifelong nonsmoker. She does not use any alcohol marijuana or illicit drugs. She still drives. . 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 power of upper leather cutter: Gisele Tejeda (daughter) Smoking status: Never smoker Second hand tobacco smoke exposure: No Alcohol intake: never Substance use: never Substance use type: does not use Do You Feel Safe in your Home?: Yes Lack of Transportation: No Lack of Food: Never True Current Housing: I Have Housing Concerned About Future Housing: No Difficulty Paying Gas/Electric Bills: No Difficulty Paying for Meds: No Currently Unemployed: No Education: High School Diploma/GED Difficulty w/ Childcare or Family Care: No Living arrangements: alone Additional living arrangements comments: The patient lives in her own home in [place]. x2. Raised 6 children. Occupation/Education: retired Gender identity (if verbalized by the patient): Female Spiritual care concerns: No Meds Home Medications and Allergies Home Medications ?Medication ?Instructions ?Recorded ?Confirmed ?Type bimatoprost 0.01 % eye drops 1 drp ophthalmic (eye) HS 07/07/19 12/16/24 History ([place]) timolol maleate 0.5 % eye drops 1 drp ophthalmic (eye) DAILY 07/07/19 12/16/24 History magnesium 250 mg tablet 250 mg PO DAILY 10/27/21 12/16/24 History calcium 600 mg (as 1 tablet PO DAILY 08/19/22 12/16/24 History carbonate)-vitamin D3 10 mcg (400 unit) tablet (Calcium 600 + D(3)) vitamin B complex (B 1 tablet PO .QOD 08/19/22 12/16/24 History Complex-Vitamin B12 tablet) amiodarone 200 mg tablet 200 mg PO DAILY #30 tabs 08/22/22 12/16/24 Rx apixaban 2.5 mg tablet (Eliquis) 2.5 mg PO Q12HR 1 month #60 tabs 08/22/22 12/16/24 Rx [id number] 250 mg-dha 90 1 cap PO QAM 05/03/23 12/16/24 History mg-epa 160 [id number]-esud-zeax capsule (Ocuvite Adult 50 Plus) amlodipine 10 mg tablet 10 mg PO DAILY 09/04/23 12/16/24 History lisinopril 20 mg tablet See Rx Instructions .Route 07/02/24 12/16/24 Rx .COMPLEX #90 tabs simvastatin 20 mg tablet 20 mg PO QPM #90 tabs 07/22/24 12/16/24 Rx levothyroxine 50 mcg tablet See Rx Instructions .Route 10/18/24 12/16/24 Rx .COMPLEX #90 tabs pantoprazole 40 mg tablet,delayed See Rx Instructions .Route 11/11/24 12/16/24 Rx release .COMPLEX #90 tabs bisoprolol fumarate 5 mg tablet 5 mg PO DAILY #90 tabs 12/10/24 12/16/24 Rx Allergies Allergy/AdvReac Type Severity Reaction Status Date / Time No Known Allergies Allergy Verified 12/16/24 12:31 Vital Signs Vital Signs - 24 hr 12/15/24 20:17 12/15/24 20:30 12/15/24 20:45 Temperature 97.7 F Pulse Rate 62 Respiratory Rate 20 Blood Pressure 179/78 H Pulse Oximetry 99 96 97 Oxygen Delivery Oxygen Flow Rate 12/15/24 21:17 12/15/24 21:19 12/15/24 21:30 Temperature Pulse Rate 56 L 55 L Respiratory Rate 14 11 L Blood Pressure 157/69 H Pulse Oximetry 99 95 93 Oxygen Delivery Oxygen Flow Rate 12/15/24 21:31 12/15/24 22:10 12/15/24 22:17 Temperature Pulse Rate 55 L 55 L Respiratory Rate 12 18 Blood Pressure 155/58 H 153/64 H Pulse Oximetry 94 88 L 94 Oxygen Delivery Nasal Cannula Oxygen Flow Rate 2 12/15/24 22:19 12/15/24 22:30 12/15/24 22:31 Temperature Pulse Rate 56 L 57 L 56 L Respiratory Rate 12 14 20 Blood Pressure 160/75 H Pulse Oximetry 97 94 96 Oxygen Delivery Oxygen Flow Rate 12/15/24 22:45 Temperature Pulse Rate 57 L Respiratory Rate 18 Blood Pressure Pulse Oximetry 95 Oxygen Delivery Oxygen Flow Rate Exam Narrative: Weight 88.8 kg BMI 31.6 Const: Other: Mildly ill-appearing, appears stated age, obese HENMT: Other: Mucous membranes are tacky, no oral pharyngeal erythema, no scleral icterus, positive conjunctival pallor Neck: Other: No JVD, trachea midline Resp: Other: Clear to auscultation bilaterally, no increased work of breathing Cardio: Other: Sinus bradycardia, 2+ bilateral radial pedal pulses GI: Other: Distended, normoactive bowel sounds, tenderness in the epigastric region, no specific right upper quadrant tenderness, no rebound, no guarding Skin: Other: Mild jaundice, no pallor Neuro: Other: Alert orient x4, hard of hearing, no facial asymmetry, no gross motor deficits noted during the course of conversation Extrem: Other: No clubbing, cyanosis or edema, moves all extremities equally Psych: Other: Appropriate mood and affect, pleasant and cooperative, judgment and insight intact H&P: Results Labs Labs: Laboratory Tests 12/15/24 20:22 12/15/24 20:22 12/15/24 12/15/24 20:22 21:20 WBC 8.1 RBC 4.38 Hgb 12.8 Hct 40.5 MCV 92.5 MCH 29.2 MCHC 31.6 L RDW 12.7 Plt Count 212 MPV 10.0 Immature Gran % (Auto) 0.4 Neut % (Auto) 81.9 H Lymph % (Auto) 13.5 L [place] % (Auto) 3.6 Eos % (Auto) 0.5 Baso % (Auto) 0.1 L Lymph # (Auto) 1.09 [place] # (Auto) 0.3 Eos # (Auto) 0.0 Baso # (Auto) 0.0 Abs Immat Gran (auto) 0.03 Absolute Neuts (auto) 6.6 Absolute Nucleated RBC 0.000 Nucleated RBC % 0.0 Sodium 137 Potassium 4.3 Chloride 102 Carbon Dioxide 25 Anion Gap 10 BUN 28 H Creatinine 1.34 H Estim Creat Clear Calc 29 Estimated GFR 37 L Glucose 176 H Calcium 9.4 Total Bilirubin 1.5 H AST 228 H ALT 128 H Alkaline Phosphatase 184 H Troponin I < 0.012 Total Protein 7.7 Albumin 4.6 Lipase 171 Urine Color Dark yellow Urine Appearance Clear Urine pH 6.0 Ur Specific [place] 1.020 Urine Protein 1+ H Urine Glucose (UA) Trace H Urine Ketones Negative Ur Blood (Man) Negative Urine Nitrate Positive H Urine Bilirubin Negative Urine Urobilinogen 1.0 Leukocyte Esterase Rfl 2+ H Urine RBC 0-2 Urine WBC 21-50 H Ur Squamous Epith Cells Occasional Urine Bacteria 4+ H Urine Casts 0-2 CT of the abdomen pelvis with contrast: Per stat read interpretation. Choledocholithiasis with severe biliary dilatation with common bile duct measuring 2 cm. Possible cystitis. Assessment and Plan Assessment and plan (1) Choledocholithiasis with obstruction: Qualifiers: Cholangitis acuity: acute Cholangitis presence: with cholangitis Qualified Code(s): K80.33 - Calculus of bile duct with acute cholangitis with obstruction Code(s): K80.51 - Calculus of bile duct without cholangitis or cholecystitis with obstruction Status: Acute (2) Transaminitis: Code(s): R74.01 - Elevation of levels of liver transaminase levels Status: Acute (3) Abnormal urinalysis: Code(s): R82.90 - Unspecified abnormal findings in urine Status: Acute (4) Stage 3b chronic kidney disease: Code(s): N18.32 - Chronic kidney disease, stage 3b Status: Acute (5) Hypothyroidism: Qualifiers: Hypothyroidism type: acquired Qualified Code(s): E03.9 - Hypothyroidism, unspecified Code(s): E03.9 - Hypothyroidism, unspecified Status: Acute (6) Hypertension: Qualifiers: Hypertension type: primary hypertension Qualified Code(s): I10 - Essential (primary) hypertension Code(s): I10 - Essential (primary) hypertension Status: Acute Plan Patient has long history of ampullary dysfunction and prior episodes of choledocholithiasis with cholangitis over the last several years who presented back to the hospital with recurrent epigastric pain and elevated transaminitis consistent with recurrent choledochal lithiasis resulting in cholangitis. Patient is currently NPO. Gastroenterology has been consulted. Will place patient on maintenance IV fluids and p.r.n. pain medications. Patient been placed on empiric antibiotic therapy with cefepime and Flagyl Will repeat CBC, CMP and lipase in a.m.. The patient is on chronic anticoagulation with Eliquis due to history of atrial fibrillation. Will hold Eliquis. EKG in the ER was poor quality with machine interpreting as sinus bradycardia but difficult to assess due to underlying artifact. Patient is not having any acute cardiac symptoms. QTc interval is mildly prolonged at 490 as the patient is likely going to need some antiemetic therapy will place patient on telemetry to monitor since antiemetics can cause worsening QT prolongation. Given her history of AFib will allow the patient to have her amiodarone with sips water. The patient does have an abnormal urinalysis with nitrates and leukocyte Estrace and 2+ bacteria with some squamous cells. CT does demonstrate possible cystitis but the patient denies any dysuria, fevers, hematuria. She has chronic urinary urgency but this is unchanged from baseline. Acute UTI is less likely in findings are most consistent with asymptomatic bacteriuria. The patient is on antibiotic coverage for cholangitis not UTI. Although blood cultures and urine cultures are pending. Will hold the patient's oral levothyroxine and switched to IV levothyroxine 25 mcg daily. Patient does have chronic kidney disease and currently her creatinine is stable. Patient did receive IV contrast for CT scan. Will trend creatinine and monitor urine output. Will avoid any further nephrotoxic medications. Will place patient on stress ulcer prophylaxis with Protonix IV daily. Patient's blood pressures are currently stable. Antihypertensives will be placed on hold. MEDICAL DECISION MAKING NARRATIVE -Spoke with the ED provider in detail regarding patient's evaluation, workup and management -Patient seen and examined at bedside -Collaborated with patient's nurse at the bedside in detail and addressed all concerns -Labs, electrolytes, radiology, investigations and test results personally reviewed and interpreted unless otherwise specified -ED/Consult/Nursing/Ancilliary notes on the chart reviewed and appreciated -Spoke with patient at bedside and diagnosis and plan of care was discussed. All questions answered. Quality VTE Prophylaxis VTE prophylaxis: mechanical ordered (SCDs) Hospitalist MIPS Advance Care Plan I have confirmed that the patient's Advanced Care Plan is present, code status is documented, or surrogate decision maker is listed in patient medical record.: Yes Medication Reconciliation I have utilized all available resources to obtain, update and review the patients current medications (includes all prescriptions, OTC, herbals, cannabis, and nutritional supplements).: Yes
[2024-12-15] MEDS: cefTRIAXone 1 GM in SODIUM CHLORIDE 0.9% IV 50 ML 100 ML IVPB (23:37)
[2024-12-15] MEDS: metroNIDAZOLE 500 MG/ISO 100ML 500 MG/100 ML BAG 100 MG IVPB (23:53)
[2024-12-15] MEDS: SODIUM CHLORIDE 0.9% IV 1,000 ML 100 ML IV CONT (23:53)
[2024-12-16] VITALS (18 sets, daily range): BP systolic 123–152; BP diastolic 48–76; PULSE 52–78; RESP 14–20; TEMP 36.4–37.1; O2SAT 91–99; BMI 31.0
--- NOTE | 2024-12-16 00:27 | ADMGEN ---
This patient, Cara Flores, was admitted to Medical Room 250-. Patient/family oriented to hospital policies and general routines including ID bracelet, bed and alarms, visiting hours, pain management, procedures, bathroom and other care routines, personal items, smoking policy, room service/diet, and visiting hours. Information on how to activate the Rapid Response Team has been discussed. Patient/Family are encouraged to report perceived risks to care and to ask questions if they do not understand what they are told or what they should do.
[2024-12-16] MEDS: LEVOTHYROXINE SODIUM INJ 100 MCG/5 ML VIAL 25 MCG IV PUSH (06:36)
[2024-12-16] MEDS: metroNIDAZOLE 500 MG/ISO 100ML 500 MG/100 ML BAG 100 MG IVPB ×3 (06:37→22:39)
--- NOTE | 2024-12-16 07:39 | P.PNIM_ITS ---
Progress Note: A&P Assessment and Plan (1) Choledocholithiasis with obstruction: Qualifiers: Cholangitis acuity: acute Cholangitis presence: with cholangitis Qualified Code(s): K80.33 - Calculus of bile duct with acute cholangitis with obstruction Code(s): K80.51 - Calculus of bile duct without cholangitis or cholecystitis with obstruction Status: Acute Assessment and Plan: * History of choledocholithiasis with cholangitis * AST/ALT 228/128 * CT of the abd/pel shows Choledocholithiasis. Chronic severe intrahepatic and extrahepatic biliary ductal dilatation * GI consulted thank you for your help * Continue ceftriaxone and flagyl * NPO for now * Morphine and zofran for comfort * Trend labs (2) Transaminitis: Code(s): R74.01 - Elevation of levels of liver transaminase levels Status: Acute Assessment and Plan: * Current AST/ALT 228/128 * Continue to trend * most likely related Choledocholithiasis * GI on board (3) Abnormal urinalysis: Code(s): R82.90 - Unspecified abnormal findings in urine Status: Acute Assessment and Plan: * UA positive for infection with positive nitrates, 2+ leukocyte esterase, 21-50 white blood cells 4+ bacteria * Continue ceftriaxone for now * Urine culture pending * Adjust therapy to urine culture results (4) Stage 3b chronic kidney disease: Code(s): N18.32 - Chronic kidney disease, stage 3b Status: Acute Assessment and Plan: * Current BUN creatinine 38/1.34 * Baseline creatinine 1.5-1.7 * Trend labs * trend urine output * Avoid nephrotoxic medications * adjust therapy as indicated (5) Hypothyroidism: Code(s): E03.9 - Hypothyroidism, unspecified Status: Acute Assessment and Plan: * Last TSH 0.840, T4 2.06 * home levothyroxine changed to IV levothyroxine 25 mcg daily * Consider repeat TSH * Stable (6) Hypertension: Qualifiers: Hypertension type: primary hypertension Qualified Code(s): I10 - Essential (primary) hypertension Code(s): I10 - Essential (primary) hypertension Status: Acute Assessment and Plan: * Current blood pressure 123/52 * Trend blood pressure * Home medications hold for now * Consider IV hydralazine p.r.n.. Time Spent With Patient Time: 54 minute Time with patient: Greater than 35 minutes Subjective Date/time seen: 12/16/24 07:39 Interval history: Patient is currently lying in bed. Patient's dizziness has been having shortness of breath. She did state that she was having some nausea. She also stated her pain is better as well. Will continue to trend labs and vital signs. Exam Narrative: General: well appearing, appears stated age. HEENT: normocephalic, atraumatic. Mucous membranes moist. EOMI, PERRLA, bilateral sclera anicteric, no conjunctival injection. Neck supple without JVD, lymphadenopathy, or bruit. Respiratory: clear to auscultation bilaterally. No rales/rhonchi/wheezes. Cardiovascular: Regular rate and rhythm, normal S1-S2 upon auscultation. No murmurs, rubs, or clicks. PMI is nondisplaced, capillary refill less than 3 second. Abdomen: Soft, round, no pulsatile masses, nondistended and nontender. No rebound, no guarding. No CVA tenderness, no hepatosplenomegaly. Bowel sounds present to all four quadrants. No high pitch or tinkling sounds, resonant to percussion. Extremities: No cyanosis, clubbing, or edema present. Pulses are palpable 2/2. Active ROM to all four extremities. Neuro: Alert and orientated x 4. PERRLA. Cranial nerves 2-12 intact without focal deficit. Skin: Warm, dry, and intact, without rash, erythema, or lesion. Psych: pleasant, cooperative, normal speech, normal affect, no hallucinations, no dysarthria Objective Data Vital Signs Vital Signs: Vital Signs - 24 hr 12/15/24 20:17 12/15/24 20:30 12/15/24 20:45 Temperature 97.7 F Pulse Rate 62 Respiratory Rate 20 Blood Pressure 179/78 H Pulse Oximetry 99 96 97 Oxygen Delivery Oxygen Flow Rate 12/15/24 21:17 12/15/24 21:19 12/15/24 21:30 Temperature Pulse Rate 56 L 55 L Respiratory Rate 14 11 L Blood Pressure 157/69 H Pulse Oximetry 99 95 93 Oxygen Delivery Oxygen Flow Rate 12/15/24 21:31 12/15/24 22:10 12/15/24 22:17 Temperature Pulse Rate 55 L 55 L Respiratory Rate 12 18 Blood Pressure 155/58 H 153/64 H Pulse Oximetry 94 88 L 94 Oxygen Delivery Nasal Cannula Oxygen Flow Rate 2 12/15/24 22:19 12/15/24 22:30 12/15/24 22:31 Temperature Pulse Rate 56 L 57 L 56 L Respiratory Rate 12 14 20 Blood Pressure 160/75 H Pulse Oximetry 97 94 96 Oxygen Delivery Oxygen Flow Rate 12/15/24 22:45 12/15/24 23:01 12/15/24 23:37 Temperature Pulse Rate 57 L 59 L 62 Respiratory Rate 18 18 20 Blood Pressure 164/63 H 135/54 L Pulse Oximetry 95 94 94 Oxygen Delivery Oxygen Flow Rate 12/16/24 00:02 12/16/24 00:35 12/16/24 00:54 Temperature 98.3 F Pulse Rate 59 L 63 63 Respiratory Rate 16 16 16 Blood Pressure 124/56 L 143/50 H Pulse Oximetry 94 94 94 Oxygen Delivery Room Air Oxygen Flow Rate 12/16/24 04:00 12/16/24 04:00 Temperature 98.0 F Pulse Rate 56 L 60 Respiratory Rate 16 Blood Pressure 123/52 L Pulse Oximetry 91 Oxygen Delivery Oxygen Flow Rate Intake/Output Intake/Output: Intake & Output 12/13/24 12/14/24 12/15/24 12/16/24 23:59 23:59 23:59 23:59 Intake Total 50 Balance 50 Meds/Results Medications: Active Medications Generic Name Dose Route Start Last Admin Trade Name Freq PRN Reason Stop Dose Admin Sodium Chloride 1,000 mls @ 100 mls/hr 12/15/24 23:35 12/15/24 23:53 Normal Saline Iv IV CONT 100 mls/hr .Q10H KERRY Administration Ceftriaxone Sodium 1 gm/ 50 mls @ 100 mls/hr 12/16/24 21:00 Sodium Chloride IVPB Q24H KERRY Metronidazole 500 mg in 100 mls @ 100 mls/hr 12/16/24 07:00 12/16/24 06:37 Flagyl 500 Mg/Iso Soln 100 Ml IVPB 100 mls/hr Q8HR KERRY Administration Levothyroxine Sodium 25 mcg 12/16/24 06:30 12/16/24 06:36 Levothyroxine Sodium Inj 100 Mcg/5 Ml Vial IV PUSH 25 mcg DAILY@0630 KERRY Administration Morphine Sulfate 2 mg 12/15/24 23:35 Morphine Sulfate (*Crx) 4 Mg/Ml Inj IV PUSH Q2H PRN Pain Rated 7-10 Ondansetron HCl 4 mg 12/15/24 23:35 Ondansetron Inj 4 Mg/2 Ml Vial IV PUSH Q4H PRN Nausea Pantoprazole Sodium 40 mg 12/16/24 09:00 Pantoprazole Sodium Iv 40 Mg Vial IV PUSH QAM [facility] Radiology Results: ITS Impressions Abdomen/Pelvis CT 12/16/24 06:28 IMPRESSION: 1. Choledocholithiasis. Chronic severe intrahepatic and extrahepatic biliary ductal dilatation. Labs Labs: Laboratory Results - last 24 hr 12/15/24 12/15/24 20:22 21:20 WBC 8.1 RBC 4.38 Hgb 12.8 Hct 40.5 MCV 92.5 MCH 29.2 MCHC 31.6 L RDW 12.7 Plt Count 212 MPV 10.0 Immature Gran % (Auto) 0.4 Neut % (Auto) 81.9 H Lymph % (Auto) 13.5 L [place] % (Auto) 3.6 Eos % (Auto) 0.5 Baso % (Auto) 0.1 L Lymph # (Auto) 1.09 [place] # (Auto) 0.3 Eos # (Auto) 0.0 Baso # (Auto) 0.0 Abs Immat Gran (auto) 0.03 Absolute Neuts (auto) 6.6 Absolute Nucleated RBC 0.000 Nucleated RBC % 0.0 Sodium 137 Potassium 4.3 Chloride 102 Carbon Dioxide 25 Anion Gap 10 BUN 28 H Creatinine 1.34 H Estim Creat Clear Calc 29 Estimated GFR 37 L Glucose 176 H Calcium 9.4 Total Bilirubin 1.5 H AST 228 H ALT 128 H Alkaline Phosphatase 184 H Troponin I < 0.012 Total Protein 7.7 Albumin 4.6 Lipase 171 Urine Color Dark yellow Urine Appearance Clear Urine pH 6.0 Ur Specific [place] 1.020 Urine Protein 1+ H Urine Glucose (UA) Trace H Urine Ketones Negative Ur Blood (Man) Negative Urine Nitrate Positive H Urine Bilirubin Negative Urine Urobilinogen 1.0 Leukocyte Esterase Rfl 2+ H Urine RBC 0-2 Urine WBC 21-50 H Ur Squamous Epith Cells Occasional Urine Bacteria 4+ H Urine Casts 0-2
--- NOTE | 2024-12-16 08:59 | WPDGICN ---
GI Consult Note Consult date/time: 12/16/24 08:59 HPI: Cara Flores is a 89 year old female [facility] Past Medical History Medical History (Updated 12/16/24 @ 08:13 by Mercy Wade DO) GERD (gastroesophageal reflux disease) Hypothyroidism Microalbuminuria Stress incontinence Paroxysmal A-fib Stage 3b chronic kidney disease Non-ST elevation [place] (NSTEMI) Tarsal tunnel syndrome With history of release Sphincter of Oddi dysfunction Gastric ulcer Hyperlipidemia Osteoarthritis Pancreatitis Shingles Hypertension Hard of hearing Glaucoma Surgical History Surgical History (Updated 12/15/24 @ 23:52 by Mercy Wade DO) History of tonsillectomy and adenoidectomy History of removal of pigmented skin lesion History of cholecystectomy (~1985) H/O hysterectomy for benign disease (~1984) History of cardiac catheterization History of tonsillectomy History of ERCP (06/2019) With stone extraction with repeat ERCP September 2020 demonstrating no stones but had recurrent ampullary stenosis requiring sphincterotomy History of cataract extraction History of colonoscopy with polypectomy History of bilateral knee replacement Right knee 2017 left knee 2018 History of arthroscopy of left knee Family History Family History Sibling Dementia Diabetes mellitus Heart failure Malignant neoplasm of prostate Acute myocardial infarction Father Pancreatic cancer Mother Heart failure Congestive heart failure Mother Congestive heart failure Sibling Congestive heart failure Father Pancreatic cancer Social History Social History (Updated 12/16/24 @ 08:13 by Mercy Wade DO) Social History: Ms. Flores lives alone at home. She is . she has 6 adult children. She is retired from [employer]. Lifelong nonsmoker. She does not use any alcohol marijuana or illicit drugs. She still drives. . Code status: Full code [facility] power of pen and pencil repairer: Gisele Tejeda (daughter) Smoking status: Never smoker Second hand tobacco smoke exposure: No Alcohol intake: never Substance use: never Substance use type: does not use Do You Feel Safe in your Home?: Yes Lack of Transportation: No Lack of Food: Never True Current Housing: I Have Housing Concerned About Future Housing: No Difficulty Paying Gas/Electric Bills: No Difficulty Paying for Meds: No Currently Unemployed: No Education: High School Diploma/GED Difficulty w/ Childcare or Family Care: No Living arrangements: alone Additional living arrangements comments: The patient lives in her own home in [place]. x2. Raised 6 children. Occupation/Education: retired Gender identity (if verbalized by the patient): Female Spiritual care concerns: No Meds Home Medications and Allergies Home Medications ?Medication ?Instructions ?Recorded ?Confirmed ?Type bimatoprost 0.01 % eye drops 1 drp ophthalmic (eye) HS 07/07/19 12/16/24 History (Lumigan) timolol maleate 0.5 % eye drops 1 drp ophthalmic (eye) DAILY 07/07/19 12/16/24 History magnesium 250 mg tablet 250 mg PO DAILY 10/27/21 12/16/24 History calcium 600 mg (as 1 tablet PO DAILY 08/19/22 12/16/24 History carbonate)-vitamin D3 10 mcg (400 unit) tablet (Calcium 600 + D(3)) vitamin B complex (B 1 tablet PO .QOD 08/19/22 12/16/24 History Complex-Vitamin B12 tablet) amiodarone 200 mg tablet 200 mg PO DAILY #30 tabs 08/22/22 12/16/24 Rx apixaban 2.5 mg tablet (Eliquis) 2.5 mg PO Q12HR 1 month #60 tabs 08/22/22 12/16/24 Rx [id number] 250 mg-dha 90 1 cap PO QAM 05/03/23 12/16/24 History mg-epa 160 wp-zamk-piqr-zeax capsule (Ocuvite Adult 50 Plus) amlodipine 10 mg tablet 10 mg PO DAILY 09/04/23 12/16/24 History lisinopril 20 mg tablet See Rx Instructions .Route 07/02/24 12/16/24 Rx .COMPLEX #90 tabs simvastatin 20 mg tablet 20 mg PO QPM #90 tabs 07/22/24 12/16/24 Rx levothyroxine 50 mcg tablet See Rx Instructions .Route 10/18/24 12/16/24 Rx .COMPLEX #90 tabs pantoprazole 40 mg tablet,delayed See Rx Instructions .Route 11/11/24 12/16/24 Rx release .COMPLEX #90 tabs bisoprolol fumarate 5 mg tablet 5 mg PO DAILY #90 tabs 12/10/24 12/16/24 Rx Allergies Allergy/AdvReac Type Severity Reaction Status Date / Time No Known Allergies Allergy Verified 12/16/24 00:41 Vital Signs Vital Signs - 24 hr 12/15/24 20:17 12/15/24 20:30 12/15/24 20:45 Temperature 97.7 F Pulse Rate 62 Respiratory Rate 20 Blood Pressure 179/78 H Pulse Oximetry 99 96 97 Oxygen Delivery Oxygen Flow Rate 12/15/24 21:17 12/15/24 21:19 12/15/24 21:30 Temperature Pulse Rate 56 L 55 L Respiratory Rate 14 11 L Blood Pressure 157/69 H Pulse Oximetry 99 95 93 Oxygen Delivery Oxygen Flow Rate 12/15/24 21:31 12/15/24 22:10 12/15/24 22:17 Temperature Pulse Rate 55 L 55 L Respiratory Rate 12 18 Blood Pressure 155/58 H 153/64 H Pulse Oximetry 94 88 L 94 Oxygen Delivery Nasal Cannula Oxygen Flow Rate 2 12/15/24 22:19 12/15/24 22:30 12/15/24 22:31 Temperature Pulse Rate 56 L 57 L 56 L Respiratory Rate 12 14 20 Blood Pressure 160/75 H Pulse Oximetry 97 94 96 Oxygen Delivery Oxygen Flow Rate 12/15/24 22:45 12/15/24 23:01 12/15/24 23:37 Temperature Pulse Rate 57 L 59 L 62 Respiratory Rate 18 18 20 Blood Pressure 164/63 H 135/54 L Pulse Oximetry 95 94 94 Oxygen Delivery Oxygen Flow Rate 12/16/24 00:02 12/16/24 00:35 12/16/24 00:54 Temperature 98.3 F Pulse Rate 59 L 63 63 Respiratory Rate 16 16 16 Blood Pressure 124/56 L 143/50 H Pulse Oximetry 94 94 94 Oxygen Delivery Room Air Oxygen Flow Rate 12/16/24 04:00 12/16/24 04:00 Temperature 98.0 F Pulse Rate 56 L 60 Respiratory Rate 16 Blood Pressure 123/52 L Pulse Oximetry 91 Oxygen Delivery Oxygen Flow Rate Results Labs 12/15/24 20:22 12/15/24 20:22 Labs: Short CBC 12/15/24 Range/Units 20:22 WBC 8.1 (4.5-10.0) K/mm3 Hgb 12.8 (12.0-15.0) g/dL Hct 40.5 (37.0-47.0) % Plt Count 212 (150-375) k/mm3 BMP 12/15/24 20:22 Sodium 137 Potassium 4.3 Chloride 102 Carbon Dioxide 25 BUN 28 H Creatinine 1.34 H Glucose 176 H Calcium 9.4 Cardiac Enzymes 12/15/24 Range/Units 20:22 Troponin I < 0.012 (0.000-0.034) ng/mL Liver Function 12/15/24 Range/Units 20:22 Total Bilirubin 1.5 H (0.2-1.3) mg/dL AST 228 H (14-36) U/L ALT 128 H (6-35) U/L Alkaline Phosphatase 184 H (38-126) U/L Albumin 4.6 (3.5-5.1) g/dL Urine 12/15/24 Range/Units 21:20 Urine Color Dark yellow (Yellow) Urine Appearance Clear (Clear) Urine pH 6.0 (5.0-9.0) Ur Specific [place] 1.020 (1.001-1.035) Urine Protein 1+ H (Negative) mg/dL Urine Glucose (UA) Trace H (Negative) mg/dL
[2024-12-16] MEDS: PANTOPRAZOLE SODIUM IV 40 MG VIAL IV PUSH (09:13)
[2024-12-16] MEDS: SODIUM CHLORIDE 0.9% IV 1,000 ML 100 ML IV CONT ×2 (09:16→19:35)
[2024-12-16] MEDS: LACTATED RINGERS 1,000 ML 150 ML IV CONT (12:40)
--- NOTE | 2024-12-16 12:51 | WPDANESEPPF ---
Anes - Initial Pre Proc Eval Procedure: Operation Date: 12/16/24 15:00 Proposed Procedures p Endoscopic Retro Cholangiopancreatogram - Manuel Marcano MD Date/Time: 12/16/24 12:51 Surgeon: Mercy Wade DO Pre Op Diagnosis: Choledocholithiasis Patient Data Age: 89 Gender: F Height: 1.68 m Weight: 87.2 kg Last Vital Signs Temp 37.1 C 12/16/24 12:35 Pulse 53 L 12/16/24 12:35 Resp 18 12/16/24 12:35 BP 126/74 12/16/24 12:35 Pulse Ox 94 12/16/24 12:35 O2 Del Method Room Air 12/16/24 12:35 O2 Flow Rate 2 12/15/24 22:17 Allergies Allergy/AdvReac Type Severity Reaction Status Date / Time No Known Allergies Allergy Verified 12/16/24 12:31 Home Medications ?Medication ?Instructions ?Recorded ?Confirmed ?Type bimatoprost 0.01 % eye drops 1 drp ophthalmic (eye) HS 07/07/19 12/16/24 History (Lumigan) timolol maleate 0.5 % eye drops 1 drp ophthalmic (eye) DAILY 07/07/19 12/16/24 History magnesium 250 mg tablet 250 mg PO DAILY 10/27/21 12/16/24 History calcium 600 mg (as 1 tablet PO DAILY 08/19/22 12/16/24 History carbonate)-vitamin D3 10 mcg (400 unit) tablet (Calcium 600 + D(3)) vitamin B complex (B 1 tablet PO .QOD 08/19/22 12/16/24 History Complex-Vitamin B12 tablet) amiodarone 200 mg tablet 200 mg PO DAILY #30 tabs 08/22/22 12/16/24 Rx apixaban 2.5 mg tablet (Eliquis) 2.5 mg PO Q12HR 1 month #60 tabs 08/22/22 12/16/24 Rx [id number] 250 mg-dha 90 1 cap PO QAM 05/03/23 12/16/24 History mg-epa 160 lx-wgik-xocd-zeax capsule (Ocuvite Adult 50 Plus) amlodipine 10 mg tablet 10 mg PO DAILY 09/04/23 12/16/24 History lisinopril 20 mg tablet See Rx Instructions .Route 07/02/24 12/16/24 Rx .COMPLEX #90 tabs simvastatin 20 mg tablet 20 mg PO QPM #90 tabs 07/22/24 12/16/24 Rx levothyroxine 50 mcg tablet See Rx Instructions .Route 10/18/24 12/16/24 Rx .COMPLEX #90 tabs pantoprazole 40 mg tablet,delayed See Rx Instructions .Route 11/11/24 12/16/24 Rx release .COMPLEX #90 tabs bisoprolol fumarate 5 mg tablet 5 mg PO DAILY #90 tabs 12/10/24 12/16/24 Rx Laboratory Tests 12/15/24 12/15/24 20:22 21:20 WBC 8.1 K/mm3 (4.5-10.0) RBC 4.38 M/mm3 (4.2-5.4) Hgb 12.8 g/dL (12.0-15.0) Hct 40.5 % (37.0-47.0) MCV 92.5 fl (80-100) MCH 29.2 pg (26-34) MCHC 31.6 L g/dl (32-36) RDW 12.7 % (11.5-14.5) Plt Count 212 k/mm3 (150-375) MPV 10.0 fl (7.4-10.4) Immature Gran % (Auto) 0.4 % (0-0.5) Neut % (Auto) 81.9 H % (45.5-73.1) Lymph % (Auto) 13.5 L % (18.3-44.2) Williams % (Auto) 3.6 % (2.6-8.5) Eos % (Auto) 0.5 % (0-4.4) Baso % (Auto) 0.1 L % (0.2-1.2) Lymph # (Auto) 1.09 K/mm3 (0.9-3.2) Williams # (Auto) 0.3 K/mm3 (0.1-0.6) Eos # (Auto) 0.0 K/mm3 (0-0.3) Baso # (Auto) 0.0 K/mm3 (0.0-0.1) Abs Immat Gran (auto) 0.03 K/mm3 (0.00-0.031) Absolute Neuts (auto) 6.6 K/mm3 (1.3-6.7) Absolute Nucleated RBC 0.000 K/mm3 (0.0-0.012) Nucleated RBC % 0.0 % (0.0-0.2) Sodium 137 mmol/L (137-145) Potassium 4.3 mmol/L (3.4-5.0) Chloride 102 mmol/L (98-107) Carbon Dioxide 25 mmol/L (22-30) Anion Gap 10 mmol/L (4-12) BUN 28 H mg/dL (7-17) Creatinine 1.34 H mg/dL (0.7-1.0) Estim Creat Clear Calc 29 ml/min Estimated GFR 37 L (59 - ) Glucose 176 H mg/dL (65-110) Calcium 9.4 mg/dL (8.4-10.2) Total Bilirubin 1.5 H mg/dL (0.2-1.3) AST 228 H U/L (14-36) ALT 128 H U/L (6-35) Alkaline Phosphatase 184 H U/L (38-126) Troponin I < 0.012 ng/mL (0.000-0.034) Total Protein 7.7 g/dL (6.3-8.2) Albumin 4.6 g/dL (3.5-5.1) Lipase 171 U/L (23-300) Urine Color Dark yellow (Yellow) Urine Appearance Clear (Clear) Urine pH 6.0 (5.0-9.0) Ur Specific [place] 1.020 (1.001-1.035) Urine Protein 1+ H mg/dL (Negative) Urine Glucose (UA) Trace H mg/dL (Negative) Urine Ketones Negative mg/dL (Negative) Ur Blood (Man) Negative (Negative) Urine Nitrate Positive H (Negative) Urine Bilirubin Negative (Negative) Urine Urobilinogen 1.0 mg/dL (<2.0) Leukocyte Esterase Rfl 2+ H KRISTINE/UL (Negative) Urine RBC 0-2 /hpf (0-2) Urine WBC 21-50 H /hpf (0-3) Ur Squamous Epith Cells Occasional /hpf (Few) Urine Bacteria 4+ H /hpf Urine Casts 0-2 Patient hx anesthesia problems: none Family hx anesthesia problems: none Results Review: All pre-operative results and documents have been reviewed as part of the pre-operative evaluation. [facility] Past Medical History Medical History GERD (gastroesophageal reflux disease) Hypothyroidism Microalbuminuria Stress incontinence Paroxysmal A-fib Stage 3b chronic kidney disease Non-ST elevation [place] (NSTEMI) Tarsal tunnel syndrome With history of release Sphincter of Oddi dysfunction Gastric ulcer Hyperlipidemia Osteoarthritis Pancreatitis Shingles Hypertension Hard of hearing Glaucoma Surgical History Surgical History History of tonsillectomy and adenoidectomy History of removal of pigmented skin lesion History of cholecystectomy (~1985) H/O hysterectomy for benign disease (~1984) History of cardiac catheterization History of tonsillectomy History of ERCP (06/2019) With stone extraction with repeat ERCP September 2020 demonstrating no stones but had recurrent ampullary stenosis requiring sphincterotomy History of cataract extraction History of colonoscopy with polypectomy History of bilateral knee replacement Right knee 2017 left knee 2017 History of arthroscopy of left knee Family History Family History Sibling Dementia Diabetes mellitus Heart failure Malignant neoplasm of prostate Acute myocardial infarction Father Pancreatic cancer Mother Heart failure Congestive heart failure Mother Congestive heart failure Sibling Congestive heart failure Father Pancreatic cancer Social History Social History Social History: Ms. Flores lives alone at home. She is . she has 6 adult children. She is retired from [employer]. Lifelong nonsmoker. She does not use any alcohol marijuana or illicit drugs. She still drives. . Code status: Full code [facility] power of patent prosecution attorney: Gisele Tejeda (daughter) Smoking status: Never smoker Second hand tobacco smoke exposure: No Alcohol intake: never Substance use: never Substance use type: does not use Do You Feel Safe in your Home?: Yes Lack of Transportation: No Lack of Food: Never True Current Housing: I Have Housing Concerned About Future Housing: No Difficulty Paying Gas/Electric Bills: No Difficulty Paying for Meds: No Currently Unemployed: No Education: High School Diploma/GED Difficulty w/ Childcare or Family Care: No Living arrangements: alone Additional living arrangements comments: The patient lives in her own home in [place]. x2. Raised 6 children. Occupation/Education: retired Gender identity (if verbalized by the patient): Female Spiritual care concerns: No Anes - Eval Final PreProcedure Day of Procedure 12/16/24 12:51 Patient weight: obese Heart: regular rate and rhythm Lungs: clear to auscultation Airway: Mallampati scale class II Neurological: alert and oriented Last oral intake: >/= 8 hours ASA classification: III Emergent: no Anesthetic plan: proceed Anesthesia type and monitoring: general ETT and standard monitoring Results Review: All pre-operative results and documents have been reviewed as part of the pre-operative evaluation. Informed Consent: The patient's anesthetic plan and its attendant risks and benefits were discussed with the patient/family/POA. Questions were solicited and answers provided to the satisfaction of the patient/family/POA.
--- NOTE | 2024-12-16 12:53 | SUR.PREOP ---
Last dose Eliquis 12/15/24. Dr. Oakley made aware. Ok to proceed.
--- NOTE | 2024-12-16 13:10 | WPDGICN ---
Assessment and Plan Assessment and plan (1) Choledocholithiasis with obstruction: Qualifiers: Cholangitis presence: with cholangitis Cholangitis acuity: acute Qualified Code(s): K80.33 - Calculus of bile duct with acute cholangitis with obstruction Code(s): K80.51 - Calculus of bile duct without cholangitis or cholecystitis with obstruction Status: Acute Assessment and Plan: will proceed again with ercp to assess bile duct and remove stones, probably this is causing elevated liver enzymes and pain previous history of cholangitis based on records, pending cultures, started on abx more recommendations after ercp eliquis on hold for now (2) Transaminitis: Code(s): R74.01 - Elevation of levels of liver transaminase levels Status: Acute Assessment and Plan: probably biliary related will trend (3) RUQ pain: Code(s): R10.11 - Right upper quadrant pain Status: Acute (4) Stage 3b chronic kidney disease: Code(s): N18.32 - Chronic kidney disease, stage 3b Status: Acute (5) Common bile duct dilation: Code(s): K83.8 - Other specified diseases of biliary tract Status: Inactive (6) Hx of meterman use of blood thinners: Code(s): Z79.01 - meterman (current) use of anticoagulants Status: Acute Assessment and Plan: on hold GI Consult Note Consult date/time: 12/16/24 13:10 Reason for consult: elevated liver enzymes, ruq pain HPI: Cara Flores is a 89 year old female diagnosed with SOD (had ruq pain associated with elevated liver enzymes and dilated bile duct ~ 17mm), this was treated with ercp and spyglass on 09/2020, no stones or strictures only dilated bile duct. She also has past medical history of paroxysmal AFib on Eliquis, essential hypertension, hypothyroidism here with recurrent right upper abdominal pain. She has been having intermittent episodes of abdominal pain every 1-2 months that will last 30 minutes, localized in the epigastric region and is associated with nausea. This time pain was severe and Tylenol did not help. She also had diaphoresis when the pain became severe. Finally came here, noted once again elevated liver enzymes with bili 1.[address] scan noted dilated bile duct with stone in bile duct. Review of Systems Constitutional: Constitutional: Denies difficulty sleeping Eyes: Eyes: Reports no additional eye complaints ENT: Denies dysphagia Cardiovascular: Cardiovascular: Denies chest pain Respiratory: Respiratory: Denies cough Gastrointestinal: Gastrointestinal: Reports abdominal pain Genitourinary: Genitourinary: Denies dysuria Musculoskeletal: Musculoskeletal: Denies neck pain Integumentary/Breasts: Skin/Breast: Denies rash Neurologic: Denies Abnormal speech present Psychiatric: Psychiatric: Denies behavioral changes [facility] Past Medical History Medical History (Updated 12/16/24 @ 13:52 by Manuel Marcano MD) Hx of detention use of blood thinners RUQ pain GERD (gastroesophageal reflux disease) Hypothyroidism Microalbuminuria Stress incontinence Paroxysmal A-fib Stage 3b chronic kidney disease Non-ST elevation [place] (NSTEMI) Tarsal tunnel syndrome With history of release Sphincter of Oddi dysfunction Gastric ulcer Hyperlipidemia Osteoarthritis Pancreatitis Shingles Hypertension Hard of hearing Glaucoma Surgical History Surgical History History of tonsillectomy and adenoidectomy History of removal of pigmented skin lesion History of cholecystectomy (~1985) H/O hysterectomy for benign disease (~1984) History of cardiac catheterization History of tonsillectomy History of ERCP (06/2019) With stone extraction with repeat ERCP September 2020 demonstrating no stones but had recurrent ampullary stenosis requiring sphincterotomy History of cataract extraction History of colonoscopy with polypectomy History of bilateral knee replacement Right knee 2017 left knee 2018 History of arthroscopy of left knee Family History Family History Sibling Dementia Diabetes mellitus Heart failure Malignant neoplasm of prostate Acute myocardial infarction Father Pancreatic cancer Mother Heart failure Congestive heart failure Mother Congestive heart failure Sibling Congestive heart failure Father Pancreatic cancer Social History Social History Social History: Ms. Flores lives alone at home. She is . she has 6 adult children. She is retired from [employer]. Lifelong nonsmoker. She does not use any alcohol marijuana or illicit drugs. She still drives. . 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 power of mergers and acquisitions attorney: Gisele Tejeda (daughter) Smoking status: Never smoker Second hand tobacco smoke exposure: No Alcohol intake: never Substance use: never Substance use type: does not use Do You Feel Safe in your Home?: Yes Lack of Transportation: No Lack of Food: Never True Current Housing: I Have Housing Concerned About Future Housing: No Difficulty Paying Gas/Electric Bills: No Difficulty Paying for Meds: No Currently Unemployed: No Education: High School Diploma/GED Difficulty w/ Childcare or Family Care: No Living arrangements: alone Additional living arrangements comments: The patient lives in her own home in [place]. x2. Raised 6 children. Occupation/Education: retired Gender identity (if verbalized by the patient): Female Spiritual care concerns: No Meds Home Medications and Allergies Home Medications ?Medication ?Instructions ?Recorded ?Confirmed ?Type bimatoprost 0.01 % eye drops 1 drp ophthalmic (eye) HS 07/07/19 12/16/24 History (Lumigan) timolol maleate 0.5 % eye drops 1 drp ophthalmic (eye) DAILY 07/07/19 12/16/24 History magnesium 250 mg tablet 250 mg PO DAILY 10/27/21 12/16/24 History calcium 600 mg (as 1 tablet PO DAILY 08/19/22 12/16/24 History carbonate)-vitamin D3 10 mcg (400 unit) tablet (Calcium 600 + D(3)) vitamin B complex (B 1 tablet PO .QOD 08/19/22 12/16/24 History Complex-Vitamin B12 tablet) amiodarone 200 mg tablet 200 mg PO DAILY #30 tabs 08/22/22 12/16/24 Rx apixaban 2.5 mg tablet (Eliquis) 2.5 mg PO Q12HR 1 month #60 tabs 08/22/22 12/16/24 Rx [id number] 250 mg-dha 90 1 cap PO QAM 05/03/23 12/16/24 History mg-epa 160 bi-nhig-eutb-zeax capsule (Ocuvite Adult 50 Plus) amlodipine 10 mg tablet 10 mg PO DAILY 09/04/23 12/16/24 History lisinopril 20 mg tablet See Rx Instructions .Route 07/02/24 12/16/24 Rx .COMPLEX #90 tabs simvastatin 20 mg tablet 20 mg PO QPM #90 tabs 07/22/24 12/16/24 Rx levothyroxine 50 mcg tablet See Rx Instructions .Route 10/18/24 12/16/24 Rx .COMPLEX #90 tabs pantoprazole 40 mg tablet,delayed See Rx Instructions .Route 11/11/24 12/16/24 Rx release .COMPLEX #90 tabs bisoprolol fumarate 5 mg tablet 5 mg PO DAILY #90 tabs 12/10/24 12/16/24 Rx Allergies Allergy/AdvReac Type Severity Reaction Status Date / Time No Known Allergies Allergy Verified 12/16/24 12:31 Vital Signs Vital Signs - 24 hr 12/15/24 20:17 12/15/24 20:30 12/15/24 20:45 Temperature 97.7 F Pulse Rate 62 Respiratory Rate 20 Blood Pressure 179/78 H Pulse Oximetry 99 96 97 Oxygen Delivery Oxygen Flow Rate 12/15/24 21:17 12/15/24 21:19 12/15/24 21:30 Temperature Pulse Rate 56 L 55 L Respiratory Rate 14 11 L Blood Pressure 157/69 H Pulse Oximetry 99 95 93 Oxygen Delivery Oxygen Flow Rate 12/15/24 21:31 12/15/24 22:10 12/15/24 22:17 Temperature Pulse Rate 55 L 55 L Respiratory Rate 12 18 Blood Pressure 155/58 H 153/64 H Pulse Oximetry 94 88 L 94 Oxygen Delivery Nasal Cannula Oxygen Flow Rate 2 12/15/24 22:19 12/15/24 22:30 12/15/24 22:31 Temperature Pulse Rate 56 L 57 L 56 L Respiratory Rate 12 14 20 Blood Pressure 160/75 H Pulse Oximetry 97 94 96 Oxygen Delivery Oxygen Flow Rate 12/15/24 22:45 12/15/24 23:01 12/15/24 23:37 Temperature Pulse Rate 57 L 59 L 62 Respiratory Rate 18 18 20 Blood Pressure 164/63 H 135/54 L Pulse Oximetry 95 94 94 Oxygen Delivery Oxygen Flow Rate 12/16/24 00:02 12/16/24 00:35 12/16/24 00:54 Temperature 98.3 F Pulse Rate 59 L 63 63 Respiratory Rate 16 16 16 Blood Pressure 124/56 L 143/50 H Pulse Oximetry 94 94 94 Oxygen Delivery Room Air Oxygen Flow Rate 12/16/24 04:00 12/16/24 04:00 12/16/24 12:35 Temperature 98.0 F 98.8 F Pulse Rate 56 L 60 53 L Respiratory Rate 16 18 Blood Pressure 123/52 L 126/74 Pulse Oximetry 91 94 Oxygen Delivery Room Air Oxygen Flow Rate Exam Const: General: comfortable and no acute distress HENMT: Face/Nose/Sinus: Normal nares present Eyes: General: appearance normal, both eyes and all related structures Neck: Neck: supple Resp: Auscultation: clear to auscultation bilaterally Cardio: Rate: regular rate GI: Inspection: non-distended GI Palp: Yes Soft to palpation and Yes Tenderness to palpation present (GI) (minimal ttp in epigastric, no rebound) Auscultation: normal bowel sounds Skin: General skin exam: normal color Neuro: Speech: normal speech Extrem: General: normal to inspection Psych: Mental Status: mental status grossly normal Results Labs 12/15/24 20:22 12/15/24 20:22 Labs: Short CBC 12/15/24 Range/Units 20:22 WBC 8.1 (4.5-10.0) K/mm3 Hgb 12.8 (12.0-15.0) g/dL Hct 40.5 (37.0-47.0) % Plt Count 212 (150-375) k/mm3 BMP 12/15/24 20:22 Sodium 137 Potassium 4.3 Chloride 102 Carbon Dioxide 25 BUN 28 H Creatinine 1.34 H Glucose 176 H Calcium 9.4 Cardiac Enzymes 12/15/24 Range/Units 20:22 Troponin I < 0.012 (0.000-0.034) ng/mL Liver Function 12/15/24 Range/Units 20:22 Total Bilirubin 1.5 H (0.2-1.3) mg/dL AST 228 H (14-36) U/L ALT 128 H (6-35) U/L Alkaline Phosphatase 184 H (38-126) U/L Albumin 4.6 (3.5-5.1) g/dL Urine 12/15/24 Range/Units 21:20 Urine Color Dark yellow (Yellow) Urine Appearance Clear (Clear) Urine pH 6.0 (5.0-9.0) Ur Specific [place] 1.020 (1.001-1.035) Urine Protein 1+ H (Negative) mg/dL Urine Glucose (UA) Trace H (Negative) mg/dL
[2024-12-16] MEDS: TIMOLOL MALEATE 0.5% OP SOLN 5 ML BOTTLE 1 DROP EACH EYE (17:40)
[2024-12-16] MEDS: AMIODARONE HCL 200 MG TABLET PO (17:40)
[2024-12-16] MEDS: SIMVASTATIN 20 MG TABLET PO (17:41)
[2024-12-16] MEDS: cefTRIAXone 1 GM in SODIUM CHLORIDE 0.9% IV 50 ML 100 ML IVPB (20:48)
[2024-12-17] VITALS (12 sets, daily range): BP systolic 118–141; BP diastolic 44–78; PULSE 50–63; RESP 16–18; TEMP 36.6–37.2; O2SAT 90–96
[2024-12-17 05:19] LABS: Hematocrit 32.5 % (37.0-47.0); Hemoglobin 10.2 g/dL (12.0-15.0); Immature Granulocyte Percent A 0.5 % (0-0.5); Lymphocytes Absolute Auto 1.07 K/mm3 (0.9-3.2); Mean Corpuscular HGB Conc 31.4 g/dl (32-36); Mean Corpuscular Hemoglobin 29.7 pg (26-34); Mean Corpuscular Volume 94.5 fl (80-100); Nucleated Red Blood Cells Absolute Auto 0.000 K/mm3 (0.0-0.012); Nucleated Red Blood Cells Perc 0.0 % (0.0-0.2); Platelet Count Result 146 k/mm3 (150-375); Red Blood Count 3.44 M/mm3 (4.2-5.4); White Blood Count 4.2 K/mm3 (4.5-10.0)
[2024-12-17 05:28] LABS: Alanine Aminotransferase 257 U/L (6-35); Albumin Level 3.4 g/dL (3.5-5.1); Alkaline Phosphatase 182 U/L (38-126); Anion Gap 4 mmol/L (4-12); Aspartate Amino Transferase 210 U/L (14-36); Bilirubin,Total 2.3 mg/dL (0.2-1.3); Blood Urea Nitrogen 20 mg/dL (7-17); Calcium 8.5 mg/dL (8.4-10.2); Carbon Dioxide 26 mmol/L (22-30); Chloride 107 mmol/L (98-107); Estimated CRCL calculation 27 ml/min; Estimated Glomerular Filt Rate 35; Glucose 100 mg/dL (65-110); Magnesium 2.1 mg/dL (1.6-2.3); Potassium 3.9 mmol/L (3.4-5.0); Sodium 137 mmol/L (137-145); Total Protein 6.0 g/dL (6.3-8.2)
[2024-12-17] MEDS: metroNIDAZOLE 500 MG/ISO 100ML 500 MG/100 ML BAG 100 MG IVPB ×3 (05:40→21:20)
[2024-12-17] MEDS: LEVOTHYROXINE SODIUM 50 MCG TABLET PO (06:17)
--- NOTE | 2024-12-17 07:52 | WPDANESPN ---
Anes - Prog Note Post-Op Date/Time: 12/17/24 07:52 Cardiovascular status: normal Respiratory status: normal Airway patency: baseline Mental status: baseline Post-Op hydration status: normal Vital Signs: Last Vital Signs Temp 36.6 C 12/17/24 07:39 Pulse 62 12/17/24 07:39 Resp 18 12/17/24 07:39 BP 141/53 H 12/17/24 07:39 Pulse Ox 94 12/17/24 07:39 O2 Del Method Room Air 12/16/24 20:00 O2 Flow Rate 2 12/15/24 22:17 Pain Score (VAS): 1 I/O: Intake & Output 12/16/24 12/16/24 12/17/24 15:59 23:59 07:59 Intake Total 1038.3 1100 400 Output Total 1000 300 Balance 1038.3 100 100 Laboratory Tests 12/17/24 04:43 12/17/24 04:43 12/17/24 04:43 WBC 4.2 L RBC 3.44 L Hgb 10.2 L Hct 32.5 L MCV 94.5 MCH 29.7 MCHC 31.4 L RDW 13.3 Plt Count 146 L MPV 10.4 Immature Gran % (Auto) 0.5 Neut % (Auto) 65.5 Lymph % (Auto) 25.6 [place] % (Auto) 6.9 Eos % (Auto) 1.0 Baso % (Auto) 0.5 Lymph # (Auto) 1.07 [place] # (Auto) 0.3 Eos # (Auto) 0.0 Baso # (Auto) 0.0 Abs Immat Gran (auto) 0.02 Absolute Neuts (auto) 2.7 Absolute Nucleated RBC 0.000 Nucleated RBC % 0.0 Sodium 137 Potassium 3.9 Chloride 107 Carbon Dioxide 26 Anion Gap 4 BUN 20 H Creatinine 1.43 H Estim Creat Clear Calc 27 Estimated GFR 35 L Glucose 100 Calcium 8.5 Magnesium 2.1 Total Bilirubin 2.3 H AST 210 H ALT 257 H Alkaline Phosphatase 182 H Total Protein 6.0 L Albumin 3.4 L Post-procedural complaints: none Patient Feedback: Patient satisfied with anesthetic care.
--- NOTE | 2024-12-17 08:39 | P.PNIM_ITS ---
Progress Note: A&P Assessment and Plan (1) Choledocholithiasis with obstruction: Qualifiers: Cholangitis acuity: acute Cholangitis presence: with cholangitis Qualified Code(s): K80.33 - Calculus of bile duct with acute cholangitis with obstruction Code(s): K80.51 - Calculus of bile duct without cholangitis or cholecystitis with obstruction Status: Acute Assessment and Plan: History of cholecystectomy with choledocholithiasis with cholangitis AST/ALT 228/128 CT of the abd/pel shows Choledocholithiasis. Chronic severe intrahepatic and extrahepatic biliary ductal dilatation - IV pain management: morphine 2 mg IV q4H - Antibiotics: Rocephin and Flagyl - Monitor vital signs, I and O's, check stool output, neuro status and patient is a fall risk - Monitor serum electrolytes and CBC - Monitor lactic acid - Consult GI s/p ERCP on 12/[address] Adin palacios for 5 days following ERCP (2) Transaminitis: Code(s): R74.01 - Elevation of levels of liver transaminase levels Status: Acute Assessment and Plan: * Admission: AST/ALT 228/128 * Uptrending on am labs * most likely related Choledocholithiasis * GI on board (3) Abnormal urinalysis: Code(s): R82.90 - Unspecified abnormal findings in urine Status: Acute Assessment and Plan: * UA positive for infection with positive nitrates, 2+ leukocyte esterase, 21-50 white blood cells 4+ bacteria * Continue ceftriaxone for now * Urine culture pending * Adjust therapy to urine culture results (4) Hypertension: Qualifiers: Hypertension type: primary hypertension Qualified Code(s): I10 - Essential (primary) hypertension Code(s): I10 - Essential (primary) hypertension Status: Acute Assessment and Plan: Chronic, continue home medications * amlodipine 10 mg daily and lisinopril 20 mg daily * bisprolol on hold given bradycardia, resume as appropriate * Trend blood pressure, remains stable at this time (5) Stage 3b chronic kidney disease: Code(s): N18.32 - Chronic kidney disease, stage 3b Status: Acute Assessment and Plan: * Current BUN creatinine 20/1.43, Baseline creatinine 1.5-1.7 * Trend labs * trend urine output * Avoid nephrotoxic medications * adjust therapy as indicated (6) Hypothyroidism: Qualifiers: Hypothyroidism type: acquired Qualified Code(s): E03.9 - Hypothyroidism, unspecified Code(s): E03.9 - Hypothyroidism, unspecified Status: Acute Assessment and Plan: * Last TSH on 09/02/24: 0.840, T4 2.06 * home levothyroxine changed to IV levothyroxine 25 mcg daily Time Spent With Patient Time with patient: 25 - 35 minutes Subjective Date/time seen: 12/17/24 08:39 Interval history: 89-year-old female with a past medical history of paroxysmal AFib on Eliquis, essential hypertension, hypothyroidism, GERD and multiple hospitalizations over the last 4 years for sphincter of OD dysfunction and/or choledocholithiasis with associated pancreatitis who presented to the ER with recurrent right upper abdominal pain. Patient is pleasant sitting up in her chair. She continues to endorse slight abdominal pain but has no other complaints denying associated nausea/vomiting. She is tolerating the diet well. She denies any chest pain, palpitations, shortness of breath. Review of Systems Review of Systems: All systems reviewed & are unremarkable except as noted in HPI and below Exam Narrative: AF HR 62 RR 18 SPO2 94 BP 141/53 General: female in no acute respiratory distress who is nontoxic appearing, sitting up in chair HEENT: Normocephalic. Atraumatic. Extraocular movement intact. Sclera clear and anicteric. No facial asymmetry. Chest: Lungs are clear to auscultation bilaterally. No wheezes or crackles. CV: Heart was regular rate and rhythm. Abd: Abdomen was soft. Slight tenderness to RUQ/epigastric region. Nondistended. Positive bowel sounds. Ext: No clubbing, cyanosis, or edema. DP pulses bilaterally. Neuro: Patient is alert. Speech is clear. Objective Data Vital Signs Vital Signs: Vital Signs - 24 hr 12/16/24 12:00 12/16/24 12:35 12/16/24 13:39 Temperature 98.8 F 98.2 F Pulse Rate 53 L 53 L 52 L Respiratory Rate 18 18 Blood Pressure 126/74 147/63 H Pulse Oximetry 94 99 Oxygen Delivery Room Air Room Air 12/16/24 13:49 12/16/24 13:59 12/16/24 14:09 Temperature Pulse Rate 53 L 53 L 55 L Respiratory Rate 20 16 14 Blood Pressure 144/64 H 134/55 L 136/54 L Pulse Oximetry 95 95 96 Oxygen Delivery Room Air Room Air Room Air 12/16/24 14:19 12/16/24 14:29 12/16/24 14:39 Temperature Pulse Rate 54 L 54 L 55 L Respiratory Rate 20 15 15 Blood Pressure 152/49 H 126/66 131/62 Pulse Oximetry 93 93 93 Oxygen Delivery Room Air Room Air Room Air 12/16/24 16:00 12/16/24 16:00 12/16/24 17:40 Temperature 98.4 F Pulse Rate 75 55 L 78 Respiratory Rate 16 Blood Pressure 138/76 Pulse Oximetry 96 Oxygen Delivery 12/16/24 20:00 12/16/24 20:00 12/16/24 21:46 Temperature 97.6 F Pulse Rate 78 54 L 60 Respiratory Rate 16 16 Blood Pressure 139/48 L Pulse Oximetry 96 92 Oxygen Delivery Room Air 12/17/24 00:00 12/17/24 04:00 12/17/24 05:22 Temperature 97.8 F Pulse Rate 56 L 58 L 60 Respiratory Rate 16 Blood Pressure 118/45 L Pulse Oximetry 93 Oxygen Delivery 12/17/24 07:39 12/17/24 08:00 Temperature 97.8 F Pulse Rate 62 61 Respiratory Rate 18 Blood Pressure 141/53 H Pulse Oximetry 94 Oxygen Delivery Intake/Output Intake/Output: Intake & Output 12/14/24 12/15/24 12/16/24 12/17/24 23:59 23:59 23:59 23:59 Intake Total 2288.3 400 Output Total 1000 300 Balance 1288.3 100 Meds/Results Medications: Active Medications Generic Name Dose Route Start Last Admin Trade Name Venturaq PRN Reason Stop Dose Admin Amiodarone HCl 200 mg 12/16/24 11:20 12/16/24 17:40 Amiodarone Hcl 200 Mg Tablet PO 200 mg DAILY KERRY Administration Sodium Chloride 1,000 mls @ 100 mls/hr 12/15/24 23:35 12/16/24 19:35 Normal Saline Iv IV CONT 100 mls/hr .Q10H KERRY Administration Ceftriaxone Sodium 1 gm/ 50 mls @ 100 mls/hr 12/16/24 21:00 12/16/24 20:48 Sodium Chloride IVPB 100 mls/hr Q24H KERRY Administration Metronidazole 500 mg in 100 mls @ 100 mls/hr 12/16/24 07:00 12/17/24 05:40 Flagyl 500 Mg/Iso Soln 100 Ml IVPB 100 mls/hr Q8HR KERRY Administration Levothyroxine Sodium 25 mcg 12/16/24 06:30 12/16/24 06:36 Levothyroxine Sodium Inj 100 Mcg/5 Ml Vial IV PUSH 25 mcg DAILY@0630 KERRY Administration Levothyroxine Sodium 50 mcg 12/17/24 06:30 12/17/24 06:17 Levothyroxine Sodium 50 Mcg Tablet PO 50 mcg DAILY@0630 KERRY Administration Morphine Sulfate 2 mg 12/15/24 23:35 Morphine Sulfate (*Crx) 4 Mg/Ml Inj IV PUSH Q2H PRN Pain Rated 7-10 Ondansetron HCl 4 mg 12/15/24 23:35 Ondansetron Inj 4 Mg/2 Ml Vial IV PUSH Q4H PRN Nausea Pantoprazole Sodium 40 mg 12/17/24 09:00 Pantoprazole 40 Mg Tablet PO QAM KERRY Simvastatin 20 mg 12/16/24 18:00 12/16/24 17:41 Simvastatin 20 Mg Tablet PO 20 mg QPM KERRY Administration Timolol Maleate 1 drop 12/16/24 11:20 12/16/24 17:40 Timolol Maleate 0.5% Op Soln 5 Ml Bottle EACH EYE 1 drop DAILY KERRY Administration Radiology Results: ITS Impressions Abdomen/Pelvis CT 12/16/24 06:28 IMPRESSION: 1. Choledocholithiasis. Chronic severe intrahepatic and extrahepatic biliary ductal dilatation. Labs Labs: Laboratory Results - last 24 hr 12/17/24 04:43 WBC 4.2 L RBC 3.44 L Hgb 10.2 L Hct 32.5 L MCV 94.5 MCH 29.7 MCHC 31.4 L RDW 13.3 Plt Count 146 L MPV 10.4 Immature Gran % (Auto) 0.5 Neut % (Auto) 65.5 Lymph % (Auto) 25.6 [place] % (Auto) 6.9 Eos % (Auto) 1.0 Baso % (Auto) 0.5 Lymph # (Auto) 1.07 [place] # (Auto) 0.3 Eos # (Auto) 0.0 Baso # (Auto) 0.0 Abs Immat Gran (auto) 0.02 Absolute Neuts (auto) 2.7 Absolute Nucleated RBC 0.000 Nucleated RBC % 0.0 Sodium 137 Potassium 3.9 Chloride 107 Carbon Dioxide 26 Anion Gap 4 BUN 20 H Creatinine 1.43 H Estim Creat Clear Calc 27 Estimated GFR 35 L Glucose 100 Calcium 8.5 Magnesium 2.1 Total Bilirubin 2.3 H AST 210 H ALT 257 H Alkaline Phosphatase 182 H Total Protein 6.0 L Albumin 3.4 L Quality VTE Prophylaxis VTE prophylaxis: pharmacologic ordered
[2024-12-17] MEDS: PANTOPRAZOLE 40 MG TABLET PO (09:12)
[2024-12-17] MEDS: AMIODARONE HCL 200 MG TABLET PO (09:12)
[2024-12-17] MEDS: TIMOLOL MALEATE 0.5% OP SOLN 5 ML BOTTLE 1 DROP EACH EYE (09:13)
--- NOTE | 2024-12-17 15:01 | P.PNGI_ITS ---
Progress Note: A&P Assessment and Plan (1) Choledocholithiasis with obstruction: Qualifiers: Cholangitis presence: with cholangitis Cholangitis acuity: acute Qualified Code(s): K80.33 - Calculus of bile duct with acute cholangitis with obstruction Code(s): K80.51 - Calculus of bile duct without cholangitis or cholecystitis with obstruction Status: Acute Assessment and Plan: removed stones yesterday no more pain, tolerating diet (2) Transaminitis: Code(s): R74.01 - Elevation of levels of liver transaminase levels Status: Acute Assessment and Plan: still elevated probably from manipulation trend lft, hopefully home tomorrow culture no growth (3) RUQ pain: Code(s): R10.11 - Right upper quadrant pain Status: Acute Assessment and Plan: resolved (4) Stage 3b chronic kidney disease: Code(s): N18.32 - Chronic kidney disease, stage 3b Status: Acute (5) 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: Code(s): Z79.01 - assisted (current) use of anticoagulants Status: Inactive Assessment and Plan: on hold after ercp Subjective Date/time seen: 12/17/24 15:01 Interval history: ercp yesterday with stone removal no pain today, doing ok Review of Systems Review of Systems: All systems reviewed & are unremarkable except as noted in HPI and below Exam Const: General: comfortable and no acute distress HENMT: Face/Nose/Sinus: Normal nares present Eyes: General: appearance normal, both eyes and all related structures Neck: Neck: supple Resp: Auscultation: clear to auscultation bilaterally Cardio: Rate: regular rate GI: Inspection: non-distended GI Palp: Yes Soft to palpation and No Tenderness to palpation present (GI) Auscultation: normal bowel sounds Skin: General skin exam: normal color Neuro: Speech: normal speech Extrem: General: normal to inspection Psych: Mental Status: mental status grossly normal Objective Data Vital Signs Vital Signs: Vital Signs - 24 hr 12/16/24 16:00 12/16/24 16:00 12/16/24 17:40 Temperature 98.4 F Pulse Rate 75 55 L 78 Respiratory Rate 16 Blood Pressure 138/76 Pulse Oximetry 96 Oxygen Delivery 12/16/24 20:00 12/16/24 20:00 12/16/24 21:46 Temperature 97.6 F Pulse Rate 78 54 L 60 Respiratory Rate 16 16 Blood Pressure 139/48 L Pulse Oximetry 96 92 Oxygen Delivery Room Air 12/17/24 00:00 12/17/24 04:00 12/17/24 05:22 Temperature 97.8 F Pulse Rate 56 L 58 L 60 Respiratory Rate 16 Blood Pressure 118/45 L Pulse Oximetry 93 Oxygen Delivery 12/17/24 07:39 12/17/24 08:00 12/17/24 09:10 Temperature 97.8 F Pulse Rate 62 61 Respiratory Rate 18 Blood Pressure 141/53 H Pulse Oximetry 94 93 Oxygen Delivery Room Air 12/17/24 09:12 12/17/24 12:00 12/17/24 12:00 Temperature 98.2 F Pulse Rate 60 53 L 57 L Respiratory Rate 18 Blood Pressure 121/53 L Pulse Oximetry 93 Oxygen Delivery Intake/Output Intake/Output: Intake & Output 12/14/24 12/15/24 12/16/24 12/17/24 23:59 23:59 23:59 23:59 Intake Total 2288.3 1100 Output Total 1000 900 Balance 1288.3 200 Meds/Results Medications: Active Medications Generic Name Dose Route Start Last Admin Trade Name Freq PRN Reason Stop Dose Admin Amiodarone HCl 200 mg 12/16/24 11:20 12/17/24 09:12 Amiodarone Hcl 200 Mg Tablet PO 200 mg DAILY KERRY Administration Amlodipine Besylate 10 mg 12/17/24 09:00 12/17/24 09:12 Amlodipine Besylate 10 Mg Tablet PO 10 mg DAILY KERRY Administration Enoxaparin Sodium 40 mg 12/17/24 14:00 Enoxaparin 40 Mg/0.4 Ml Syringe SUB-Q DAILY KERRY Ceftriaxone Sodium 1 gm/ 50 mls @ 100 mls/hr 12/16/24 21:00 12/16/24 20:48 Sodium Chloride IVPB 100 mls/hr Q24H KERRY Administration Metronidazole 500 mg in 100 mls @ 100 mls/hr 12/16/24 07:00 12/17/24 13:34 Flagyl 500 Mg/Iso Soln 100 Ml IVPB 100 mls/hr Q8HR KERRY Administration Levothyroxine Sodium 25 mcg 12/16/24 06:30 12/17/24 09:12 Levothyroxine Sodium Inj 100 Mcg/5 Ml Vial IV PUSH Not Given DAILY@0630 [facility] Levothyroxine Sodium 50 mcg 12/17/24 06:30 12/17/24 06:17 Levothyroxine Sodium 50 Mcg Tablet PO 50 mcg DAILY@0630 [facility] Administration Lisinopril 20 mg 12/17/24 09:00 12/17/24 09:12 Lisinopril 20 Mg Tablet PO 20 mg QAM KERRY Administration Morphine Sulfate 2 mg 12/15/24 23:35 Morphine Sulfate (*Crx) 4 Mg/Ml Inj IV PUSH Q2H PRN Pain Rated 7-10 Ondansetron HCl 4 mg 12/15/24 23:35 Ondansetron Inj 4 Mg/2 Ml Vial IV PUSH Q4H PRN Nausea Pantoprazole Sodium 40 mg 12/17/24 09:00 12/17/24 09:12 Pantoprazole 40 Mg Tablet PO 40 mg QAM KERRY Administration Simvastatin 20 mg 12/16/24 18:00 12/16/24 17:41 Simvastatin 20 Mg Tablet PO 20 mg QPM KERRY Administration Timolol Maleate 1 drop 12/16/24 11:20 12/17/24 09:13 Timolol Maleate 0.5% Op Soln 5 Ml Bottle EACH EYE 1 drop DAILY KERRY Administration Radiology Results: ITS Impressions Abdomen/Pelvis CT 12/16/24 06:28 IMPRESSION: 1. Choledocholithiasis. Chronic severe intrahepatic and extrahepatic biliary ductal dilatation. Labs Labs: Laboratory Results - last 24 hr 12/17/24 04:43 WBC 4.2 L RBC 3.44 L Hgb 10.2 L Hct 32.5 L MCV 94.5 MCH 29.7 MCHC 31.4 L RDW 13.3 Plt Count 146 L MPV 10.4 Immature Gran % (Auto) 0.5 Neut % (Auto) 65.5 Lymph % (Auto) 25.6 [place] % (Auto) 6.9 Eos % (Auto) 1.0 Baso % (Auto) 0.5 Lymph # (Auto) 1.07 [place] # (Auto) 0.3 Eos # (Auto) 0.0 Baso # (Auto) 0.0 Abs Immat Gran (auto) 0.02 Absolute Neuts (auto) 2.7 Absolute Nucleated RBC 0.000 Nucleated RBC % 0.0 Sodium 137 Potassium 3.9 Chloride 107 Carbon Dioxide 26 Anion Gap 4 BUN 20 H Creatinine 1.43 H Estim Creat Clear Calc 27 Estimated GFR 35 L Glucose 100 Calcium 8.5 Magnesium 2.1 Total Bilirubin 2.3 H AST 210 H ALT 257 H Alkaline Phosphatase 182 H Total Protein 6.0 L Albumin 3.4 L
[2024-12-17] MEDS: SIMVASTATIN 20 MG TABLET PO (17:55)
[2024-12-17] MEDS: cefTRIAXone 1 GM in SODIUM CHLORIDE 0.9% IV 50 ML 100 ML IVPB (21:13)
[2024-12-18] VITALS: PULSE 60
[2024-12-18 03:45] VITALS: BP 135/60; PULSE 64; RESP 16; TEMP 36.7; O2SAT 93
[2024-12-18 04:00] VITALS: PULSE 62
[2024-12-18 04:27] LABS: Hematocrit 31.7 % (37.0-47.0); Hemoglobin 10.0 g/dL (12.0-15.0); Mean Corpuscular HGB Conc 31.5 g/dl (32-36); Mean Corpuscular Hemoglobin 29.6 pg (26-34); Mean Corpuscular Volume 93.8 fl (80-100); Platelet Count Result 142 k/mm3 (150-375); Red Blood Count 3.38 M/mm3 (4.2-5.4); White Blood Count 3.5 K/mm3 (4.5-10.0)
[2024-12-18 04:39] LABS: Alanine Aminotransferase 171 U/L (6-35); Albumin Level 3.3 g/dL (3.5-5.1); Alkaline Phosphatase 163 U/L (38-126); Anion Gap 5 mmol/L (4-12); Aspartate Amino Transferase 81 U/L (14-36); Bilirubin,Total 0.7 mg/dL (0.2-1.3); Blood Urea Nitrogen 19 mg/dL (7-17); Calcium 8.4 mg/dL (8.4-10.2); Carbon Dioxide 25 mmol/L (22-30); Chloride 109 mmol/L (98-107); Estimated CRCL calculation 26 ml/min; Estimated Glomerular Filt Rate 33; Glucose 113 mg/dL (65-110); Potassium 3.9 mmol/L (3.4-5.0); Sodium 139 mmol/L (137-145); Total Protein 6.0 g/dL (6.3-8.2)
[2024-12-18] MEDS: metroNIDAZOLE 500 MG/ISO 100ML 500 MG/100 ML BAG 100 MG IVPB (06:46)
[2024-12-18] MEDS: LEVOTHYROXINE SODIUM 50 MCG TABLET PO (06:46)
[2024-12-18 08:00] VITALS: BP 143/51; PULSE 59; PULSE 60; RESP 16; TEMP 36.8; O2SAT 94
[2024-12-18 08:14] VITALS: O2SAT 90
[2024-12-18 08:55] VITALS: PULSE 58
[2024-12-18] MEDS: PANTOPRAZOLE 40 MG TABLET PO (08:55)
[2024-12-18] MEDS: TIMOLOL MALEATE 0.5% OP SOLN 5 ML BOTTLE 1 DROP EACH EYE (08:56)
--- NOTE | 2024-12-18 15:19 | P.DS_ITS ---
DS: Admitting Diagnosis Discharge Date 12/18/2024 Admitting Diagnosis choledocholithiasis transaminitis abnormal ua htn stage 3b ckd hypothyroidism DS: Discharge Diagnosis Discharge Diagnosis (1) Choledocholithiasis with obstruction: Qualifiers: Cholangitis presence: with cholangitis Cholangitis acuity: acute Qualified Code(s): K80.33 - Calculus of bile duct with acute cholangitis with obstruction Code(s): K80.51 - Calculus of bile duct without cholangitis or cholecystitis with obstruction Status: Acute (2) Transaminitis: Code(s): R74.01 - Elevation of levels of liver transaminase levels Status: Acute (3) Abnormal urinalysis: Code(s): R82.90 - Unspecified abnormal findings in urine Status: Acute (4) Hypertension: Qualifiers: Hypertension type: primary hypertension Qualified Code(s): I10 - Essential (primary) hypertension Code(s): I10 - Essential (primary) hypertension Status: Acute (5) Stage 3b chronic kidney disease: Code(s): N18.32 - Chronic kidney disease, stage 3b Status: Acute (6) Hypothyroidism: Qualifiers: Hypothyroidism type: acquired Qualified Code(s): E03.9 - Hypothyroidism, unspecified Code(s): E03.9 - Hypothyroidism, unspecified Status: Acute DS: Summary Hospital Course Reason for hospitalization: choledocholithiasis transaminitis abnormal ua htn stage 3b ckd hypothyroidism Hospital Course: 89-year-old female with a complex medical history, including paroxysmal atrial fibrillation on Eliquis, essential hypertension, hypothyroidism, GERD, stage 3b chronic kidney disease, prior cholecystectomy, sphincter of Oddi dysfunction, and multiple prior episodes of choledocholithiasis with pancreatitis, presented with severe, recurrent right upper abdominal and epigastric pain. Her symptoms were associated with nausea, decreased appetite, bloating, and clear emesis, but she denied fevers, chills, or changes in bowel habits. On examination, she appeared mildly ill and obese, with mild jaundice, conjunctival pallor, and epigastric tenderness without rebound or guarding. Laboratory studies revealed leukocytosis initially, anemia, elevated BUN and creatinine consistent with her baseline CKD, and a cholestatic pattern of liver injury with elevated total bilirubin, AST, ALT, and alkaline phosphatase. Urinalysis showed pyuria, bacteriuria, and positive nitrites, but she remained asymptomatic from a urinary standpoint. CT imaging demonstrated choledocholithiasis with severe biliary dilation and possible cystitis. She was managed with NPO status, IV fluids, empiric broad-spectrum antibiotics, IV pain control, and antiemetics. Her anticoagulation was held in anticipation of ERCP, and she was placed on telemetry due to bradycardia and QTc prolongation. GI was consulted, and she underwent ERCP with successful stone extraction and biliary decompression. Post-procedure, her abdominal pain resolved, she tolerated diet, and her laboratory values began to improve, though transaminases remained elevated likely due to post-procedural changes. She is to obtain a repeat CMP in 5 days to reassess. She is to continue holding her eliquis for 5 days post procedure. Her home medications were resumed as appropriate, with bisoprolol held for bradycardia. Reviewed prior cardiology note from 07/29/2024 which stated they were considering holding bisoprolol, discussed with patient that she is to continue holding this medication at discharge and follow up with her PCP. She remained asymptomatic with bradycardia denying chest pain, shortness of breath, dizziness/lightheadedness. Patient was noted to have an abnormal UA during admission, started on IV antibiotics. Urine culture growing gram negative bacilli. Given that the urine culture had not returned, had an in-depth conversation with patient in terms of discharge. Discussed with patient that if the urine culture comes back and shows resistance to the oral antibiotic that they were discharged on they will either receive a phone call and a new oral antibiotic will be sent to the pharmacy or they will have to come back to the hospital for IV antibiotics if no oral option is available. Patient stated understanding and was agreeable with discharge at this time. Discharge planning included transitioning to oral antibiotics for UTI and choledocholithiasis, clear instructions regarding signs of recurrent cholangitis or infection, and follow-up with GI and her primary care provider. Patient had no complaints at time of discharge denying chest pain, palpitations, shortness of breath, nausea/vomiting, abdominal pain and dizziness/lightheadedness. Patient discharged home in a stable condition. Status at Discharge Functional status at discharge: independent ambulation Time Spent with Patient Time attestation: Total time spent providing and/or coordinating discharge services: Time spent: Greater than 30 minutes Exam Narrative: AF HR 58 RR 16 SpO2 94 BP 143/51 General: female in no acute respiratory distress who is nontoxic appearing, sitting up in chair HEENT: Normocephalic. Atraumatic. Extraocular movement intact. Sclera clear and anicteric. No facial asymmetry. Chest: Lungs are clear to auscultation bilaterally. No wheezes or crackles. CV: Heart was regular rate and rhythm. Abd: Abdomen was soft. Nontender. Nondistended. Positive bowel sounds. Ext: No clubbing, cyanosis, or edema. DP pulses bilaterally. Neuro: Patient is alert. Speech is clear. DS: Data Data Completed and Pending Completed studies during hospitalization: ERCP Abdomen/pelvis CT Labs on day of discharge: Labs from last 24 hours 12/18/24 04:17 WBC 3.5 L RBC 3.38 L Hgb 10.0 L Hct 31.7 L MCV 93.8 MCH 29.6 MCHC 31.5 L RDW 13.5 Plt Count 142 L MPV 10.1 Sodium 139 Potassium 3.9 Chloride 109 H Carbon Dioxide 25 Anion Gap 5 BUN 19 H Creatinine 1.49 H Estim Creat Clear Calc 26 Estimated GFR 33 L Glucose 113 H Calcium 8.4 Total Bilirubin 0.7 AST 81 H ALT 171 H Alkaline Phosphatase 163 H Total Protein 6.0 L Albumin 3.3 L Preliminary micro results at discharge 12/15/24 23:36 Blood Culture - Preliminary Blood 12/15/24 21:20 - Preliminary Urine Clean Catch Gram negative bacilli isolated 12/15/24 23:36 Blood Culture - Preliminary Blood Discharge Plan Discharge Attending physician on discharge: Margarito Mckoy Consulting providers: Manuel Marcano; Hollie Pa Discharging Clinician: Hollie Pa Anticipated Discharge Date/Time: 12/18/24 12:43 Patient Disposition: Home Activity: as tolerated Diet: as tolerated and low fat Discharge Instructions: Discharge disposition: Patient admitted to the hospital for gallstones Evaluated by GI You have recently undergone a procedure called endoscopic retrograde cholangiopancreatography (ERCP) to remove stones from your bile duct. What to Expect: * Mild abdominal discomfort, bloating, or nausea is common for a few days. * Serious complications are rare but can include infection (cholangitis), pancreatitis, bleeding, or perforation. If you experience severe pain, fever, chills, jaundice (yellowing of skin or eyes), vomiting, or persistent nausea, seek medical attention immediately. Diet: * Avoid fatty or greasy foods for several days. Hold eliquis until 12/21, then resume this medication as previously prescribed. Obtain repeat blood draw to reassess liver panel in 5 days, this is to be cc to your PCP Diagnosed with a UTI Take all medications as prescribed even if feeling better Augmentin and Flagyl, attached is information on these medications Given that the urine culture had not returned, discussed with patient that if the urine culture comes back and shows resistance to the oral antibiotic that they were discharged on they will either receive a phone call and a new oral antibiotic will be sent to the pharmacy or they will have to come back to the hospital for IV antibiotics if no oral option is available. Eat well balanced meals and stay hydrated Keep active to remain strong Avoid use of diapers or pads Good todd Care every 2 hours Trend urine output Continue holding bisoprolol given persistent bradycardia (low heart rates), follow up with cardiology Continue amiodarone and eliquis as previously prescribed. Monitor blood pressures Take caution while standing, rising, or moving Change positions slowly taking a break between each position change If you standing feel dizzy sit back down and take a break Encouraged to continue with yearly vaccinations Return to the emergency department if he developed sudden shortness of breath, chest pain, nausea, vomiting, upset stomach or intractable diarrhea Return to the emergency department if you develop fever greater than 100.5 Follow-up with the primary care physician within 1-2 weeks Thank you for [facility] for your healthcare needs Patient Instructions: Metronidazole (By mouth), Amoxicillin/Clavulanate Potassium (By mouth), Apixaban (By mouth), Gallstones (DC), Urinary Tract Infection in Women (DC), Low Fat Diet (DC), Blood Thinners (DC), ERCP (Endoscopic Retrograde Cholangiopancreatography) (DC) Patient Language: Slovak Stand Alone Forms: General Discharge Information Follow-up/Referrals: Manuel Marcano MD [Physician, Gastroenterology] - Call for Appointment Idania Constantino DO [Primary Care Provider, [facility]] - 1 Week Discharge Medications: New metronidazole 500 mg Tablet 500 mg PO Q8HR Qty: 6 0RF amoxicillin-pot clavulanate [Augmentin] 500-125 mg Tablet 1 tablet PO Q12HR Qty: 8 0RF Continued Ocuvite Adult 50 Plus 250 mg (90 mg-160 mg) capsule 1 cap PO QAM amlodipine 10 mg tablet 10 mg PO DAILY timolol maleate 0.5 % drops 1 drp ophthalmic (eye) DAILY Rx Instructions: One gtt OU daily Lumigan 0.01 % drops 1 drp ophthalmic (eye) HS Rx Instructions: 1 gtt OU HS magnesium 250 mg Tablet 250 mg PO DAILY vitamin B complex [B Complex-Vitamin B12] Tablet 1 tablet PO .QOD Patient Comments: DUE MONDAY Rx Instructions: 5000 mcg calcium carbonate-vitamin D3 [Calcium 600 + D(3)] 600 mg-10 mcg (400 unit) Tablet 1 tablet PO DAILY amiodarone 200 mg tablet 200 mg PO DAILY Qty: 30 0RF lisinopril 20 mg tablet See Rx Instructions .ROUTE .COMPLEX Qty: 90 1RF Dose Instruction: TAKE 1 TABLET BY MOUTH EVERY DAY Rx Instructions: TAKE 1 TABLET BY MOUTH EVERY DAY simvastatin 20 mg tablet 20 mg PO QPM Qty: 90 1RF levothyroxine 50 mcg tablet See Rx Instructions .ROUTE .COMPLEX Qty: 90 1RF Dose Instruction: TAKE 1 TABLET BY MOUTH EVERY DAY AT 6:30 AM Rx Instructions: TAKE 1 TABLET BY MOUTH EVERY DAY AT 6:30 AM pantoprazole 40 mg tablet,delayed release (DR/EC) See Rx Instructions .ROUTE .COMPLEX Qty: 90 1RF Dose Instruction: TAKE 1 TABLET BY MOUTH EVERY DAY IN THE MORNING Rx Instructions: TAKE 1 TABLET BY MOUTH EVERY DAY IN THE MORNING Held Eliquis 2.5 mg Tablet 2.5 mg PO Q12HR 30 Days Qty: 60 0RF Hold Instructions: Resume on 12/21/24. Hold until 5 days after ERCP. bisoprolol fumarate 5 mg tablet 5 mg PO DAILY Qty: 90 1RF Hold Instructions: Resume on 01/06/25. Hold until follow up with cardiology. Other Ambulatory Orders: Comprehensive Metabolic Panel (Routine) Timeframe: 5 Days Location: Determined by Patient Ordered By: Hollie Pa Date of admission: 12/16/24 11:50 Primary Care Provider: Idania Constantino Admitting Provider: Mercy Wade Attending physician on admission: Mercy Wade Condition: Stable Hospitalist MIPS Heart Failure (Exclusion) Patient has history of Heart Transplant or Left Ventricular Assistive Device?: No IF YES, STOP HERE Heart Failure (Qualifier) Patient has current or prior documentation of LVEF less than or equal to 40%, or mod/servere depressed LVSF?: No IF NO, STOP HERE
--- NOTE | 2024-12-18 16:29 | P.PNGI_ITS ---
Progress Note: A&P Assessment and Plan (1) Choledocholithiasis with obstruction: Qualifiers: Cholangitis presence: with cholangitis Cholangitis acuity: acute Qualified Code(s): K80.33 - Calculus of bile duct with acute cholangitis with obstruction Code(s): K80.51 - Calculus of bile duct without cholangitis or cholecystitis with obstruction Status: Acute Assessment and Plan: removed stone with ercp no more pain, tolerating diet bili is normal today and liver enzymes trending down ok to go home (2) Transaminitis: Code(s): R74.01 - Elevation of levels of liver transaminase levels Status: Acute Assessment and Plan: improving (3) RUQ pain: Code(s): R10.11 - Right upper quadrant pain Status: Acute Assessment and Plan: resolved (4) Stage 3b chronic kidney disease: Code(s): N18.32 - Chronic kidney disease, stage 3b Status: Acute (5) 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: Code(s): Z79.01 - dedicated intermodal truck driver (current) use of anticoagulants Status: Inactive Assessment and Plan: hold for 5 days after ercp Subjective Date/time seen: 12/18/24 10:29 Interval history: no more pain, ready to go home Review of Systems Review of Systems: All systems reviewed & are unremarkable except as noted in HPI and below Exam Const: General: comfortable and no acute distress HENMT: Face/Nose/Sinus: Normal nares present Eyes: General: appearance normal, both eyes and all related structures Neck: Neck: supple Resp: Auscultation: clear to auscultation bilaterally Cardio: Rate: regular rate GI: Inspection: non-distended GI Palp: Yes Soft to palpation and No Tenderness to palpation present (GI) Auscultation: normal bowel sounds Skin: General skin exam: normal color Neuro: Speech: normal speech Extrem: General: normal to inspection Psych: Mental Status: mental status grossly normal Objective Data Vital Signs Vital Signs: Vital Signs - 24 hr 12/17/24 19:51 12/17/24 20:00 12/17/24 20:00 Temperature 98.6 F Pulse Rate 54 L 59 L 54 L Respiratory Rate 17 17 Blood Pressure 131/48 L Pulse Oximetry 90 94 Oxygen Delivery Room Air 12/17/24 23:31 12/18/24 00:00 12/18/24 03:45 Temperature 98.9 F 98.1 F Pulse Rate 59 L 60 64 Respiratory Rate 17 16 Blood Pressure 128/44 L 135/60 Pulse Oximetry 94 93 Oxygen Delivery 12/18/24 04:00 12/18/24 08:00 12/18/24 08:00 Temperature 98.2 F Pulse Rate 62 60 59 L Respiratory Rate 16 Blood Pressure 143/51 H Pulse Oximetry 94 Oxygen Delivery 12/18/24 08:14 12/18/24 08:55 12/18/24 08:55 Temperature Pulse Rate 58 L Respiratory Rate Blood Pressure Pulse Oximetry 90 Oxygen Delivery Room Air Room Air Intake/Output Intake/Output: Intake & Output 12/15/24 12/16/24 12/17/24 12/18/24 23:59 23:59 23:59 23:59 Intake Total 2338.3 2140 890 Output Total 1000 1800 500 Balance 1338.3 340 390 Meds/Results Radiology Results: ITS Impressions Abdomen/Pelvis CT 12/16/24 06:28 IMPRESSION: 1. Choledocholithiasis. Chronic severe intrahepatic and extrahepatic biliary ductal dilatation. Labs Labs: Laboratory Results - last 24 hr 12/18/24 04:17 WBC 3.5 L RBC 3.38 L Hgb 10.0 L Hct 31.7 L MCV 93.8 MCH 29.6 MCHC 31.5 L RDW 13.5 Plt Count 142 L MPV 10.1 Sodium 139 Potassium 3.9 Chloride 109 H Carbon Dioxide 25 Anion Gap 5 BUN 19 H Creatinine 1.49 H Estim Creat Clear Calc 26 Estimated GFR 33 L Glucose 113 H Calcium 8.4 Total Bilirubin 0.7 AST 81 H ALT 171 H Alkaline Phosphatase 163 H Total Protein 6.0 L Albumin 3.3 L
== END 2024-12-18 14:30 | disposition home or self-care (01) | DRG 445 ==
LOC: ANHED 23:41 → ANH2MED 23:53
PROVIDERS: Internal Medicine Gastroenterology; Nurse Practitioner; Admitting Provider Internal Medicine; Emergency Provider Physician Assistant; PCP Family Medicine; Visit Provider Student in an Organized Health Care Education/Training Program
PROC: 0FC98ZZ Extirpation of Matter from Common Bile Duct, Via Natural or Artificial Opening Endoscopic (ICD-10-PCS; CPT 43260; principal; 2024-12-16 15:00)
DX: K80.33 Calculus of bile duct with acute cholangitis with obstruction (principal); N39.0 Urinary tract infection, site not specified; Z16.11 Resistance to penicillins; R78.81 Bacteremia; K83.4 Spasm of sphincter of Oddi; D64.9 Anemia, unspecified; I12.9 Hypertensive chronic kidney disease with stage 1 through stage 4 chronic kidney disease, or unspecified chronic kidney disease; K21.9 Gastro-esophageal reflux disease without esophagitis; E03.9 Hypothyroidism, unspecified; I48.0 Paroxysmal atrial fibrillation; N18.32 Chronic kidney disease, stage 3b; E78.5 Hyperlipidemia, unspecified; H40.9 Unspecified glaucoma; E66.9 Obesity, unspecified; B95.2 Enterococcus as the cause of diseases classified elsewhere; B96.20 Unspecified Escherichia coli [E. coli] as the cause of diseases classified elsewhere; Z90.49 Acquired absence of other specified parts of digestive tract; Z96.653 Presence of artificial knee joint, bilateral; Z79.01 Long term (current) use of anticoagulants; I25.2 Old myocardial infarction; Z87.19 Personal history of other diseases of the digestive system; Z68.31 Body mass index [BMI] 31.0-31.9, adult
CPT/HCPCS: 36415; 74177; 74329; 80053; 81001; 83690; 83735; 84484; 85025; 85027; 87040; 87086; 87186; 93005; 96365; 96375; 99285; A9270; G0378; J0330; J0650; J0696; J1836; J2270; J2405; J2470; J2704; J7030; J7120; Q9966; Q9967

== ENCOUNTER 2024-12-23 11:51 | Outpatient (CLI) | payer OTHER, SELFPAY ==
[2024-12-23 12:44] LABS: Alanine Aminotransferase 74 U/L (6-35); Albumin Level 4.3 g/dL (3.5-5.1); Alkaline Phosphatase 144 U/L (38-126); Anion Gap 8 mmol/L (4-12); Aspartate Amino Transferase 52 U/L (14-36); Bilirubin,Total 0.8 mg/dL (0.2-1.3); Blood Urea Nitrogen 21 mg/dL (7-17); Calcium 9.5 mg/dL (8.4-10.2); Carbon Dioxide 29 mmol/L (22-30); Chloride 103 mmol/L (98-107); Estimated Glomerular Filt Rate 34; Glucose 107 mg/dL (65-110); Potassium 4.2 mmol/L (3.4-5.0); Sodium 140 mmol/L (137-145); Total Protein 7.6 g/dL (6.3-8.2)
== END 2024-12-23 11:52 | disposition home or self-care (01) ==
LOC: ANHLAB 11:52
PROVIDERS: PCP Family Medicine; Visit Provider Student in an Organized Health Care Education/Training Program
DX: K80.51 Calculus of bile duct without cholangitis or cholecystitis with obstruction (principal)
CPT/HCPCS: 36415; 80053

== ENCOUNTER 2024-12-31 10:11 | Outpatient (CLI) | payer OTHER, SELFPAY ==
--- OUTSIDE RECORDS SUMMARY | 2024-12-31 11:22 | XMS_ITS | Encounter Summary ---
Author Organization [facility] Address [address] [place] [id number] Care Team Providers Care Machine Made Shoe Unit Worker Name Role Phone Roe Erazo DO Primary Care Provider [phone] Moreno Reeder MD Unavailable Encounter Details Date Type Department Care Team (Latest Contact Info) Description 12/12/2017 Abstract [facility] , Brenda Mayers [...] on filedocumented in this encounter Care Teams Machine Made Shoe Unit Worker Relationship Specialty Start Date End Date Roe Erazo DO PCP - General FAMILY PRACTICE 07/07/16 Moreno Reeder MD [address] [place] [address] OPHTHALMOLOGY 11/11/21 documented as of this encounter
--- OUTSIDE RECORDS SUMMARY | 2024-12-31 11:22 | XMS_ITS | Clinical Summary ---
Author Organization [facility] Address [address] [place] [address] Care Team Providers Care Audio Video Tech Name Role Phone Roe Erazo DO Primary Care Provider [phone] Moreno Reeder MD Unavailable Allergies Active Allergy [...] LDL-C. Asif SS et al. TY. 2013;310(19): 3836-0062 (http://education.[employer].LIN TV/faq/DCU658) CHOL/HDL RATIO 4.2 <5.0 (calc) [facility] [...] t [facility] [address] [place] [address] from Last 3 Months or Most Recently Relevant to Health Maintenance Insurance [employer] E[employer]ENCE ESSENCE Care Teams Audio Video Tech Relationship Specialty Start Date End Date MesaRoe DO PCP - General FAMILY PRACTICE 07/07/16 Moreno Reeder MD [address] [place] [address] OPHTHALMOLOGY 11/11/21
--- OUTSIDE RECORDS SUMMARY | 2024-12-31 11:22 | XMS_ITS | Encounter Summary ---
Author Organization [facility] Address [facility] [place] [address] Care Team Providers Care Faculty Research Assistant Name Role Phone FultonRoe burrows Primary Care Provider [phone] Moreno Reeder MD Unavailable Encounter Details Date Type Department Care Team (Late st Contact Info) Description 07/20/2016 Abstract [facility] AT [address] [address] Charanjit Mendoza MA Social History Tobacco Use [...] on filedocumented in this encounter Care Teams Faculty Research Assistant Relationship Specialty Start Date End Date Roe Erazo DO PCP - General FAMILY PRACTICE 07/07/16 Moreno Reeder MD [address] [place] [address] OPHTHALMOLOGY 11/11/21 documented as of this encounter
--- OUTSIDE RECORDS SUMMARY | 2024-12-31 11:22 | XMS_ITS | Clinical Summary ---
Author Organization [facility] [place] [address] Address [address] [place] [address] Care Team Providers Care Rug Weaver Name Role Phone Idania Constantino DO Primary Care Provider [phone]- [phone] Allergies Active Allergy Reactions Criticality Noted Date [...] 1 tablet (50 mcg total) by mouth early childhood education coordinator before breakfast Active pantoprazole DR (PROTONIX) 40 [...] exists Zoster Vaccine Completed 02/16/2021, 10/20/[address] [facility] Member Subscriber Plan / Payer (Ef fective 2018-Present) Name:Cara Flores Relation to Subscriber:Self Name:Cara Flores Payer ID:[id number] (NAIC) Type:MEDICARE RISK OTHER Address: [place] [id number] [facility] Care Teams Rug Weaver Relationship Specialty Start Date End Date Idania Constantino DO PCP - General Family Medicine 07/26/24
--- OUTSIDE RECORDS SUMMARY | 2024-12-31 11:22 | XMS_ITS | Clinical Summary ---
Author Organization [facility] Address [address] [place] [address] Care Team Providers Care Vice Investigator Name Role Phone Idania Constantino DO Primary Care Provider [phone]- [phone] Allergies No known active allergies Medications Eliquis [...] Comments Blood Pressure 135/65 03/25/2024 3:12 PM REJECT OPENER AND FILLER Pulse 50 03/25/2024 3:12 PM REJECT OPENER AND FILLER Temperature 36.1 C (96.9 F) 03/25/2024 3:12 PM REJECT OPENER AND FILLER Respiratory Rate 15 03/25/2024 3:12 PM REJECT OPENER AND FILLER Oxygen Saturation 95% 03/25/2024 3:12 PM REJECT OPENER AND FILLER Inhaled Oxygen Concentration - - Weight 87.4 kg (192 lb 9.6 oz) 03/25/2024 3:12 P M REJECT OPENER AND FILLER Height 167.6 cm (5' 6) 03/25/2024 3:12 PM REJECT OPENER AND FILLER Body Mass Index 31.09 03/25/2024 3:12 PM REJECT OPENER AND FILLER Plan of Treatment Health Maintenance Due Date Last Done Comments DTAP/TDAP/TD VACCINES (1 - Tdap) 05[birth year]29/1954 OSTEOPOROSIS SCREENING 05/29/2000 RSV VACCINE (60+ or ) (1 - 1-dose 75+ series) 05/29/2010 PNEUMOCOCCAL VACCINE 50+ YEA RS (2 of 2 - PCV) 10/10/2020 10/11/2019 INFLUENZA VACCINE (#1) 2024 10/11/2019, 2019 ZOSTER VACCINE Completed 02/16/2021, 10/20/2020 Insurance [employer] M[employer] Care Teams Vice Investigator Relationship Specialty Start Date End Date Idania Constantino DO [address] [place] [id number] PCP - General Family Practice 01/23/24
== END 2024-12-31 10:12 | disposition home or self-care (01) ==
PROVIDERS: PCP Family Medicine; Visit Provider Family Medicine
DX: R78.81 Bacteremia (principal)
CPT/HCPCS: 87040